=== PATIENT | female | born 1950 | race Caucasian/White ===

== ENCOUNTER 2020-03-08 14:58 | Inpatient (IN) | payer OTHER, MEDICARE ==
[~2020-03-08] VITALS: Ht 177.8 cm; Wt 178.5 kg
[~2020-03-08 14:58] MED LIST: AMIT75 PO; ASCO1ER PO; ASPI81EC PO; ATEN50 PO; BUPR100ER PO; CLOP75 PO; DOCU100 PO; ERGO50000 PO; FA-80.8 MG; FERR325 PO; FISH1000 PO; FLUT44OIA; FURO100EL PO; GABA800 PO; HYDACE5 PO; IBUP200 PO; INSU100I6; INSULANPEN SC; Lasix40 MG; METO10 PO; OMEGA 3; OXYACE5T PO; PROP PO; THIA100 PO
[2020-03-08 15:40] LABS: Base Excess Venous 6.8 mmol/L; PCO2 Venous 57.8 mmHg (38-42); pH Blood Venous 7.36 (7.34-7.37)
[2020-03-08 15:41] LABS: BASOPHILS ABSOLUTE AUTO 0.02 K/mm3 (0.00-0.23); BASOPHILS PERCENT AUTO 0 % (0-2); EOSINOPHILS ABSOLUTE AUTO 0.04 K/mm3 (0.00-0.68); EOSINOPHILS PERCENT AUTO 1 % (0-6); Hematocrit 37.1 % (33.0-51.0); IMMATURE GRAN ABSOLUTE AUTO 0.02 K/mm3 (0.00-0.10); IMMATURE GRAN PERCENT AUTO 0 % (0-1); LYMPHOCYTES ABSOLUTE AUTO 0.53 K/mm3 (0.84-5.20); LYMPHOCYTES PERCENT AUTO 7 % (21-46); MONOCYTES ABSOLUTE AUTO 0.41 K/mm3 (0.16-1.47); MONOCYTES PERCENT AUTO 5 % (4-13); Mean Corpuscular HGB 28.6 pg (26.0-34.0); Mean Corpuscular HGB Conc 29.6 g/dL (31.5-36.5); Mean Corpuscular Volume 96 fL (80-100); Mean Platelet Volume 10.2 fL (9.1-12.4); NEUTROPHILS PERCENT AUTO 87 % (41-73); Platelet Count 193 K/mm3 (150-400); RDW Coefficient Variation 14.5 % (11.7-14.2); Red Blood Cell Count 3.85 M/mm3 (3.80-5.20); White Blood Cell Count 8.02 K/mm3 (4.00-11.30)
[2020-03-08 16:32] LABS: Source, Urine Catheter
[2020-03-08 16:35] LABS: Alanine Aminotransfer (ALT/SGP 16 U/L (12-78); Albumin, Blood 3.1 g/dL (3.4-5.0); Albumin/Globulin Ratio 0.8 (0.8-1.8); Alk Phos 107 U/L (50-136); Anion Gap 4 mmol/L (6-16); Aspartate Aminotrans (AST/SGOT 21 U/L (12-37); Bilirubin, Total 0.9 mg/dL (0.1-1.0); Blood Urea Nitrogen 17 mg/dL (8-24); Bun/Creatinine Ratio 17.8 (12.0-20.0); CO2, Blood 32 mmol/L (21-32); Calcium, Blood 8.9 mg/dL (8.5-10.1); Chloride, Blood 104 mmol/L (98-108); Creatinine, Blood 0.96 mg/dL (0.40-1.00); Globulin, Blood 3.8 g/dL (2.2-4.0); Glomerular Filtration Rate >60 (60-); Glucose, Blood 187 mg/dL (70-99); Potassium, Blood 4.2 mmol/L (3.5-5.5); Sodium, Blood 140 mmol/L (136-145); Total Protein, Blood 6.9 g/dL (6.4-8.2)
[2020-03-08 16:35] LABS: Bilirubin, Urine Neg (Neg); Blood, Urine 4+ (Neg); Glucose Qualitative, Urine Neg (Neg); Ketones, Urine 3+ (Neg); Leukocyte Esterase, Urine 1+ (Neg); Nitrite, Urine Pos (Neg); Protein, Urine 2+ (Neg); Specific Gravity, Urine 1.015 (1.003-1.022); Urobilinogen, Urine 1+ (Normal)
[2020-03-08 16:38] LABS: Appearance, Urine Hazy (Clear); Color, Urine Yellow (P-Yellow)
[2020-03-08 16:49] LABS: Bacteria Many /hpf; Squamous Epithelial Cells Not Seen /hpf (Few)
[2020-03-08 16:49] LABS: Troponin I 0.846 ng/mL (0.000-0.040)
[2020-03-08] MEDS ORDERED: Coughtab200 MG PO (18:24)
[2020-03-08] MEDS ORDERED: CYCL10 PO (18:25)
[2020-03-08] MEDS ORDERED: BUPR150ER PO (18:25)
[2020-03-08] MEDS ORDERED: DOCU100 PO (18:26)
[2020-03-08] MEDS ORDERED: Furosemide80 MG PO (18:27)
[2020-03-08] MEDS ORDERED: GABAPENTIN600 MG PO ×2 (18:27→18:30)
[2020-03-08] MEDS ORDERED: METO50ER PO (18:28)
[2020-03-08] MEDS ORDERED: Hair, Skin & N1 EACH PO (18:28)
[2020-03-08] MEDS ORDERED: OMEP20ER PO (18:29)
[2020-03-08] MEDS ORDERED: FURO40 PO (18:30)
[2020-03-08] MEDS ORDERED: ATOR10 PO (18:31)
[2020-03-08] MEDS ORDERED: Aspir 8181 MG PO (18:31)
[2020-03-08] MEDS ORDERED: ACET500 PO (18:32)
[2020-03-08] MEDS ORDERED: MELA3 PO (18:33)
[2020-03-08] MEDS ORDERED: Loratadine10 MG PO (18:33)
[2020-03-08] MEDS ORDERED: LACT PO (18:33)
[2020-03-08] MEDS ORDERED: Pedi-Dri 100,0060 GM TOP (18:34)
[2020-03-08] MEDS ORDERED: MIRALAX17 GM PO (18:36)
[2020-03-08] MEDS ORDERED: POTCHL20ER PO (18:36)
[2020-03-08] MEDS ORDERED: SERT25 PO (18:37)
[2020-03-08] MEDS ORDERED: SENN187 PO (18:37)
--- NOTE | 2020-03-08 19:45 | NUR ---
PATIENT ARRIVED TO ICU 14 VIA GURNEY FROM ED PCU STATUS FOR HYPERTENSION, ELEVATED TROP I, AND AMS. PATIENT TRANSFERRED TO BED USING SLIDER SHEET AND PLACED ON ICU MONITORS PATIENT A&O X3 AND ABLE TO ANSWER ADMIT QUESTIONS, UNSURE OF ALL OF HER MEDICATIONS, BUT USES [facility]. PATIENT VERBALIZED THAT HER GRANDDAUGHTER TOLD HER THAT SHE HAS NOT TAKEN HER MEDICATIONS IN DAYS, PATIENT VERBALIZED THAT SHE DOESN'T REMEMBER. PATIENT HAS DIFFICULTY BREATHING WITH REPOSITIONING, USING OXYGEN 2L/NC DURING THE DAY AT HOME AND 3L WITH HER BIPAP FOR SLEEP. RT CALLED FOR CPAP, PATIENT REFUSING HOSPITAL BIPAP DUE TO FEELING CLAUSTROPHOBIC WITH OUR MASK, PATIENT CALLED HER GRANDDAUGHTER TO HAVE HER BRING IN HER HOME CPAP IN THE MORNING.
[2020-03-08 23:53] LABS: Anion Gap 5 mmol/L (6-16); Blood Urea Nitrogen 17 mg/dL (8-24); Bun/Creatinine Ratio 18.3 (12.0-20.0); CO2, Blood 34 mmol/L (21-32); Calcium, Blood 9.1 mg/dL (8.5-10.1); Chloride, Blood 103 mmol/L (98-108); Creatinine, Blood 0.93 mg/dL (0.40-1.00); Glomerular Filtration Rate >60 (60-); Glucose, Blood 186 mg/dL (70-99); Potassium, Blood 3.7 mmol/L (3.5-5.5); Sodium, Blood 142 mmol/L (136-145)
--- NOTE | 2020-03-09 01:00 | NUR ---
MYRANDA COMMISSIONER [employer]KS CALLED REGARDING LAB RESULTS AND FREQUENT PVC'S ON MONITOR. LOPRESSOR GIVEN, EKG DONE, HEPARIN DRIP STARTED. PATIENT RESTING QUIETLY 3L/NC AWAKENS TO SLIGHT STIMULI DENIES PAIN. PEREYRA DRAINING CLEAR YELLOW URINE, AND CONTINUES TO LEAK AROUND PEREYRA. CONTINUES TO REFUSE CPAP. PATIENT NOW ICU STATUS.
[2020-03-09 01:22] LABS: International Normalized Ratio 1.13
--- NOTE | 2020-03-09 06:11 | NUR ---
SUMMARY PATIENT CHANGED TO ICU STATUS DUE TO CONTINUED INCREASING TROP I, AND ECTOPY T/O NIGHT. PEREYRA CATH IN PLACE DRAINING CLEAR YELLOW URINE AND LEAKING URINE WITH SEVERAL SATURATED BED CHANGES. PATIENT ASSISTING WITH REPOSITIONING MUCH SHE CAN. A&O AND COOPERATIVE T/O NIGHT. PATIENT REF HOSPITAL CPAP DUE TO NOT BEING ABLE TO WEAR OUR MASK DUE TO FEELING OF CLAUSTROPHOBIA. 3L/NC IN PLACE WHILE SLEEPING, MAINTAINING BIOX >90%. HEPARIN INFUSING PER PHARMACY.
--- NOTE | 2020-03-09 08:00 | NUR ---
ASSUMED CARE BEDSIDE REPORT RECIEVED. PT IS SLEEPING AT TIME OF REPORT. PT DIFFICULT TO AROUSE. PT IS CONFUSED AND GROGGY FOR SOME TIME AFTER AWAKENING PT. PT IS ALERT AND ORIENTED AT THIS TIME. COMPLAINS OF MILD HEADACHE, DENIES CHEST PAIN OR SOB. VITAL SIGNS STABLE. PT ON 3L O2 NC. HEPARIN GTT INFUSING AT 13 UNITS/KG/HR. PEREYRA IN PLACE WITH MINIMAL AMOUNT OF CLEAR YELLOW OUTPUT NOTED. WILL CONTINUE TO MONITOR.
[2020-03-09 08:03] LABS: BASOPHILS ABSOLUTE AUTO 0.03 K/mm3 (0.00-0.23); BASOPHILS PERCENT AUTO 0 % (0-2); EOSINOPHILS ABSOLUTE AUTO 0.15 K/mm3 (0.00-0.68); EOSINOPHILS PERCENT AUTO 2 % (0-6); Hemoglobin 10.4 g/dL (11.5-16.0); IMMATURE GRAN ABSOLUTE AUTO 0.03 K/mm3 (0.00-0.10); IMMATURE GRAN PERCENT AUTO 0 % (0-1); LYMPHOCYTES PERCENT AUTO 11 % (21-46); MONOCYTES ABSOLUTE AUTO 0.58 K/mm3 (0.16-1.47); MONOCYTES PERCENT AUTO 8 % (4-13); Mean Corpuscular HGB 28.7 pg (26.0-34.0); Mean Corpuscular HGB Conc 29.7 g/dL (31.5-36.5); Mean Corpuscular Volume 97 fL (80-100); Mean Platelet Volume 10.2 fL (9.1-12.4); NEUTROPHILS ABSOLUTE AUTO 5.73 K/mm3 (1.96-9.15); NEUTROPHILS PERCENT AUTO 78 % (41-73); Platelet Count 181 K/mm3 (150-400); RDW Coefficient Variation 14.3 % (11.7-14.2); RDW Standard Deviation 50.4 fL (35.1-46.3); Red Blood Cell Count 3.62 M/mm3 (3.80-5.20); White Blood Cell Count 7.32 K/mm3 (4.00-11.30)
[2020-03-09 08:38] LABS: Albumin, Blood 2.8 g/dL (3.4-5.0); Anion Gap 4 mmol/L (6-16); Blood Urea Nitrogen 16 mg/dL (8-24); Bun/Creatinine Ratio 16.5 (12.0-20.0); CO2, Blood 36 mmol/L (21-32); Calcium, Blood 8.6 mg/dL (8.5-10.1); Chloride, Blood 103 mmol/L (98-108); Creatinine, Blood 0.97 mg/dL (0.40-1.00); Glomerular Filtration Rate >60 (60-); Glucose, Blood 176 mg/dL (70-99); Phosphorus, Blood 3.5 mg/dL (2.5-4.9); Potassium, Blood 3.5 mmol/L (3.5-5.5); Sodium, Blood 143 mmol/L (136-145)
[2020-03-09 11:45] LABS: PCO2 Arterial 69.5 mmHg (35-45); PO2 Arterial 71.3 mmHg (80-100); pH Blood Arterial 7.33 (7.35-7.45)
[2020-03-09] MEDS ORDERED: HYDHCL25 PO (13:23)
[2020-03-09] MEDS ORDERED: INSULANPEN SC (13:24)
[2020-03-09 15:13] LABS: PO2 Arterial 70.5 mmHg (80-100); pH Blood Arterial 7.38 (7.35-7.45)
--- NOTE | 2020-03-09 17:13 | NUR ---
Initial spiritual care note: Mrs. Montoya admits that she is "a little confused sometimes." She is a retired RN, and she is bothered by the fact she is not as mentally sharp as she once was. She also tells me she does not really understand what is going on with her health. She admits she has probably been told, but she cannot remember or understand. Mrs. Montoya has a strong karla and has been active in karla community. Her conservator artifacts is texting daily. She was appreciaitve of prayer and gentle spiritual direction. She respnded well to affirmation of God's love and devotion. Mrs. Montoya expects to return to baseline and home. I will remain available.
[2020-03-09 17:46] LABS: Source, Urine Catheter
--- NOTE | 2020-03-09 17:49 | NUR ---
SHIFT SUMMARY NO ACUTE CHANGES THIS SHIFT. PT HAS REMAINED AWAKE, ALERT AND ORIENTED THIS AFTERNOON. PT DIFFICULT TO AROUSE THIS AM. PT FOLLOWS COMMANDS APPROPRIATELY. FORGETFUL AT TIMES. PT HAS DENIED CHEST PAIN OR SOB TODAY. PT USED CPAP WHILE SLEEPING THIS AM FOR SOME TIME. PT ON 3L O2 NC. VITAL SIGNS HAVE REMAINED STABLE. HEPARIN GTT INFUSING AT 15 UNITS/KG/HR. PEREYRA REPLACED WITH 18FR, NO LEAKING NOTED AT THIS TIME, DRAINING CLEAR YELLOW URINE. PT TAKING PO INTAKE WELL. WILL CONTINUE TO MONITOR AND REPORT OFF TO ONCOMING RN.
[2020-03-09 17:50] LABS: Bilirubin, Urine Neg (Neg); Blood, Urine Neg (Neg); Glucose Qualitative, Urine Neg (Neg); Ketones, Urine Neg (Neg); Leukocyte Esterase, Urine Neg (Neg); Nitrite, Urine Neg (Neg); Protein, Urine Neg (Neg); Specific Gravity, Urine 1.005 (1.003-1.022); Urobilinogen, Urine NORM (Normal)
[2020-03-09 17:51] LABS: Appearance, Urine Clear (Clear); Color, Urine Yellow (P-Yellow)
--- NOTE | 2020-03-09 22:32 | NUR ---
PATIENT RESTING IN BED VISITING WITH FAMILY ON PHONE. A&O X3. PATIENT ASSISTING WITH REPOSITIONING IN BED AND WITH HS CARE. PEREYRA NO LONGER LEAKING AFTER BEING REPLACED. EDGARDO PO WITHOUT DIFFICULTY. MONITOR CONTINUES TO SHOW AFIB WITH CONTROLLED RATE. HEPARIN DRIP CONTINUES.
[2020-03-10 03:28] LABS: BASOPHILS ABSOLUTE AUTO 0.04 K/mm3 (0.00-0.23); BASOPHILS PERCENT AUTO 1 % (0-2); EOSINOPHILS ABSOLUTE AUTO 0.21 K/mm3 (0.00-0.68); EOSINOPHILS PERCENT AUTO 3 % (0-6); Hematocrit 36.5 % (33.0-51.0); Hemoglobin 10.6 g/dL (11.5-16.0); IMMATURE GRAN ABSOLUTE AUTO 0.03 K/mm3 (0.00-0.10); IMMATURE GRAN PERCENT AUTO 0 % (0-1); LYMPHOCYTES ABSOLUTE AUTO 0.73 K/mm3 (0.84-5.20); LYMPHOCYTES PERCENT AUTO 10 % (21-46); MONOCYTES ABSOLUTE AUTO 0.62 K/mm3 (0.16-1.47); MONOCYTES PERCENT AUTO 8 % (4-13); Mean Corpuscular HGB 28.1 pg (26.0-34.0); Mean Corpuscular Volume 97 fL (80-100); Mean Platelet Volume 10.4 fL (9.1-12.4); NEUTROPHILS ABSOLUTE AUTO 5.74 K/mm3 (1.96-9.15); NEUTROPHILS PERCENT AUTO 78 % (41-73); Platelet Count 170 K/mm3 (150-400); RDW Coefficient Variation 14.4 % (11.7-14.2); RDW Standard Deviation 51.5 fL (35.1-46.3); Red Blood Cell Count 3.77 M/mm3 (3.80-5.20); White Blood Cell Count 7.37 K/mm3 (4.00-11.30)
[2020-03-10 03:47] LABS: Albumin, Blood 2.8 g/dL (3.4-5.0); Albumin/Globulin Ratio 0.8 (0.8-1.8); Bilirubin, Total 0.4 mg/dL (0.1-1.0); Bun/Creatinine Ratio 15.3 (12.0-20.0); Calcium, Blood 8.4 mg/dL (8.5-10.1); Creatinine, Blood 1.11 mg/dL (0.40-1.00); Globulin, Blood 3.6 g/dL (2.2-4.0); Potassium, Blood 3.8 mmol/L (3.5-5.5); Total Protein, Blood 6.4 g/dL (6.4-8.2)
--- NOTE | 2020-03-10 05:35 | NUR ---
SUMMARY PATIENT SLEEPING MOST OF THE NIGHT WITH CPAP IN PLACE WITH 3L BLEED IN. ON 3L/NC WHEN OFF CPAP. MONITOR CONTINUES TO SHOW AFIB WITH OCCASIONAL PVC, AT A RATE 80-110'S. PATIENT AWAKENS EASILY TO SLIGHT STIMULI FALLING BACK TO SLEEP WHEN UNDISTURBED. PATIENT NOT COMFORTABLE TO LAY UP ON HER SIDE, SHIFTING POSITIONS T/O NIGHT AND PATIENT ABLE TO ASSIST WITH REPOSITIONING IN BED. HEPARIN DRIP CONTINUING PER PHARMACY
--- NOTE | 2020-03-10 07:14 | NUR ---
PATIENT WOKE UP WITH PAIN TO HER BACK FROM HIPS TO SHOULDERS, ATTEMPT TO REPOSITION AND TYLENOL GIVEN, PATIENT VERBALIZED LAYING ON HER SIDE MADE PAIN INCREASE AND SHE BECAME NAUSEATED. ZOFRAN IV GIVEN AND DOCTOR RANDY CALLED, TRAMADOL PO GIVEN AND PATIENT REPOSITIONED AGAIN. NO CHANGES SEEN TO HEART MONITOR PATIENT ON 4L/NC.
--- NOTE | 2020-03-10 07:30 | NUR ---
ASSUMED CARE RECEIVED REPORT FROM RASHIDA Montelongo RN. PT LYING IN BED ALERT AND ORIENTED TO SELF, SITUATION, AND PLACE. SHE IS ON 4L NC. SHE IS IN AFIB RATE 100-115, STABLE BP. SHE COMPLAINS OF PAIN IN HER BACK (RIGHT SIDE). SHE IS SLIGHTLY COOL AND CLAMMY, DIAPHORETIC. SHE HAS HEPARIN INFUSING AT 16 UNITS/KG/HOUR, 113 KG DOSING WEIGHT, 36.2 ML/HR. VERIFIED WITH ORDERS AND RASHIDA Montelongo BED LOW AND LOCKED. CALL LIGHT WITHIN REACH.
[2020-03-10 08:30] LABS: Hematocrit 32.2 % (33.0-51.0); Hemoglobin 9.4 g/dL (11.5-16.0)
[2020-03-10 09:22] LABS: Bicarbonate Venous 31.8 mmol/L (24.0-30.0); PCO2 Venous 65.7 mmHg (38-42); PO2 Venous 33.1 mmHg (38-42); pH Blood Venous 7.34 (7.34-7.37)
[2020-03-10 09:52] LABS: Bun/Creatinine Ratio 13.4 (12.0-20.0); Calcium, Blood 7.8 mg/dL (8.5-10.1); Creatinine, Blood 1.34 mg/dL (0.40-1.00); Potassium, Blood 4.4 mmol/L (3.5-5.5)
[2020-03-10 10:05] LABS: BASOPHILS ABSOLUTE AUTO 0.06 K/mm3 (0.00-0.23); BASOPHILS PERCENT AUTO 1 % (0-2); EOSINOPHILS ABSOLUTE AUTO 0.15 K/mm3 (0.00-0.68); EOSINOPHILS PERCENT AUTO 1 % (0-6); Hematocrit 29.9 % (33.0-51.0); Hemoglobin 8.5 g/dL (11.5-16.0); IMMATURE GRAN ABSOLUTE AUTO 0.07 K/mm3 (0.00-0.10); IMMATURE GRAN PERCENT AUTO 1 % (0-1); LYMPHOCYTES ABSOLUTE AUTO 1.41 K/mm3 (0.84-5.20); LYMPHOCYTES PERCENT AUTO 11 % (21-46); MONOCYTES ABSOLUTE AUTO 0.79 K/mm3 (0.16-1.47); MONOCYTES PERCENT AUTO 6 % (4-13); Mean Corpuscular HGB 28.3 pg (26.0-34.0); Mean Corpuscular HGB Conc 28.4 g/dL (31.5-36.5); Mean Platelet Volume 10.8 fL (9.1-12.4); NEUTROPHILS ABSOLUTE AUTO 10.17 K/mm3 (1.96-9.15); NEUTROPHILS PERCENT AUTO 80 % (41-73); Platelet Count 347 K/mm3 (150-400); RDW Coefficient Variation 14.6 % (11.7-14.2); RDW Standard Deviation 52.4 fL (35.1-46.3); White Blood Cell Count 12.65 K/mm3 (4.00-11.30)
[2020-03-10 10:08] LABS: Mean Corpuscular Volume 100 fL (80-100)
--- NOTE | 2020-03-10 11:00 | NUR ---
PT PLACED ON NON-REBREATHER MASK, 6L FROM ~[id number]. THEN PUT BACK ON 4-5L NC.
[2020-03-10 13:05] LABS: Hematocrit 30.1 % (33.0-51.0)
[2020-03-10 14:06] LABS: Hematocrit 29.5 % (33.0-51.0); Hemoglobin 8.7 g/dL (11.5-16.0)
--- NOTE | 2020-03-10 14:30 | NUR ---
PT PUT ON CPAP PER RT. SEE RT'S CHARTING FOR PRESSURES.
--- NOTE | 2020-03-10 15:57 | NUR ---
pt seen intesivit at beds side will be available for family support
[2020-03-10 16:01] LABS: Base Excess Venous 0.7 mmol/L; Bicarbonate Venous 23.9 mmol/L (24.0-30.0); PCO2 Venous 70.6 mmHg (38-42); PO2 Venous 57.2 mmHg (38-42); pH Blood Venous 7.21 (7.34-7.37)
--- NOTE | 2020-03-10 16:06 | NUR ---
PT VERBALLY DESIGNATES BROTHER, LINDSEY, PERSON TO MAKE DECISIONS FOR HER IF SHE BECOMES UNABLE.
[2020-03-10 17:19] LABS: Base Excess Venous 0.1 mmol/L; Bicarbonate Venous 22.8 mmol/L (24.0-30.0); PCO2 Venous 66.9 mmHg (38-42); PO2 Venous 30.9 mmHg (38-42); pH Blood Venous 7.23 (7.34-7.37)
--- NOTE | 2020-03-10 17:55 | NUR ---
SHIFT SUMMARY/MAJOR EVENTS PT HAD MANY THINGS HAPPEN TODAY. 0630 - PT WOKE UP STATING SHE HAD PAIN IN HER BACK, ON THE RIGHT SIDE FROM HIP TO SHOULDER. 8/10, SHARP PAIN. SHE WAS DIAPHORETIC WELL. 0730 - LEO CALLED, ORDERED: EKG, + LABS [facility]ENRY STAT (INCLUDING TROPONIN, AND LACTIC ACID). 0807 - PT BECAME HYPOTENSIVE, 74/38, 50. PT REMAINED A+O X 3, NO CHANGES TO MENTATION OCCURED. 0815 - 0.9NS BOLUS INFUSING (TOTAL 750cc). 0830 - DR SAN AND DR BAILEY IN ROOM. CRITICAL CARE (DR. SAUNDERS) CONSULTED. LEVOPHED ORDERED. (SEE FLOWSHEET FOR TITRATIONS AND TIMES). PE IS SUSPECTED AT FIRST. HEPARIN REMAINS ON PER DR. BAILEY. SOLU-CORTEF AND BENADRYL GIVEN FOR CONTRAST ALLERGY PROPHYLAXIS. PT NEEDS CT IMAGING. BP RESPONSIVE TO FLUID. 0900 - PT REMAINS HYPOTENSIVE AND TACHYCARDIC WITH SEVERE PAIN IN SAME PLACE. HEPARIN TURNED OFF, BECAUSE PT IS PRESENTING LIKE SHE IS BLEEDING. 0940 -1007: PT WENT TO GET CT SCANS; NO COMPLICATIONS. CT SCANS SHOWED PT HAD NO PE, BUT HAD RETROPERITONEAL BLEEDING FROM RIGHT KIDNEY. FRANKIE WAS CONSULTED. INCREASED DOSE OF LEVOPHED NEEDED. 1200: VASOPRESSIN ADDED D/T CONTINUED HYPOTENSION. [id number]: PT IN PACKAGING MATERIALS INSPECTOR UNDERGOING PROCEDURE, WHERE SHE RECEIVED 4 COILS IN HER RENAL ARTERIES. SHE CAME BACK TO ICU WITH RIJ CVC, AND AN ANGIOSEAL TO RIGHT FEMORAL ARTERY. RIGHT LEG WAS SIGNIFICANTLY MORE COOL THAN LEFT LEG; NICKY AWARE. PT IS ALSO OLIGURIC, NICKY AWARE. FROM THIS POINT ON WE COULDN'T GET MEASURABLE BP'S, EITHER FROM [facility] OR THE MONITOR. DR. SAUNDERS GOT A LEFT RAD ART LINE WHICH HAD DAMPENED WAVEFORMS, AND THEN IT GOT PULLED OUT AROUND 1530. AT 1745 DR. DAVID INSERTED A ART LINE IN THE RIGHT FEM ARTERY. THERE WAS SEVERAL ATTEMPTS BY MULTIPLE PHYSICIANS BEFORE THAT. PT'S MENTATION REMAINED CONSTANT A&OX3, PT'S EXTREMETIES WERE COOL (RIGHT LEG WORSE). OLIGURIC. EDEMA. EPI WAS HUNG, BUT NOW IS TURNED OFF. CURRENT GTTPS: VASOPRESSIN @ 0.04 UNITS/MIN, AND LEVOPHED AT MCG/KG/MIN. RIGHT FEM ART LINE - SHOWING DECENT, CONSISTENT WAVE FORMS. RIGHT IJ CVC IS WNL. IO, RIGHT HAND IV, AND LEFT UA PICC LINE - WERE ALL REMOVED TODAY WHEN PT CAME BACK WITH RIJ CVC FROM PACKAGING MATERIALS INSPECTOR. PT WAS PLACED ON A BIPAP (ATELECTASIS IN CT SCAN). SHE IS CURRENTLY IN AFIB WITH A RATE OF 120'S. MAP > 65. SHE DENIES PAIN, AND NAUSEA. SHE IS STILL COOL, AND SLIGHTLY CLAMMY (NOT BAD THIS MORNING). SHE IS STILL A&OX3. HER GRANDAUGHTER AND BROTHER HAVE BEEN INFORMED OF TODAY'S EVENTS. SHE GOT 4 UNITS OF PRBCs AND 2 UNITS OF FFP TOTAL TODAY. HER HGB HAS STABALIZED AND IS TRENDING UPWARDS. LACTIC ACID IS INCREASING STILL, NOW AT 7.0 FROM 6.2 (FROM 6.6). TROPONIN DRAWN THIS MORNING PRIOR TO TODAY'S EVENTS WAS ALREADY TRENDING DOWNWARD. SHE WISHES TO BE A FULL CODE, AND HAVE FULL MEASURES DONE. FAMILY AGREES. NO NEED FOR INTUBATION OF YET, SHE IS SAT'ING IN THE 90'S ON BIPAP. SHE IS TACHYPNEIC, HOWEVER, IN THE MID 20'S. SHE APPEARS TO HAVE SOME FLUID OVERLOAD, YET IS STILL OLIGURIC. NICKY AWARE. BED LOW AND LOCKED. CALL LIGHT WITHIN REACH.
[2020-03-10 18:46] LABS: Hematocrit 35.7 % (33.0-51.0); Hemoglobin 11.2 g/dL (11.5-16.0)
--- NOTE | 2020-03-10 21:00 | NUR ---
ASSUMED PT CARE FROM JORGE COLLAZO AT 1915 BEDSIDE REPORT GIVEN. PT IS ALERT AND ORIENTED AND FOLLOWING COMMANDS APPROPRIATELY. BIPAP 22/15; FIO2 25%; BIOX MID 90'S. ARTERIAL LINE NOTED TO RIGHT FEMORAL SITE WITH NO OOZING OR HEMATOMA NOTED TO ANGIOSEAL DEVICE PROXIMAL TO ARTERIAL LINE S/P RENAL COILING. PRESSURES STABLE AT THIS TIME WITH LEVOPHED AT 23MCG/MIN AND VASOPRESSIN 0.04 UNITS/MIN; SEE FLOWSHEET FOR VS. AFIB WITH HR 120'S. CENTRAL LINE TO RIGHT IJ; INFUSING. OOZING NOTED TO FAILED SITE ON LEFT GROIN; MODERATE AMOUNTS OF SANGUINEOUS DRAINAGE. PT CLEANED AND LINEN CHANGE PERFORMED; SITE CLEANSED WITH CHLORA PREP AND CARY DRESSING PLACED. PT IS VERY COLD TO THE TOUCH AND VERY PALE. LEFT LOWER EXTREMITY APPEARS TO BE MORE SWOLLEN THAN RIGHT; NON-PITTING. GENERALIZED EDEMA ELSEWHERE. OVERALL SKIN IS CDI WITH SCATTERED BRUISING AND RED AREAS TO FOLDS. CALL LIGHT WITHIN REACH; PT ABLE TO MAKE NEEDS KNOWN.
--- NOTE | 2020-03-11 | NUR ---
REASSESSMENT PT C/O 02/12 PAIN TO RIGHT BACKSIDE. MEDICATED WITH PO TYLENOL PT WAS ABLE TO SWALLOW THIN LIQUIDS ADEQUATELY. SHORTLY AFTER ADMINISTRATION OF TYLENOL PT C/O NAUSEA. MEDICATED WITH ZOFRAN PER ORDERS; UNEFFECTIVE. HOB ELEVATED, COOL CLOTHS WITH FAN PROVIDED, AND SUCTION PROVIDED. PT HAD ONE EPISODE OF LIQUID GREEN BILE, 100CC. CALLED DR. SAUNDERS; NEW ORDERS FOR FENTNAYL 12.5-25MG IV Q4PRN, REGLAN 5MG IV Q6PRN, AND COMPAZINE 5MG Q6PRN IF REGLAN WAS UNEFFECTIVE. REGLAN WAS UNEFFECTIVE; THEREFORE, ADMINISTERED COMPAZINE WITHOUT ANY EFFECT ALSO. PT MEDICATED WITH 12.5MG OF FENTANYL THAT WAS UNEFFECTIVE; THEREFORE, ADMINISTERED OTHER 12.5MG. PT BECAME DROWSY AND FELL ASLEEP. EASILY AWAKENS; HOWEVER WHEN ASKED IF SHE WAS ABLE TO GO BACK ON BIPAP; SHE STATED SHE STILL FELT NAUSEAS. THEREFORE, REMAINED ON 3L VIA NC.
[2020-03-11 00:20] LABS: Hematocrit 33.4 % (33.0-51.0); Hemoglobin 10.3 g/dL (11.5-16.0)
[2020-03-11 03:39] LABS: BASOPHILS PERCENT AUTO 0 % (0-2); EOSINOPHILS PERCENT AUTO 0 % (0-6); Hematocrit 32.2 % (33.0-51.0); IMMATURE GRAN ABSOLUTE AUTO 0.99 K/mm3 (0.00-0.10); IMMATURE GRAN PERCENT AUTO 3 % (0-1); LYMPHOCYTES ABSOLUTE AUTO 2.07 K/mm3 (0.84-5.20); LYMPHOCYTES PERCENT AUTO 6 % (21-46); MONOCYTES ABSOLUTE AUTO 1.84 K/mm3 (0.16-1.47); MONOCYTES PERCENT AUTO 5 % (4-13); Mean Corpuscular HGB 29.4 pg (26.0-34.0); Mean Corpuscular HGB Conc 31.1 g/dL (31.5-36.5); Mean Platelet Volume 11.2 fL (9.1-12.4); NEUTROPHILS ABSOLUTE AUTO 32.38 K/mm3 (1.96-9.15); NEUTROPHILS PERCENT AUTO 87 % (41-73); NRBC ABSOLUTE 0.33 K/mm3 (0.00-0.02); NRBC Auto 0.9 /100 WBC (0.0-0.2); Platelet Count 245 K/mm3 (150-400); RDW Coefficient Variation 15.1 % (11.7-14.2); RDW Standard Deviation 51.2 fL (35.1-46.3); White Blood Cell Count 37.38 K/mm3 (4.00-11.30)
[2020-03-11 03:41] LABS: Mean Corpuscular Volume 95 fL (80-100)
[2020-03-11 04:01] LABS: Albumin, Blood 2.4 g/dL (3.4-5.0); Albumin/Globulin Ratio 0.8 (0.8-1.8); Alk Phos 128 U/L (50-136); Anion Gap 17 mmol/L (6-16); Bilirubin, Total 1.5 mg/dL (0.1-1.0); Blood Urea Nitrogen 30 mg/dL (8-24); Bun/Creatinine Ratio 13.5 (12.0-20.0); CO2, Blood 23 mmol/L (21-32); Calcium, Blood 7.5 mg/dL (8.5-10.1); Chloride, Blood 97 mmol/L (98-108); Creatinine, Blood 2.22 mg/dL (0.40-1.00); Globulin, Blood 3.1 g/dL (2.2-4.0); Glomerular Filtration Rate 23 (60-); Glucose, Blood 265 mg/dL (70-99); Magnesium, Blood 2.1 mg/dL (1.6-2.4); Potassium, Blood 5.6 mmol/L (3.5-5.5); Sodium, Blood 137 mmol/L (136-145); Total Protein, Blood 5.5 g/dL (6.4-8.2); Vancomycin, Random 26.6 ug/mL
[2020-03-11 04:21] LABS: Alanine Aminotransfer (ALT/SGP 2842 U/L (12-78); Aspartate Aminotrans (AST/SGOT 5262 U/L (12-37)
[2020-03-11 04:22] LABS: Phosphorus, Blood 9.1 mg/dL (2.5-4.9)
[2020-03-11 04:41] LABS: PCO2 Arterial 54.8 mmHg (35-45); pH Blood Arterial 7.21 (7.35-7.45)
[2020-03-11 04:42] LABS: PO2 Arterial 67.5 mmHg (80-100)
--- NOTE | 2020-03-11 05:37 | NUR ---
END OF SHIFT SUMMARY SINCE LAST ENTRY NOTE PT HAS BEEN BACK ON BIPAP SINCE ABOUT 0330; PRESSURE 22/15; FIO2 25%. BIOX LOW TO MID 90'S. REMAINS ALERT AND ORIENTED AND ABLE TO COMMUNICATE NEEDS. DENIES ANY N/V AT THIS TIME. DENIES ANY CHEST PAIN. NO MORE EPISODES OF VOMITING. HOWEVER, PT OCCASIONALLY BELCHES. ONLY COMPLAINT IS MILD RIGHT SIDED BACK PAIN, WHICH SHE WAS MEDICATED FOR WITH FENTANYL PRIOR IN SHIFT. AFIB WITH HR 110-120'S. BP'S STABLE WITH LEVOPHED GTT AT 25MCG/MIN AND VASOPRESSIN AT 0.04 UNITS/MIN. CRITICAL LAB RESULTS CALLED TO DR. SAUNDERS THIS AM WITH ORDERS TO BOLUS 500CC OF NS, START SODIUM BICARB 150 MEQ'S AT 75MLS/HR, AND CONSULT FOR NEPHROLOGY. CONSULT CALLED TO DR. PURCELL WITH AN UPDATE REGARDING PT'S LABS AND CONDITION. NEW ORDERS FOR STAT CHEM 8 PANEL. PEREYRA CATH PATENT AND DRAINED 150CC TO GRAVITY THIS SHIFT; DARK KARI IN COLOR. ARTERIAL LINE TO RIGHT FEMORAL SITE; DRESSING CHANGED THIS SHIFT. CENTRAL LINE TO RIGHT IJ; DRESSING ALSO CHANGED THIS SHIFT. PT REMAINS PALE AND COOL TO THE TOUCH; HGB AND HCT HAVE BEEN STABLE WITH EVERY 6 HOURS H&H CHECKS. PT CONCERNED THAT HER GRANDDAUGHTER HASN'T BEEN UPDATED. WHEN ASKED IF SHE WOULD LIKE ME TO CALL HER FOR AN UPDATE, SHE STATED "NOT THIS LATE." HOWEVER, PT WOULD LIKE DAY SHIFT RN TO CALL AND UPDATE FAMILY. CALL LIGHT LEFT WITHIN REACH AND PT IS ABLE TO UTILIZE APPROPRIATELY. WILL CONTINUE TO MONITOR UNTIL REPORT IS HANDED OFF TO ONCOMING RN.
[2020-03-11 06:02] LABS: Hematocrit 30.2 % (33.0-51.0); Hemoglobin 9.6 g/dL (11.5-16.0)
[2020-03-11 06:15] LABS: Bun/Creatinine Ratio 13.4 (12.0-20.0); Calcium, Blood 7.2 mg/dL (8.5-10.1); Creatinine, Blood 2.31 mg/dL (0.40-1.00); Potassium, Blood 5.2 mmol/L (3.5-5.5)
--- NOTE | 2020-03-11 07:20 | NUR ---
ASSUMED CARE RECEIVED REPORT FROM JORGE BABCOCK. PT IS LYING IN BED ON BIPAP , 25% - SAT'ING 94%. CURRENT GTTPs: BICARBONATE 75 ML/HR, VASOPRESSIN 0.04 UNITS/MIN, LEVOPHED 20 UNITS/KG/MIN (TITRATED DOWN TO 18 UNITS/KG/MIN BY ME) AND NS TKO. SHE HAS A RIGHT FEM ART LINE THAT HAS BEEN ZEROED - SITE LOOKS WNL, SOFT, NONTENDER, NO SIGNS OF HEMATOMA FORMATION, AND RIGHT IJ CVC SITE LOOKS WNL. PT IS IN AFIB RATE 108-120's. MAP 80's. RR 24. BED IS LOW AND LOCKED. CALL LIGHT WITHIN REACH.
--- NOTE | 2020-03-11 10:55 | NUR ---
Met with Emma in ICU room 14 this morning. Pt just had an NG tube placed prior to my arrival. She was off of the bipap during my visit and is alert and oriented. Emma has a history of CHF, statis dermatitis, neuropathy, DVT, PTSD, depression, HTN, osteoporsis, and is currently having acute kidney failure. She was admitted on 03/08/20. She has had a difficult last day or so and has been quite ill. Nursing reports that Emma would like to be a full code and continue with full treatments at this time. Emma reports to me that she would like to have CPR "If you think I can be saved." Explained that we can attempt CPR however we cannot guarantee that she would survive or not have some deficits. She confirmed she would like CPR and would accept being on a ventilator short term if necessary, however she would not want to be on a meterman ventilator with a trach. Emma stated "I don't want to . I know when it's my time I will just sleep until Kali comes, but I'm not ready yet." Offered emotional support. Emma states that she lives with her granddaughter, Naren and her two great grandchildren. She is their for them and worries about them should something happen to them. She tells this promotion writer that her brother, Jaydon, is her alternate health care decision maker and she gives verbal consent for me to contact both Naren and Jaydon to give them updates. Spoke with Jaydon and Naren this morning. Updates given and questions answered. They will both plan to be here at [facility] at 1:30 pm for a family meeting and visit with Emma. Notified Bang, bedside RN, of the plan. Will plan to meet with pt and family and RN at 1:30 today.
--- NOTE | 2020-03-11 11:17 | NUR ---
UPDATE 1000 - INSERTED 16 FR NG TUBE IN RIGHT NARE. SLIGHTLY DIFFICULT, BUT SHE TOLERATED IT WELL. HOOKED IT UP TO LIS. PT WAS PUT ON 5L NC. 1035 - PT TRANSPORTED TO CT FOR KUB SCAN W/O CONTRAST. NG SUCTION ON PAUSE (MEDS GIVEN JUST PRIOR TO DEPARTURE, WILL LEAVE SUCTION OFF FOR AT LEAST 30M TO 1H). PT REMAINS ON 5L NC, TOLERATING IT WELL. SAT'S LOW 90'S. 1105 - PT BACK IN ICU AND HOOKED BACK UP TO ICU MONITORING. NG SUCTION BACK ON LIS. SHE REMAINS ON 5L NC.
[2020-03-11 12:07] LABS: PCO2 Arterial 51.4 mmHg (35-45); PO2 Arterial 59.1 mmHg (80-100)
[2020-03-11 12:08] LABS: pH Blood Arterial 7.25 (7.35-7.45)
[2020-03-11 12:16] LABS: Hematocrit 27.4 % (33.0-51.0); Hemoglobin 8.7 g/dL (11.5-16.0)
[2020-03-11 12:21] LABS: Bun/Creatinine Ratio 14.1 (12.0-20.0); Calcium, Blood 7.5 mg/dL (8.5-10.1); Creatinine, Blood 2.48 mg/dL (0.40-1.00); Potassium, Blood 5.2 mmol/L (3.5-5.5)
[2020-03-11 12:32] LABS: Troponin I 1.85 ng/mL (0.000-0.040)
--- NOTE | 2020-03-11 13:42 | NUR ---
UPDATE 1206 - PT WAS PLACED BACK ON BIPAP DUE TO THE FACT I WAS NOT GETTING A GOOD PULSE OX READING FOR SOMETIME, SHE WAS MILDLY TACHYPNEIC. I PLACED A FOREHEAD PROBE ON HER; WHICH WILL NEED TO BE ROTATED AROUND 1600 (Q4H). 1300 - GAVE PATIENT A BATH, AND REPOSITIONED HER. PT TOLERATED THAT WELL. 1330 - PLACED PT ON 5L NC, GRANDDAUGHTER AND BROUTHER ARE VISITING. WILL PUT HER BACK ON BIPAP AFTER VISIT. SHE IS SLIGHTLY TACHYPNEIC, BUT STATES SHE FEELS FINE WITH HER BREATHING. PALLIATIVE CARE AND DR SAUNDERS ARE IN ROOM DISCUSSING PLAN OF CARE WITH PATIENT. I HAVE BEEN TITRATING LEVOPHED TRYING TO MAINTAIN A MAP >/= 60 AND A SBP >/= 90. CURRENTLY ON 18 MCG/MIN. VASOPRESSIN REMAINS ON AT 0.04 UNITS/MIN. IT HAS BEEN DIFFICULT. SHE IS VERY RESPONSIVE TO A CHANGE OF JUST +/- 0.2 MCG/MIN.
--- NOTE | 2020-03-11 14:25 | NUR ---
Met with Jaydon Carter, Naren and Dr. Apodaca in room ICU 14. Dr. Apodaca explained to family current situation and current therapies that are ongoing. Plan is to place a temporary HD catheter as pt will be needing HD. Family and Emma had their questions answered by Dr. Apodaca and nursing. Emotional support given to pt and family. Emma had increased work of breathing toward the end of the visit. Bipap was placed back on pt per nursing once family left room. Jaydon states that he understands how ill his sister is. He asked pt questions re: a will. He reports that he wants to make sure he is respecting her choices. Jaydon provided a copy of pt's AD to nursing which was placed on pt's chart. Naren is hopeful for a recovery and looking forward to her grandmother coming home. Gently reminded her that her grandmother is very ill and that staff are doing all that they can for her at this time. Naren is worried that she cannot braid her grandmother's hair. Gently offered to have GLUE MACHINE OPERATOR assist with hair care once pt has a chance to go bnack on the bipap awhile and breath easier. BENNIE Jean, reports that she will assist with hair care at a better time for the pt. Allowed family some alone time during visit. PC will remain available. Encouraged family members to call in to check in on Emma for updates. Emma reports that she is okay with her family getting updates over the phone.
[2020-03-11 14:44] LABS: Albumin, Blood 2.3 g/dL (3.4-5.0); Anion Gap 15 mmol/L (6-16); Blood Urea Nitrogen 36 mg/dL (8-24); Bun/Creatinine Ratio 14.3 (12.0-20.0); CO2, Blood 24 mmol/L (21-32); Calcium, Blood 7.3 mg/dL (8.5-10.1); Chloride, Blood 95 mmol/L (98-108); Creatinine, Blood 2.51 mg/dL (0.40-1.00); Glomerular Filtration Rate 20 (60-); Glucose, Blood 281 mg/dL (70-99); Sodium, Blood 134 mmol/L (136-145)
[2020-03-11 15:19] LABS: Phosphorus, Blood 8.7 mg/dL (2.5-4.9)
--- NOTE | 2020-03-11 18:19 | NUR ---
UPDATE AT 181 WE TRANSFERRED THE PATIENT TO ROOM 13 TO ALLOW ROOM FOR DIALYSIS WHICH IS SCHEDULED FOR THIS EVENING. BINH AGREED WITH NICKY TO DO DIALYSIS EMERGENTLY AFTER IMPLENTATION OF LEFT IJ DIALYSIS CATHETER.
--- NOTE | 2020-03-11 18:31 | NUR ---
SHIFT SUMMARY PT ENDS SHIFT IN ROOM ICU 13 ON BIPAP. CURRENT GTTPS: VASOPRESSIN AT 0.04 UNITS/MIN, AND LEVOPHED AT 23 MCG/MIN. RIGHT FEMORAL ART LINE REMAINS TO SHOW GOOD WAVEFORMS; NICKY MENTIONED TO TITRATE PRESSORS TO KEEP SBP > OR EQUAL TO 90 AND MAP > OR EQUAL TO 60. SHE GOT A LEFT IJ TRIALYSIS CATH FOR DIALYSIS TONIGHT. HER LACTIC ACID REMAINS ELEVATED. HER GRANDDAUGHTER AND BROTHER CAME AND VISTED WITH PT, ALONG WITH HAD A MEETING WITH PALLIATIVE CARE, ROMEL PATEL AND DR. SAUNDERS. THEY ARE UPDATED AND UNDERSTANDING OF CURRENT PLAN OF CARE AND THE SEVERITY OF THE ILLNESS. SHE IS CURRENTLY SLEEPING ON BIPAP AND DENIES PAIN, NAUSEA AND DIFFICULTY BREATHING.
--- NOTE | 2020-03-11 20:53 | NUR ---
NON-ROUTINE HOURS HEMODIALYSIS TREATMENT ORDERED FOR ICU PATIEN. FIRST RUN DIALYSIS. CONSENT OBTAINED FROM PATIENT. NEW L IJ CVC PLACED EARLIER TODAY. PLACEMENT CONFIRMED BY XRAY. MACHINE SETUP, PRIMED AND TESTED. UNABLE TO ASPIRATE FROM EITHER PORT EASILY. PORTS FLUSHED WITH SALINE WITH SOME DIFFICULTY. FINALLY ABLE TO ASPIRATE 15 ML BLOOD FROM ART PORT FOR NEEDED HEPATITIS PROFILE BUT NEITHER PORT ABLE TO PROVIDE ADEQUATE FLOW FOR DIALYSIS. DR SAUNDERS NOTIFIED OF UNUSABLE CVC AN SHE REQUESTED A DECLOT PROCEDURE UTILIZING ACTVASE 2MG TO EACH PORT. ACIVASE INSTLLED IN EACH PORT AT 2050 AND DWELL FOR 40 MIN COMMENCED.
--- NOTE | 2020-03-11 21:00 | NUR ---
ASSUMED PT CARE FROM JORGE COLLAZO AT 1915 PT RESTING IN A BARIATRIC BED COMFORTABLY. BIPAP IN PLACE WITH PRESSURES 22/15; FIO2 45%. PT REMAINS ALERT AND ORIENTED AND ABLE TO MAKE BASIC NEEDS KNOWN. DENIES ANY PAIN OR N/V AT THIS TIME. ARTERIAL LINE NOTED TO RIGHT FEMORAL SITE; LEVOPHED GTT AT 20MCG/SAIMA AND VASOPRESSIN REMAINS ON AT 0.04 UNITS/MIN. BP'S STABLE; SEE FLOWSHEET. CENTRAL LINE TO RIGHT IJ; PATENT. HEMODIALYSIS CATHETER NOTED TO LEFT IJ; DRESSING CDI. NG TUBE IS HOOKED TO LOW INTERMITTENT SUCTION WITH SMALL AMOUNTS OF BILE NOTED. PT IS CURRENTLY NPO; THEREFORE, CALLED DR. PURCELL IN REGARDS TO ACETYLCYSTEINE ORDERS IN WHICH HE STATED TO GIVE PER TUBE. ALSO CALLED DR. SAUNDERS TO SEE IF SHE WAS OKAY WITH GIVING HS MEDS PER TUBE WELL. EMAR UPDATED. DR. SAUNDERS ALSO GAVE ORDERS THAT RT COULD TITRATE DOWN BIPAP PRESSURES LONG MINUTE VENTILATION REMAINED ADEQUATE. PEREYRA CATHETER IS PATENT AND DRAINING SCANT AMOUNTS OF URINE TO GRAVITY. PT IS SCHEDULED TO HAVE DIALYSIS LATER THIS SHIFT. DR. SAUNDERS WANTS LABS DRAWN TWO HOURS POST DIALYSIS TREATMENT; DR. SAUNDERS TO ENTER ORDERS. CALL LIGHT WITHIN REACH; PT ABLE TO MAKE NEEDS KNOWN.
--- NOTE | 2020-03-11 21:41 | NUR ---
UNABLE TO OBTAIN BRISK RETURN FROM PORTS WHEN ASPITATION OF ACTIVASE ATEMPTED AT 2134. DR SAUNDERS CONTACTED AND SHE WILL RETURN TO ADJUST OR REPLACE CATHETER TONIGHT.
--- NOTE | 2020-03-11 21:42 | NUR ---
UPDATE CALL OUT TO DR. SAUNDERS IN REGARDS TO DIALYSIS CATHETER NOT DRAWING BLOOD; ATTEMPTED TPA PER ORDERS. HOWEVER, THAT WAS UNSUCCESSFUL. DR. SAUNDERS STATED SHE WOULD BE IN TO REPLACE CATHETER IN ORDER FOR PATIENT TO RECEIVE DIALYSIS TONIGHT.
[2020-03-11 22:41] LABS: PCO2 Arterial 25.6 mmHg (35-45); PO2 Arterial 42.3 mmHg (80-100); pH Blood Arterial 7.27 (7.35-7.45)
--- NOTE | 2020-03-11 23:00 | NUR ---
CHANGE IN CONDITION AFTER DR. SAUNDERS CHANGED OUT HD CATH A STAT CXR WAS ORDERED WHICH DEMONSTRATED SEVERE SUBQ EMPHYSEMA. DR. SAUNDERS THEN ORDERED A STAT CT OF CHEST, ABDOMEN, AND PELVIS. AT THIS TIME PT WAS TAKEN OFF THE BIPAP AND PLACED ON OXYMIZER AT 8L. PT WAS ALSO NOTED TO HAVE A NEW CHANGE TO HER LEFT EYE WITH EXTENSIVE SWELLING AND PT NOT ABLE TO OPEN EYE; APPEARS AIR RELATED. PT TRANSPORTED TO CT BY DR. SAUNDERS, MYSELF, AND PILOT, DIGNA. PT REMAINS ON VASOPRESSOR SUPPORT WITH LEVOPHED AT 20MCG/MIN AND VASOPRESSIN AT 0.04 UNITS/MIN. VITALS STABLE AT THIS TIME; SEE FLOWSHEET
--- NOTE | 2020-03-11 23:20 | NUR ---
DR SAUNDERS REPLACED THE L IJ CVC AND PORTS WERE BOTH ASPIRATED EASILY. UPON XRAY FOR PLACEMENT, IMAGES OF CHEST SHOWED MARKED WORSENING OF SYMPTOMS AND ADDITIONALLY, NEW EXACERBATION OF SWELLING IN NECK AND FACE WERE NOTED. NO IMMEDIATE READING OF XRAY BY RADIOLOGIST AVAILABLE. CT ORDERED TONIGHT. DIALYSIS CANCELLED FOR TONIGHT PENDING CONTINUING ASSESSMENT OF PATIENTS SYMPTOMS. TENTATIVE PLAN FOR DIALYSIS TOMORROW IN AM.
--- NOTE | 2020-03-11 23:59 | NUR ---
RETURNED FROM CT PT CONTINUES TO HAVE SEVERE SUBCUTANEOUS AIR PRESENT WITH POSITIVE CREPITUS PALPATED TO CHEST, BILATERAL ARMS DOWN TO ELBOWS AND UPPER BACK SIDE. PT REMAINS OFF BIPAP FOR NOW; CONNECTED TO AIRVO 60L; 80%. BIOX IS 97%; WILL CONTINUE TO TITRATE NEEDED.
--- NOTE | 2020-03-12 00:21 | NUR ---
UPDATE DR. SANUDERS UPDATED ON CT RESULTS FROM RADIAOLOGIST IN WHICH IT WAS OBSERVED THAT SUBQ AIR WAS ACCUMULATED R/T TO BIPAP; NO EVIDENCE OF PNEUMOTHORAX SEE PER RADIOLOGIST. ORDERS TO KEEP OFF BIPAP AND REMAIN ON AIRVO. SWELLING HAS ALREADY STARTED TO GO DOWN IN BILATERAL EYES. CREPITUS REMAINS PALPABLE TO CHEST, UPPER BACK, AND BILATERAL ARMS DOWN TO ELBOWS. PT IS ON AIRVO AT 60L; 55% FIO2.
[2020-03-12 04:15] LABS: Hematocrit 22.8 % (33.0-51.0); Hemoglobin 7.2 g/dL (11.5-16.0)
[2020-03-12 04:32] LABS: Albumin, Blood 2.2 g/dL (3.4-5.0); Anion Gap 13 mmol/L (6-16); Blood Urea Nitrogen 47 mg/dL (8-24); Bun/Creatinine Ratio 15.2 (12.0-20.0); CO2, Blood 29 mmol/L (21-32); Calcium, Blood 6.7 mg/dL (8.5-10.1); Chloride, Blood 91 mmol/L (98-108); Creatinine, Blood 3.09 mg/dL (0.40-1.00); Glomerular Filtration Rate 16 (60-); Glucose, Blood 358 mg/dL (70-99); Magnesium, Blood 1.9 mg/dL (1.6-2.4); Phosphorus, Blood 7.3 mg/dL (2.5-4.9); Sodium, Blood 133 mmol/L (136-145)
[2020-03-12 05:54] LABS: PCO2 Arterial 60.8 mmHg (35-45); PO2 Arterial 78.4 mmHg (80-100)
--- NOTE | 2020-03-12 06:17 | NUR ---
END OF SHIFT SUMMARY NO SIGNIFICANT CHANGES SINCE CHANGE OF EVENTS AND LAST ENTRY. PT HAS REMAINED ON AIRVO WITH 60L; FIO2 TITRATED T/O NIGHT, BUT CURRENTLY AT 80%. LUNG SOUNDS REMAIN CLEAR TO BILATERAL UPPER LOBES AND DIMINISHED TO BILATERAL. CREPITUS REMAINS PALPABLE TO BILATERAL ARMS DOWN TO ELBOWS, CHEST, UP NECK AND FACE, AND TO MID UPPER BACK. PT HAS BEEN AFIB WITH HR 110-120'S. BP'S STABLE; SEE FLOWSHEET. ABLE TO TITRATE LEVOPHED FROM 20MCG/MIN DOWN TO 12MCG/SAIMA. VASOPRESSIN REMAINS ON AND INFUSING AT 0.04 UNITS/MIN. ORDERS TO DISCONTINUE BICARB GTT THIS MORNING AFTER CALLING DR. SAUNDERS REGARDING LAB RESULTS. ALSO NEW ORDERS TO TRANSFUSE ONE UNIT OF PRBC'S WITH DIALYSIS THIS MORNING; ORDERS ENTERED. PT HAD 50CC OF URINE NOTED THIS SHIFT; DR. SAUNDERS AWARE. NG REMAINS TO LOW INTERMITTENT SUCTION WITH MINIMAL AMOUNTS OF BILE NOTED TO CANISTER. CALL LIGHT WITHIN REACH; PT ABLE TO MAKE HER NEEDS KNOWN. REMAINS ALERT AND ORIENTED WITH SOME CONFUSION IN THE NIGHT AND STARTED PULLING AT LINES/CORDS. HOWEVER, SHE WAS EASILY REDIRECTABLE. GRANDDAUGHTER CALLED AND UPDATED REGARDING PT'S STATUS.
--- NOTE | 2020-03-12 08:40 | NUR ---
[place] of Care: Care assumed at 0700hr. Patient sleeping, but easily roused to verbal stimuli. Oriented to date/time, self, and place. denies pain or discomfort at this time, states to be comfortable. SpO2-97-98% on Airvo NC with 60L/79% FiO2. FiO2 then decreased to 65%, spO2 remains above 96%, denies dyspnea/SOB. Levophed gtt at 10mcg/min, Vasopressin at 0.04u/min, systolic BP 90's-low 100's, MAPs 60's. Arterial line to rt femoral patent and intact, line zero at shift change, good waveform on monitor. Central line to rt IJ patent and intact, infusing without difficulty. Dialysis cath to LT IJ, site wnl, central line port to dialysis cath flushes and returns blood without difficulty. Plan/orders for dialysis today, plan to discuss/consult with Dr. Lr this morning to ensure dialysis cath is safe to use. Crepitus noted from patient lower chest, up to eyes, and anterior neck. Crepitus also noted down to bilateral elbow. Discussed location of crepitus with NOC nurse, confirmed no increase of crepitus noted since NOC RN's previous assessments. Foreman cath patent and intact, draining minimal amount of dark yellow urine. Will continue to monitor.
[2020-03-12 18:06] LABS: Hematocrit 24.9 % (33.0-51.0)
--- NOTE | 2020-03-12 18:12 | NUR ---
Shift Summary: No significant changes throughout shift. Patient remains of Airvo NC at 60L, but FiO2 titrated down from 80% to 40% throughout shift, spO2 remains 92-94%. Continues to deny dyspnea/SOB, appears calm/comfortable. Slow to respond at times, but remains oriented. C/o headache pain, effectively managed with x1 prn tylenol and x1 prn Fentanyl. No change in crepitus throughout shift, continues to persist from lower chest to eyes and down to bilateral elbows. Tolerated Dialysis today, 700ml removed. Levophed gtt titrated down from 10mcg to 6mcg/min throughout shift. Foreman cath remains patent and intact, drained 100ml of dark yellow urine throughout shift. Repeat H+H this afternoon, blood counts stable. Sleeping at this time. Will continue to monitor until report to NOC shift RN.
--- NOTE | 2020-03-12 20:00 | NUR ---
ASSUMPTION OF CARE: PT SLEEPY BUT ORIENTED. IN AFIB, SBP IN THE 100S,HR IN THE 120S. LUNG SOUNDS ARE CLEAR, DIM IN BASES. ON AIRVO AT 50L AND 40% FIO2. SPO2>90%. PT TOLERATING WELL. NG TUBE IN PLACE-CLAMPED. ART LINE IN PLACE TO R FEMORAL. SITE IS C/D/I. ART LINE ZEROED AT SHIFT CHANGE WITH JORGE CHO. RIJ PRESENT, INFUSING. PT ALSO HAS DIALYSIS CATH IN [facility]- CENTRAL LINE ALSO IN DIALYSIS CATH-PATENT AND DRAWS WELL. LEVOPHED RUNNING AT 6 MCG, VASOPRESSIN AT 0.04U/MIN. PT IS EDEMATOUS T/O. CREPITUS STARTING AT NIPPLE LINE EXTENDS UP TO EYES AND SHOULDERS. PT RECEIVED A COUPLE UNITS OF BLOOD AND FFP. H&H CURRENTLY STABLE, NO S/S OF BLEEDING. WILL CONTINUE TO MONITOR
--- NOTE | 2020-03-12 22:12 | NUR ---
PT CURRENTLY RESTING COMFORTABLY. LEVOPHED TITRATED DOWN TO 4MCG. SBP IN THE 90S-100S, MAP >60. GRANDDAUGHTER CALLED AND WAS UPDATED ON PT CONDITION.
[2020-03-13 03:59] LABS: BASOPHILS ABSOLUTE AUTO 0.02 K/mm3 (0.00-0.23); BASOPHILS PERCENT AUTO 0 % (0-2); EOSINOPHILS PERCENT AUTO 0 % (0-6); Hematocrit 23.2 % (33.0-51.0); Hemoglobin 7.3 g/dL (11.5-16.0); IMMATURE GRAN ABSOLUTE AUTO 0.28 K/mm3 (0.00-0.10); IMMATURE GRAN PERCENT AUTO 2 % (0-1); LYMPHOCYTES ABSOLUTE AUTO 0.71 K/mm3 (0.84-5.20); LYMPHOCYTES PERCENT AUTO 4 % (21-46); MONOCYTES ABSOLUTE AUTO 0.79 K/mm3 (0.16-1.47); MONOCYTES PERCENT AUTO 5 % (4-13); Mean Corpuscular HGB 29.7 pg (26.0-34.0); Mean Corpuscular HGB Conc 31.5 g/dL (31.5-36.5); Mean Corpuscular Volume 94 fL (80-100); NEUTROPHILS PERCENT AUTO 89 % (41-73); NRBC ABSOLUTE 0.45 K/mm3 (0.00-0.02); NRBC Auto 2.8 /100 WBC (0.0-0.2); Platelet Count 136 K/mm3 (150-400); RDW Coefficient Variation 16.1 % (11.7-14.2); RDW Standard Deviation 54.4 fL (35.1-46.3); Red Blood Cell Count 2.46 M/mm3 (3.80-5.20)
[2020-03-13 04:13] LABS: Albumin, Blood 2.3 g/dL (3.4-5.0); Anion Gap 11 mmol/L (6-16); Blood Urea Nitrogen 49 mg/dL (8-24); Bun/Creatinine Ratio 15.7 (12.0-20.0); CO2, Blood 30 mmol/L (21-32); Calcium, Blood 7.3 mg/dL (8.5-10.1); Chloride, Blood 96 mmol/L (98-108); Creatinine, Blood 3.13 mg/dL (0.40-1.00); Glomerular Filtration Rate 16 (60-); Glucose, Blood 274 mg/dL (70-99); Phosphorus, Blood 6.3 mg/dL (2.5-4.9); Potassium, Blood 4.8 mmol/L (3.5-5.5); Sodium, Blood 137 mmol/L (136-145)
--- NOTE | 2020-03-13 05:40 | NUR ---
SHIFT SUMMARY: NO ACUTE CHANGES T/O SHIFT. VSS. VASOPRESSIN AND LEVOPHED ON STANDBY. SBP IN THE 80-100S. MAP >60. HR IN THE 120S. MINIMAL URINE OUTPUT THROUGH PEREYRA. ART LINE REMAINS IN PLACE. RIJ INFUSING WITH TKO. LIJ PATENT AND DRAWING WELL. LAST REPOSITION PT WAS TURNED TO THE R SIDE. HOWEVER ART LINE WAVE FORM WAS DAMPENED SO PT WAS REPOSITIONED SUPINE. THIS WAS EFFECTIVE. PT LEFT SUPINE. WILL PASS REPORT TO ONCOMING RN
--- NOTE | 2020-03-13 07:33 | NUR ---
[place] of Care: Care assumed at 0700hr. Patient sleeping but easily roused to verbal stimuli. Drowsy when awake but oriented to self, place, date/time. Denies pain or discomfort, denies dyspnea or SOB. Airvo NC decreased from 50L to 40L at shift change, 38% FiO2, spO2-94-96%. All other VSS, levophed and vasopressin gtt placed on stand-by during NOC shift. Slight decrease in crepitus noted from yesterday, remains down to lower chest but now only down to mid upper arms. Remains prominent in upper chest and neck but has not increased. Central line to rt IJ patent and intact, infusing and flushes without difficulty. Dialysis cath to lt IJ patent and intact, central line port to this catheter flushes and returns blood without difficulty. Arterial line to rt femoral patent and intact, good waveform on monitor, zeroed at shift change. Foreman cath patent and intact, draining minimal amount of dark yellow urine. Plan for dialysis again today with infusing of 1 unit PRBC's during treatment. Will continue to monitor.
[2020-03-13 10:09] LABS: HBSAG SCREEN Negative (Negative); HEP A AB, IGM Negative (Negative); HEP B CORE AB, IGM Negative (Negative); HEP C VIRUS AB 0.2 (0.0-0.9)
--- NOTE | 2020-03-13 18:19 | NUR ---
Shift Summary: No significant changes throughout shift. Patient drowsy this morning but much more alert this afternoon. C/o headache pain, effectively managed with prn fentanyl x2. Continues to deny dyspnea SOB, Airvo NC titrated down to 35L/30%, spO2 92-95%. Crepitus to face, chest, and arms slowly decreased throughout shift, but remains prominent to upper chest. Tolerated full length of dialysis treatment without difficulty, 2L removed, 1 unit of PRBC's administered during treatment. Central line (rt IJ), dialysis cath (lt IJ), and arterial line (rt femoral), remain patent and intact. Foreman cath remains patent and intact, draining dark yellow urine, 200ml output this shift. Tolerated PO water and ice chips this afternoon without difficulty. Calm and comfortable at this time. Will continue to monitor until report to NOC shift RN.
--- NOTE | 2020-03-13 20:00 | NUR ---
ASSUMPTION OF CARE: PT AWAKE IN BED ASKING FOR PAIN MEDS AND ICE CHIPS. A&O. PRESSERS REMAIN OFF. ART LINE BP IN THE 120S. HR IN THE 120-130S. ART LINE ZEROED AT BEGINNING OF SHIFT. REMAIN PATENT. SITE IS C/D/I. IN AFIB. LUNG SOUNDS CLEAR, DIM IN BASES. ON AIRVO-SETTINGS AR 35L, 30%FIO2. SPO2 >90%. PEREYRA IN PLACE DRAINING TO GRAVITY. MINIMAL URINE OUPUT. PT HAD DIALYSIS DURING DAYSHIFT. TOLERATED WELL. RIJ IN PLACE INFUSING WITH NS TKO. LIJ DIALYSIS CATH/CENTRAL LINE PATENT AND SL. CREPITUS REMAINS UNCHANGED. STILL FROM NIPPLE LINE UP TO EYELIDS. HOWEVER EYELIDS APPEAR LESS SWOLLEN. ART LINE WAVE FORM SENSITIVE TO REPOSITIONING. BECOMES EASILY DAMPENED ESPECIALLY WHEN PT IS REPOSITIONED TO R SIDE OR LAYING FLAT. WAVE FORM CURRENTLY HAS GOOD PLETH. WILL CONTINUE TO MONITOR
--- NOTE | 2020-03-13 20:41 | NUR ---
R FEM ART LINE WAVEFORM IS EASILY DAMPENED WITH ANY SLIGHT POSITION CHANGES. CURRENTLY ABLE TO GET PERIPHERAL BPS. CURRENT SBP IS 100-110S. ART LINE PRESSURE READINGS IN THE 100S. SPOKE WITH DR GRACIA ABOUT CONTINUED NEED FOR ART LINE. PER HE WOULD LIKE TO LEAVE ART LINE IN PLACE TONIGHT AND REASSESS NEED TOMORROW. WILL CONTINUE TO MONITOR
[2020-03-14 05:51] LABS: Hematocrit 24.9 % (33.0-51.0); Hemoglobin 7.8 g/dL (11.5-16.0)
--- NOTE | 2020-03-14 06:05 | NUR ---
SHIFT SUMMARY: NO ACUTE CHANGES T/O SHIFT. VSS. PRESSERS REMAIN OFF. ART LINE REMAINS IN PLACE HOWEVER IT IS VERY POSITIONAL. ABLE TO GETBP READING ON LFA. PER DR. CRUZ ART LINE TO BE LEFT IN PLACE AND REASSESSED ON DAYSHIFT. PT SLEPT ON AND OFF T/O NIGHT. REQUESTED ICE CHIPS FREQUENTLY AND TOLERATED WELL. AIRVO REMAINS IN PLACE AT 35L AND 30% FIO2. SPO2 >90%. CREPITUS STILL PRESENT HOWEVER SWELLING TO EYES IS BETTER. POSS DIALYSIS TODAY. PT WOULD LIKE TO CALL BROTHER TODAY AND TALK TO HER DAUGHTER AND GRANDKIDS. WILL PASS REPORT TO ONCOMING SHIFT.
[2020-03-14 06:07] LABS: Albumin, Blood 2.5 g/dL (3.4-5.0); Anion Gap 7 mmol/L (6-16); Blood Urea Nitrogen 47 mg/dL (8-24); Bun/Creatinine Ratio 16.1 (12.0-20.0); CO2, Blood 31 mmol/L (21-32); Calcium, Blood 8.1 mg/dL (8.5-10.1); Chloride, Blood 101 mmol/L (98-108); Creatinine, Blood 2.92 mg/dL (0.40-1.00); Glomerular Filtration Rate 17 (60-); Glucose, Blood 213 mg/dL (70-99); Phosphorus, Blood 5.3 mg/dL (2.5-4.9); Potassium, Blood 4.5 mmol/L (3.5-5.5); Sodium, Blood 139 mmol/L (136-145)
--- NOTE | 2020-03-14 07:48 | NUR ---
[place] of Care: Care assumed at 0700hr. Patient alert and oriented x4, sitting upright in bed. Denies pain, discomfort, SOB, or dyspnea. SpO2-93-94% on Airvo NC at 40L/33% FiO2. Central line to rt IJ patent and intact, infusing without difficulty. Dialysis cath to lt IJ patent and intact, central line port to this catheter flushes and returns blood without difficulty. Arterial line to rt femoral artery has dampened waveform despite flushing and repositioning patient. Peripheral NBP pressures correlate with arterial readings. Will discuss removal of arterial line with Dr. Henriquez this morning. Foreman cath patent and intact, draining clear yellow urine, approx 100ml output thus far. Plan for dialysis treatment in room today with infusion of 1unit PRBC's. Will discuss diet order with Dr. Mehta this morning. Will continue to monitor.
--- NOTE | 2020-03-14 18:14 | NUR ---
Shift Summary: No significant changes throughout shift. Patient received 3hr dialysis treatment this morning, tolerated without difficulty, 3L removed. Patient more alert following dialysis, sitting upright in bed watching tv. Received orders to advance patient's diet as tolerated. Patient received applesauce and apple juice at approx 1200hr, but only wished to have water or ice chips for remainder of shift, no s/s of GI intolerance. Airvo NC removed this morning and patient placed on 3L/NC, spO2-92-96% for remainder of shift, continues to deny dyspnea/SOB. Arterial line removed at approx 0800hr as line had migrated 3-4cm out of skin and was kinked. Arterial line removed without difficulty, no s/s of bleeding or hematoma, NBP reading wnl. Central line to rt IJ and dialysis cath to lt IJ remain patent and intact. Foreman cath remains patent and intact, drained 250ml out dark yellow urine this shift. Patient sleeping at this time. Will continue to monitor until report to NOC shift RN.
--- NOTE | 2020-03-14 20:34 | NUR ---
PATIENT SLEEPING WITH 3L/NC IN PLACE BIOX 98% OXYGEN TITRATED TO 2L/NC. PATIENT OPENS EYES TO VERBAL STIMULI, NODDING HEAD SLIGHTLY TO YES NO QUESTIONS, BUT DIFFICULT TO AWAKEN, NOT NONVERBAL. RESP EVEN AND UNLABORED. NG REMAINS IN PLACE AND CLAMPED. RIGHT GROIN SITE DRESSING CD&I WITH NO SWELLING SEEN. CREPITUS FELT TO LEFT SHOULDER AREA.
--- NOTE | 2020-03-15 01:08 | NUR ---
PATIENT AWAKE, A&O X3, ABLE TO FEED SELF WATER, A LITTLE DIFFICULTY WITH EATING JELLO DUE TO WEAKNESS, SWALLOWING WITHOUT DIFFICULTY. PATIENT VERBALIZED THAT SHE DOESN'T REMEMBER ANYTHING FROM EARLIER TONIGHT. PATIENT C/O PAIN 8/ TO THE BACK OF HER NECK FENTANYL IV GIVEN.
[2020-03-15 04:09] LABS: Hematocrit 25.7 % (33.0-51.0); Hemoglobin 7.7 g/dL (11.5-16.0); Mean Corpuscular HGB 29.6 pg (26.0-34.0); Mean Platelet Volume 10.6 fL (9.1-12.4); NRBC ABSOLUTE 0.19 K/mm3 (0.00-0.02); NRBC Auto 1.5 /100 WBC (0.0-0.2); Platelet Count 140 K/mm3 (150-400); RDW Coefficient Variation 16.5 % (11.7-14.2); RDW Standard Deviation 57.6 fL (35.1-46.3); White Blood Cell Count 12.44 K/mm3 (4.00-11.30)
[2020-03-15 04:10] LABS: Mean Corpuscular Volume 99 fL (80-100)
[2020-03-15 04:26] LABS: Albumin, Blood 2.4 g/dL (3.4-5.0); Anion Gap 7 mmol/L (6-16); Blood Urea Nitrogen 36 mg/dL (8-24); Bun/Creatinine Ratio 14.9 (12.0-20.0); CO2, Blood 32 mmol/L (21-32); Calcium, Blood 7.9 mg/dL (8.5-10.1); Chloride, Blood 101 mmol/L (98-108); Creatinine, Blood 2.41 mg/dL (0.40-1.00); Glomerular Filtration Rate 21 (60-); Glucose, Blood 210 mg/dL (70-99); Phosphorus, Blood 4.7 mg/dL (2.5-4.9); Potassium, Blood 4.1 mmol/L (3.5-5.5); Sodium, Blood 140 mmol/L (136-145)
--- NOTE | 2020-03-15 06:30 | NUR ---
SUMMARY PATIENT AWAKE, SLOW TO ANSWER QUESTIONS AT TIMES. EDGARDO CLEAR LIQUIDS WELL. GENERALIZED WEAKNESS WITH DIFFICULTY HOLDING WATER GLASS AT TIMES. PATIENT C/O WILSON THIS MORNING TYLENOL GIVEN PER NG. CREPITUS CONTINUES TO SHOULDERS AND NECK, EYELIDS LESS SWOLLEN. FENTANYL GIVEN ONCE DURING THE NIGHT FOR C/O NECK PAIN. PATIENT SOB WITH SLIGHT ACTIVITY. REMAINS ON 2L/NC. OCCASIONAL MOIST COUGH WITH LÓPEZ SPUTUM.
--- NOTE | 2020-03-15 09:37 | NUR ---
ASSUMED CARE OF PT AT 0700. REPORT FROM RASHIDA PATEL. PT AWAKE, SLOW TO RESPOND BUT ANSWERS QUESTIONS APPROPRIATELY. LETHARGIC, APPEARS TO FALL ASLEEP DURING ASSESSMENT. WAKES EASILY. DENIES COMPLAINTS. WEAK IN ALL EXTREMITIES. LUNGS DIMINISHED IN BASES, PT ON 2L VIA NC. O2 SATS MID 90'S. AFIB ON MONITOR, RATE 110-120'S. BP STABLE. CENTRAL LINE TO RIGHT IJ, NS AT TKO, DRESSING C/D/I. DIALYSIS PORT TO LEFT IJ c CENTRAL LINE ACCESS, DRESSING C/D/I. NGT TO RIGHT NARE, CLAMPED, ADMINISTERED MEDS VIA TUBE. ABD ROUND, SOFT, NON TENDER. BT X 4. PT DENIES PAIN. CLEAR LIQUID DIET, NO DIFFICULTIES. WILL ADVANCE TOLERATED. SCDS IN PLACE. WILL CONTINUE TO MONITOR.
--- NOTE | 2020-03-15 18:10 | NUR ---
SHIFT SUMMARY PT ASSESSMENT REMAINS UNCHANGED THIS SHIFT. PT ANSWERS QUESTIONS APPROPRIATELY BUT SLOW TO RESPOND. SLEPT MOST OF SHIFT. WAKES c VERBAL STIMULI. LUNGS DIMINISHED IN BASES. PT ON 2L VIA NC, O2 SATS >95%. AFIB, RATE 100-120 THIS SHIFT. PT WORKED c PT TODAY, UP TO CHAIR. TOLERATED WELL. 325 ML CLEAR YELLOW URINE OUT, PEREYRA PATENT AND DRAINING TO GRAVITY. NGT REMOVED. ADVANCED DIET TO FULL LIQUID. PT TOLERATED WELL. VSS. WILL CONTINUE TO MONITOR UNTIL REPORT TO ONCOMING NURSE.
--- NOTE | 2020-03-15 20:37 | NUR ---
ASSUMED CARE OF PT, REPORT RCV'D FROM JORGE HOUSER. PT ALERT AND ORIENTED, SLOW BUT APPROPRIATE RESPONSE TO QUESTIONS. PT APPEARS DROWSY BUT AROUSABLE, PER DAYSHIFT NURSE PT JUST GIVEN 12.5 MCG FENTANYL FOR PAIN. PT C/O NECK/BACK PAIN, REPOSITIONING Q2 AND PRN. PT DECLINED OFFER FOR HEATING PAD. LUNG SOUNDS CLEAR WITH DIM BASES, PT ON 2L NC AT START OF SHIFT WITH O2 SATS>90%. CURRENTLY ON CPAP WITH HOME SETTINGS, PT DESATS TO MID 70'S ON CPAP D/T SLEEPING WITH MOUTH OPEN, RT PLACED CHIN STRAP WITH IMPROVEMENT IN SATURATION. CREPITUS D/T SUB Q EMPHYSEMA FELT ACROSS PATIENT'S CHEST, PER DAYSHIFT NURSE THIS IS IMPROVING. PEREYRA PATENT AND DRAINING CLEAR YELLOW URINE. HD CATH IN LEFT IJ. CENTRAL LINE IN RIGHT IJ, DRESSINGS C/D/I, FLUSHED WITH 10ML NS. SEE FULL SHIFT ASSESSMENT
[2020-03-16 03:47] LABS: BASOPHILS ABSOLUTE AUTO 0.04 K/mm3 (0.00-0.23); BASOPHILS PERCENT AUTO 0 % (0-2); EOSINOPHILS ABSOLUTE AUTO 0.16 K/mm3 (0.00-0.68); EOSINOPHILS PERCENT AUTO 2 % (0-6); Hematocrit 27.1 % (33.0-51.0); Hemoglobin 8.1 g/dL (11.5-16.0); IMMATURE GRAN ABSOLUTE AUTO 0.52 K/mm3 (0.00-0.10); IMMATURE GRAN PERCENT AUTO 5 % (0-1); LYMPHOCYTES ABSOLUTE AUTO 0.61 K/mm3 (0.84-5.20); LYMPHOCYTES PERCENT AUTO 6 % (21-46); MONOCYTES ABSOLUTE AUTO 1.12 K/mm3 (0.16-1.47); MONOCYTES PERCENT AUTO 11 % (4-13); Mean Corpuscular HGB 29.9 pg (26.0-34.0); Mean Corpuscular HGB Conc 29.9 g/dL (31.5-36.5); Mean Corpuscular Volume 100 fL (80-100); Mean Platelet Volume 10.5 fL (9.1-12.4); NEUTROPHILS ABSOLUTE AUTO 8.26 K/mm3 (1.96-9.15); NEUTROPHILS PERCENT AUTO 77 % (41-73); NRBC ABSOLUTE 0.11 K/mm3 (0.00-0.02); Platelet Count 140 K/mm3 (150-400); RDW Coefficient Variation 17.2 % (11.7-14.2); RDW Standard Deviation 56.3 fL (35.1-46.3); Red Blood Cell Count 2.71 M/mm3 (3.80-5.20); White Blood Cell Count 10.71 K/mm3 (4.00-11.30)
[2020-03-16 04:02] LABS: Albumin, Blood 2.4 g/dL (3.4-5.0); Anion Gap 6 mmol/L (6-16); Blood Urea Nitrogen 37 mg/dL (8-24); Bun/Creatinine Ratio 17.9 (12.0-20.0); CO2, Blood 34 mmol/L (21-32); Calcium, Blood 7.8 mg/dL (8.5-10.1); Chloride, Blood 99 mmol/L (98-108); Creatinine, Blood 2.07 mg/dL (0.40-1.00); Glomerular Filtration Rate 25 (60-); Glucose, Blood 200 mg/dL (70-99); Magnesium, Blood 1.8 mg/dL (1.6-2.4); Phosphorus, Blood 4.6 mg/dL (2.5-4.9); Potassium, Blood 3.6 mmol/L (3.5-5.5); Sodium, Blood 139 mmol/L (136-145)
--- NOTE | 2020-03-16 06:47 | NUR ---
SHIFT SUMMARY NO ACUTE CHANGES OVERNIGHT. PT PLEASANT, COOPERATIVE WITH CARE AND ABLE TO APPROPRIATELY EXPRESS HER NEEDS. PT ABLE TO USE CALL LIGHT NEEDED. UNABLE TO ASSIST WITH REPOSITIONING BUT ABLE TO EXPRESS WHEN SHE NEEDS EXTRA REPOSITIONING. PT REQUESTS TO STAY ON HER BACK OFTEN, ENCOURAGED HER TO ALLOW A PILLOW UNDER HIPS TO ALLEVIATE PRESSURE ON BACKSIDE. PT TOLERATES FOR LIMITED AMOUNT OF TIME BEFORE REQUESTING PILLOW REMOVAL. PT ON CPAP OVERNIGHT, TOLERATED WELL WITH NO COMPLAINTS. VSS. 400 ML URINARY OUTPUT. WILL REPORT TO DAYSHIFT NURSE.
--- NOTE | 2020-03-16 08:30 | NUR ---
ASSUMED CARE RECEIVED REPORT FROM JORGE CLEVELAND. PT IS IN BED ON CPAP, SATS IN MID-UPPER 90's. PT IS IN AFIB, RATE 100-120 - WHICH IS WHERE HER BASELINE HAS BEEN. SHE DENIES CP, SOB, AND NAUSEA. SHE IS SALINE LOCKED ON BOTH CENTRAL LINES. STABLE VITALS, SLIGHTLY ELEVATED BP (SEE VS). PT HAS PATENT PEREYRA DRAINING YELLOW URINE. BED LOW AND LOCKED. CALL LIGHT WITHIN REACH
--- NOTE | 2020-03-16 10:42 | NUR ---
UPDATE PT IS NOW PCU STATUS, AND WAS TAKEN TO THE DIALYSIS UNIT. PT OUT OF ROOM AT 1037. PT WAS TRANSPORTED ON TELEMETRY AND ON OXYGEN (2L via 2L).
--- NOTE | 2020-03-16 12:30 | NUR ---
UPDATE PT REMAINS IN DIALYSIS. I GAVE REPORT TO JORGE KINNEY IN THE PCU. THE PT WILL TRANSFER DIRECTLY TO PCU AFTER DAILYSIS. THE REFINISHER, JULIO CÉSAR, WILL TRANSFER HER BELONGINGS AND HER LUNCH TRAY TO HER PCU ROOM (14)
--- NOTE | 2020-03-16 18:25 | NUR ---
SHIFT SUMMARY... NO ACUTE NEGATIVE CHANGES SINCE THE PT WAS TRANSFERED TO THIS UNIT. PT HAS BEEN VERY TIRED AFTER DIALYSIS. CREPITUS WAS NOTED TO THE PT'S LEFT UPPER SHOULDER AREA. PT IS ON 2L NC WITH O2 SATS >90%. PT WAS MEDICATED FOR PAIN 1 TIME SINCE TRANSFER TO THIS UNIT. PT'S VS HAVE BEEN STABLE T/O SHIFT. CALL LIGHT IN REACH WILL CONTINUE TO MONITOR UNTIL REPORT IS GIVEN TO ONCOMING RN.
[2020-03-17 04:26] LABS: BASOPHILS ABSOLUTE AUTO 0.02 K/mm3 (0.00-0.23); BASOPHILS PERCENT AUTO 0 % (0-2); EOSINOPHILS ABSOLUTE AUTO 0.18 K/mm3 (0.00-0.68); EOSINOPHILS PERCENT AUTO 2 % (0-6); Hematocrit 28.5 % (33.0-51.0); Hemoglobin 8.8 g/dL (11.5-16.0); IMMATURE GRAN ABSOLUTE AUTO 0.48 K/mm3 (0.00-0.10); IMMATURE GRAN PERCENT AUTO 5 % (0-1); LYMPHOCYTES ABSOLUTE AUTO 0.62 K/mm3 (0.84-5.20); LYMPHOCYTES PERCENT AUTO 6 % (21-46); MONOCYTES ABSOLUTE AUTO 0.96 K/mm3 (0.16-1.47); MONOCYTES PERCENT AUTO 10 % (4-13); Mean Corpuscular HGB 30.7 pg (26.0-34.0); Mean Corpuscular HGB Conc 30.9 g/dL (31.5-36.5); Mean Corpuscular Volume 99 fL (80-100); Mean Platelet Volume 10.2 fL (9.1-12.4); NEUTROPHILS ABSOLUTE AUTO 7.72 K/mm3 (1.96-9.15); NEUTROPHILS PERCENT AUTO 77 % (41-73); NRBC ABSOLUTE 0.05 K/mm3 (0.00-0.02); NRBC Auto 0.5 /100 WBC (0.0-0.2); Platelet Count 150 K/mm3 (150-400); RDW Standard Deviation 54.1 fL (35.1-46.3); Red Blood Cell Count 2.87 M/mm3 (3.80-5.20); White Blood Cell Count 9.98 K/mm3 (4.00-11.30)
[2020-03-17 04:45] LABS: Albumin, Blood 2.2 g/dL (3.4-5.0); Anion Gap 7 mmol/L (6-16); Blood Urea Nitrogen 35 mg/dL (8-24); Bun/Creatinine Ratio 20.7 (12.0-20.0); CO2, Blood 32 mmol/L (21-32); Calcium, Blood 8.5 mg/dL (8.5-10.1); Chloride, Blood 97 mmol/L (98-108); Creatinine, Blood 1.69 mg/dL (0.40-1.00); Glomerular Filtration Rate 32 (60-); Glucose, Blood 199 mg/dL (70-99); Magnesium, Blood 1.9 mg/dL (1.6-2.4); Phosphorus, Blood 4.5 mg/dL (2.5-4.9); Potassium, Blood 3.5 mmol/L (3.5-5.5); Sodium, Blood 136 mmol/L (136-145)
--- NOTE | 2020-03-17 06:06 | NUR ---
SHIFT SUMMARY PT A&O X4. NO EVENTS OVER NIGHT. BP ELEVATED, OTHERWISE VSS. MONITOR SHOWS AFIB, HR 100-120's. LUNG SOUNDS CLEAR, DIM IN BASES. SPO2 > 92% ON 3L NC OR BIPAP WHILE SLEEPING. PT W/ CREPITUS TO BILAT SHOULDERS, BRUISING SCATTERED T/O, & GENERALIZED EDEMA. BT'S HYPERACTIVE. PEREYRA CATH PATENT AND DRAINING YELLOW URINE. PT REQUIRING ENCOURAGEMENT TO MOVE AND DO THINGS FOR SELF ABLE. PT REQUESTING STAFF TO PULL BLANKET UP WHEN BLANKET IS 2-4 INCHES FROM PT's HANDS. PT ENCOURAGED TO DO MUCH SHE CAN INDEPENDENTLY TO NOT FURTHER LOSE STRENGTH. WILL CONTINUE TO MONITOR AND PROVIDE CARE UNTIL REPORT OFF TO DAY SHIFT RN.
--- NOTE | 2020-03-17 08:20 | NUR ---
AM NOTE.... ASSUMED CARE OF PT APROX 0700. PT IS A&Ox4 BUT SLOW TO RESPOND TO BASIC QUESTIONS. PT IS HYPERTENSIVE THIS AM WITH BP OF 212/130, PROVIDER AWARE AND NEW ORDERS OBTAINED FOR PRN HTN. PT HAS GENERALIZED NONPITTING EDEMA. L/S CLEAR IN THE UPPER LOBES DIM IN THE LOWER LOBES. PT IS ON 2.5L NC WITH O2 SATS >90%. BT PRESENT AND HYPERACTIVE ABD SOFT AND NONTENDER TO PALP. PT DENIES PAIN AT THIS TIME. PT IS SCHEDULED TO HAVE DIALYSIS TODAY. CALL LIGHT IN REACH WILL CONTINUE TO MONITOR.
--- NOTE | 2020-03-17 09:30 | NUR ---
PT UPDATE.... IT WAS NOTED ON ASSESSMENT THE PT HAS CREPITUS DOWN BOTH ARMS TO HER ELBOWS, ACROSS HER CHEST, UP BOTHSIDES OF HER NECK AND INTO BOTH CHEEKS. PT DENIES ANY PAIN, OR SOB.
--- NOTE | 2020-03-17 16:48 | NUR ---
Routine spiritual care note: Mrs. Montoya has a strong karla and a supportive group of friends/family. She is very appreciaitve of prayer and spiritual encouragement. She wanted me to obtain her brother's phone number [facility] I was able to do with t/c to grand-daughter. No fears/concerns presented. She is hopeful. I will remain available.
--- NOTE | 2020-03-17 17:56 | NUR ---
SHIFT SUMMARY... NO ACUTE NEGATIVE CHANGES NOTED THIS SHIFT. PT HAD DIALYSIS TODAY. VS HAVE BEEN STABLE SINCE DIALYSIS. RIGHT IJ CENTRAL LINE WAS D/C'D WNL THIS AFTERNOON. POWERGLIDE WAS PLACED IN THE PT'S [place]ST[place]. PT WORKED WITH PT/OT THIS AFTERNOON WELL. PEREYRA IS PATENT AND DRAINING DARK YELLOW URINE TO GRAVITY. MEHERKER DIALYSIS PORT IN THE LEFT IJ IS PRESENT WITH COBAN DRESSING INTACT. CALL LIGHT IN REACH WILL CONTINUE TO MONITOR UNTIL REPORT IS GIVEN TO ONCOMING RN.
--- NOTE | 2020-03-17 21:00 | NUR ---
CARE ASSUMPTION PT A&O X4. VSS. MONITOR SHOWS AFIB, HR 110's. SPO2 > 92% ON 3L NC. BIPAP AT BEDSIDE. WILL CONTINUE TO MONITOR AND PROVIDE CARE.
[2020-03-18 04:05] LABS: BASOPHILS ABSOLUTE AUTO 0.03 K/mm3 (0.00-0.23); BASOPHILS PERCENT AUTO 0 % (0-2); EOSINOPHILS ABSOLUTE AUTO 0.13 K/mm3 (0.00-0.68); EOSINOPHILS PERCENT AUTO 1 % (0-6); Hematocrit 30.7 % (33.0-51.0); Hemoglobin 9.3 g/dL (11.5-16.0); IMMATURE GRAN ABSOLUTE AUTO 0.39 K/mm3 (0.00-0.10); IMMATURE GRAN PERCENT AUTO 3 % (0-1); LYMPHOCYTES ABSOLUTE AUTO 0.65 K/mm3 (0.84-5.20); LYMPHOCYTES PERCENT AUTO 6 % (21-46); MONOCYTES ABSOLUTE AUTO 0.96 K/mm3 (0.16-1.47); MONOCYTES PERCENT AUTO 8 % (4-13); Mean Corpuscular HGB 29.8 pg (26.0-34.0); Mean Corpuscular HGB Conc 30.3 g/dL (31.5-36.5); Mean Corpuscular Volume 98 fL (80-100); Mean Platelet Volume 10.3 fL (9.1-12.4); NEUTROPHILS ABSOLUTE AUTO 9.26 K/mm3 (1.96-9.15); NEUTROPHILS PERCENT AUTO 81 % (41-73); NRBC ABSOLUTE 0.03 K/mm3 (0.00-0.02); NRBC Auto 0.3 /100 WBC (0.0-0.2); Platelet Count 166 K/mm3 (150-400); RDW Coefficient Variation 17.3 % (11.7-14.2); RDW Standard Deviation 53.9 fL (35.1-46.3); Red Blood Cell Count 3.12 M/mm3 (3.80-5.20); White Blood Cell Count 11.42 K/mm3 (4.00-11.30)
[2020-03-18 04:30] LABS: Albumin, Blood 2.2 g/dL (3.4-5.0); Anion Gap 9 mmol/L (6-16); Blood Urea Nitrogen 29 mg/dL (8-24); CO2, Blood 30 mmol/L (21-32); Calcium, Blood 8.3 mg/dL (8.5-10.1); Chloride, Blood 96 mmol/L (98-108); Creatinine, Blood 1.45 mg/dL (0.40-1.00); Glomerular Filtration Rate 38 (60-); Glucose, Blood 195 mg/dL (70-99); Magnesium, Blood 1.9 mg/dL (1.6-2.4); Phosphorus, Blood 4.2 mg/dL (2.5-4.9); Potassium, Blood 3.4 mmol/L (3.5-5.5); Sodium, Blood 135 mmol/L (136-145)
--- NOTE | 2020-03-18 06:11 | NUR ---
SHIFT SUMMARY PT CONTINUES TO BE A&O X4. VSS. NO EVENTS OVER NIGHT. MONITOR SHOWS AFIB, HR 110's. SPO2 > 92% ON 3L NC WHILE AWAKE. PT WEARING BIPAP MAJORITY OF NIGHT FOR SLEEP, TOLERATING WELL. MD PURCELL IN TO SEE PT THIS AM W/ ORDERS FOR IV POTASSIUM REPLACEMENT, SEE ORDERS. WILL CONTINUE TO MONITOR AND PROVIDE CARE UNTIL REPORT OFF TO DAY SHIFT RN.
--- NOTE | 2020-03-18 08:43 | NUR ---
AM NOTE... ASSUMED CARE OF PT APROX 0700. PT IS A&Ox4. PT WAS HYPERTENSIVE AGAIN THIS AM, PT WAS MEDCIATED PER EMAR WITH GOOD RESULTS. PT IS NOT SCHEDULED FOR DIALYSIS TODAY. PT WAS GOTTEN UP IN THE CHAIR VIA THE LIFT IN THE ROOM. L/S CLEAR IN THE UPPER LOBES DIM IN THE LOWER LOBES. PT HAS GENERALIZED EDEMA, PT'S RIGHT ARM HAS 3+ PITTING, LEFT ARM HAS 1-2+. CREPITUS IS STILL NOTED TO THE PT'S BUE TO THE ELBOWS, HER NECK, CHEEKS, UPPER CHEST AND ACROSS HER SHOULDERS. PT WAS ABLE TO FEED HERSELF BREAKFAST WITH MINIMAL HELP AND SETUP. CALL LIGHT IN REACH WILL CONTINUE TO MONITOR.
--- NOTE | 2020-03-18 16:11 | NUR ---
SHIFT SUMMARY... NO ACUTE NEGATIVE CHANGES NOTED THIS SHIFT. PT'S VS HAVE BEEN STABLE. PT WAS UP IN THE CHAIR USING THE LIFT FOR MOST OF THE DAY. PT WAS GIVEN BEDBATH AND NYSTATIN WAS APPLIED TO HER FOLDS AND GROIN AREA. PT'S PEREYRA WAS PATENT AND DRAINING DARK YELLOW URINE TO GRAVITY. PT WAS ABLE TO FEED HERSELF TODAY FOR BREAKFAST AND LUNCH. PT WORKED WITH PT/OT WELL. PT HAS SLEPT HARD FOR ABOUT 2 HOURS SINCE GETTING BACK INTO BED. CALL LIGHT IN REACH WILL CONTINUE TO MONITOR UNTIL REPORT IS GIVEN TO ONCOMING RN.
--- NOTE | 2020-03-18 16:58 | NUR ---
Bedside report received from Page Robertson RN. The pt is awake, and asking for ice chips and a toothbrush. These were provided for her and she is brushing her teeth right now. She has no complaints or other voiced needs at this time.
[2020-03-19 03:21] LABS: BASOPHILS ABSOLUTE AUTO 0.03 K/mm3 (0.00-0.23); BASOPHILS PERCENT AUTO 0 % (0-2); EOSINOPHILS ABSOLUTE AUTO 0.17 K/mm3 (0.00-0.68); EOSINOPHILS PERCENT AUTO 2 % (0-6); Hematocrit 30.1 % (33.0-51.0); Hemoglobin 9.2 g/dL (11.5-16.0); IMMATURE GRAN ABSOLUTE AUTO 0.25 K/mm3 (0.00-0.10); IMMATURE GRAN PERCENT AUTO 2 % (0-1); LYMPHOCYTES ABSOLUTE AUTO 0.74 K/mm3 (0.84-5.20); LYMPHOCYTES PERCENT AUTO 7 % (21-46); MONOCYTES ABSOLUTE AUTO 0.95 K/mm3 (0.16-1.47); MONOCYTES PERCENT AUTO 9 % (4-13); Mean Corpuscular HGB 29.5 pg (26.0-34.0); Mean Corpuscular HGB Conc 30.6 g/dL (31.5-36.5); Mean Corpuscular Volume 97 fL (80-100); Mean Platelet Volume 10.3 fL (9.1-12.4); NEUTROPHILS ABSOLUTE AUTO 8.23 K/mm3 (1.96-9.15); NEUTROPHILS PERCENT AUTO 79 % (41-73); Platelet Count 171 K/mm3 (150-400); RDW Coefficient Variation 17.2 % (11.7-14.2); RDW Standard Deviation 53.6 fL (35.1-46.3); Red Blood Cell Count 3.12 M/mm3 (3.80-5.20); White Blood Cell Count 10.37 K/mm3 (4.00-11.30)
[2020-03-19 03:36] LABS: Albumin, Blood 2.1 g/dL (3.4-5.0); Anion Gap 11 mmol/L (6-16); Blood Urea Nitrogen 42 mg/dL (8-24); Bun/Creatinine Ratio 25.9 (12.0-20.0); CO2, Blood 27 mmol/L (21-32); Calcium, Blood 8.6 mg/dL (8.5-10.1); Chloride, Blood 99 mmol/L (98-108); Creatinine, Blood 1.62 mg/dL (0.40-1.00); Glomerular Filtration Rate 33 (60-); Glucose, Blood 204 mg/dL (70-99); Magnesium, Blood 1.9 mg/dL (1.6-2.4); Phosphorus, Blood 3.8 mg/dL (2.5-4.9); Potassium, Blood 3.8 mmol/L (3.5-5.5); Sodium, Blood 137 mmol/L (136-145)
--- NOTE | 2020-03-19 06:10 | NUR ---
SHIFT SUMMARY PT A&O X4, MUCH MORE ALERT & INTERACTIVE THIS AM, QUICKER TO ENGAGE IN CONVERSATION, CHUCKLING & SMILING. VSS. MONITOR SHOWS AFIB, HR 100's-120's. SPO2 > 92% ON 3L NC WHILE AWAKE OR CPAP WHILE SLEEPING. PEREYRA CATH PATENT AND DRAINING YELLOW URINE. Q2H REPOSITIONING BY 2 STAFF MEMBERS USING CEILING LIFT. NYASTATIN APPLIED TO RED AREAS IN SKIN FOLDS AND GROIN. WILL CONTINUE TO MONITOR AND PROVIDE CARE UNTIL REPORT OFF TO DAY SHIFT RN.
--- NOTE | 2020-03-19 15:28 | NUR ---
follow up visit pt resting nursing states pain manged. Will contune follow up visits.
--- NOTE | 2020-03-19 17:39 | NUR ---
SHIFT SUMMARY PT ALERT AND ORIENTED. SLOW TO RESPOND. VS STABLE. O2 SATS REMAIN ABOVE 90% ON 3L NC. PT USES CPAP AT NIGHT WITH 3L BLEED IN. PT COMPLAINED OF PAIN ON AND OFF AND MEDICATED NEEDED ALONG WITH REPOSITIONING OFFERED. PT ENCOURAGED TO REPOSITION Q2H. PEREYRA PATENT AND DRAINING CLEAR YELLOW URINE. WILL CONTINUE TO MONITOR AND REPORT TO ONCOMING RN. CALL LIGHT IN REACH.
[2020-03-20 04:05] LABS: Hematocrit 30.7 % (33.0-51.0); Hemoglobin 8.9 g/dL (11.5-16.0)
[2020-03-20 04:22] LABS: Albumin, Blood 2.2 g/dL (3.4-5.0); Anion Gap 7 mmol/L (6-16); Blood Urea Nitrogen 52 mg/dL (8-24); Bun/Creatinine Ratio 28.6 (12.0-20.0); CO2, Blood 32 mmol/L (21-32); Calcium, Blood 8.5 mg/dL (8.5-10.1); Chloride, Blood 96 mmol/L (98-108); Creatinine, Blood 1.82 mg/dL (0.40-1.00); Glomerular Filtration Rate 29 (60-); Glucose, Blood 172 mg/dL (70-99); Magnesium, Blood 1.8 mg/dL (1.6-2.4); Phosphorus, Blood 5.1 mg/dL (2.5-4.9); Potassium, Blood 3.9 mmol/L (3.5-5.5); Sodium, Blood 135 mmol/L (136-145)
--- NOTE | 2020-03-20 05:28 | NUR ---
END OF SHIFT SUMMARY NO ACUTE CHANGES THIS SHIFT. VSS. REMAINS AFIB 100'S. 3LNC, CPAP WHILE ASLEEP. STAFF TURNING PT PT ALLOWS. BARIATRIC BED SET TO GRADUALLY TURN PT WELL. PEREYRA REMAINS PATENT AND DRAINING, OLIGURIA. PT PRESENTS WITH POSTERIOR FLANK BRUISING. MERJERKER IN PLACE. PT SLOW TO RESPOND TO QUESTIONS BUT APPROPRIATE. BED SET IN LOWEST POSITION. CALL LIGHT WITHIN REACH. WILL CONTINUE TO MONITOR UNTIL SHIFT CHANGE.
--- NOTE | 2020-03-20 18:01 | NUR ---
SHIFT SUMMARY PT A&Ox4; SLOW TO RESPOND. REPOSITION Q2 FOR COMFORT USING LIFT. PT REPORTS SOB; ON 3L O2 VIA NC, SPO2 >90% DURING SHIFT; LS DIM IN BASES. PT DENIES PAIN, NAUSEA, AND DIZZINESS. PEREYRA PATIENT AND DRAINING. VSS. NO OTHER ACUTE CHANGES NOTED DURING SHIFT. WILL CONTINUE TO MONIOR UNITL REPORT GIVEN TO ONCOMING RN.
[2020-03-21 04:11] LABS: Hematocrit 30.7 % (33.0-51.0); Hemoglobin 8.9 g/dL (11.5-16.0)
[2020-03-21 04:31] LABS: Albumin, Blood 2.2 g/dL (3.4-5.0); Anion Gap 9 mmol/L (6-16); Blood Urea Nitrogen 59 mg/dL (8-24); Bun/Creatinine Ratio 30.6 (12.0-20.0); CO2, Blood 31 mmol/L (21-32); Calcium, Blood 8.8 mg/dL (8.5-10.1); Chloride, Blood 95 mmol/L (98-108); Creatinine, Blood 1.93 mg/dL (0.40-1.00); Glomerular Filtration Rate 27 (60-); Glucose, Blood 191 mg/dL (70-99); Magnesium, Blood 1.8 mg/dL (1.6-2.4); Phosphorus, Blood 5.1 mg/dL (2.5-4.9); Potassium, Blood 3.7 mmol/L (3.5-5.5); Sodium, Blood 135 mmol/L (136-145)
--- NOTE | 2020-03-21 05:32 | NUR ---
END OF SHIFT SUMMARY NO ACUTWE CHANGES THIS SHIFT. VSS EXCEPT HTN, MEDS PER EMAR. PT BEING REPOSITIONED BY STAFF. PEREYRA PATENT AND DRAINING, MUCH MORE OUTPUT THIS SHIFT COMPARED TO LAST CATTLE TRADER. POWERGLIDE NOW DRAWS BLOOD EASILY POST DAY SHIFT DRESSING CHANGE. PT REMAINS ON 3LNC OR CPAP WITH O2 BLEEDIN TITRATED TO MEET O2 NEEDS. PRN MIRALAX GIVEN DUE TO LACK OF BM FOR MULTIPLE DAYS NOW. SUBCUTANEOUS EMPHYSEMA STILL PRESENT IN CHEST/NECK. PT FOLLOWING 1L FLUID RESTRICTION. MERJERKER REMAINS INTACT AND IN PLACE. WILL CONTINUE TO MONITOR UNTIL SHIFT CHANGE.
--- NOTE | 2020-03-21 16:48 | NUR ---
TRANSFER NOTE PT A&Ox4; SLOW TO RESPONDS, ANSWERS APPROPRAITELY. LIFT USED TO REPOSITION PT AND GET PT TO RECLINER. PTREPORTS PAIN IN BACK OF NECK; REPORTING 5/10; PT REFUSING TYLENOL; NOTIIFED DR CASAS; NEW ORDER FOR TRAMADOL; POSITIVE RESULTS. PT DENIES SOB; PT ON 3L O2 VIA NC; SPO2 >90%. PT DENIES NAUSEA, NUMB/TING AND DIZZINES T/O SHIFT. PT ON FLUID RESTRICTION 1L; APPEARS TO BE TOLERATING WELL. PT VSS. NO OTHER ACUTE CHANGES NOTED DURING SHIFT. REPORT GIVEN TO JORGE NOLEN ON MEDICAL FLOOR ASSUMING CARE OF PT. PT LEFT ROOM AT 1645 TO ROOM 306. PT STATES SHE WILL NOTIFIED FAMILY.
--- NOTE | 2020-03-21 19:08 | NUR ---
Clinical Visit: Pt is alert. She is smiling and talking. She reports that she is upset that a paper with phone numbers has been lost. She denies pain, anxiety. No concerns at this time. She feels that she is improving. She has been transfered from PCU to medical floor today. No concerns from nursing.
--- NOTE | 2020-03-21 19:32 | NUR ---
SHIFT SUMMARY: PATIENT XFR FROM PCU-14 THIS SHIFT. PT A&O; SLOW TO RESPOND; CALM AND COOPERATIVE WITH CARE. NO C/O PAIN SINCE ARRIVAL ON MEDICAL. LIFT PT; ON BEDREST. PEREYRA IN PLACE; PATENT & DRAINING. TEMPORARY DIALYSIS ACCESS TO L IJ. AWAITING STABILIZATION OF KIDNEY FUNCTION; PT & OT RECOMMENDING SNF AT DISCHARGE. REPORT GIVEN TO ONCOMING RN.
--- NOTE | 2020-03-22 04:09 | NUR ---
SHIFT SUMMARY A/O, ABLE TO MAKE NEEDS KNOWN. SLOW TO RESPOND; ALLOWED TIME FOR RESPONSE TO QUESTIONS ASKED. NO C/O PAIN/DISCOMFORT. ABLE TO HELP WITH REPOSITIONING; DID VERY WELL. VSS/AFEBRILE. PEREYRA SECURED AND DRAINING TO GRAVITY. APPEARED TO REST MOST OF SHIFT. NO ACUTE CHANGES NOTED. BED IN LOWEST POSITION. CALL LIGHT AND BELONGINGS WITHIN REACH. WCTM. REPORT TO ONCOMING RN.
[2020-03-22 05:06] LABS: Hematocrit 30.9 % (33.0-51.0); Hemoglobin 9.1 g/dL (11.5-16.0)
[2020-03-22 05:35] LABS: Albumin, Blood 1.9 g/dL (3.4-5.0); Anion Gap 12 mmol/L (6-16); Blood Urea Nitrogen 66 mg/dL (8-24); CO2, Blood 28 mmol/L (21-32); Calcium, Blood 8.6 mg/dL (8.5-10.1); Chloride, Blood 97 mmol/L (98-108); Creatinine, Blood 1.61 mg/dL (0.40-1.00); Glomerular Filtration Rate 34 (60-); Glucose, Blood 184 mg/dL (70-99); Magnesium, Blood 1.9 mg/dL (1.6-2.4); Phosphorus, Blood 4.9 mg/dL (2.5-4.9); Sodium, Blood 137 mmol/L (136-145)
--- NOTE | 2020-03-22 09:50 | NUR ---
DIALYSIS CATH REMOVED L IJ DIALYSIS CATH, PT RECLINED FLAT, SUTURES REMOVED, LINE PULLED ON EXHALATION, PRESSURE HELD FOR 5 MINUTES, PRESSURE DRESSING APPLIED, LINE INTACT, TIP PRESENT, PT EDGARDO WELL, WILL CONT TO MONITOR
[2020-03-22] MEDS ORDERED: METO50 PO (11:39)
--- NOTE | 2020-03-22 17:26 | NUR ---
SUMMARY/DISCHARGE PT DISCHARGED TO [facility], PT TAKEN OVER THERE VIA WHEELCHAIR AMBULANCE, PT UP WITH THE LIFT, REPORT CALLED TO CIARA
== END 2020-03-22 17:15 | DRG 270 ==
LOC: ER 14:58 → ICUW 14:59 → ERHOLD 14:59 → ICUW 19:41 → PCU 03-09 10:52 → ICUW 03-09 10:52 → PCU 03-16 13:12 → MEDS 03-21 16:49 → ENPENDDIS 03-22 10:17 → MEDS 03-22 17:15
PROVIDERS: Family Medicine; Internal Medicine; Internal Medicine Critical Care Medicine; Internal Medicine Interventional Cardiology; Internal Medicine Nephrology; Internal Medicine Pulmonary Disease; Nurse Practitioner Acute Care; Physician Assistant; Radiology Diagnostic Radiology; ADMIT Hospitalist
PROC: 04L93DZ Occlusion of Right Renal Artery with Intraluminal Device, Percutaneous Approach (ICD-10-PCS; principal; 2020-03-10)
PROC: 02HV33Z Insertion of Infusion Device into Superior Vena Cava, Percutaneous Approach (ICD-10-PCS; 2020-03-11)
PROC: 5A1D70Z Performance of Urinary Filtration, Intermittent, Less than 6 Hours Per Day (ICD-10-PCS; 2020-03-11)
PROC: B4161ZZ Fluoroscopy of Right Renal Artery using Low Osmolar Contrast (ICD-10-PCS; 2020-03-11)
PROC: 30233N1 Transfusion of Nonautologous Red Blood Cells into Peripheral Vein, Percutaneous Approach (ICD-10-PCS; 2020-03-12)
DX: I11.0 Hypertensive heart disease with heart failure (principal); I50.31 Acute diastolic (congestive) heart failure; I21.A1 Myocardial infarction type 2; J96.22 Acute and chronic respiratory failure with hypercapnia; J96.21 Acute and chronic respiratory failure with hypoxia; R57.8 Other shock; J18.9 Pneumonia, unspecified organism; G92 Toxic encephalopathy; K66.1 Hemoperitoneum; D62 Acute posthemorrhagic anemia; N39.0 Urinary tract infection, site not specified; N17.9 Acute kidney failure, unspecified; I48.20 Chronic atrial fibrillation, unspecified; E87.1 Hypo-osmolality and hyponatremia; Q79.60 Ehlers-Danlos syndrome, unspecified; Z68.43 Body mass index [BMI] 50.0-59.9, adult; I16.0 Hypertensive urgency; R79.89 Other specified abnormal findings of blood chemistry; E66.01 Morbid (severe) obesity due to excess calories; J43.9 Emphysema, unspecified; W19.XXXA Unspecified fall, initial encounter; E83.39 Other disorders of phosphorus metabolism; E88.09 Other disorders of plasma-protein metabolism, not elsewhere classified; E11.40 Type 2 diabetes mellitus with diabetic neuropathy, unspecified; Z79.4 Long term (current) use of insulin; G89.29 Other chronic pain; I87.2 Venous insufficiency (chronic) (peripheral); F43.10 Post-traumatic stress disorder, unspecified; K44.9 Diaphragmatic hernia without obstruction or gangrene; E26.09 Other primary hyperaldosteronism; M81.0 Age-related osteoporosis without current pathological fracture; G47.00 Insomnia, unspecified; M54.9 Dorsalgia, unspecified; I25.10 Atherosclerotic heart disease of native coronary artery without angina pectoris
CPT/HCPCS: 36253-RT; 36415; 36430; 36556; 36569; 36593; 36600; 36620; 37244; 51702; 51703; 70450; 71045; 71250; 71260; 74176; 74177; 76705; 76937; 80048; 80053; 80069; 80074; 80202; 81001; 81003; 82330; 82607; 82803; 82947; 83605; 83615; 83735; 83880; 84100; 84145; 84484; 85014; 85018; 85025; 85027; 85379; 85610; 85730; 86317; 86592; 86850; 86900; 86901; 86923; 87077; 87086; 87186; 93005; 93010; 93308; 93321; 93970; 94660; 94762; 96365; 96372; 96374; 96375; 96376; 97110; 97162; 97530; 99152; 99153; 99285-25; A9270; A9270-GY; C1751; C1752; C1760; C1769; C1887; C1894; C8929; C9113; G0378; J0171; J0360; J0610; J0696; J0780; J0881; J1200; J1644; J1650; J1720; J1815; J1940; J2405; J2765; J2930; J2997; J3010; J3370; J3480; J7030; J7040; J7050; J7060; J7070; P9016; P9059; P9612; Q9957; Q9967

== ENCOUNTER → 2020-09-13 | Outpatient (CLI) | payer OTHER, MEDICARE ==
[~2020-09-13] MED LIST changes: +ACET500 PO; +ATOR10 PO; +Aspir 8181 MG PO; +BUPR150ER PO; +CYCL10 PO; +Coughtab200 MG PO; +FURO40 PO; +Furosemide80 MG PO; +GABAPENTIN600 MG PO; +HYDHCL25 PO; +Hair, Skin & N1 EACH PO; +LACT PO; +Loratadine10 MG PO; +MELA3 PO; +METO50 PO; +METO50ER PO; +MIRALAX17 GM PO; +OMEP20ER PO; +ONDA4 PO; +POTCHL20ER PO; +Pedi-Dri 100,0060 GM TOP; +SENN187 PO; +SERT25 PO; +TUMS500 MG PO
[2020-09-13 20:57] LABS: Albumin, Blood 2.7 g/dL (3.4-5.0); Anion Gap 7 mmol/L (6-16); Blood Urea Nitrogen 32 mg/dL (8-24); Bun/Creatinine Ratio 22.1 (12.0-20.0); CO2, Blood 31 mmol/L (21-32); Calcium, Blood 9.1 mg/dL (8.5-10.1); Chloride, Blood 104 mmol/L (98-108); Creatinine, Blood 1.45 mg/dL (0.40-1.00); Glomerular Filtration Rate 38 (60-); Glucose, Blood 233 mg/dL (70-99); Phosphorus, Blood 3.5 mg/dL (2.5-4.9); Potassium, Blood 3.9 mmol/L (3.5-5.5); Sodium, Blood 142 mmol/L (136-145)
== END ==
LOC: LAB 19:31 → LAB SHORT 19:31
PROVIDERS: Internal Medicine Nephrology
DX: N18.30 Chronic kidney disease, stage 3 unspecified (principal); D63.1 Anemia in chronic kidney disease
CPT/HCPCS: 80069

== ENCOUNTER 2021-06-09 10:39 | Day surgery (SDC) | payer OTHER, MEDICARE ==
[~2021-06-09] VITALS: Ht 177.8 cm; Wt 148.0 kg
[~2021-06-09 10:39] MED LIST changes: +ATOR20 PO; +Acetaminophen650 M1 PO; +BUDESONIDE-FO10.2 G2 INH; +CYCLOBENZAPRINE5 MG PO; +Lopressor 50 mg50 MG PO; +ONDA4ODT MM; +SENNA LAXATIVE8.6 MG PO; +SERT100 PO; +SIME80CH PO; +Ventolin/Prove6.7 GM INH
[2021-06-09] MEDS ORDERED: INSULANI (11:08)
--- NOTE | 2021-06-09 11:18 | NUR ---
06/09/21 1118 Fer Guerrero PATIENT ASSISTED INTO BED VIA POLO LIFT WITH TWO RNS PRESENT. NO COMPLICATIONS NOTED FROM TRANSFER. PATIENT BROUGHT HER OWN SLING FROM HALFWAY. TETRACAINE AND PLEDGET APPLIED TO THE LEFT EYE PER ORDERS.
== END 2021-06-09 12:33 | disposition home or self-care (01) ==
LOC: ORSCSDS 10:39
PROVIDERS: Ophthalmology
PROC: 08RK3JZ Replacement of Left Lens with Synthetic Substitute, Percutaneous Approach (ICD-10-PCS; principal; 2021-06-09 11:45)
DX: H25.12 Age-related nuclear cataract, left eye (principal); I25.2 Old myocardial infarction; I48.91 Unspecified atrial fibrillation; E11.9 Type 2 diabetes mellitus without complications; Q79.69 Other Ehlers-Danlos syndromes; Z79.4 Long term (current) use of insulin; Z79.899 Other long term (current) drug therapy; Z79.82 Long term (current) use of aspirin; G47.33 Obstructive sleep apnea (adult) (pediatric); J44.9 Chronic obstructive pulmonary disease, unspecified; Z99.81 Dependence on supplemental oxygen; N18.30 Chronic kidney disease, stage 3 unspecified
CPT/HCPCS: 82947; J2001; J2250; J3010; J3301; V2632

== ENCOUNTER 2021-09-06 06:55 | Emergency (ER) | payer OTHER ==
[~2021-09-06] VITALS: Ht 177.8 cm; Wt 153.3 kg
[~2021-09-06 06:55] MED LIST changes: +INSULANI
[2021-09-06] MEDS ORDERED: CALCIUM CARBON500 M4 PO (07:12)
[2021-09-06] MEDS ORDERED: ARTIFICIAL TEAR15 M2 OP (07:13)
[2021-09-06] MEDS ORDERED: Voltaren100 GM TOP (07:15)
[2021-09-06] MEDS ORDERED: HUMALOG JU100 UNIT/2 SQ (07:17)
[2021-09-06] MEDS ORDERED: INSULANI SC (07:18)
[2021-09-06] MEDS ORDERED: FURO40 PO (07:18)
[2021-09-06] MEDS ORDERED: FURO80 PO (07:19)
[2021-09-06] MEDS ORDERED: METO50ER PO (07:21)
[2021-09-06] MEDS ORDERED: MIRALAX17 GM PO (07:21)
[2021-09-06] MEDS ORDERED: SYMBICORT 160-4.6 GM (07:23)
[2021-09-06] MEDS ORDERED: ALBU8HFA2 INH (07:24)
== END 2021-09-06 10:38 | disposition home or self-care (01) ==
LOC: ER 06:55
DX: S00.83XA Contusion of other part of head, initial encounter (principal); S70.02XA Contusion of left hip, initial encounter; E11.40 Type 2 diabetes mellitus with diabetic neuropathy, unspecified; I25.10 Atherosclerotic heart disease of native coronary artery without angina pectoris; I10 Essential (primary) hypertension; Z88.0 Allergy status to penicillin; Z88.2 Allergy status to sulfonamides; Z88.5 Allergy status to narcotic agent; Z91.048 Other nonmedicinal substance allergy status; Z79.82 Long term (current) use of aspirin; Z79.899 Other long term (current) drug therapy; W06.XXXA Fall from bed, initial encounter
CPT/HCPCS: 70450; 73502; 96374; 96375; 99284-25; J2405; J3010

== ENCOUNTER → 2021-12-07 | Outpatient (CLI) | payer OTHER ==
[~2021-12-07] MED LIST changes: +ALBU8HFA2 INH; +ARTIFICIAL TEAR15 M2 OP; +CALCIUM CARBON500 M4 PO; +FURO80 PO; +HUMALOG JU100 UNIT/2 SQ; +INSULANI SC; +SYMBICORT 160-4.6 GM; +Voltaren100 GM TOP
[2021-12-07 15:13] LABS: Hematocrit 37.4 % (33.0-51.0); Hemoglobin 11.1 g/dL (11.5-16.0)
== END | disposition home or self-care (01) ==
LOC: LAB SHORT 12:15
PROVIDERS: Internal Medicine
DX: M83.9 Adult osteomalacia, unspecified (principal)
CPT/HCPCS: 85014; 85018

== ENCOUNTER → 2021-12-14 | Outpatient (CLI) | payer OTHER ==
[2021-12-14 13:37] LABS: Hematocrit 35.4 % (33.0-51.0); Hemoglobin 10.6 g/dL (11.5-16.0)
== END | disposition home or self-care (01) ==
LOC: LAB SHORT 12:46
PROVIDERS: Internal Medicine
DX: I50.33 Acute on chronic diastolic (congestive) heart failure (principal); J96.21 Acute and chronic respiratory failure with hypoxia
CPT/HCPCS: 85014; 85018

== ENCOUNTER 2022-10-28 18:12 | Inpatient (IN) | payer OTHER ==
[~2022-10-28] VITALS: Ht 177.8 cm; Wt 167.2 kg
[2022-10-28 18:57] LABS: BASOPHILS ABSOLUTE AUTO 0.03 K/mm3 (0.00-0.23); BASOPHILS PERCENT AUTO 0 % (0-2); EOSINOPHILS ABSOLUTE AUTO 0.02 K/mm3 (0.00-0.68); EOSINOPHILS PERCENT AUTO 0 % (0-6); Hematocrit 38.8 % (33.0-51.0); Hemoglobin 12.3 g/dL (11.5-16.0); IMMATURE GRAN ABSOLUTE AUTO 0.15 K/mm3 (0.00-0.10); IMMATURE GRAN PERCENT AUTO 1 % (0-1); LYMPHOCYTES ABSOLUTE AUTO 0.38 K/mm3 (0.84-5.20); LYMPHOCYTES PERCENT AUTO 3 % (21-46); MONOCYTES ABSOLUTE AUTO 0.34 K/mm3 (0.16-1.47); MONOCYTES PERCENT AUTO 2 % (4-13); Mean Corpuscular HGB 29.6 pg (26.0-34.0); Mean Corpuscular HGB Conc 31.7 g/dL (31.5-36.5); Mean Corpuscular Volume 94 fL (80-100); NEUTROPHILS ABSOLUTE AUTO 13.17 K/mm3 (1.96-9.15); NEUTROPHILS PERCENT AUTO 94 % (41-73); RDW Coefficient Variation 14.7 % (11.7-14.2); RDW Standard Deviation 50.7 fL (35.1-46.3); Red Blood Cell Count 4.15 M/mm3 (3.80-5.20); White Blood Cell Count 14.09 K/mm3 (4.00-11.30)
[2022-10-28 19:06] LABS: Albumin, Blood 3.3 g/dL (3.4-5.0); Albumin/Globulin Ratio 0.9 (0.8-1.8); Bilirubin, Total 0.3 mg/dL (0.1-1.0); Bun/Creatinine Ratio 23.7 (12.0-20.0); Calcium, Blood 8.7 mg/dL (8.5-10.1); Creatinine, Blood 2.11 mg/dL (0.40-1.00); Globulin, Blood 3.8 g/dL (2.2-4.0); Potassium, Blood 4.3 mmol/L (3.5-5.5); Total Protein, Blood 7.1 g/dL (6.4-8.2)
[2022-10-28 19:07] LABS: Mean Platelet Volume 10.4 fL (9.1-12.4); Platelet Count 163 K/mm3 (150-400)
[2022-10-28 19:26] LABS: Influenza A, PCR NEGATIVE (NEGATIVE); Influenza B, PCR NEGATIVE (NEGATIVE); Resp Syncytial Virus, PCR NEGATIVE (NEGATIVE); SARS-Cov-2 (COVID-19) PCR, MMC NEGATIVE (NEGATIVE)
--- NOTE | 2022-10-29 02:15 | NUR ---
ADMIT NOTE; PT ARRIVES FROM ED VIA GURNEY. UPON ARRIVAL THE PT APPEARS TO BE IN NO DISTRESS. THE PT IS AXO X4 AND PLEASANT. THE PT DENIES ANY PAIN, CHEST PAIN OR PRESSURE OR SOB. THE PT WAS PLACED ON 3L NC UPON ADMIT, 2L NC IS HER BASELINE. THE PT IS UNABLE TO AMBULATE, AT HOME SHE USES A MOTORIZED SCOOTER TO GET AROUND. THEREFORE, THE PT WAS A 4 PERSON SLIDER SHEET TRANSFER FROM THE ED GURNEY TO THE HOSPITAL BED.
--- NOTE | 2022-10-29 04:49 | NUR ---
SHIFT SUMMARY; SINCE TIME OF ADMIT, NO ACUTE CHANGES SEEN IN PT. PT IS AXO X4. PT STATES THAT SHE USES A MOTORIZED SCOOTER TO GET AROUND AT HOME. PRESENTLY THE PT DENIES ANY SOB OR PAIN. THE PT IS ON 3L NC TO MAINTAIN SATS GREATER THAN 92%, 2L NC IS THE PTS BASELINE. PRESENTLY THE PT IS RESTING IN BED WITH THE BED IN THE LOWEST POSITION AND THE CALL LIGHT AT BEDSIDE.
[2022-10-29 05:31] LABS: Hematocrit 35.5 % (33.0-51.0); Mean Corpuscular Volume 94 fL (80-100); Mean Platelet Volume 10.7 fL (9.1-12.4); Platelet Count 151 K/mm3 (150-400); RDW Coefficient Variation 14.9 % (11.7-14.2); RDW Standard Deviation 51.1 fL (35.1-46.3); Red Blood Cell Count 3.79 M/mm3 (3.80-5.20); White Blood Cell Count 18.79 K/mm3 (4.00-11.30)
[2022-10-29 05:56] LABS: Bun/Creatinine Ratio 22.8 (12.0-20.0); Calcium, Blood 8.3 mg/dL (8.5-10.1); Creatinine, Blood 2.28 mg/dL (0.40-1.00); Potassium, Blood 4.6 mmol/L (3.5-5.5)
[2022-10-29 06:11] LABS: BAND PERCENT MAN 19 % (0-8); BASOPHILS PERCENT MAN 0 % (0-2); EOSINOPHILS PERCENT MAN 0 % (0-6); LYMPHOCYTES ABSOLUTE MAN 0.37 K/mm3 (0.84-5.20); LYMPHOCYTES PERCENT MAN 2 % (21-46); MONOCYTES ABSOLUTE MAN 0.56 K/mm3 (0.16-1.47); MONOCYTES PERCENT MAN 3 % (4-13); NEUTROPHILS ABSOLUTE MAN 17.85 K/mm3 (1.96-9.15); SEG NEUTROPHILS PERCENT MAN 76 % (41-73); TOTAL CELLS COUNTED 100
[2022-10-29 15:13] LABS: Source, Urine Straight Cath
[2022-10-29 15:18] LABS: Appearance, Urine Clear (Clear); Bilirubin, Urine Neg (Neg); Blood, Urine 1+ (Neg); Color, Urine Yellow (P-Yellow); Glucose Qualitative, Urine 3+ (Neg); Ketones, Urine Neg (Neg); Leukocyte Esterase, Urine 1+ (Neg); Nitrite, Urine Neg (Neg); Protein, Urine 1+ (Neg); Specific Gravity, Urine 1.015 (1.003-1.022); Urobilinogen, Urine NORM (Normal)
[2022-10-29 15:37] LABS: Bacteria Mod /hpf; Hyaline Casts 0-2 /lpf (0-2); Squamous Epithelial Cells Few /hpf (Few); Yeast/Fungi Urine Rare /hpf
--- NOTE | 2022-10-29 19:25 | NUR ---
SHIFT SUMMARY: PT A&O X4, PLEASANT AND COOPERATIVE. PT HAD MODERATE HEADACHES DURING THE SHIFT AND PT MEDICATED PER EMAR PROTOCOL. PT RECEVIED IV ABX W/O ANY S/S OF ADVERSE REACTIONS. URINE CULUTRE COLLECTED AND SENT TO LAB. PT URINE CULUTRE POSITIVE FOR WBC, BACTERIA AND BLOOD. DR. ROME CONTACTED BY CN AND NO NEW ORDERS PLACED. PT HAD SOB WITH EXTERTION WITH BED MOBILITY. RT CONTACTED AND PT REVECVIED BREATHING TREATMENT. PT IN BED WITH CALL LIGHT WITHIN REACH.
--- NOTE | 2022-10-29 22:04 | NUR ---
VOICED TAKES "TRAMADOL" AT HOME FOR PAIN AND ASKED OF WE COULD GET IT ORDERED FOR HER FOR LEG PAIN. MD NOTIFIED AND ORDER OBTAINED. CALL LIGHT IN REACH
--- NOTE | 2022-10-30 03:35 | NUR ---
DEWER SUMMARY SLIGHTLY ELEVATED TEMP, OTHERWISE VSS. RIGHT LEG REMAINS SOLLEN WITH DISCOLORATION. REQUESTED AND AFTER MD ORDERED IT, RECEIVED PO TRAMADOL FOR PAIN. VOICED IT HELPED. LEGS ELEVATED TO DECREASE SWELLING. ANTIBIOTICS ADMINISTERED ORDERED - SEE MAR FOR DETAILS. HAS BEEN RESTING QUIETLY WITH OCCASIONAL INTERRUPTIONS. O2 PER CPAP, ON CONTINUOUS PULSE OX. SATS IN THE 90'S AND HR IN THE LOW 100'S. ASYMPTOMATIC. CALL LIGHT IN REACH. WILL CONTINUE TO MONITOR
[2022-10-30 05:32] LABS: Bun/Creatinine Ratio 24.1 (12.0-20.0); Calcium, Blood 7.8 mg/dL (8.5-10.1); Creatinine, Blood 2.32 mg/dL (0.40-1.00); Potassium, Blood 4.4 mmol/L (3.5-5.5)
[2022-10-30 06:31] LABS: BASOPHILS ABSOLUTE AUTO 0.02 K/mm3 (0.00-0.23); BASOPHILS PERCENT AUTO 0 % (0-2); EOSINOPHILS PERCENT AUTO 0 % (0-6); Hematocrit 31.7 % (33.0-51.0); Hemoglobin 9.9 g/dL (11.5-16.0); IMMATURE GRAN ABSOLUTE AUTO 0.22 K/mm3 (0.00-0.10); IMMATURE GRAN PERCENT AUTO 1 % (0-1); LYMPHOCYTES ABSOLUTE AUTO 0.57 K/mm3 (0.84-5.20); LYMPHOCYTES PERCENT AUTO 4 % (21-46); MONOCYTES ABSOLUTE AUTO 0.54 K/mm3 (0.16-1.47); MONOCYTES PERCENT AUTO 3 % (4-13); Mean Corpuscular HGB 29.5 pg (26.0-34.0); Mean Corpuscular HGB Conc 31.2 g/dL (31.5-36.5); Mean Corpuscular Volume 94 fL (80-100); Mean Platelet Volume 10.7 fL (9.1-12.4); NEUTROPHILS PERCENT AUTO 92 % (41-73); Platelet Count 146 K/mm3 (150-400); RDW Coefficient Variation 14.8 % (11.7-14.2); RDW Standard Deviation 51.5 fL (35.1-46.3); Red Blood Cell Count 3.36 M/mm3 (3.80-5.20); White Blood Cell Count 16.05 K/mm3 (4.00-11.30)
--- NOTE | 2022-10-30 06:40 | NUR ---
TELE REPORTED HR INCREASED TO 140'S AND 150'S. UPON BEDSIDE ASSESSMENT, APPEARED ANXIOUS, WANTED "BEDPAN" QUICKLY. ASSISTED WITH BEDPAN. ALSO NOTE CONT PULSE OX BEEPING. VOICED TAKING IT OFF TO GET DRINK OF WATER. HAS TOLERATED 3 CUPS OF WATER THIS SHIFT. LEGS REMAIN ELEVATED. CALL LIGHT IN REACH.
--- NOTE | 2022-10-30 19:34 | NUR ---
SHIFT SUMMARY: PT A&0 X4, PLEASANT AND COMMUNICATES WELL WITH STAFF. PT SOB STATING 85%, TACHYCARDIC AT THE BEGINNING OF THE SHIFT. PT HAD MODERATE PAIN IN HER ENTIRE RIGHT LEG FROM CELLULITIS. PT WAS TAKEN OFF OF CPAP TO NC AND DIDN'T RECEVIED THE PROPER HOSE, CORRECT HOSE WAS FOUND. PT O2 STATS 93% ON 2L NC AND STABLE, HR REDUCED TO MID 100'S-120BPM. PT RECVIED BREATHING TREATMENT AND PT VITALS IMPROVE. PT CONTIUNE TO HAVE MODERATE PAIN IN HER RIGHT LEG AND HAS PRN PAIN MEDICATION FOR PAIN MANAGEMENT. PT IN BED WITH CALL LIGHT WITHIN REACH.
--- NOTE | 2022-10-31 03:51 | NUR ---
TEAM LEAD SUMMARY VSS. ACCU CHK AT HS 227. REG INSULIN HELD, BUT RECEIVED LONG ACTING. O2 SATS REMAIN IN THE 90'S. LESS ANXIOUS THIS SHIFT THAN NOTED 24 HR AGO. HR IN LOW 100'S. HAS RECEIVED TRAMADOL PO FOR LEG PAIN. LEFT LEG APPEARS LESS SWOLLEN AND LESS WARM TO TOUCH. LEGS REMAIN ELEVATED. AFFECT MORE CHEERFUL. HAS BEEN RESTING QUIETLY WITH CPAP SINCE HS. CALL LIGHT IN REACH. WILL CONTINUE TO MONITOR
[2022-10-31 05:46] LABS: BASOPHILS ABSOLUTE AUTO 0.02 K/mm3 (0.00-0.23); BASOPHILS PERCENT AUTO 0 % (0-2); EOSINOPHILS ABSOLUTE AUTO 0.05 K/mm3 (0.00-0.68); EOSINOPHILS PERCENT AUTO 0 % (0-6); Hematocrit 31.7 % (33.0-51.0); Hemoglobin 9.8 g/dL (11.5-16.0); IMMATURE GRAN ABSOLUTE AUTO 0.28 K/mm3 (0.00-0.10); IMMATURE GRAN PERCENT AUTO 2 % (0-1); LYMPHOCYTES ABSOLUTE AUTO 0.65 K/mm3 (0.84-5.20); LYMPHOCYTES PERCENT AUTO 5 % (21-46); MONOCYTES ABSOLUTE AUTO 0.59 K/mm3 (0.16-1.47); MONOCYTES PERCENT AUTO 4 % (4-13); Mean Corpuscular HGB 28.9 pg (26.0-34.0); Mean Corpuscular HGB Conc 30.9 g/dL (31.5-36.5); Mean Corpuscular Volume 94 fL (80-100); Mean Platelet Volume 10.8 fL (9.1-12.4); NEUTROPHILS PERCENT AUTO 88 % (41-73); Platelet Count 155 K/mm3 (150-400); RDW Coefficient Variation 14.9 % (11.7-14.2); RDW Standard Deviation 51.3 fL (35.1-46.3); Red Blood Cell Count 3.39 M/mm3 (3.80-5.20); White Blood Cell Count 13.59 K/mm3 (4.00-11.30)
[2022-10-31 06:12] LABS: Bun/Creatinine Ratio 22.5 (12.0-20.0); Calcium, Blood 8.3 mg/dL (8.5-10.1); Creatinine, Blood 2.36 mg/dL (0.40-1.00); Potassium, Blood 4.1 mmol/L (3.5-5.5)
--- NOTE | 2022-10-31 19:15 | NUR ---
SHIFT SUMMARY: PT A&O X4, PLEASANT AND COOPERATIVE. PT HAD MODERATE PAIN IN HER RIGHT LEG. PT MEDICATED PER EMAR PROTOCOL. PT CONITUES TO COUGH UP YELLOW THICK SPUTUM, DR. WALL ORDER CHEST X-RAY. PT RECEVIED HEAT PAD TO HELP WITH CHRONIC BACK PAIN. PT HAD NO FURTHER S/S THROUGHOUT THE SHIFT. PT IN BED WITH CALL LIGHT WITHIN REACH.
--- NOTE | 2022-11-01 04:54 | NUR ---
BEAUTICIAN APPRENTICE SUMMARY VSS. REMAINS ON CPAP WITH CONTINUOUS PULSE OX. SATS REMAIN INTHE 90'S AND HR LOW 90'S - LOW 100'S. ASYMPTOMATIC. INCONT OF URINE X 2 THIS SHIFT, CHANGED. ALERT TO QUESTIONS ASKED. HAS BEEN RESTING QUIETLY WITH FEW INTERRUPTIONS OTHERWISE. MEDICATED FOR PAIN OF LEFT LEG CELLULITIS. NOTE ALTHOUGH APPEARS LESS EDEMATOUS, REMAINS REDDENED IN COLOR AND APPARENT VESICLES. CALL LIGHT IN ERACH. WILL CONTINUE TO MONITOR
--- NOTE | 2022-11-01 15:25 | NUR ---
Pt. is resting but responds when I enter the room. Pt. is pleasant, welcomes my visit, and rapport is established promptly. Pt. was unsettled by some rough treatment from one of the staff, but verbalized that she had already communicated her concern. Listened with empathy and a calming presence. Pt. displayed evidence of engagement and awareness. Pt. verbalized that she has also recieved spiritual care through her SDA sikhism. Prayed with Pt. Pt. verbalized gratitude for the spiritual care visit.
--- NOTE | 2022-11-01 18:41 | NUR ---
SUMMARY- PT A/O X3, ABX FOR CELLULITIS, DIFUSE OVER ENTIRE LLE, UNABLE TO RUDDY. PT TOLERATING FOOD AND FLUID. BASELINE ABLE TO PIVOT TX TO WHEELCHAIR OF [facility] BUT UNABLE TO USE SMALL COMMODE. WILL HAVE NOC RN F/U AND LOOK FOR BARIATIRIC COMMODE AND TO ASK ABOUT STARTING PT/OT AM TO MAINTAIN MOBILITY. SUGARS AC/HS, COVERED WITH SS HUMALOG. CELLULITIS PAIN CONTROLLED WITH ULTRAM AND TYLENOL.
--- NOTE | 2022-11-02 05:05 | NUR ---
SHIFT SUMMARY NOC PT A/OX4. PT ON 2-3L/NC SPO2 AT >94%. PT WAS INC OF URINE X 1. PT HAS PT/OT CONSULT. PT ON TELE RUNNING AFIB WITH HR 117 BPM. PT VSS. PT HAD C/O OF PN IN LLE AND MEDICATED PER EMAR. PT PLEASANT AND COOPERATIVE TO CARE. PT PLANNING ON GOING BACK TO [facility] WHEN CELLULITIS RESOLVES. PT CURRENTLY RESTING WITH CX BIOX ON, CPAP, BED RAILS UP, BED IN LOWEST POSITION, AND CALL LIGHT WITHIN REACH. WCTM.
[2022-11-02 05:39] LABS: Albumin, Blood 1.9 g/dL (3.4-5.0); Anion Gap 9 mmol/L (6-16); Blood Urea Nitrogen 44 mg/dL (8-24); Bun/Creatinine Ratio 21.5 (12.0-20.0); CO2, Blood 25 mmol/L (21-32); Calcium, Blood 8.4 mg/dL (8.5-10.1); Chloride, Blood 103 mmol/L (98-108); Creatinine, Blood 2.05 mg/dL (0.40-1.00); Glomerular Filtration Rate 25 (60-); Glucose, Blood 194 mg/dL (70-99); Potassium, Blood 3.7 mmol/L (3.5-5.5); Sodium, Blood 137 mmol/L (136-145)
[2022-11-02 05:48] LABS: BASOPHILS ABSOLUTE AUTO 0.05 K/mm3 (0.00-0.23); BASOPHILS PERCENT AUTO 1 % (0-2); EOSINOPHILS ABSOLUTE AUTO 0.09 K/mm3 (0.00-0.68); EOSINOPHILS PERCENT AUTO 1 % (0-6); Hematocrit 37.4 % (33.0-51.0); Hemoglobin 11.9 g/dL (11.5-16.0); IMMATURE GRAN ABSOLUTE AUTO 0.13 K/mm3 (0.00-0.10); IMMATURE GRAN PERCENT AUTO 1 % (0-1); LYMPHOCYTES ABSOLUTE AUTO 0.67 K/mm3 (0.84-5.20); LYMPHOCYTES PERCENT AUTO 7 % (21-46); MONOCYTES ABSOLUTE AUTO 0.71 K/mm3 (0.16-1.47); MONOCYTES PERCENT AUTO 8 % (4-13); Mean Corpuscular HGB 28.7 pg (26.0-34.0); Mean Corpuscular HGB Conc 31.8 g/dL (31.5-36.5); Mean Corpuscular Volume 90 fL (80-100); Mean Platelet Volume 10.3 fL (9.1-12.4); NEUTROPHILS ABSOLUTE AUTO 7.43 K/mm3 (1.96-9.15); NEUTROPHILS PERCENT AUTO 82 % (41-73); Platelet Count 129 K/mm3 (150-400); RDW Coefficient Variation 14.5 % (11.7-14.2); RDW Standard Deviation 48.6 fL (35.1-46.3); Red Blood Cell Count 4.14 M/mm3 (3.80-5.20); White Blood Cell Count 9.08 K/mm3 (4.00-11.30)
--- NOTE | 2022-11-02 16:19 | NUR ---
Pt. is awake in bed watching TV, and welcomes my visit. Pt. is pleasant and is able to give a good update on her progress. Pt. displays evidence of engagement and awareness, and verbalizes the possibility of a discharge home after blood cultures have come back from the lab. Prayed with Pt. Pt. verbalizes gratitude for the spiritual care visit.
--- NOTE | 2022-11-02 16:21 | NUR ---
SHIFT SUMMARY PATIENT IS ALERT AND ORIENTED. PATIENT HAS BEEN PLEASENT AND COOPERATIVE WITH CARE THIS SHIFT. PATIENT HAS NOT HAD ANY ACUTE EVENTS THIS SHIFT. VITAL SIGNS REVIEWED. PATIENT HAS NOT COMPLAINED OF NAUSEA, VOMITTING, OR PAIN THIS SHIFT. PATIENT HAS COMPLAINED OF SOB DURING BED AND BATH REPOSITIONING. PATIENT HAS REDDENED AREAS AND POWER APPLIED. BED IN LOCKED AND LOWEST POSITION. CALL LIGHT IN PLACE. WILL MONITOR UNTIL SHIFT CHANGE.
[2022-11-03 05:36] LABS: Albumin, Blood 1.8 g/dL (3.4-5.0); Anion Gap 8 mmol/L (6-16); Blood Urea Nitrogen 42 mg/dL (8-24); CO2, Blood 27 mmol/L (21-32); Calcium, Blood 8.6 mg/dL (8.5-10.1); Chloride, Blood 104 mmol/L (98-108); Glomerular Filtration Rate 26 (60-); Glucose, Blood 166 mg/dL (70-99); Phosphorus, Blood 4.4 mg/dL (2.5-4.9); Potassium, Blood 3.6 mmol/L (3.5-5.5); Sodium, Blood 139 mmol/L (136-145)
--- NOTE | 2022-11-03 06:18 | NUR ---
SHIFT SUMMARY NOC PT A/O X 4. PT IS ON TELE RUNNING AFIB HR 103 BPM. PT IS ON O2 3L/NC WITH SPO2 >95%. PT PLEASANT AND COOPERATIVE TO CARE. NO ACUTE CHANGES. PT CURRENTLY RESTING IN BED WATCHING MOVIE WITH CPAP ON, BED RAILS UP, BED IN LOWEST POSITION, AND CALL LIGHT WITHIN REACH.
[2022-11-03] MEDS ORDERED: TAZICEF2 G2 IV (12:17)
[2022-11-03] MEDS ORDERED: VISBIOME 112.51 EACH PO (12:17)
[2022-11-03] MEDS ORDERED: MICONAZOLE NIT130 GM TOP (12:17)
--- NOTE | 2022-11-03 12:52 | NUR ---
Pt. is awake and welcomes my visit. Family members are present. Pt. verbalizes the good news about negative cultures, and the expectation that she would be discharged today. Established rapport, and celebrated with Pt. and family.
[2022-11-03 13:38] LABS: Influenza A, PCR NEGATIVE (NEGATIVE); Influenza B, PCR NEGATIVE (NEGATIVE); Resp Syncytial Virus, PCR NEGATIVE (NEGATIVE); SARS-Cov-2 (COVID-19) PCR, MMC NEGATIVE (NEGATIVE)
--- NOTE | 2022-11-03 16:31 | NUR ---
DISCHARGE SUMMARY PATIENT IS ALERT AND ORIENTED. PATIENT IS BEING DISCHARGED BACK TO [facility]. PATIENT HAD A POWERGLIDE PUT IN FOR ABX. PATIENT HAS HAD NO ACUTE EVENTS THIS SHIFT. VITAL SIGNS REVIEWED. [facility] TRANSPORTED PATIENT.
== END 2022-11-03 16:20 | DRG 871 ==
LOC: ER 18:12 → MEDS 22:20
PROVIDERS: Emergency Medicine; Internal Medicine; ADMIT Family Medicine
PROC: 3E03329 Introduction of Other Anti-infective into Peripheral Vein, Percutaneous Approach (ICD-10-PCS; principal; 2022-10-28)
PROC: 5A09357 Assistance with Respiratory Ventilation, Less than 24 Consecutive Hours, Continuous Positive Airway Pressure (ICD-10-PCS; 2022-10-29)
DX: A41.52 Sepsis due to Pseudomonas (principal); J18.9 Pneumonia, unspecified organism; L03.116 Cellulitis of left lower limb; N18.4 Chronic kidney disease, stage 4 (severe); J96.11 Chronic respiratory failure with hypoxia; J44.0 Chronic obstructive pulmonary disease with (acute) lower respiratory infection; Q79.60 Ehlers-Danlos syndrome, unspecified; Z68.42 Body mass index [BMI] 45.0-49.9, adult; N17.9 Acute kidney failure, unspecified; I24.8 Other forms of acute ischemic heart disease; E66.01 Morbid (severe) obesity due to excess calories; I25.10 Atherosclerotic heart disease of native coronary artery without angina pectoris; Z66 Do not resuscitate; E11.22 Type 2 diabetes mellitus with diabetic chronic kidney disease; I48.0 Paroxysmal atrial fibrillation; F32.A Depression, unspecified; M54.9 Dorsalgia, unspecified; B37.2 Candidiasis of skin and nail; E11.42 Type 2 diabetes mellitus with diabetic polyneuropathy; I12.9 Hypertensive chronic kidney disease with stage 1 through stage 4 chronic kidney disease, or unspecified chronic kidney disease; M25.511 Pain in right shoulder; G47.00 Insomnia, unspecified; I89.0 Lymphedema, not elsewhere classified; G47.33 Obstructive sleep apnea (adult) (pediatric); E87.70 Fluid overload, unspecified; G89.4 Chronic pain syndrome; M51.9 Unspecified thoracic, thoracolumbar and lumbosacral intervertebral disc disorder; Z20.822 Contact with and (suspected) exposure to COVID-19; Z96.653 Presence of artificial knee joint, bilateral; Z99.81 Dependence on supplemental oxygen; Z95.5 Presence of coronary angioplasty implant and graft; Z87.440 Personal history of urinary (tract) infections; Z88.0 Allergy status to penicillin; Z88.2 Allergy status to sulfonamides; Z88.5 Allergy status to narcotic agent; Z88.8 Allergy status to other drugs, medicaments and biological substances; Z91.041 Radiographic dye allergy status; Z79.899 Other long term (current) drug therapy; Z79.4 Long term (current) use of insulin; Z79.01 Long term (current) use of anticoagulants; Z79.51 Long term (current) use of inhaled steroids; Z79.82 Long term (current) use of aspirin; Z79.02 Long term (current) use of antithrombotics/antiplatelets; Z90.49 Acquired absence of other specified parts of digestive tract; Z95.1 Presence of aortocoronary bypass graft; Z87.828 Personal history of other (healed) physical injury and trauma
CPT/HCPCS: 0241U; 36415; 71045; 71046; 80048; 80053; 80069; 81001; 82947; 83605; 83880; 84145; 84484; 85025; 87040; 87077; 87086; 87186; 93005; 93010; 94640; 94660; 94664; 94760; 94762; 96374; 96375; 99285-25; A9270; C1751; C8929; J0690; J0713; J1650; J1815; J1940; J2930; J7030; J7120; Q9957

== ENCOUNTER 2022-11-19 18:33 | Emergency (ER) | payer OTHER ==
[~2022-11-19] VITALS: Ht 177.8 cm; Wt 173.3 kg
[~2022-11-19 18:33] MED LIST changes: +COLCRYS0.6 M1 PO; +MICONAZOLE NIT130 GM TOP; +PRED20 PO; +TAZICEF2 G2 IV; +VISBIOME 112.51 EACH PO
[2022-11-19 21:01] LABS: Base Excess Venous 10.8 mmol/L; PCO2 Venous 50.1 mmHg (38-42); pH Blood Venous 7.45 (7.34-7.37)
[2022-11-19 21:04] LABS: Albumin, Blood 2.5 g/dL (3.4-5.0); Albumin/Globulin Ratio 0.6 (0.8-1.8); Beta-hydroxybutyrate 1.3 mg/dL (0.2-2.8); Bilirubin, Total 0.4 mg/dL (0.1-1.0); Bun/Creatinine Ratio 23.2 (12.0-20.0); Calcium, Blood 8.3 mg/dL (8.5-10.1); Creatinine, Blood 1.55 mg/dL (0.40-1.00); Globulin, Blood 3.9 g/dL (2.2-4.0); Potassium, Blood 3.3 mmol/L (3.5-5.5); Total Protein, Blood 6.4 g/dL (6.4-8.2)
[2022-11-19 21:05] LABS: BASOPHILS ABSOLUTE AUTO 0.03 K/mm3 (0.00-0.23); BASOPHILS PERCENT AUTO 0 % (0-2); EOSINOPHILS ABSOLUTE AUTO 0.09 K/mm3 (0.00-0.68); EOSINOPHILS PERCENT AUTO 1 % (0-6); Hematocrit 36.7 % (33.0-51.0); Hemoglobin 10.9 g/dL (11.5-16.0); IMMATURE GRAN ABSOLUTE AUTO 0.09 K/mm3 (0.00-0.10); IMMATURE GRAN PERCENT AUTO 1 % (0-1); LYMPHOCYTES ABSOLUTE AUTO 0.95 K/mm3 (0.84-5.20); LYMPHOCYTES PERCENT AUTO 10 % (21-46); MONOCYTES ABSOLUTE AUTO 0.59 K/mm3 (0.16-1.47); MONOCYTES PERCENT AUTO 6 % (4-13); Mean Corpuscular HGB 29.1 pg (26.0-34.0); Mean Corpuscular HGB Conc 29.7 g/dL (31.5-36.5); Mean Corpuscular Volume 98 fL (80-100); Mean Platelet Volume 10.1 fL (9.1-12.4); NEUTROPHILS ABSOLUTE AUTO 7.93 K/mm3 (1.96-9.15); NEUTROPHILS PERCENT AUTO 82 % (41-73); NRBC ABSOLUTE 0.02 K/mm3 (0.00-0.02); NRBC Auto 0.2 /100 WBC (0.0-0.2); Platelet Count 278 K/mm3 (150-400); RDW Coefficient Variation 16.1 % (11.7-14.2); RDW Standard Deviation 55.1 fL (35.1-46.3); Red Blood Cell Count 3.74 M/mm3 (3.80-5.20); White Blood Cell Count 9.68 K/mm3 (4.00-11.30)
== END 2022-11-19 22:44 | disposition home or self-care (01) ==
LOC: ER 18:33
PROVIDERS: Emergency Medicine
DX: L03.116 Cellulitis of left lower limb (principal); S80.12XA Contusion of left lower leg, initial encounter; X58.XXXA Exposure to other specified factors, initial encounter; I48.20 Chronic atrial fibrillation, unspecified; I10 Essential (primary) hypertension; E11.40 Type 2 diabetes mellitus with diabetic neuropathy, unspecified; J45.909 Unspecified asthma, uncomplicated; I25.10 Atherosclerotic heart disease of native coronary artery without angina pectoris; G47.30 Sleep apnea, unspecified; Z88.0 Allergy status to penicillin; Z88.2 Allergy status to sulfonamides; Z88.5 Allergy status to narcotic agent; Z88.8 Allergy status to other drugs, medicaments and biological substances; Z79.899 Other long term (current) drug therapy; Z79.4 Long term (current) use of insulin; Z79.82 Long term (current) use of aspirin
CPT/HCPCS: 36415; 71045; 80053; 82010; 82803; 83880; 85025; 93005; 93010; J0690

== ENCOUNTER 2022-11-27 11:34 | Inpatient (IN) | payer OTHER ==
[~2022-11-27] VITALS: Ht 177.8 cm; Wt 169.0 kg
[2022-11-27 13:47] LABS: BASOPHILS ABSOLUTE AUTO 0.03 K/mm3 (0.00-0.23); BASOPHILS PERCENT AUTO 0 % (0-2); EOSINOPHILS ABSOLUTE AUTO 0.14 K/mm3 (0.00-0.68); EOSINOPHILS PERCENT AUTO 2 % (0-6); Hematocrit 34.7 % (33.0-51.0); Hemoglobin 10.7 g/dL (11.5-16.0); IMMATURE GRAN ABSOLUTE AUTO 0.03 K/mm3 (0.00-0.10); IMMATURE GRAN PERCENT AUTO 0 % (0-1); LYMPHOCYTES ABSOLUTE AUTO 0.95 K/mm3 (0.84-5.20); LYMPHOCYTES PERCENT AUTO 13 % (21-46); MONOCYTES ABSOLUTE AUTO 0.65 K/mm3 (0.16-1.47); MONOCYTES PERCENT AUTO 9 % (4-13); Mean Corpuscular HGB 29.1 pg (26.0-34.0); Mean Corpuscular HGB Conc 30.8 g/dL (31.5-36.5); Mean Corpuscular Volume 94 fL (80-100); Mean Platelet Volume 11.1 fL (9.1-12.4); NEUTROPHILS ABSOLUTE AUTO 5.31 K/mm3 (1.96-9.15); NEUTROPHILS PERCENT AUTO 75 % (41-73); Platelet Count 234 K/mm3 (150-400); RDW Coefficient Variation 16.3 % (11.7-14.2); RDW Standard Deviation 55.6 fL (35.1-46.3); Red Blood Cell Count 3.68 M/mm3 (3.80-5.20); White Blood Cell Count 7.11 K/mm3 (4.00-11.30)
[2022-11-27 14:29] LABS: Bun/Creatinine Ratio 26.4 (12.0-20.0); C-Reactive Protein, High Sens. 56.7 mg/L (0.000-3.000); Calcium, Blood 8.3 mg/dL (8.5-10.1); Creatinine, Blood 1.97 mg/dL (0.40-1.00); Potassium, Blood 3.1 mmol/L (3.5-5.5)
--- NOTE | 2022-11-28 03:47 | NUR ---
ADMIT NOTE ADMITTED TO FLOOR FROM THE ED EARLIER IN THE SHIFT WITH DX OF CELLULITIS OF LEFT KNEE. ED RN REPORTED PT HAD BEEN POSSIBLY STRUCK BY POLO LIFT AT [facility] (WHERE SHE HAD BEEN LIVING). SEE PICS IN CHART FOR DETAILS. ALERT AND ORIENTED. ORIENTED TO USE OF CALL LIGHT. CALL LIGHT IN REACH. INCONT OF URINE AND CHANGED.
--- NOTE | 2022-11-28 03:53 | NUR ---
BASE CLOTH INSPECTOR SUMMARY HAS BEEN RESTING QUIETLY WITH FEW INTERRUPTIONS. VSS. LEFT LEG ELEVATED. ANTIBIOTICS ADMINISTERED - SEE MAR FOR DETAILS. CALL LIGHT IN REACH. WILL CONTINUE TO MONITOR
[2022-11-28 05:02] LABS: BASOPHILS ABSOLUTE AUTO 0.04 K/mm3 (0.00-0.23); BASOPHILS PERCENT AUTO 1 % (0-2); EOSINOPHILS ABSOLUTE AUTO 0.18 K/mm3 (0.00-0.68); EOSINOPHILS PERCENT AUTO 3 % (0-6); Hematocrit 35.8 % (33.0-51.0); IMMATURE GRAN ABSOLUTE AUTO 0.03 K/mm3 (0.00-0.10); IMMATURE GRAN PERCENT AUTO 1 % (0-1); LYMPHOCYTES ABSOLUTE AUTO 1.04 K/mm3 (0.84-5.20); LYMPHOCYTES PERCENT AUTO 17 % (21-46); MONOCYTES ABSOLUTE AUTO 0.58 K/mm3 (0.16-1.47); MONOCYTES PERCENT AUTO 10 % (4-13); Mean Corpuscular HGB 29.3 pg (26.0-34.0); Mean Corpuscular HGB Conc 30.7 g/dL (31.5-36.5); Mean Corpuscular Volume 95 fL (80-100); Mean Platelet Volume 10.8 fL (9.1-12.4); NEUTROPHILS PERCENT AUTO 69 % (41-73); Platelet Count 209 K/mm3 (150-400); RDW Coefficient Variation 16.4 % (11.7-14.2); RDW Standard Deviation 56.9 fL (35.1-46.3); Red Blood Cell Count 3.76 M/mm3 (3.80-5.20); White Blood Cell Count 5.97 K/mm3 (4.00-11.30)
[2022-11-28 05:48] LABS: Bun/Creatinine Ratio 27.4 (12.0-20.0); Calcium, Blood 8.8 mg/dL (8.5-10.1); Creatinine, Blood 1.97 mg/dL (0.40-1.00); Potassium, Blood 2.9 mmol/L (3.5-5.5)
--- NOTE | 2022-11-28 11:38 | NUR ---
Pt resting in bed and is A&OX4. Offered therapeutic listening as Pt reports living at [facility]. Pt reports being a and this RN thanked her for her service. Pt reports having a daughter, and 3 step sons. She also reports having several grandchildren. Brief review of plan of care with Pt. Discussed current code status and POLST on file from a few years ago. She reports having completed another POLST since at [facility]. She reports a copy was sent with her from [facility]. No POLST in Pt's paper chart. Attempted to call [facility] to request copy of new POLST and received multiple busy signals. Unable to reach [facility] at this time. Palliative Care will remain available
--- NOTE | 2022-11-28 15:23 | NUR ---
Spiritual Care Visit Pt. is awake in bed and welcomes my visit. Pt. is a re-admit and I facilitate a discussion about her understanding about her prognosis. Listen with empathy and a calming presence. Pt. displays evidence of engagement and understanding. Consider issues of karla and belief, and pray with Pt. Pt. verbalizes gratitude for the spiritual care visit.
--- NOTE | 2022-11-28 17:59 | NUR ---
SHIFT SUMMARY: PT ALERT AND ORIENTED X4. PT CALLS APPROPRIATELY AND HAS BEEN PLEASANT THROUGHOUT THE SHIFT. PT STATES THAT "THEY DECIDED NOT TO DRAIN LEG WOUND BUT STAY ON IV ABX." CELLULITIS ON LEFT LEG IS LARGE, RED, AND WARM TO TOUCH. PT HAS OPEN WOUND IN ABDOMINAL PANNUS ON R.SIDE. PT STATES OTHERS HAVE BEEN APPLYING COLLAGEN AND DRESSING. HAVE NOT BEEN ABLE TO LOCATE ORDER FOR THIS TREATMENT. WILL PASS ONTO NEXT SHIFT. PT REMAINS ON 3L AND TOLERATING WELL. PT HAS NOT C/O PAIN THIS SHIFT BUT WAS HAVING SPASMS IN LEGS AND LOWER BACK. CALL DR. ROME WHO GAVE AN ORDER FOR FLEXERIL TID PRN. PT CONTINUES TO BE ON ADA DIET BUT WITH SOFT FOOD PT HAS HARD TIME CHEWING. PT HAD HIGH BLOOD SUGAR TODAY OF 359. MEDICATING WITH INSULIN PRESCRIBED. CALL LIGHT IN REACH. BED IN LOWEST POSITION. WILL CONTINUE TO MONITOR.
[2022-11-28 21:07] LABS: Glucose, Blood 509 mg/dL (70-99)
[2022-11-29 04:54] LABS: BASOPHILS ABSOLUTE AUTO 0.04 K/mm3 (0.00-0.23); BASOPHILS PERCENT AUTO 1 % (0-2); EOSINOPHILS ABSOLUTE AUTO 0.17 K/mm3 (0.00-0.68); EOSINOPHILS PERCENT AUTO 3 % (0-6); Hematocrit 34.2 % (33.0-51.0); Hemoglobin 10.6 g/dL (11.5-16.0); IMMATURE GRAN ABSOLUTE AUTO 0.02 K/mm3 (0.00-0.10); IMMATURE GRAN PERCENT AUTO 0 % (0-1); LYMPHOCYTES ABSOLUTE AUTO 0.78 K/mm3 (0.84-5.20); LYMPHOCYTES PERCENT AUTO 14 % (21-46); MONOCYTES PERCENT AUTO 9 % (4-13); Mean Corpuscular HGB 29.1 pg (26.0-34.0); Mean Corpuscular Volume 94 fL (80-100); Mean Platelet Volume 10.5 fL (9.1-12.4); NEUTROPHILS PERCENT AUTO 73 % (41-73); Platelet Count 206 K/mm3 (150-400); RDW Coefficient Variation 16.1 % (11.7-14.2); Red Blood Cell Count 3.64 M/mm3 (3.80-5.20); White Blood Cell Count 5.71 K/mm3 (4.00-11.30)
[2022-11-29 05:23] LABS: Bun/Creatinine Ratio 31.7 (12.0-20.0); Calcium, Blood 8.5 mg/dL (8.5-10.1); Creatinine, Blood 1.83 mg/dL (0.40-1.00); Potassium, Blood 2.8 mmol/L (3.5-5.5)
--- NOTE | 2022-11-29 06:25 | NUR ---
FRONT CLERK SUMMARY PT A/OX4. PLEASANT AND COOPERATIVE. ON BEDREST. HS BLOOD SUGAR >500; LABS DRAWN--BS 509. CALL TO PLANNING SPECIALIST DR/DR LAWRENCE-- NEW ORDER FOR 1X DOSE 10 UNITS OF GLARGINE. RECHECK BS 2300 AND GIVE LISPRO BASED ON HIGH SLIDING SCALE. CHANGED PT TO HIGH SLIDING SCALE. 2300 BS 414; 6 UNITS LISPRO GIVEN. GLUCOSE 288 WITH AM LABS. PT DENIED SYMPTOMS W/HIGH BS. PT REMAINS ON 3L 02 NC DURING DAY AND CPAP W/O2 BLEED IN AT NIGHT. PT ON CONT PULSE OX. PT O2 SOMETIMES DIPS W/MINIMAL ACTIVITY. PT HAS EPISODES OF INCONTIENENCE; PT WILL SOMETIMES REQ ASSISTANCE WHEN NEEDED TO VOID; PT TOLERATES BEDPAN. PT ABLE TO MAKE NEEDS KNOWN AND ADVOCATE F/SELF. CALL LIGHT ACCESSIBLE. BED LOCKED/LOW.
--- NOTE | 2022-11-29 12:14 | NUR ---
Received report from ongoing nurse at bedside. Pt asleep in bed.
--- NOTE | 2022-11-29 15:44 | NUR ---
Pt axox4. VSS stable. Pt resting comfortably in bed. Pt states still having pain in that left lower leg.
--- NOTE | 2022-11-29 18:03 | NUR ---
Pt very pleasant throughout the day. Pt states that stated she will be going home tomorrow. Pt incontinent throughout the morning. Place a purewick and it seems to be working well. Pt resting comfortably in bed complained about a headache meds given per emar. Pt has slept most of the day with no issues. Uses call light appropriate.
--- NOTE | 2022-11-29 19:09 | NUR ---
Report handoff given to nurse.
--- NOTE | 2022-11-30 03:57 | NUR ---
SHIFT UNREMARKABLE. PATIENT TOOK 0000 ANTIBIOTIC WITHOUT DIFFICULTY AND WAS ABLE TO SLEEP THROUGH MOST OF REMAINDER OF NIGHT. PATIENT HAS REFUSED A FEW POSITION CHANGES BUT IS OTHERWISE COOPERATIVE WITH CARE. CALL LIGHT LEFT WITHIN REACH.
[2022-11-30 06:06] LABS: Calcium, Blood 8.7 mg/dL (8.5-10.1); Potassium, Blood 2.7 mmol/L (3.5-5.5)
--- NOTE | 2022-11-30 10:48 | NUR ---
Spiritual Care Visit. Pt. is awake in bed and welcomes my visit. Pt. is unsettled by a delay in her discharge. Listen with empathy and a calming presence. Pt. displays evidence of acceptance and engagement. Re-establish rapport. Prayed for Pt. Pt. verbalized gratitude for the spiritua care visit.
--- NOTE | 2022-11-30 14:19 | NUR ---
Pt refused potassium states to not hang the other 2 bags. 1 out of 3 bags given. Check emar for refusal.
--- NOTE | 2022-11-30 17:49 | NUR ---
Received report from ongoing nurse. Pt axox4. Pt VSS. Will continue to monitor.
--- NOTE | 2022-11-30 19:10 | NUR ---
Handoff given to oncoming nurse.
--- NOTE | 2022-11-30 22:10 | NUR ---
NOTIFIED DR. KAUR OF PTS POC GLUCOSE OF 378 THIS EVENING. ADMINISTERED SLIDING SCALE INSULIN WELL LONG ACTING INSULIN, NO NEW ORDERS REGARDING BS. ALSO NOTIFIED ABOUT PT NOT TOLERATING IV POTASSIUN AND NOT RECIEVING 2/3 OF HER 20 MEQ POTASSIUM BAGS ORDERED, SHE DOES HOWEVER RECIEVE 20 MEQ'S OF POTASSIUM BID. ONE TIME ORDER OF 40MEQ OF PO POTASSIUM WAS ORDERED TO REPLACE THAT OF WHAT WAS NOT INFUSED THIS AM. PTS POTASSIUM LEVEL IN THE AM ON 11/30/22 WAS 2.7.
--- NOTE | 2022-12-01 04:35 | NUR ---
SHIFT SUMMARY; NO ACUTE CHANGES OVERNIGHT. THE PT RESTED IN BED T/O THE NIGHT. THE PT IS AXO X4 AND ON BEDREST. THE PT IS ON 3L NC DURING THE DAY WHICH IS HER BASELINE AND CPAP W/4L BLEED IN AT HS. THE PTS O2 SATURATION WAS >92% T/O THE NIGHT WHILE ON THE CPAP. THE PTS BLOOD SUGAR WAS 378 AT THE BEGINNING OF THE SHIFT, NOTIFIED DR. KAUR SEE PREVIOUS NOTE. THE PT DOES NOT COMPLAIN OF ANY PAIN T/O THE NIGHT BUT THE PT DID REQUEST A FLEXIRIL FOR BACK MUSCLE SPASMS. THE PT DENIES ANY SOB, CHEST PAIN/PRESSURE THIS SHIFT. PUREWICK IS IN PLACE DUE TO PTS INCONTINENCE AND BEDREST STATUS. CURRENTLY THE PT IS RESTING IN BED WITH THE BED IN THE LOWEST POSITION AND THE CALL LIGHT AT BEDSIDE.
[2022-12-01 06:26] LABS: Calcium, Blood 9.1 mg/dL (8.5-10.1); Creatinine, Blood 1.97 mg/dL (0.40-1.00); Potassium, Blood 3.3 mmol/L (3.5-5.5)
[2022-12-01 11:09] LABS: Influenza A, PCR NEGATIVE (NEGATIVE); Influenza B, PCR NEGATIVE (NEGATIVE); Resp Syncytial Virus, PCR NEGATIVE (NEGATIVE); SARS-Cov-2 (COVID-19) PCR, MMC NEGATIVE (NEGATIVE)
[2022-12-01] MEDS ORDERED: VISBIOME 112.51 EACH PO (12:37)
[2022-12-01] MEDS ORDERED: CEFTRIAXON1 GM/50 M1 IV (12:39)
--- NOTE | 2022-12-01 17:35 | NUR ---
Received report from ongoing nurse. No overnight events for patient, Pt axox4. Pt states that physician will be discharging her. Discharged orders place. Report given to nurse at the facility. Powerglide will be placed before discharged. ems arrived at 1700. Pt discharged with all belongings to facility.
== END 2022-12-01 17:06 | DRG 638 ==
LOC: ER 11:34 → MEDS 15:25
PROVIDERS: Emergency Medicine; Family Medicine; ADMIT Internal Medicine
DX: E11.628 Type 2 diabetes mellitus with other skin complications (principal); I13.0 Hypertensive heart and chronic kidney disease with heart failure and stage 1 through stage 4 chronic kidney disease, or unspecified chronic kidney disease; L03.116 Cellulitis of left lower limb; J96.11 Chronic respiratory failure with hypoxia; J96.12 Chronic respiratory failure with hypercapnia; Q79.60 Ehlers-Danlos syndrome, unspecified; I50.32 Chronic diastolic (congestive) heart failure; N17.9 Acute kidney failure, unspecified; Z20.822 Contact with and (suspected) exposure to COVID-19; Z66 Do not resuscitate; E66.01 Morbid (severe) obesity due to excess calories; E87.6 Hypokalemia; M25.511 Pain in right shoulder; G89.4 Chronic pain syndrome; E11.65 Type 2 diabetes mellitus with hyperglycemia; F32.A Depression, unspecified; N18.30 Chronic kidney disease, stage 3 unspecified; J45.909 Unspecified asthma, uncomplicated; E11.40 Type 2 diabetes mellitus with diabetic neuropathy, unspecified; G47.00 Insomnia, unspecified; G47.33 Obstructive sleep apnea (adult) (pediatric); I25.10 Atherosclerotic heart disease of native coronary artery without angina pectoris; M10.9 Gout, unspecified; Z96.653 Presence of artificial knee joint, bilateral; Z90.49 Acquired absence of other specified parts of digestive tract; Z95.5 Presence of coronary angioplasty implant and graft; Z95.1 Presence of aortocoronary bypass graft; Z99.89 Dependence on other enabling machines and devices; Z88.0 Allergy status to penicillin; Z88.2 Allergy status to sulfonamides; Z88.6 Allergy status to analgesic agent; Z88.8 Allergy status to other drugs, medicaments and biological substances; Z79.4 Long term (current) use of insulin; Z79.82 Long term (current) use of aspirin; Z79.899 Other long term (current) drug therapy
CPT/HCPCS: 0241U; 36415; 73700; 80048; 82947; 83605; 85025; 85651; 86141; 87040; 94640; 94660; 94664; 94762; 96365-59; 96366-59; 96375-59; 97110; 97162; 99285-25; A9270; C1751; J0690; J1815; J3370; J3480; J7050

== ENCOUNTER → 2023-01-22 | Outpatient (CLI) | payer OTHER ==
[~2023-01-22] MED LIST changes: +CEFTRIAXON1 GM/50 M1 IV
[2023-01-22 17:38] LABS: Albumin, Blood 2.7 g/dL (3.4-5.0); Anion Gap 8 mmol/L (6-16); Blood Urea Nitrogen 73 mg/dL (8-24); Bun/Creatinine Ratio 33.2 (12.0-20.0); CO2, Blood 34 mmol/L (21-32); Calcium, Blood 9.2 mg/dL (8.5-10.1); Chloride, Blood 93 mmol/L (98-108); Glomerular Filtration Rate 23 (60-); Glucose, Blood 88 mg/dL (70-99); Magnesium, Blood 1.9 mg/dL (1.6-2.4); Phosphorus, Blood 3.5 mg/dL (2.5-4.9); Potassium, Blood 3.6 mmol/L (3.5-5.5); Sodium, Blood 135 mmol/L (136-145)
== END | disposition home or self-care (01) ==
LOC: LAB SHORT 16:35
PROVIDERS: Internal Medicine Nephrology
DX: N18.30 Chronic kidney disease, stage 3 unspecified (principal); N25.81 Secondary hyperparathyroidism of renal origin; E78.00 Pure hypercholesterolemia, unspecified; E55.9 Vitamin D deficiency, unspecified; R76.9 Abnormal immunological finding in serum, unspecified; R94.6 Abnormal results of thyroid function studies
CPT/HCPCS: 80069; 83735; 85018

== ENCOUNTER 2023-05-09 11:32 | Inpatient (IN) | payer OTHER ==
[~2023-05-09] VITALS: Ht 165.1 cm; Wt 159.0 kg
[~2023-05-09 11:32] MED LIST changes: -CEFTRIAXON1 GM/50 M1 IV; +CEPH500 PO
[2023-05-09 12:41] LABS: BASOPHILS ABSOLUTE AUTO 0.06 K/mm3 (0.00-0.23); BASOPHILS PERCENT AUTO 0 % (0-2); EOSINOPHILS ABSOLUTE AUTO 0.03 K/mm3 (0.00-0.68); EOSINOPHILS PERCENT AUTO 0 % (0-6); Hematocrit 37.5 % (33.0-51.0); IMMATURE GRAN ABSOLUTE AUTO 0.13 K/mm3 (0.00-0.10); IMMATURE GRAN PERCENT AUTO 1 % (0-1); LYMPHOCYTES ABSOLUTE AUTO 0.47 K/mm3 (0.84-5.20); LYMPHOCYTES PERCENT AUTO 2 % (21-46); MONOCYTES PERCENT AUTO 3 % (4-13); Mean Corpuscular HGB 26.5 pg (26.0-34.0); Mean Corpuscular HGB Conc 29.3 g/dL (31.5-36.5); Mean Corpuscular Volume 90 fL (80-100); Mean Platelet Volume 9.9 fL (9.1-12.4); NEUTROPHILS ABSOLUTE AUTO 20.01 K/mm3 (1.96-9.15); NEUTROPHILS PERCENT AUTO 94 % (41-73); Platelet Count 335 K/mm3 (150-400); RDW Coefficient Variation 16.9 % (11.7-14.2); RDW Standard Deviation 55.8 fL (35.1-46.3); Red Blood Cell Count 4.15 M/mm3 (3.80-5.20)
[2023-05-09 13:12] LABS: Albumin, Blood 2.9 g/dL (3.4-5.0); Albumin/Globulin Ratio 0.5 (0.8-1.8); Bilirubin, Total 0.4 mg/dL (0.1-1.0); Bun/Creatinine Ratio 24.6 (12.0-20.0); Calcium, Blood 9.2 mg/dL (8.5-10.1); Creatinine, Blood 2.68 mg/dL (0.40-1.00); Globulin, Blood 5.3 g/dL (2.2-4.0); Potassium, Blood 6.7 mmol/L (3.5-5.5); Total Protein, Blood 8.2 g/dL (6.4-8.2)
[2023-05-09 19:02] LABS: Bun/Creatinine Ratio 24.1 (12.0-20.0); Calcium, Blood 9.1 mg/dL (8.5-10.1); Creatinine, Blood 2.7 mg/dL (0.40-1.00)
--- NOTE | 2023-05-09 19:37 | NUR ---
PT ARRIVED TO ROOM PCU18 AT APROX 1755. PT ALERT AND ORIENTED, SLID OVER TO BED FROM [facility] WITH SLIDER SHEET AND STAFF X 4. PT ABLE TO ANSWER ADMISSION QUESTIONS. MAR FROM [facility] AVAILABLE FOR MEDICATION RECONCILIATION. XRAY DONE FOR LLE. CARDIZEM GTT AT 15, HR 90-100. PT DENIES CHEST PAIN OR PRESSURE, NO SOB AT THIS TIME. PEREYRA CATHETER IN PLACE FROM ER. PT IS ABLE TO ASSIST WITH TURN AND REPOSITION IN BED. PT IS ABLE TO USE CALL LIGHT FOR NEEDS, CALL LIGHT IN REACH, REPORT GIVEN TO MILIND PATEL.
[2023-05-09 19:53] VITALS: BP 104/71
[2023-05-09] MEDS ORDERED: NYSTATIN TOP (23:07)
[2023-05-09] MEDS ORDERED: ALDACTONE25 MG PO (23:11)
[2023-05-09] MEDS ORDERED: METO5 PO (23:16)
[2023-05-09] MEDS ORDERED: TRAM50 PO (23:29)
[2023-05-09 23:45] VITALS: BP 110/69
[2023-05-10 00:55] LABS: Bun/Creatinine Ratio 25.3 (12.0-20.0); Calcium, Blood 8.8 mg/dL (8.5-10.1); Creatinine, Blood 2.73 mg/dL (0.40-1.00)
[2023-05-10 05:03] VITALS: BP 104/67
[2023-05-10 05:26] LABS: BASOPHILS ABSOLUTE AUTO 0.06 K/mm3 (0.00-0.23); BASOPHILS PERCENT AUTO 0 % (0-2); EOSINOPHILS ABSOLUTE AUTO 0.02 K/mm3 (0.00-0.68); EOSINOPHILS PERCENT AUTO 0 % (0-6); Hemoglobin 9.4 g/dL (11.5-16.0); IMMATURE GRAN ABSOLUTE AUTO 0.18 K/mm3 (0.00-0.10); IMMATURE GRAN PERCENT AUTO 1 % (0-1); LYMPHOCYTES ABSOLUTE AUTO 0.89 K/mm3 (0.84-5.20); LYMPHOCYTES PERCENT AUTO 3 % (21-46); MONOCYTES ABSOLUTE AUTO 1.08 K/mm3 (0.16-1.47); MONOCYTES PERCENT AUTO 4 % (4-13); Mean Corpuscular HGB 27.2 pg (26.0-34.0); Mean Corpuscular HGB Conc 29.4 g/dL (31.5-36.5); Mean Corpuscular Volume 93 fL (80-100); Mean Platelet Volume 10.2 fL (9.1-12.4); NEUTROPHILS ABSOLUTE AUTO 26.51 K/mm3 (1.96-9.15); NEUTROPHILS PERCENT AUTO 92 % (41-73); Platelet Count 277 K/mm3 (150-400); RDW Coefficient Variation 16.8 % (11.7-14.2); RDW Standard Deviation 57.2 fL (35.1-46.3); Red Blood Cell Count 3.45 M/mm3 (3.80-5.20); White Blood Cell Count 28.74 K/mm3 (4.00-11.30)
[2023-05-10 05:54] LABS: Source, Urine Clean Catch
[2023-05-10 06:12] LABS: Bun/Creatinine Ratio 24.4 (12.0-20.0); Creatinine, Blood 2.83 mg/dL (0.40-1.00); Potassium, Blood 5.3 mmol/L (3.5-5.5)
[2023-05-10 06:22] LABS: Appearance, Urine Clear (Clear); Bilirubin, Urine Neg (Neg); Blood, Urine 2+ (Neg); Color, Urine Yellow (P-Yellow); Glucose Qualitative, Urine Neg (Neg); Ketones, Urine Neg (Neg); Leukocyte Esterase, Urine 1+ (Neg); Nitrite, Urine Pos (Neg); Protein, Urine Neg (Neg); Specific Gravity, Urine 1.015 (1.003-1.022); Urobilinogen, Urine NORM (Normal)
--- NOTE | 2023-05-10 06:27 | NUR ---
SHIFT SUMMARY PATIENT ALERT AND ORIENTED X4. PATIENT HAD NO COMPLAINTS OF PAIN OR SHORTNESS OF BREATH. PATIENT'S CARDIZEM DRIP IS CURRENTLY OFF, AFIB IN THE 70'S ON TELE. BLOOD PRESSURE STABLE. PATIENT ON 3 LITERS O2 VIA NC, WHICH IS HER BASELINE, WORE HER CPAP OVERNIGHT. PURWICK IN PLACE. PATIENT MEDICATED TWICE FOR POTASSIUM LEVEL OF 6.0, POTASSIUM IS NOW 5.3. WILL CONTINUE TO MONITOR. CALL LIGHT WITHIN REACH. PATIENT ASSESSED FOR IGNITION SOURCES, EDUCATED ON FIRE SAFETY WHILE ON OXYGEN.
[2023-05-10 06:39] LABS: Bacteria Mod /hpf; Red Blood Cells, Urine 0-2 /hpf (0-2); Squamous Epithelial Cells Rare /hpf (Few)
[2023-05-10 08:10] VITALS: BP 107/68
[2023-05-10 11:50] VITALS: BP 101/68
[2023-05-10 14:37] LABS: Bun/Creatinine Ratio 24.2 (12.0-20.0); Calcium, Blood 8.6 mg/dL (8.5-10.1); Creatinine, Blood 2.73 mg/dL (0.40-1.00); Potassium, Blood 4.8 mmol/L (3.5-5.5)
--- NOTE | 2023-05-10 16:11 | NUR ---
ARRIVAL TO UNIT PT ARRIVED FROM PCU 18 VIA BED. REPORT RECIEVED AT BEDSIDE FROM PREVIOUS RN. PT [id number], GOOD HISTORIAN, ABLE TO ANSWER ALL QUESTIONS. SHE REPORTS PAIN TOLERABLE AT THIS TIME. ON 3L VIA NASAL CANULA, BASELINE FOR PT. CALL LIGHT IN REACH, PT USES APPROPRIATLY. PT DENIES FURTHER NEEDS AT THIS TIME. PUREWICK IN PLACE ON ARRIVAL.
--- NOTE | 2023-05-10 16:23 | NUR ---
Pt to transfer from PCU to [facility]. Pt has been off the dilt gtt since nightshift. Pt was restarted on home rate medications and is tolerating well. Pt OOB to the recliner chair via lift for a few hours this morning. Some complaints of "flutter" which correlate with PVCs on monitor. Some complaints of pain but tramadol is unable to be increase to home dose due to kidney function. Pt is agreeable to home dose at Q12hr PRN. Pt had 1L LR which tolerated well. Update was given to Preeti.
[2023-05-10 19:27] LABS: Vancomycin, Random 20.9 ug/mL
[2023-05-10 19:42] VITALS: BP 111/60
--- NOTE | 2023-05-11 04:27 | NUR ---
SHIFT SUMMARY 72 YR F TRANSFERED FROM PCU ON 05/10/23. FULL CODE. NO ACUTE CHANGES THIS SHIFT. PT ASKED FOR PAIN MEDS AT BEDTIME AND WAS MEDICATED PER EMAR. SHE HAS BEEN WEARING HER CPAP ALL NIGHT. 2100 BLOOD SUGAR WAS 136 REQUIRING NO INSULIN COVERAGE. SHE STATED THAT HER BOTTOM FELT A LITTLE SORE AND ASKED TO HAVE IT LOOKED AT. NO REDNESS OR SKIN BREAKDOWN WAS NOTED BUT BARRIER CREAM WAS APPLIED FOR COMFORT. PT IS PLEASANT AND COOPERATIVE WITH CARE. PT WAS EDUCATED ON IGNITION SOURCES AND FIRE DANGER WHILE OXYGEN IS IN USE.
[2023-05-11 06:09] LABS: BASOPHILS ABSOLUTE AUTO 0.04 K/mm3 (0.00-0.23); BASOPHILS PERCENT AUTO 0 % (0-2); EOSINOPHILS ABSOLUTE AUTO 0.12 K/mm3 (0.00-0.68); EOSINOPHILS PERCENT AUTO 1 % (0-6); Hematocrit 31.6 % (33.0-51.0); Hemoglobin 9.1 g/dL (11.5-16.0); IMMATURE GRAN ABSOLUTE AUTO 0.07 K/mm3 (0.00-0.10); IMMATURE GRAN PERCENT AUTO 1 % (0-1); LYMPHOCYTES ABSOLUTE AUTO 0.66 K/mm3 (0.84-5.20); LYMPHOCYTES PERCENT AUTO 5 % (21-46); MONOCYTES ABSOLUTE AUTO 0.48 K/mm3 (0.16-1.47); MONOCYTES PERCENT AUTO 4 % (4-13); Mean Corpuscular HGB 26.7 pg (26.0-34.0); Mean Corpuscular HGB Conc 28.8 g/dL (31.5-36.5); Mean Corpuscular Volume 93 fL (80-100); Mean Platelet Volume 10.2 fL (9.1-12.4); NEUTROPHILS ABSOLUTE AUTO 11.18 K/mm3 (1.96-9.15); NEUTROPHILS PERCENT AUTO 89 % (41-73); Platelet Count 235 K/mm3 (150-400); RDW Coefficient Variation 16.7 % (11.7-14.2); RDW Standard Deviation 56.6 fL (35.1-46.3); Red Blood Cell Count 3.41 M/mm3 (3.80-5.20); White Blood Cell Count 12.55 K/mm3 (4.00-11.30)
[2023-05-11 06:57] LABS: Bun/Creatinine Ratio 23.3 (12.0-20.0); Calcium, Blood 8.6 mg/dL (8.5-10.1); Creatinine, Blood 2.75 mg/dL (0.40-1.00); Potassium, Blood 4.3 mmol/L (3.5-5.5)
--- NOTE | 2023-05-11 07:31 | NUR ---
ASSUMED CARE: PT RESTING IN BED, CPAP IN PLACE. AFIB ON TELE IN THE 80S. NO ACUTE NEEDS OR CONCERNS AT THIS TIME.
[2023-05-11 07:56] VITALS: BP 118/81
--- NOTE | 2023-05-11 09:24 | NUR ---
DR CYR MADE AWARE THAT 40 UNITS LANTUS GIVEN PRIOR TO [facility] WILL MONITOR CBGS PER ORDERS AND HYPOGLYCEMIA PROTOCOL HAS BEEN PLACED
--- NOTE | 2023-05-11 11:31 | NUR ---
IGNITION RISK: PT DENIED POSSESSION OF LIGHTERS/MATCHES/CIGARETTES. NO EVIDENCE OF THIS IN ROOM EITHER. PT ALSO DENIES HISTORY OF SMOKING.
[2023-05-11 11:59] LABS: Percent Saturation 11.8 % (15.0-50.0)
[2023-05-11 12:03] LABS: IMMATURE RETIC FRACTION 19.6 % (2.3-16.0); RETIC HGB EQUIVALENT 24.9 pg (28.20-36.60); RETICULOCYTE ABSOLUTE 0.0533 M/mm3 (0.0200-0.1100); RETICULOCYTE COUNT PERCENT 1.6 % (0.50-2.50)
--- NOTE | 2023-05-11 14:28 | NUR ---
PT TAKEN TO XRAY VIA BED BY TRANSPORTER STAFF.
[2023-05-11 14:36] LABS: BASOPHILS ABSOLUTE AUTO 0.04 K/mm3 (0.00-0.23); BASOPHILS PERCENT AUTO 0 % (0-2); EOSINOPHILS ABSOLUTE AUTO 0.11 K/mm3 (0.00-0.68); EOSINOPHILS PERCENT AUTO 1 % (0-6); Hematocrit 29.6 % (33.0-51.0); Hemoglobin 8.7 g/dL (11.5-16.0); IMMATURE GRAN ABSOLUTE AUTO 0.06 K/mm3 (0.00-0.10); IMMATURE GRAN PERCENT AUTO 1 % (0-1); LYMPHOCYTES ABSOLUTE AUTO 0.78 K/mm3 (0.84-5.20); LYMPHOCYTES PERCENT AUTO 7 % (21-46); MONOCYTES ABSOLUTE AUTO 0.61 K/mm3 (0.16-1.47); MONOCYTES PERCENT AUTO 6 % (4-13); Mean Corpuscular HGB 27.3 pg (26.0-34.0); Mean Corpuscular HGB Conc 29.4 g/dL (31.5-36.5); Mean Corpuscular Volume 93 fL (80-100); Mean Platelet Volume 9.9 fL (9.1-12.4); NEUTROPHILS ABSOLUTE AUTO 9.12 K/mm3 (1.96-9.15); NEUTROPHILS PERCENT AUTO 85 % (41-73); Platelet Count 234 K/mm3 (150-400); RDW Coefficient Variation 16.7 % (11.7-14.2); RDW Standard Deviation 56.9 fL (35.1-46.3); Red Blood Cell Count 3.19 M/mm3 (3.80-5.20); White Blood Cell Count 10.72 K/mm3 (4.00-11.30)
[2023-05-11 14:58] LABS: Bun/Creatinine Ratio 25.2 (12.0-20.0); Calcium, Blood 8.4 mg/dL (8.5-10.1); Creatinine, Blood 2.46 mg/dL (0.40-1.00); Potassium, Blood 3.9 mmol/L (3.5-5.5)
--- NOTE | 2023-05-11 14:59 | NUR ---
PT RETURNED TO ROOM VIA BED FROM IMAGING
[2023-05-11 15:27] VITALS: BP 128/91
--- NOTE | 2023-05-11 17:57 | NUR ---
SHIFT SUMMARY: MEDICATED X2 FOR PAIN THIS SHIFT. WENT TO XRAY TO EVAULATE FEMUR HEMATOMA. PLANS FOR POSSIBLE DC IN NEXT COUPLE OF DAYS. LIFT USED FOR BED MOBILITY. NO ACUTE NEEDS OR CONCERNS AT THIS TIME.
[2023-05-11 19:50] VITALS: BP 116/74
[2023-05-12 02:35] VITALS: BP 139/95
--- NOTE | 2023-05-12 05:29 | NUR ---
SHIFT SUMMARY PT A&OX4, AND COOPERATIVE WITH CARE. NO ACUTE CHANGES, VSS. PT HAS NOTE REQUIRED PAIN COVERAGE THIS SHIFT. TOLERATING PO INTAKE. TELE A-FIB 80'S. PUREWICK IN PLACE DRAINING YELLOW URINE. CALLS APPROPRIATELY, CALL LIGHT WITHIN REACH.
[2023-05-12 05:51] LABS: BASOPHILS ABSOLUTE AUTO 0.04 K/mm3 (0.00-0.23); BASOPHILS PERCENT AUTO 0 % (0-2); EOSINOPHILS ABSOLUTE AUTO 0.16 K/mm3 (0.00-0.68); EOSINOPHILS PERCENT AUTO 2 % (0-6); Hematocrit 31.1 % (33.0-51.0); Hemoglobin 9.1 g/dL (11.5-16.0); IMMATURE GRAN ABSOLUTE AUTO 0.05 K/mm3 (0.00-0.10); IMMATURE GRAN PERCENT AUTO 1 % (0-1); LYMPHOCYTES ABSOLUTE AUTO 0.61 K/mm3 (0.84-5.20); LYMPHOCYTES PERCENT AUTO 6 % (21-46); MONOCYTES ABSOLUTE AUTO 0.48 K/mm3 (0.16-1.47); MONOCYTES PERCENT AUTO 5 % (4-13); Mean Corpuscular HGB 26.7 pg (26.0-34.0); Mean Corpuscular HGB Conc 29.3 g/dL (31.5-36.5); Mean Corpuscular Volume 91 fL (80-100); Mean Platelet Volume 10.2 fL (9.1-12.4); NEUTROPHILS ABSOLUTE AUTO 8.92 K/mm3 (1.96-9.15); NEUTROPHILS PERCENT AUTO 87 % (41-73); Platelet Count 245 K/mm3 (150-400); RDW Coefficient Variation 16.8 % (11.7-14.2); Red Blood Cell Count 3.41 M/mm3 (3.80-5.20); White Blood Cell Count 10.26 K/mm3 (4.00-11.30)
[2023-05-12 06:18] LABS: Bun/Creatinine Ratio 25.6 (12.0-20.0); Calcium, Blood 8.8 mg/dL (8.5-10.1); Creatinine, Blood 2.42 mg/dL (0.40-1.00); Potassium, Blood 3.9 mmol/L (3.5-5.5)
--- NOTE | 2023-05-12 07:35 | NUR ---
ASSUMED CARE: PT RESTING IN BED AT THIS TIME. 3L O2 VIA NC. AFIB AT 91 ON TELE. NO FURTHER NEEDS OR CONCERNS AT THIS TIME.
[2023-05-12 07:42] VITALS: BP 115/71
--- NOTE | 2023-05-12 11:51 | NUR ---
IGNITION RISK: TRAINING AND DEVELOPMENT HEAD WENT INTO ROOM TO EVALUATE IGNITION RISK. PT DENIED POSSESSION OF MATCHES/LIGHTERS/CIGARRETTES. PT ALSO POINTED TO EDUCATION PAPER ON BEDSIDE, INDICATING THAT SHE HAD RECIEVED THE EDUCATION BEFORE.
[2023-05-12 11:58] LABS: Influenza A, PCR NEGATIVE (NEGATIVE); Influenza B, PCR NEGATIVE (NEGATIVE); Resp Syncytial Virus, PCR NEGATIVE (NEGATIVE); SARS-Cov-2 (COVID-19) PCR, MMC NEGATIVE (NEGATIVE)
[2023-05-12 15:08] VITALS: BP 121/90
--- NOTE | 2023-05-12 17:15 | NUR ---
PT CALLED STAFF TO ROOM STATING THAT THIS IS THE FIRST TIME SHE'S LOOKED AT HER LEGS TODAY AND FEELS THEY LOOK SWOLLEN. THIS RN VISUALIZED AND STATED THAT THEY DID NOT APPEAR CHANGED FROM THIS AM. MEASURED AROUND CALF AND FOUND LEFT LEG TO BE 43 CM WITH HEMATOMA. RIGHT LEG 41CM AROUND CALF. PT AGREED TO CALL IF SHE NOTES ANY FURTHER CHANGES
--- NOTE | 2023-05-12 18:11 | NUR ---
SHIFT SUMMARY: PT RESTING IN BED. ON 3L O2 THIS SHIFT. PLAN IS FOR DC TOMORROW BACK TO SKILLED FACILITY. MEDICATED X1 FOR PAIN. DENIES OTHER NEEDS OR CONCERNS.
[2023-05-12 20:27] VITALS: BP 119/68
[2023-05-13 05:23] VITALS: BP 116/76
[2023-05-13 05:57] LABS: BASOPHILS ABSOLUTE AUTO 0.03 K/mm3 (0.00-0.23); BASOPHILS PERCENT AUTO 0 % (0-2); EOSINOPHILS ABSOLUTE AUTO 0.15 K/mm3 (0.00-0.68); EOSINOPHILS PERCENT AUTO 2 % (0-6); Hematocrit 29.7 % (33.0-51.0); Hemoglobin 8.8 g/dL (11.5-16.0); IMMATURE GRAN ABSOLUTE AUTO 0.04 K/mm3 (0.00-0.10); IMMATURE GRAN PERCENT AUTO 1 % (0-1); LYMPHOCYTES ABSOLUTE AUTO 0.67 K/mm3 (0.84-5.20); LYMPHOCYTES PERCENT AUTO 8 % (21-46); MONOCYTES ABSOLUTE AUTO 0.51 K/mm3 (0.16-1.47); MONOCYTES PERCENT AUTO 6 % (4-13); Mean Corpuscular HGB 26.7 pg (26.0-34.0); Mean Corpuscular HGB Conc 29.6 g/dL (31.5-36.5); Mean Corpuscular Volume 90 fL (80-100); NEUTROPHILS ABSOLUTE AUTO 6.63 K/mm3 (1.96-9.15); NEUTROPHILS PERCENT AUTO 83 % (41-73); Platelet Count 235 K/mm3 (150-400); RDW Coefficient Variation 16.6 % (11.7-14.2); RDW Standard Deviation 54.8 fL (35.1-46.3); Red Blood Cell Count 3.29 M/mm3 (3.80-5.20); White Blood Cell Count 8.03 K/mm3 (4.00-11.30)
--- NOTE | 2023-05-13 06:21 | NUR ---
SHIFT SUMMARY NO EVENTS OVERNIGHT. PRN TYLENOL GIVEN PRIOR TO BEDTIME, AND PRN FLEXERIL AND TRAMADOL GIVEN THIS AM FOR R ELBOW PAIN. PT STATES THIS ELBOW PAIN STARTED YESTERDAY AND IS LIMITING HER ROM TO HER RUE AND SHE HAS NOT RECEIVED MUCH PAIN RELIEF IN THAT ELBOW. PT SLEPT WITH CPAP ON AND CALL CAZARES IN REACH ENTIRE NIGHT. Q1H FIRE SAFETY CHECKS COMPLETED WITH NO SOURCES OF IGNITION FOUND.
[2023-05-13 06:39] LABS: Bun/Creatinine Ratio 27.8 (12.0-20.0); Calcium, Blood 8.8 mg/dL (8.5-10.1); Creatinine, Blood 2.09 mg/dL (0.40-1.00); Potassium, Blood 3.8 mmol/L (3.5-5.5)
[2023-05-13 07:33] VITALS: BP 105/65
--- NOTE | 2023-05-13 08:09 | NUR ---
pt laying in bed awake, a/ox4, pleasant and cooperative with care, follows commands well, reports pain to right elbow, can't move arm well, reports hx of gout, lungs are clear in upper armenta, dim in bases, resp even and unlabored, occ nonproductive cough noted, hrirr, no edema noted, ppp +1, cap refill <3 sec, vs stable, afebrile, piv sites are clear and patent, btx4, abd flat soft nontender, incont urine, purwick in place, with briefs, skin has a large hematoma to left pollard, skin intact, maew, lift to chair, gina, call light in reach.
[2023-05-13 14:33] VITALS: BP 129/83
--- NOTE | 2023-05-13 19:12 | NUR ---
pt up to chair for a few hrs today, gave tylenol once for right elbow pain, no acute events this shift, call light in reach.
[2023-05-13 19:44] VITALS: BP 121/88
[2023-05-14 05:05] VITALS: BP 124/81
--- NOTE | 2023-05-14 05:15 | NUR ---
SHIFT SUMMARY NO ACUTE CHANGES NOTED DURING SHIFT. PT ALERT AND ORIENTED, CALLS APPROPRIATELY. PT REMAINS ON 3L NC, CPAP QHS. PUREWICK IN PLACE. PO STEROIDS STARTED FOR GOUT, PT STATES IMPROVEMENT. MEDICATED FOR PAIN PER EMAR. WILL CONTINE TO MONITOR. CALL LIGHT WITHIN REACH.
[2023-05-14 06:01] LABS: Hematocrit 30.6 % (33.0-51.0); Mean Corpuscular HGB 26.5 pg (26.0-34.0); Mean Corpuscular HGB Conc 29.4 g/dL (31.5-36.5); Mean Corpuscular Volume 90 fL (80-100); Platelet Count 262 K/mm3 (150-400); RDW Coefficient Variation 16.1 % (11.7-14.2); RDW Standard Deviation 53.5 fL (35.1-46.3); Red Blood Cell Count 3.39 M/mm3 (3.80-5.20); White Blood Cell Count 8.84 K/mm3 (4.00-11.30)
[2023-05-14 06:38] LABS: BASOPHILS PERCENT MAN 0 % (0-2); EOSINOPHILS PERCENT MAN 0 % (0-6); LYMPHOCYTES ABSOLUTE MAN 0.35 K/mm3 (0.84-5.20); LYMPHOCYTES PERCENT MAN 4 % (21-46); MONOCYTES ABSOLUTE MAN 0.44 K/mm3 (0.16-1.47); MONOCYTES PERCENT MAN 5 % (4-13); NEUTROPHILS ABSOLUTE MAN 8.04 K/mm3 (1.96-9.15); SEG NEUTROPHILS PERCENT MAN 91 % (41-73); TOTAL CELLS COUNTED 100
[2023-05-14 08:03] VITALS: BP 116/71
[2023-05-14 11:55] LABS: Albumin, Blood 2.2 g/dL (3.4-5.0); Albumin/Globulin Ratio 0.5 (0.8-1.8); Bilirubin, Total 0.2 mg/dL (0.1-1.0); Bun/Creatinine Ratio 28.3 (12.0-20.0); Creatinine, Blood 1.91 mg/dL (0.40-1.00); Globulin, Blood 4.5 g/dL (2.2-4.0); Potassium, Blood 4.1 mmol/L (3.5-5.5); Total Protein, Blood 6.7 g/dL (6.4-8.2)
[2023-05-14] MEDS ORDERED: PRED20 PO (13:18)
[2023-05-14] MEDS ORDERED: MEROPENEM114 IV (13:19)
--- NOTE | 2023-05-14 13:29 | NUR ---
REPORT GIVEN TO HANH PATEL AT [facility]
--- NOTE | 2023-05-14 15:11 | NUR ---
DISCHARGE SUMMARY: PT DISCHARGED BACK TO [facility]. PT LEFT WITH IV IN RAC. PT IV IN PLACE PRIOR TO SHIFT AND FLUSHES WELL. NO S/S OF INFECTION AT SITE. PT ASSISTED WITH PACKING UP BELONGINGS. PT JAGDEEP LIFT TO PERSONAL WC. PT AND BELONGINGS SENT WITH TRANSPORT COMPANY.
--- NOTE | 2023-05-14 15:47 | NUR ---
PT EDUCATED THIS MORNING ON DANGERS OF SMOKING OR USING IGNITION SOURCES WHILE ON OXYGEN. PT VU AND STATED SHE HAS NO IGNITION SOURCES. PT HAD NO EVIDENCE OF SMOKING WHILE ROUNDING.
== END 2023-05-14 14:53 | DRG 871 ==
LOC: ER 11:32 → PCU 15:13 → MEDS 15:13 → PCU 17:30 → MEDS 05-10 16:10
PROVIDERS: Emergency Medicine; Family Medicine; Hospitalist; Student in an Organized Health Care Education/Training Program; ADMIT Internal Medicine
PROC: 3E03329 Introduction of Other Anti-infective into Peripheral Vein, Percutaneous Approach (ICD-10-PCS; principal; 2023-05-09)
PROC: 5A09357 Assistance with Respiratory Ventilation, Less than 24 Consecutive Hours, Continuous Positive Airway Pressure (ICD-10-PCS; 2023-05-09)
PROC: 0T9B70Z Drainage of Bladder with Drainage Device, Via Natural or Artificial Opening (ICD-10-PCS; 2023-05-09)
DX: A41.51 Sepsis due to Escherichia coli [E. coli] (principal); G93.41 Metabolic encephalopathy; I50.32 Chronic diastolic (congestive) heart failure; N17.9 Acute kidney failure, unspecified; Z68.44 Body mass index [BMI] 60.0-69.9, adult; J96.11 Chronic respiratory failure with hypoxia; N39.0 Urinary tract infection, site not specified; L03.116 Cellulitis of left lower limb; E87.1 Hypo-osmolality and hyponatremia; Z16.12 Extended spectrum beta lactamase (ESBL) resistance; Z20.822 Contact with and (suspected) exposure to COVID-19; R65.20 Severe sepsis without septic shock; E66.01 Morbid (severe) obesity due to excess calories; D63.1 Anemia in chronic kidney disease; G47.33 Obstructive sleep apnea (adult) (pediatric); I48.91 Unspecified atrial fibrillation; K21.9 Gastro-esophageal reflux disease without esophagitis; J44.9 Chronic obstructive pulmonary disease, unspecified; F32.A Depression, unspecified; F41.9 Anxiety disorder, unspecified; I25.10 Atherosclerotic heart disease of native coronary artery without angina pectoris; E87.5 Hyperkalemia; M10.9 Gout, unspecified; M25.529 Pain in unspecified elbow; N18.32 Chronic kidney disease, stage 3b; B37.2 Candidiasis of skin and nail; M62.838 Other muscle spasm; G43.909 Migraine, unspecified, not intractable, without status migrainosus; E11.22 Type 2 diabetes mellitus with diabetic chronic kidney disease; G47.00 Insomnia, unspecified; E86.1 Hypovolemia; Z95.5 Presence of coronary angioplasty implant and graft; Z96.653 Presence of artificial knee joint, bilateral; Z98.890 Other specified postprocedural states; Z90.49 Acquired absence of other specified parts of digestive tract; Z88.2 Allergy status to sulfonamides; Z88.5 Allergy status to narcotic agent; Z91.041 Radiographic dye allergy status; Z88.8 Allergy status to other drugs, medicaments and biological substances; Z79.899 Other long term (current) drug therapy; Z79.4 Long term (current) use of insulin; Z79.82 Long term (current) use of aspirin; Z79.2 Long term (current) use of antibiotics; Z88.0 Allergy status to penicillin; Z99.81 Dependence on supplemental oxygen; Z99.89 Dependence on other enabling machines and devices
CPT/HCPCS: 0241U; 36415; 51702; 71045; 73552; 73590; 80048; 80053; 80202; 81001; 82728; 82947; 83540; 83550; 83605; 83880; 84484; 85025; 85045; 87040; 87077; 87086; 87186; 93005; 93010; 94640; 94660; 94664; 94760; 94762; 96365-59; 96366-59; 96368; 96375-59; 96376-59; 99285-25; A9270; J0456; J0612; J0692; J0696; J1644; J1815; J2185; J2405; J3370; J7030; J7050; J7120; J7512

== ENCOUNTER 2023-06-07 20:54 | Inpatient (IN) | payer OTHER ==
[~2023-06-07] VITALS: Ht 177.8 cm; Wt 166.6 kg
[~2023-06-07 20:54] MED LIST changes: +ALDACTONE25 MG PO; +ARTIFICIAL TEAR15 M2 BOTHEYES; -ARTIFICIAL TEAR15 M2 OP; -FURO80 PO; +MEROPENEM114 IV; +METO5 PO; +NYSTATIN TOP; +POTA20LUD PO; +TRAM50 PO
[2023-06-07 21:44] LABS: Hematocrit 36.3 % (33.0-51.0); Hemoglobin 10.7 g/dL (11.5-16.0); Mean Corpuscular HGB 27.2 pg (26.0-34.0); Mean Corpuscular HGB Conc 29.5 g/dL (31.5-36.5); Mean Corpuscular Volume 92 fL (80-100); Mean Platelet Volume 10.6 fL (9.1-12.4); Platelet Count 192 K/mm3 (150-400); RDW Coefficient Variation 17.2 % (11.7-14.2); RDW Standard Deviation 58.7 fL (35.1-46.3); Red Blood Cell Count 3.93 M/mm3 (3.80-5.20); White Blood Cell Count 7.14 K/mm3 (4.00-11.30)
[2023-06-07 22:03] LABS: Albumin, Blood 2.8 g/dL (3.4-5.0); Albumin/Globulin Ratio 0.7 (0.8-1.8); Bilirubin, Total 0.3 mg/dL (0.1-1.0); Bun/Creatinine Ratio 31.8 (12.0-20.0); Calcium, Blood 8.4 mg/dL (8.5-10.1); Creatinine, Blood 2.11 mg/dL (0.40-1.00); Globulin, Blood 4.3 g/dL (2.2-4.0); Potassium, Blood 4.3 mmol/L (3.5-5.5); Total Protein, Blood 7.1 g/dL (6.4-8.2)
[2023-06-07 22:04] LABS: BAND PERCENT MAN 16 % (0-8); BASOPHILS PERCENT MAN 0 % (0-2); EOSINOPHILS ABSOLUTE MAN 0.07 K/mm3 (0.00-0.68); EOSINOPHILS PERCENT MAN 1 % (0-6); LYMPHOCYTES ABSOLUTE MAN 0.07 K/mm3 (0.84-5.20); LYMPHOCYTES PERCENT MAN 1 % (21-46); MONOCYTES ABSOLUTE MAN 0.07 K/mm3 (0.16-1.47); MONOCYTES PERCENT MAN 1 % (4-13); NEUTROPHILS ABSOLUTE MAN 6.92 K/mm3 (1.96-9.15); SEG NEUTROPHILS PERCENT MAN 81 % (41-73); TOTAL CELLS COUNTED 100
[2023-06-07 23:15] LABS: Base Excess Venous 4.5 mmol/L; Bicarbonate Venous 27.1 mmol/L (24.0-30.0); PCO2 Venous 59.3 mmHg (38-42); pH Blood Venous 7.32 (7.34-7.37)
[2023-06-07 23:18] LABS: Source, Urine Straight Cath
[2023-06-07 23:22] LABS: Bilirubin, Urine Neg (Neg); Blood, Urine 4+ (Neg); Glucose Qualitative, Urine Neg (Neg); Ketones, Urine Neg (Neg); Leukocyte Esterase, Urine 2+ (Neg); Nitrite, Urine Pos (Neg); Protein, Urine 1+ (Neg); Urobilinogen, Urine NORM (Normal)
[2023-06-07 23:57] LABS: Influenza A, PCR NEGATIVE (NEGATIVE); Influenza B, PCR NEGATIVE (NEGATIVE); Resp Syncytial Virus, PCR NEGATIVE (NEGATIVE); SARS-Cov-2 (COVID-19) PCR, MMC NEGATIVE (NEGATIVE)
[2023-06-07 23:58] LABS: Appearance, Urine Hazy (Clear); Color, Urine Pale Yellow (P-Yellow)
[2023-06-07 23:59] LABS: Bacteria Many /hpf; Squamous Epithelial Cells Few /hpf (Few)
[2023-06-08 03:54] LABS: Hematocrit 33.2 % (33.0-51.0); Hemoglobin 9.6 g/dL (11.5-16.0); Mean Corpuscular HGB 26.9 pg (26.0-34.0); Mean Corpuscular HGB Conc 28.9 g/dL (31.5-36.5); Mean Corpuscular Volume 93 fL (80-100); Mean Platelet Volume 10.3 fL (9.1-12.4); Platelet Count 163 K/mm3 (150-400); RDW Coefficient Variation 17.3 % (11.7-14.2); RDW Standard Deviation 58.8 fL (35.1-46.3); Red Blood Cell Count 3.57 M/mm3 (3.80-5.20); White Blood Cell Count 14.26 K/mm3 (4.00-11.30)
[2023-06-08 04:15] LABS: Bun/Creatinine Ratio 31.8 (12.0-20.0); Calcium, Blood 8.3 mg/dL (8.5-10.1); Creatinine, Blood 2.17 mg/dL (0.40-1.00); Potassium, Blood 4.4 mmol/L (3.5-5.5)
[2023-06-08 04:38] LABS: BAND PERCENT MAN 13 % (0-8); BASOPHILS PERCENT MAN 0 % (0-2); EOSINOPHILS PERCENT MAN 0 % (0-6); LYMPHOCYTES ABSOLUTE MAN 0.42 K/mm3 (0.84-5.20); LYMPHOCYTES PERCENT MAN 3 % (21-46); METAMYELOCYTE ABSOLUTE MAN 0.14 K/mm3 (0.00-0.00); METAMYELOCYTE PERCENT MAN 1 % (0-0); MONOCYTES ABSOLUTE MAN 0.57 K/mm3 (0.16-1.47); MONOCYTES PERCENT MAN 4 % (4-13); MYELOCYTE ABSOLUTE MAN 0.14 K/mm3 (0.00-0.00); MYELOCYTE PERCENT MAN 1 % (0-0); NEUTROPHILS ABSOLUTE MAN 12.97 K/mm3 (1.96-9.15); SEG NEUTROPHILS PERCENT MAN 78 % (41-73); TOTAL CELLS COUNTED 100
--- NOTE | 2023-06-08 06:45 | NUR ---
SHIOFT SUMMARY PT ARRIVED TO ROOM IN NO DISTRESS. PT DENIES SOB OR CX PAIN. PT WAS INFORMED OF NO SMOKING OR VAPING POLICY AND NO OPEN FLAMES IN THE HOSPITAL. PT VOICED UNDERSTANDING. PHOTOS OF PT NOTED SKIN ISSUES WERE PLACED IN CHART. PT REQUESTED A PUREWICK BE USED FOR VOIDING. PT IS COMPLIENT WITH CPAP USE. PT ON 3 LPM NC AND A S A BLEED IN WITH CPAP. PT IS REQUESTING HER TRAMADOL BE ADDED TO HER EMAR. WILL PASS ON TO DAYSHIFT. PT HAS SLEPT SOME AND HAD NO ISSUES. CALL LIGHT IN REACH.
[2023-06-08 08:12] VITALS: BP 118/75
[2023-06-08 11:11] VITALS: BP 132/82
[2023-06-08 15:37] VITALS: BP 117/73
--- NOTE | 2023-06-08 16:51 | NUR ---
shift summary/transfer to medical this rn assumed care at 0700. vital signs stable. tele afib 90-100. patient is alert and oriented x4. perrla. patient has reported a headache off and on and has been medicated per emar. patient reports no chest pain/pressure or shortness of breath,. see shift assessment for further detials. patient moving to room 325. patient left with allbelongings and in no distress. plan of care is up to date and no acute changes during this shift
--- NOTE | 2023-06-08 18:31 | NUR ---
SHIFT SUMMARY PT A&OX4 AND IN PLEASENT MOOD SINCE ARRIVAL TO UNIT. 2ND RN SKIN CHECK COMPLETE W/ PRIYANKA RN. 4L NC-BASE. CALL LIGHT W/IN REACH. TOLERATING PO INTAKE WELL. PT IS LIFT PT W/ BEDREST ORDER, PT IS ABLE TO ROLL IND. FROM SIDE TO SIDE.
[2023-06-08 20:05] VITALS: BP 127/74
--- NOTE | 2023-06-09 04:34 | NUR ---
SHIFT SUMMARY. SHIFT HAS BEEN MOSTLY UNREMARKABLE. PT HAS SLEPT SPORADICALY AFTER 2100 MED PASS AND ASSESSMENT. PT AWAKES FREQUENTLY. SOME MILD COMPLAINTS OF HEADACHES THAT HAVE BEEN WELL MANAGED WITH PRN TYLENOL. CPAP RUNNING THROUGHOUT EVENING AND MORNING. PUREWICK PUT INTO PLACE EARLY IN SHIFT. FUNCTIONING WELL. AOX4, PLEASANT, COOPERATIVE WITH CARE. ABX ADMINISTERED ON SCHEDULE WITHOUT DIFFICULTY. CALLS APPRPOPRIATELY. BED LOCKED IN LOWEST POSITION. CALL LIGHT LEFT WITHIN REACH.
[2023-06-09 05:19] VITALS: BP 117/75
[2023-06-09 06:11] LABS: Hematocrit 30.7 % (33.0-51.0); Hemoglobin 9.1 g/dL (11.5-16.0); Mean Corpuscular HGB 27.2 pg (26.0-34.0); Mean Corpuscular HGB Conc 29.6 g/dL (31.5-36.5); Mean Corpuscular Volume 92 fL (80-100); Mean Platelet Volume 10.7 fL (9.1-12.4); Platelet Count 145 K/mm3 (150-400); RDW Coefficient Variation 17.3 % (11.7-14.2); RDW Standard Deviation 58.3 fL (35.1-46.3); Red Blood Cell Count 3.34 M/mm3 (3.80-5.20); White Blood Cell Count 8.13 K/mm3 (4.00-11.30)
[2023-06-09 07:10] LABS: Albumin, Blood 2.4 g/dL (3.4-5.0); Albumin/Globulin Ratio 0.6 (0.8-1.8); Bilirubin, Total 0.3 mg/dL (0.1-1.0); Bun/Creatinine Ratio 30.1 (12.0-20.0); Calcium, Blood 8.8 mg/dL (8.5-10.1); Creatinine, Blood 2.16 mg/dL (0.40-1.00); Globulin, Blood 3.8 g/dL (2.2-4.0); Potassium, Blood 3.8 mmol/L (3.5-5.5); Total Protein, Blood 6.2 g/dL (6.4-8.2)
[2023-06-09 07:45] VITALS: BP 111/81
[2023-06-09 16:18] VITALS: BP 109/76
--- NOTE | 2023-06-09 17:29 | NUR ---
SHIFT SUMMARY CONTINUES TO RECEIVE ABX VIA POWERGLIDE. TURNING AND REPOSITIONING TOLERATED. VSS WITH ELEVATED HEART RATE, ASYMPTOMATIC AT THIS TIME, ON TELE MONITORING. DENIES HAVING ANY SOURCES OF IGNITON, EDUCATION PROVIDED.
[2023-06-09 19:45] VITALS: BP 126/80
[2023-06-10 02:47] VITALS: BP 117/82
--- NOTE | 2023-06-10 04:17 | NUR ---
SHIFT SUMMARY PT IS ALERT AND ORIENTED X4. CALM AND COOPERATIVE. REPORTED PAIN IN ABDOMEN THAT SHE BELIEVES TO BE CAUSED BY STRAINING DURING YESTERDAYS LARGE BM. TREATED PER EMAR NO ACUTE CHANGES OVERNIGHT. CPAP ON OVERNIGHT. DURING ROUNDING, EDUCATION PROVIDED ON THE RISKS OF INJURY WHILE USING ANY IGNITION SOURCE AROUND OXYGEN. PT VERBALIZES UNDERSTANDING. PT DENIES HAVING ANY IGNITION SOURCES. BED IS THE LOWEST POSITION WITH CALL LIGHT IN REACH.
[2023-06-10 05:03] LABS: Hemoglobin 8.8 g/dL (11.5-16.0); Mean Corpuscular HGB 27.4 pg (26.0-34.0); Mean Corpuscular HGB Conc 30.3 g/dL (31.5-36.5); Mean Corpuscular Volume 90 fL (80-100); Mean Platelet Volume 10.6 fL (9.1-12.4); Platelet Count 161 K/mm3 (150-400); RDW Coefficient Variation 17.2 % (11.7-14.2); RDW Standard Deviation 57.3 fL (35.1-46.3); Red Blood Cell Count 3.21 M/mm3 (3.80-5.20); White Blood Cell Count 5.84 K/mm3 (4.00-11.30)
[2023-06-10 05:33] LABS: Albumin, Blood 2.2 g/dL (3.4-5.0); Albumin/Globulin Ratio 0.6 (0.8-1.8); Bilirubin, Total 0.3 mg/dL (0.1-1.0); Bun/Creatinine Ratio 27.6 (12.0-20.0); Calcium, Blood 8.7 mg/dL (8.5-10.1); Creatinine, Blood 2.28 mg/dL (0.40-1.00); Globulin, Blood 3.9 g/dL (2.2-4.0); Potassium, Blood 3.3 mmol/L (3.5-5.5); Total Protein, Blood 6.1 g/dL (6.4-8.2)
[2023-06-10 07:31] VITALS: BP 113/77
--- NOTE | 2023-06-10 08:00 | NUR ---
pt laying in bed watching tv, a/ox4, pleasant and cooperative with care, follows commands well, asking for her pain meds this am, states she's doing ok, but having general pain, lungs dim t/o, resp even and unlabored, occ cough, currently on 3 liters 02 via n/c, which is her baseline, cpap at hs, hrirr, tele in place running afib per monitor see strip, purwick in place for incont, has dressing to left pollard for a hematoma that was drained, and pink under breasts, turns herself in bed, doesn't want assist, gina, call light in reach.
--- NOTE | 2023-06-10 13:35 | NUR ---
pt resting in bed, watching tv, moves herself in bed, no needs or complaints at this time, call light in reach.
[2023-06-10 16:13] VITALS: BP 121/83
--- NOTE | 2023-06-10 18:37 | NUR ---
pt had an uneventful day, turns self in bed, doesn't want to be touched when she's being turned, no acute changes this shift. call light in reach.
[2023-06-10 21:18] VITALS: BP 106/67
[2023-06-11 05:49] LABS: Hematocrit 31.5 % (33.0-51.0); Hemoglobin 9.4 g/dL (11.5-16.0); Mean Corpuscular HGB 27.1 pg (26.0-34.0); Mean Corpuscular HGB Conc 29.8 g/dL (31.5-36.5); Mean Corpuscular Volume 91 fL (80-100); Mean Platelet Volume 10.1 fL (9.1-12.4); Platelet Count 161 K/mm3 (150-400); RDW Coefficient Variation 17.4 % (11.7-14.2); RDW Standard Deviation 58.2 fL (35.1-46.3); Red Blood Cell Count 3.47 M/mm3 (3.80-5.20); White Blood Cell Count 5.67 K/mm3 (4.00-11.30)
[2023-06-11 05:59] VITALS: BP 105/70
[2023-06-11 06:16] LABS: Albumin, Blood 2.2 g/dL (3.4-5.0); Albumin/Globulin Ratio 0.6 (0.8-1.8); Bilirubin, Total 0.4 mg/dL (0.1-1.0); Bun/Creatinine Ratio 28.1 (12.0-20.0); Calcium, Blood 8.5 mg/dL (8.5-10.1); Creatinine, Blood 2.35 mg/dL (0.40-1.00); Globulin, Blood 3.8 g/dL (2.2-4.0); Potassium, Blood 3.3 mmol/L (3.5-5.5)
[2023-06-11 06:23] LABS: BAND PERCENT MAN 1 % (0-8); BASOPHILS PERCENT MAN 0 % (0-2); EOSINOPHILS ABSOLUTE MAN 0.51 K/mm3 (0.00-0.68); EOSINOPHILS PERCENT MAN 9 % (0-6); LYMPHOCYTES ABSOLUTE MAN 0.45 K/mm3 (0.84-5.20); LYMPHOCYTES PERCENT MAN 8 % (21-46); MONOCYTES ABSOLUTE MAN 0.28 K/mm3 (0.16-1.47); MONOCYTES PERCENT MAN 5 % (4-13); NEUTROPHILS ABSOLUTE MAN 4.42 K/mm3 (1.96-9.15); SEG NEUTROPHILS PERCENT MAN 77 % (41-73); TOTAL CELLS COUNTED 100
[2023-06-11 07:40] VITALS: BP 103/70
--- NOTE | 2023-06-11 07:42 | NUR ---
SHIFT SUMMARY NO ACUTE CHANGES OVERNIGHT. CPAP WHILE SLEEPING 3L NC DURING THE DAY. TREATED PAIN PER EMAR.
[2023-06-11 15:34] VITALS: BP 107/77
--- NOTE | 2023-06-11 17:36 | NUR ---
SHIFT SUMMARY PT AXO, PLEASANT AND COOPERATIVE WITH CARE. IV PATENT AND INFUSING PER EMAR. VSS ALTHOUGH PT HR ELEVATED, SEE VS. PT MEDICATED FOR PAIN PER EMAR. PURWICK IN PLACE AND WORKING WELL. DRESSING CHANGE TO LLE COMPLETED, PHOTO IN CHART. PT EDUCATED ON IGNITION SOURCES AND DENIES ANY AT THIS TIME. BED IN LOW POSITION, CALL LIGHT WITHIN REACH. THIS NURSE READ IN DR SORIA'S NOTE THAT PT SHOULD BE ON HEPARIN FOR DVT PREVENTION, NONE CURRENTLY ON EMAR, SHE STATES SHE WILL REVIEW.
[2023-06-11 19:54] VITALS: BP 123/75
[2023-06-12 04:31] VITALS: BP 109/69
[2023-06-12 05:27] LABS: BASOPHILS ABSOLUTE AUTO 0.01 K/mm3 (0.00-0.23); BASOPHILS PERCENT AUTO 0 % (0-2); EOSINOPHILS ABSOLUTE AUTO 0.41 K/mm3 (0.00-0.68); EOSINOPHILS PERCENT AUTO 10 % (0-6); Hematocrit 30.5 % (33.0-51.0); Hemoglobin 9.2 g/dL (11.5-16.0); IMMATURE GRAN ABSOLUTE AUTO 0.04 K/mm3 (0.00-0.10); IMMATURE GRAN PERCENT AUTO 1 % (0-1); LYMPHOCYTES ABSOLUTE AUTO 0.57 K/mm3 (0.84-5.20); LYMPHOCYTES PERCENT AUTO 13 % (21-46); MONOCYTES ABSOLUTE AUTO 0.45 K/mm3 (0.16-1.47); MONOCYTES PERCENT AUTO 11 % (4-13); Mean Corpuscular HGB 27.3 pg (26.0-34.0); Mean Corpuscular HGB Conc 30.2 g/dL (31.5-36.5); Mean Corpuscular Volume 91 fL (80-100); Mean Platelet Volume 9.8 fL (9.1-12.4); NEUTROPHILS ABSOLUTE AUTO 2.76 K/mm3 (1.96-9.15); NEUTROPHILS PERCENT AUTO 65 % (41-73); Platelet Count 151 K/mm3 (150-400); RDW Coefficient Variation 17.4 % (11.7-14.2); RDW Standard Deviation 57.2 fL (35.1-46.3); Red Blood Cell Count 3.37 M/mm3 (3.80-5.20); White Blood Cell Count 4.24 K/mm3 (4.00-11.30)
[2023-06-12 05:45] LABS: Bun/Creatinine Ratio 26.2 (12.0-20.0); Calcium, Blood 8.6 mg/dL (8.5-10.1); Creatinine, Blood 2.48 mg/dL (0.40-1.00); Potassium, Blood 3.2 mmol/L (3.5-5.5)
--- NOTE | 2023-06-12 05:56 | NUR ---
PT C/O NECK PAIN AND HEADACHE. PER BARBARA TUCKER TO CHANGE ULTRAM AND FLEXARIL FROM TID TO Q8HR PRN.
--- NOTE | 2023-06-12 06:32 | NUR ---
NO ACUTE CHANGES OVERNIGHT. TREATED NECK PAIN PER EMAR. CPAP OVERNIGHT. NO COMPLAINTS OVERNIGHT. PER REPORT, PICC LINE PLACEMENT NEEDED BEFORE DISCHARGE BACK TO FACILITY. PT DENIES HAVING IGNITION SOURCE
[2023-06-12 07:51] VITALS: BP 97/67
[2023-06-12 10:10] VITALS: BP 83/55
[2023-06-12 13:17] VITALS: BP 117/69
[2023-06-12 15:51] VITALS: BP 103/68
--- NOTE | 2023-06-12 15:51 | NUR ---
Pt is known to this development writer from previous hospital stay. Pt denies pain at this time but reports pain when at times when moving her head and neck. Pt reports still living at [facility] and granddaughter is supportive. Engaged in therapeutic discussion regarding planning for the future. Gentle education on disease process including trajectory. Discussed the importance of revisiting wishes for code status as health continues to change. Offered therapeutic listening and validated concerns. Palliative Care will remain available
--- NOTE | 2023-06-12 17:20 | NUR ---
SHIFT SUMMARY PT AXO, PLEASANT AND COOPERATIVE WITH CARE. VSS. PURWICK IN PLACE. POWERGLIDE PLACED THIS SHIFT. PT MEDICATED FOR PAIN PER EMAR. PT EDUCATED ON IGNITION SOURCES AND DENIES ANY AT THIS TIME. BED IN LOW POSITION, CALL LIGHT WITHIN REACH.
[2023-06-12 19:34] VITALS: BP 96/62
[2023-06-13 03:11] VITALS: BP 115/75
--- NOTE | 2023-06-13 04:22 | NUR ---
SHIFT SUMMARY PATIENT A/Ox4, BRIEFLY IRRITIABLE AT SHIFT CHANGE. PLEASANT AND COOPERATIVE THROUGHOUT REMAINDER OF SHIFT. NO C/O PAIN NOR DISCOMFORT STATED. LUNGS CTA, DIMINISHED TO BASSES, DENIES SOB. SPO2 97% ON 3L BLEED INTO CPAP. CONTINUES ON TELE, AFIB 90s. NO ACUTE CHANGES NOTED OVERNIGHT. PATIENT EDUCATED ON FIRE SAFETY AND NON-SMOKING POLICY, VERBALIZED UNDERSTANDING, DENIES SMOKING, NOR HAVING ANY SOURCES OF IGNITION. BED LOW, CALL LIGHT WITHIN REACH.
[2023-06-13 05:30] LABS: BASOPHILS ABSOLUTE AUTO 0.01 K/mm3 (0.00-0.23); BASOPHILS PERCENT AUTO 0 % (0-2); EOSINOPHILS ABSOLUTE AUTO 0.48 K/mm3 (0.00-0.68); EOSINOPHILS PERCENT AUTO 11 % (0-6); Hematocrit 28.8 % (33.0-51.0); Hemoglobin 8.8 g/dL (11.5-16.0); IMMATURE GRAN ABSOLUTE AUTO 0.07 K/mm3 (0.00-0.10); IMMATURE GRAN PERCENT AUTO 2 % (0-1); LYMPHOCYTES ABSOLUTE AUTO 0.71 K/mm3 (0.84-5.20); LYMPHOCYTES PERCENT AUTO 17 % (21-46); MONOCYTES PERCENT AUTO 12 % (4-13); Mean Corpuscular HGB 27.5 pg (26.0-34.0); Mean Corpuscular HGB Conc 30.6 g/dL (31.5-36.5); Mean Corpuscular Volume 90 fL (80-100); Mean Platelet Volume 10.4 fL (9.1-12.4); NEUTROPHILS ABSOLUTE AUTO 2.45 K/mm3 (1.96-9.15); NEUTROPHILS PERCENT AUTO 58 % (41-73); Platelet Count 171 K/mm3 (150-400); RDW Coefficient Variation 17.3 % (11.7-14.2); RDW Standard Deviation 56.5 fL (35.1-46.3); White Blood Cell Count 4.22 K/mm3 (4.00-11.30)
[2023-06-13 05:59] LABS: Albumin, Blood 2.2 g/dL (3.4-5.0); Albumin/Globulin Ratio 0.6 (0.8-1.8); Bilirubin, Total 0.3 mg/dL (0.1-1.0); Bun/Creatinine Ratio 28.6 (12.0-20.0); Calcium, Blood 8.6 mg/dL (8.5-10.1); Creatinine, Blood 2.31 mg/dL (0.40-1.00); Globulin, Blood 3.6 g/dL (2.2-4.0); Potassium, Blood 3.1 mmol/L (3.5-5.5); Total Protein, Blood 5.8 g/dL (6.4-8.2)
[2023-06-13 07:52] VITALS: BP 107/76
[2023-06-13] MEDS ORDERED: MEROPENEM1 G1 IV (11:59)
[2023-06-13 12:00] LABS: SARS-Cov-2 (COVID-19) PCR, MMC NEGATIVE (NEGATIVE)
--- NOTE | 2023-06-13 15:47 | NUR ---
tHE PATIENT WAS DISCHARGED/TRANSFERED TO [facility]. REPORT WAS CALLED TO HER NURSR AT [facility]. THE PATIENT'S POWER GLIDE WAS LEFT INTACT AND IN PLACE TO RECEIVE ABX AT THAT LOCATION. THE PATIENT WAS TRANSPORTED IN HER WHEELCHAIR [facility].
== END 2023-06-13 15:40 | DRG 871 ==
LOC: ER 20:54 → MEDS 23:44 → PCU 23:44 → MEDS 06-08 17:04
PROVIDERS: Emergency Medicine; Hospitalist; Internal Medicine; Physician Assistant; ADMIT Internal Medicine
PROC: 3E03329 Introduction of Other Anti-infective into Peripheral Vein, Percutaneous Approach (ICD-10-PCS; 2023-06-08)
PROC: 5A09357 Assistance with Respiratory Ventilation, Less than 24 Consecutive Hours, Continuous Positive Airway Pressure (ICD-10-PCS; principal; 2023-06-09)
DX: A41.51 Sepsis due to Escherichia coli [E. coli] (principal); J18.9 Pneumonia, unspecified organism; J96.21 Acute and chronic respiratory failure with hypoxia; J44.0 Chronic obstructive pulmonary disease with (acute) lower respiratory infection; I50.32 Chronic diastolic (congestive) heart failure; I13.0 Hypertensive heart and chronic kidney disease with heart failure and stage 1 through stage 4 chronic kidney disease, or unspecified chronic kidney disease; N17.9 Acute kidney failure, unspecified; N12 Tubulo-interstitial nephritis, not specified as acute or chronic; I48.20 Chronic atrial fibrillation, unspecified; G47.33 Obstructive sleep apnea (adult) (pediatric); E11.40 Type 2 diabetes mellitus with diabetic neuropathy, unspecified; G43.909 Migraine, unspecified, not intractable, without status migrainosus; N18.31 Chronic kidney disease, stage 3a; L89.892 Pressure ulcer of other site, stage 2; F41.9 Anxiety disorder, unspecified; M81.0 Age-related osteoporosis without current pathological fracture; F43.10 Post-traumatic stress disorder, unspecified; K21.9 Gastro-esophageal reflux disease without esophagitis; M10.9 Gout, unspecified; E11.22 Type 2 diabetes mellitus with diabetic chronic kidney disease; D63.1 Anemia in chronic kidney disease; E66.01 Morbid (severe) obesity due to excess calories; R65.20 Severe sepsis without septic shock; F32.A Depression, unspecified; Z20.822 Contact with and (suspected) exposure to COVID-19; Z95.1 Presence of aortocoronary bypass graft; Z95.5 Presence of coronary angioplasty implant and graft; Z90.49 Acquired absence of other specified parts of digestive tract; Z98.890 Other specified postprocedural states; Z88.0 Allergy status to penicillin; Z88.2 Allergy status to sulfonamides; Z88.8 Allergy status to other drugs, medicaments and biological substances; Z79.51 Long term (current) use of inhaled steroids; Z79.82 Long term (current) use of aspirin; Z79.4 Long term (current) use of insulin; Z79.899 Other long term (current) drug therapy; Z99.81 Dependence on supplemental oxygen
CPT/HCPCS: 0241U; 36415; 51701; 71045; 80048; 80053; 81001; 82607; 82746; 82803; 82947; 83605; 83880; 84484; 85025; 85027; 87040; 87077; 87086; 87186; 93005; 93010; 93306; 94640; 94660; 94664; 94762; 96365-59; 96366-59; 96375-59; 99285-25; A9270; J0692; J1650; J1815; J1956; J2185; J7030; J7040; J7050; U0002

== ENCOUNTER 2023-12-06 14:21 | Inpatient (IN) | payer OTHER, MEDICARE ==
[~2023-12-06] VITALS: Ht 177.8 cm; Wt 151.6 kg
[~2023-12-06 14:21] MED LIST changes: +MEROPENEM1 G1 IV; -SYMBICORT 160-4.6 GM; +SYMBICORT 160-4.6 GM INH
[2023-12-06 15:22] LABS: BASOPHILS ABSOLUTE AUTO 0.04 K/mm3 (0.00-0.23); BASOPHILS PERCENT AUTO 0 % (0-2); EOSINOPHILS ABSOLUTE AUTO 0.18 K/mm3 (0.00-0.68); EOSINOPHILS PERCENT AUTO 2 % (0-6); Hematocrit 42.1 % (33.0-51.0); Hemoglobin 12.3 g/dL (11.5-16.0); IMMATURE GRAN ABSOLUTE AUTO 0.07 K/mm3 (0.00-0.10); IMMATURE GRAN PERCENT AUTO 1 % (0-1); LYMPHOCYTES PERCENT AUTO 17 % (21-46); MONOCYTES ABSOLUTE AUTO 0.66 K/mm3 (0.16-1.47); MONOCYTES PERCENT AUTO 7 % (4-13); Mean Corpuscular HGB 28.1 pg (26.0-34.0); Mean Corpuscular HGB Conc 29.2 g/dL (31.5-36.5); Mean Corpuscular Volume 96 fL (80-100); Mean Platelet Volume 10.5 fL (9.1-12.4); NEUTROPHILS ABSOLUTE AUTO 6.87 K/mm3 (1.96-9.15); NEUTROPHILS PERCENT AUTO 73 % (41-73); Platelet Count 296 K/mm3 (150-400); RDW Coefficient Variation 19.1 % (11.7-14.2); RDW Standard Deviation 65.3 fL (35.1-46.3); Red Blood Cell Count 4.37 M/mm3 (3.80-5.20); White Blood Cell Count 9.42 K/mm3 (4.00-11.30)
[2023-12-06 15:34] LABS: Base Excess Venous -0.9 mmol/L; Bicarbonate Venous 22.8 mmol/L (24.0-30.0)
[2023-12-06 15:35] LABS: PCO2 Venous 57.4 mmHg (38-42); pH Blood Venous 7.27 (7.34-7.37)
[2023-12-06 15:39] LABS: Albumin/Globulin Ratio 0.7 (0.8-1.8); Bilirubin, Total 0.3 mg/dL (0.1-1.0); Bun/Creatinine Ratio 30.4 (12.0-20.0); Calcium, Blood 8.7 mg/dL (8.5-10.1); Creatinine, Blood 2.17 mg/dL (0.40-1.00); Globulin, Blood 4.2 g/dL (2.2-4.0); Potassium, Blood 5.9 mmol/L (3.5-5.5); Total Protein, Blood 7.2 g/dL (6.4-8.2)
[2023-12-06] MEDS ORDERED: Ipratropium/Albuterol SulF 2.5-0.5MG/3 ML Amp INH ONE (16:15)
[2023-12-06] MEDS ORDERED: Cefepime HCl 1,000 MG in NS 50 ML IV ONE (16:20)
[2023-12-06 17:58] LABS: Base Excess Venous -0.7 mmol/L; Bicarbonate Venous 22.8 mmol/L (24.0-30.0); PCO2 Venous 58.8 mmHg (38-42); pH Blood Venous 7.26 (7.34-7.37)
[2023-12-06 18:33] LABS: Influenza A, PCR NEGATIVE (NEGATIVE); Influenza B, PCR NEGATIVE (NEGATIVE); SARS-Cov-2 (COVID-19) PCR, MMC NEGATIVE (NEGATIVE)
[2023-12-06 18:44] LABS: Resp Syncytial Virus, PCR POSITIVE (NEGATIVE)
[2023-12-06] MEDS ORDERED: FLU VACC QS2023-24(6MOS UP)/PF 60 MCG/0.5 ML SYRINGE IM ONE (19:15)
[2023-12-06] MEDS ORDERED: Acetaminophen 325 MG TABLET PO PRN ×2 (19:15→20:50)
[2023-12-06] MEDS ORDERED: Albuterol 2.5 MG/3 ML VIAL INH PRN (19:25)
[2023-12-06] MEDS ORDERED: Calcium Carbonate 500 MG Tab Chew PO PRN (19:55)
[2023-12-06] MEDS ORDERED: MethylPREDNISolone Sod Succ 125 MG Vial IV SCH (20:00)
[2023-12-06] MEDS ORDERED: Ipratropium/Albuterol SulF 2.5-0.5MG/3 ML Amp INH SCH (20:00)
[2023-12-06] MEDS ORDERED: Furosemide 10 MG/ML 4ML Vial IV SCH (20:00)
[2023-12-06 20:01] LABS: Base Excess Venous 0.6 mmol/L; Bicarbonate Venous 23.8 mmol/L (24.0-30.0); PCO2 Venous 56.4 mmHg (38-42); pH Blood Venous 7.29 (7.34-7.37)
[2023-12-06] MEDS ORDERED: Metoprolol Succinate 50 MG TABCR PO ONE (20:30)
[2023-12-06] MEDS ORDERED: Metoprolol Tartrate 1 MG/ML 5 ML VIAL IV PRN (20:50)
[2023-12-06] MEDS ORDERED: Atorvastatin 10 MG Tab PO SCH (21:00)
[2023-12-06] MEDS ORDERED: Melatonin 3 MG Tab PO SCH (21:00)
[2023-12-06] MEDS ORDERED: Miconazole Nitrate 2% 85 GM PWD TOP SCH (21:00)
[2023-12-06 21:48] VITALS: BP 115/78
[2023-12-06] MEDS ORDERED: ALLO100 PO (22:24)
[2023-12-07 04:30] VITALS: BP 109/73
[2023-12-07 04:31] LABS: Base Excess Venous -1.3 mmol/L; Bicarbonate Venous 22.7 mmol/L (24.0-30.0); PCO2 Venous 52.1 mmHg (38-42); pH Blood Venous 7.29 (7.34-7.37)
--- NOTE | 2023-12-07 04:55 | NUR ---
Shift Summary Ms. Montoya was admitted throught ER last night from a Nursing facility. She was brought in due to frequent coughing for 2 weeks and was diagnosed with pneumonia a week ago. She has been on po antibiotics but has not improved. It was reported that she has a cough productive of yellow sputum. I did observe her coughing frequently but it was non-productive. She is oxygen at 3 l per nasal cannula. She has cardiomegaly with small right and trace left pleural effusions. She also has COPD. She is alert and oriented x 4. She uses her call light appropriately. Bed is in low position with side rails up x 2. Patient states that she uses a bed dupree for bowel movements and knows when she has to go. She is incontinent of urine. She says that she get up to the wheel chair at the nursing facility and they use a ting lift to transfer her from bed to chair.
[2023-12-07 05:39] LABS: BASOPHILS ABSOLUTE AUTO 0.02 K/mm3 (0.00-0.23); BASOPHILS PERCENT AUTO 0 % (0-2); EOSINOPHILS PERCENT AUTO 0 % (0-6); Hematocrit 43.7 % (33.0-51.0); Hemoglobin 12.5 g/dL (11.5-16.0); IMMATURE GRAN ABSOLUTE AUTO 0.05 K/mm3 (0.00-0.10); IMMATURE GRAN PERCENT AUTO 1 % (0-1); LYMPHOCYTES ABSOLUTE AUTO 0.56 K/mm3 (0.84-5.20); LYMPHOCYTES PERCENT AUTO 8 % (21-46); MONOCYTES ABSOLUTE AUTO 0.05 K/mm3 (0.16-1.47); MONOCYTES PERCENT AUTO 1 % (4-13); Mean Corpuscular HGB 27.6 pg (26.0-34.0); Mean Corpuscular HGB Conc 28.6 g/dL (31.5-36.5); Mean Corpuscular Volume 97 fL (80-100); Mean Platelet Volume 11.3 fL (9.1-12.4); NEUTROPHILS ABSOLUTE AUTO 6.42 K/mm3 (1.96-9.15); NEUTROPHILS PERCENT AUTO 90 % (41-73); Platelet Count 270 K/mm3 (150-400); RDW Standard Deviation 65.1 fL (35.1-46.3); Red Blood Cell Count 4.53 M/mm3 (3.80-5.20)
[2023-12-07] MEDS ORDERED: Omeprazole 20 MG CapCR PO SCH (06:00)
[2023-12-07 06:07] LABS: Albumin, Blood 3.1 g/dL (3.4-5.0); Albumin/Globulin Ratio 0.7 (0.8-1.8); Bilirubin, Total 0.4 mg/dL (0.1-1.0); Bun/Creatinine Ratio 31.9 (12.0-20.0); Calcium, Blood 9.3 mg/dL (8.5-10.1); Creatinine, Blood 2.1 mg/dL (0.40-1.00); Globulin, Blood 4.4 g/dL (2.2-4.0); Potassium, Blood 6.5 mmol/L (3.5-5.5); Total Protein, Blood 7.5 g/dL (6.4-8.2)
[2023-12-07] MEDS ORDERED: Calcium Gluconate 10% 1,000 MG in NS 50 ML IV ONE (06:25)
[2023-12-07] MEDS ORDERED: Dextrose 50% 50 ML Syringe IV ONE (06:30)
[2023-12-07] MEDS ORDERED: Dextrose 5% 250 ML IV SCH (06:35)
[2023-12-07] MEDS ORDERED: Dextrose 50% 50 ML Vial IV ONE (07:00)
[2023-12-07] MEDS ORDERED: Insulin Regular 100 UNIT/ML 10ML Vial IV ONE (07:00)
[2023-12-07] MEDS ORDERED: Sodium Zirconium Cyclosilicate 10 GM Packet PO SCH (07:00)
[2023-12-07] MEDS ORDERED: Insulin Human Lispro 100 Units/ML 3ML Syringe SC SCH ×2 (07:30)
[2023-12-07] MEDS ORDERED: Potassium Chloride 20 MEQ/15 ML UDC PO SCH (08:00)
[2023-12-07] MEDS ORDERED: NS 250 ML IV PRN (08:00)
[2023-12-07] MEDS ORDERED: BuPROPion HCl SR 100 MG TabCR PO SCH (09:00)
[2023-12-07] MEDS ORDERED: Peg 400/Hypromellose/Glycerin 15 DROP/ML BTL BOTHEYES SCH (09:00)
[2023-12-07] MEDS ORDERED: Aspirin 81 MG TabEC PO SCH (09:00)
[2023-12-07] MEDS ORDERED: Sertraline HCl 100 MG Tab PO SCH (09:00)
[2023-12-07] MEDS ORDERED: Metoprolol Succinate 50 MG TABCR PO SCH (09:00)
[2023-12-07] MEDS ORDERED: Heparin Sodium,Porcine 5,000 UNIT/0.5 ML SDV SC SCH (09:00)
[2023-12-07 09:16] VITALS: BP 126/91
[2023-12-07 11:56] LABS: Bun/Creatinine Ratio 33.3 (12.0-20.0); Calcium, Blood 9.1 mg/dL (8.5-10.1); Creatinine, Blood 2.04 mg/dL (0.40-1.00); Potassium, Blood 5.7 mmol/L (3.5-5.5)
--- NOTE | 2023-12-07 12:34 | NUR ---
REPORT GIVEN TO CHRISTINA CARLSON RN WHO ASSUMES CARE AT THIS TIME
[2023-12-07 14:45] VITALS: BP 111/75
--- NOTE | 2023-12-07 16:37 | NUR ---
Assumed care at 1200, handoff report given by Lucrecia PATEL. Patient alert & oriented x4. Continues to have SOB & frequent hacking cough. IV solumedrol administred. Telemetry in place, no cardiac event this shift. Will continue plan of care.
[2023-12-07 20:04] VITALS: BP 106/78
[2023-12-07] MEDS ORDERED: Benzonatate 100 MG Cap PO PRN (22:50)
[2023-12-08 03:16] VITALS: BP 117/86
[2023-12-08 05:21] LABS: Bun/Creatinine Ratio 33.8 (12.0-20.0); Calcium, Blood 9.1 mg/dL (8.5-10.1); Creatinine, Blood 2.19 mg/dL (0.40-1.00); Potassium, Blood 5.6 mmol/L (3.5-5.5)
--- NOTE | 2023-12-08 05:55 | NUR ---
SHIFT SUMMARY PT A&OX4 AND PLEASANT. PT C/O HEADACHE AND MEDICATED WITH TYLENOL PER EMAR. PT HAD EPISODES OF COUGHING AT START OF SHIFT. ORDER FOR PRN TESSLON GIVEN. PT USED HOME CPAP AT NIGHT. ATTENDS CHANGED PRN AND PUREWICK IN PLACE. CONTINUING SOLUMEDRAL PER MD ORDER. PT REFUSES HEPARIN INJECTION. VSS BUT BP IS SOFT. BED IN LOWEST POSITION AND CALL LIGHT IN REACH.
[2023-12-08 07:47] VITALS: BP 121/85
[2023-12-08] MEDS ORDERED: Furosemide 40 MG Tab PO SCH (09:00)
[2023-12-08] MEDS ORDERED: Insulin NPH 100 Unit / ML 10ML Vial SC ONE (12:35)
[2023-12-08 14:17] VITALS: BP 103/85
--- NOTE | 2023-12-08 17:40 | NUR ---
PT IS AOX4 AND COOPERATIVE OF CARE. PT SEEMS TO DESAT WHEN SHE IS TALKING TO MUCH, CURRENTLY ON 4L NC. PT HAD A 420 CBG AND WAS TREATED PER EMAR. DR SAN WAS NOTIFIED AND ADDED MED TO EMAR. PT RESTING WITH CALL LIGHT IN REACH WILL CONTINUE TO MONITOR.
[2023-12-08] MEDS ORDERED: Insulin Human Lispro 100 Units/ML 3ML Syringe SC SCH ×2 (19:15→21:00)
[2023-12-08 19:42] VITALS: BP 117/85
[2023-12-08] MEDS ORDERED: Insulin Glargine-Yfgn 100 Unit/mL 3 ML SYR SC SCH (21:00)
[2023-12-08] MEDS ORDERED: Metoprolol Tartrate 25 MG Tab PO ONE (22:45)
[2023-12-09 04:36] VITALS: BP 92/80
--- NOTE | 2023-12-09 05:02 | NUR ---
SHIFT SUMMARY PT A&OX4. PT'S HR ELEVATED AT START OF SHIFT AND MAINTAINING IN THE 120'S TO 130'S. IV METOPROLOL GIVEN PER EMAR. HR CONTINUED TO REMAIN IN ELEVATED, UP TO THE 120'S. ONE TIME ORDER FOR PO METOPROLOL GIVEN. A SECOND DOSE OF IV METOPROLOL GIVEN PER EMAR AND PT'S HR MAINTAINED IN THE 90'S FOR REMAINDER OF NIGHT. BG WAS 380. INSULINE GIVEN PER EMAR AND DR NOTIFIED. NO NEW ORDERS GIVEN. PT WEARS HOME CPAP AT NIGHT. NO C/O PAIN. BED IN LOWEST POSITION AND CALL LIGHT IN REACH.
[2023-12-09 05:44] LABS: Bun/Creatinine Ratio 40.3 (12.0-20.0); Calcium, Blood 9.1 mg/dL (8.5-10.1); Creatinine, Blood 2.21 mg/dL (0.40-1.00); Potassium, Blood 5.5 mmol/L (3.5-5.5)
[2023-12-09 08:06] VITALS: BP 106/89
[2023-12-09] MEDS ORDERED: Metoprolol Succinate 50 MG TABCR PO SCH (09:00)
[2023-12-09] MEDS ORDERED: MethylPREDNISolone Sod Succ 125 MG Vial IV SCH (09:00)
[2023-12-09] MEDS ORDERED: Bumetanide 0.25 MG/ML 4ML ViaL IV SCH (11:00)
[2023-12-09] MEDS ORDERED: Insulin NPH 100 Unit / ML 10ML Vial SC ONE (11:00)
[2023-12-09] MEDS ORDERED: Ipratropium/Albuterol SulF 2.5-0.5MG/3 ML Amp INH PRN ×2 (11:30→11:40)
[2023-12-09] MEDS ORDERED: Mometasone/Formoterol MDI 200/5 mcg 13 GM INH SCH (11:40)
[2023-12-09] MEDS ORDERED: LevoFLOXacin 750 MG/D5W 150ML 150 ML IV SCH (12:00)
--- NOTE | 2023-12-09 17:14 | NUR ---
PT AOX4 AND COOPERTIVIE OF CARE. PT HAS BEEN RESTING IN BED AND WORKED WITH PT TODAY DOING BED EXCERCISES. NO DISTRESS NOTED AND CALL LIGHT WITHIN REACH. PT DOING WELL ON 3L O2. CBGS WERE BETTER TODAY WITH DR SAN ADDING SOME CHANGES TO MEDS ON EMAR LAST CBG WAS 267. WILL CONTINUE TO MONITOR.
[2023-12-09 17:18] VITALS: BP 134/90
[2023-12-09 22:36] VITALS: BP 131/88
[2023-12-10 04:57] VITALS: BP 103/84
[2023-12-10 06:08] LABS: Bun/Creatinine Ratio 37.8 (12.0-20.0); Creatinine, Blood 2.41 mg/dL (0.40-1.00); Potassium, Blood 4.6 mmol/L (3.5-5.5)
--- NOTE | 2023-12-10 06:31 | NUR ---
SHIFT SUMMARY: PT IS ADMITTED FOR RESPIRATORY ACIDOSIS & METABOLIC ACIDOSIS AND IS A FULL CODE. IS ALERT AND ABLE TO MAKE NEEDS KNOWN. ADLs HAVE BEEN 2P MIN THROUGH SHIFT. DID NOT GET OUT OF BED. PURE WICK IN PLACE. DENIES PAIN OR DISCOMFORT WHEN ASKED. ON 3L OF O2 AT BASELINE AND WORE CPAP WHILE RESTING WITH O2 BLEED IN. TELLY REPORTED SINUS TACH AT 118 BUT THIS NURSE NOTED AT TIMES PULSE UPWARDS OF 150 ON CONTINUOUS BIOX. ON DROPLET ISO FOR RSV. IV TO LEFT FOREARM PATENT WITH DRESSING THAT IS CDI.
[2023-12-10 08:01] VITALS: BP 101/76
[2023-12-10] MEDS ORDERED: Metoprolol Succinate 50 MG TABCR PO SCH (09:00)
[2023-12-10] MEDS ORDERED: BENZ100A PO (14:12)
[2023-12-10] MEDS ORDERED: LEVO750 PO (14:12)
[2023-12-10 14:50] LABS: Influenza A, PCR NEGATIVE (NEGATIVE); Influenza B, PCR NEGATIVE (NEGATIVE); SARS-Cov-2 (COVID-19) PCR, MMC NEGATIVE (NEGATIVE)
[2023-12-10 15:05] LABS: Resp Syncytial Virus, PCR POSITIVE (NEGATIVE)
[2023-12-10 16:37] VITALS: BP 106/82
== END 2023-12-10 18:45 | DRG 193 ==
LOC: ER 14:21 → MEDS 14:22 → ER 19:13 → MEDS 19:13
PROVIDERS: Emergency Medicine; Family Medicine; Internal Medicine; Nurse Practitioner Acute Care; ADMIT Internal Medicine
PROC: 5A09357 Assistance with Respiratory Ventilation, Less than 24 Consecutive Hours, Continuous Positive Airway Pressure (ICD-10-PCS; principal; 2023-12-06)
DX: J18.9 Pneumonia, unspecified organism (principal); J96.21 Acute and chronic respiratory failure with hypoxia; J96.22 Acute and chronic respiratory failure with hypercapnia; E87.4 Mixed disorder of acid-base balance; J44.0 Chronic obstructive pulmonary disease with (acute) lower respiratory infection; J44.1 Chronic obstructive pulmonary disease with (acute) exacerbation; N18.4 Chronic kidney disease, stage 4 (severe); E66.2 Morbid (severe) obesity with alveolar hypoventilation; Q79.60 Ehlers-Danlos syndrome, unspecified; I48.20 Chronic atrial fibrillation, unspecified; I50.32 Chronic diastolic (congestive) heart failure; Z68.42 Body mass index [BMI] 45.0-49.9, adult; J20.5 Acute bronchitis due to respiratory syncytial virus; E11.65 Type 2 diabetes mellitus with hyperglycemia; F41.9 Anxiety disorder, unspecified; I25.10 Atherosclerotic heart disease of native coronary artery without angina pectoris; F32.A Depression, unspecified; E11.22 Type 2 diabetes mellitus with diabetic chronic kidney disease; E87.5 Hyperkalemia; M10.9 Gout, unspecified; K21.9 Gastro-esophageal reflux disease without esophagitis; M81.0 Age-related osteoporosis without current pathological fracture; G43.909 Migraine, unspecified, not intractable, without status migrainosus; F43.10 Post-traumatic stress disorder, unspecified; T50.0X5A Adverse effect of mineralocorticoids and their antagonists, initial encounter; T50.3X5A Adverse effect of electrolytic, caloric and water-balance agents, initial encounter; T38.3X6A Underdosing of insulin and oral hypoglycemic [antidiabetic] drugs, initial encounter; T38.0X5A Adverse effect of glucocorticoids and synthetic analogues, initial encounter; Z91.138 Patient's unintentional underdosing of medication regimen for other reason; Z88.8 Allergy status to other drugs, medicaments and biological substances; Z99.81 Dependence on supplemental oxygen; Z88.5 Allergy status to narcotic agent; Z88.0 Allergy status to penicillin; Z88.2 Allergy status to sulfonamides; Z95.5 Presence of coronary angioplasty implant and graft; Z95.1 Presence of aortocoronary bypass graft; Z79.82 Long term (current) use of aspirin; Z79.4 Long term (current) use of insulin; Z79.51 Long term (current) use of inhaled steroids; Z11.52 Encounter for screening for COVID-19
CPT/HCPCS: 0241U; 36415; 71045; 71250; 80048; 80053; 82803; 82947; 83605; 83880; 85025; 87040; 87070; 87205; 93005; 93010; 94640; 94660; 94664; 94762; 96361; 96365; 96366; 96367; 96375; 96376; 97110; 97162; 99285-25; A9270; G0378; J0612; J0692; J1644; J1815; J1940; J1956; J2930; J7050; J7060

== ENCOUNTER 2024-06-16 08:09 | Emergency (ER) | payer OTHER ==
[~2024-06-16] VITALS: Ht 177.8 cm; Wt 177.3 kg
[~2024-06-16 08:09] MED LIST changes: +ALLO100 PO; +BENZ100A PO; +BUME2 PO; +DOXY100 PO; +FLONASE ALLERG9.9 M2; +GABA300 PO; +HUMALOG KW100 UNIT/1 SC; +LEVO750 PO; +POTA10T PO; -POTA20LUD PO; +THERA-D2000 UNIT PO; +Ventolin5 MG/1 ML INH
[2024-06-16] MEDS ORDERED: TraMADol HCl 50 MG Tab PO ONE (08:30)
[2024-06-16 14:00] VITALS: BP 115/67
== END 2024-06-16 14:47 | disposition home or self-care (01) ==
LOC: ER 08:09
DX: S20.01XA Contusion of right breast, initial encounter (principal); S90.112A Contusion of left great toe without damage to nail, initial encounter; S80.02XA Contusion of left knee, initial encounter; S80.01XA Contusion of right knee, initial encounter; E11.22 Type 2 diabetes mellitus with diabetic chronic kidney disease; N18.30 Chronic kidney disease, stage 3 unspecified; E11.40 Type 2 diabetes mellitus with diabetic neuropathy, unspecified; G43.909 Migraine, unspecified, not intractable, without status migrainosus; J44.89 Other specified chronic obstructive pulmonary disease; I50.9 Heart failure, unspecified; I48.91 Unspecified atrial fibrillation; F43.10 Post-traumatic stress disorder, unspecified; K21.9 Gastro-esophageal reflux disease without esophagitis; G47.33 Obstructive sleep apnea (adult) (pediatric); W19.XXXA Unspecified fall, initial encounter; Z86.718 Personal history of other venous thrombosis and embolism; Z79.82 Long term (current) use of aspirin; Z79.899 Other long term (current) drug therapy; Z79.51 Long term (current) use of inhaled steroids; Z79.4 Long term (current) use of insulin; Z88.0 Allergy status to penicillin; Z88.2 Allergy status to sulfonamides; Z88.5 Allergy status to narcotic agent; Z91.041 Radiographic dye allergy status; Z88.8 Allergy status to other drugs, medicaments and biological substances
CPT/HCPCS: 73590; 73630; 99284-25; A9270

== ENCOUNTER 2024-07-20 16:43 | Inpatient (IN) | payer OTHER ==
[~2024-07-20] VITALS: Ht 182.9 cm; Wt 176.0 kg
[~2024-07-20 16:43] MED LIST changes: +K-TAB ER20 ME1 PO; -POTA10T PO; -Ventolin5 MG/1 ML INH
[2024-07-20] MEDS ORDERED: NS 1,000 ML IV SCH ×3 (17:25→20:00)
[2024-07-20] MEDS ORDERED: Acetaminophen 500 MG Tab PO ONE (17:25)
[2024-07-20 17:32] LABS: BASOPHILS ABSOLUTE AUTO 0.04 K/mm3 (0.00-0.23); BASOPHILS PERCENT AUTO 0 % (0-2); EOSINOPHILS PERCENT AUTO 0 % (0-6); Hematocrit 32.9 % (33.0-51.0); Hemoglobin 9.5 g/dL (11.5-16.0); IMMATURE GRAN ABSOLUTE AUTO 0.22 K/mm3 (0.00-0.10); IMMATURE GRAN PERCENT AUTO 1 % (0-1); LYMPHOCYTES ABSOLUTE AUTO 0.87 K/mm3 (0.84-5.20); LYMPHOCYTES PERCENT AUTO 4 % (21-46); MONOCYTES ABSOLUTE AUTO 0.65 K/mm3 (0.16-1.47); MONOCYTES PERCENT AUTO 3 % (4-13); Mean Corpuscular HGB 26.8 pg (26.0-34.0); Mean Corpuscular HGB Conc 28.9 g/dL (31.5-36.5); Mean Corpuscular Volume 93 fL (80-100); Mean Platelet Volume 10.7 fL (9.1-12.4); NEUTROPHILS ABSOLUTE AUTO 22.31 K/mm3 (1.96-9.15); NEUTROPHILS PERCENT AUTO 93 % (41-73); NRBC ABSOLUTE 0.03 K/mm3 (0.00-0.02); NRBC Auto 0.1 /100 WBC (0.0-0.2); Platelet Count 247 K/mm3 (150-400); RDW Coefficient Variation 21.2 % (11.7-14.2); RDW Standard Deviation 70.4 fL (35.1-46.3); Red Blood Cell Count 3.55 M/mm3 (3.80-5.20); White Blood Cell Count 24.09 K/mm3 (4.00-11.30)
[2024-07-20 17:52] LABS: Albumin, Blood 2.9 g/dL (3.4-5.0); Albumin/Globulin Ratio 0.8 (0.8-1.8); Bilirubin, Total 0.9 mg/dL (0.1-1.0); Bun/Creatinine Ratio 30.8 (12.0-20.0); Calcium, Blood 8.4 mg/dL (8.5-10.1); Creatinine, Blood 1.82 mg/dL (0.40-1.00); Globulin, Blood 3.7 g/dL (2.2-4.0); Total Protein, Blood 6.6 g/dL (6.4-8.2)
[2024-07-20 18:19] LABS: Influenza A, PCR NEGATIVE (NEGATIVE); Influenza B, PCR NEGATIVE (NEGATIVE); Resp Syncytial Virus, PCR NEGATIVE (NEGATIVE); SARS-Cov-2 (COVID-19) PCR, MMC NEGATIVE (NEGATIVE)
[2024-07-20 18:19] LABS: Source, Urine Foley catheter
[2024-07-20 18:23] LABS: Appearance, Urine Clear (Clear); Bilirubin, Urine Neg (Neg); Blood, Urine Neg (Neg); Color, Urine Yellow (P-Yellow); Glucose Qualitative, Urine Neg (Neg); Ketones, Urine Neg (Neg); Leukocyte Esterase, Urine 2+ (Neg); Nitrite, Urine Neg (Neg); Protein, Urine Neg (Neg); Specific Gravity, Urine 1.015 (1.003-1.022); Urobilinogen, Urine NORM (Normal)
[2024-07-20] MEDS ORDERED: ONDA4 PO (18:24)
[2024-07-20 18:35] LABS: Bacteria Many /hpf; Red Blood Cells, Urine 0-2 /hpf (0-2); Squamous Epithelial Cells Rare /hpf (Few)
[2024-07-20] MEDS ORDERED: CefTRIAXone Sodium 1,000 MG in NS 100 ML IV ONE (18:35)
[2024-07-20] MEDS ORDERED: Ondansetron HCl 2 MG / ML 2ML Vial IV PRN (19:45)
[2024-07-20] MEDS ORDERED: Acetaminophen 325 MG TABLET PO PRN (19:50)
[2024-07-20] MEDS ORDERED: Enoxaparin 30 MG/0.3 ML SYR SC SCH (20:00)
[2024-07-20] MEDS ORDERED: Azithromycin 500 MG in NS 250 ML IV SCH (21:00)
[2024-07-20 22:07] VITALS: BP 102/64
[2024-07-21] MEDS ORDERED: Meropenem 1,000 MG in NS 100 ML IV SCH ×2 (00:11→09:00)
[2024-07-21 03:36] VITALS: BP 81/57
[2024-07-21 03:41] VITALS: BP 97/61
[2024-07-21] MEDS ORDERED: Dextrose 50% 50 ML Syringe IV ONE (04:05)
[2024-07-21] MEDS ORDERED: Dextrose 5% 250 ML IV ONE (04:15)
[2024-07-21 04:36] LABS: Hematocrit 29.9 % (33.0-51.0); Hemoglobin 8.3 g/dL (11.5-16.0); Mean Corpuscular HGB 26.4 pg (26.0-34.0); Mean Corpuscular HGB Conc 27.8 g/dL (31.5-36.5); Mean Corpuscular Volume 95 fL (80-100); Mean Platelet Volume 10.2 fL (9.1-12.4); NRBC ABSOLUTE 0.03 K/mm3 (0.00-0.02); NRBC Auto 0.1 /100 WBC (0.0-0.2); Platelet Count 207 K/mm3 (150-400); RDW Coefficient Variation 21.2 % (11.7-14.2); RDW Standard Deviation 72.6 fL (35.1-46.3); Red Blood Cell Count 3.14 M/mm3 (3.80-5.20); White Blood Cell Count 21.27 K/mm3 (4.00-11.30)
[2024-07-21 04:58] LABS: Albumin, Blood 2.5 g/dL (3.4-5.0); Albumin/Globulin Ratio 0.7 (0.8-1.8); Bilirubin, Total 0.8 mg/dL (0.1-1.0); Bun/Creatinine Ratio 29.9 (12.0-20.0); Calcium, Blood 8.1 mg/dL (8.5-10.1); Creatinine, Blood 1.97 mg/dL (0.40-1.00); Globulin, Blood 3.4 g/dL (2.2-4.0); Potassium, Blood 3.9 mmol/L (3.5-5.5); Total Protein, Blood 5.9 g/dL (6.4-8.2)
[2024-07-21 05:10] LABS: BAND PERCENT MAN 22 % (0-8); BASOPHILS ABSOLUTE MAN 0.21 K/mm3 (0.00-0.23); BASOPHILS PERCENT MAN 1 % (0-2); EOSINOPHILS PERCENT MAN 0 % (0-6); LYMPHOCYTES ABSOLUTE MAN 0.42 K/mm3 (0.84-5.20); LYMPHOCYTES PERCENT MAN 2 % (21-46); MONOCYTES ABSOLUTE MAN 0.21 K/mm3 (0.16-1.47); MONOCYTES PERCENT MAN 1 % (4-13); NEUTROPHILS ABSOLUTE MAN 20.41 K/mm3 (1.96-9.15); SEG NEUTROPHILS PERCENT MAN 74 % (41-73); TOTAL CELLS COUNTED 100
[2024-07-21] MEDS ORDERED: Albuterol 2.5 MG/3 ML VIAL INH PRN (05:45)
[2024-07-21] MEDS ORDERED: Tiotropium Bromide 2.5 MCG/ACT MIST INHAL (10 ACT/4 GM) INH SCH (05:45)
[2024-07-21] MEDS ORDERED: Albuterol HFA200 ACT/6.7 GM INH INH PRN (06:10)
--- NOTE | 2024-07-21 07:47 | NUR ---
SMALL ENGINE SPECIALIST SUMMARY PT WAS MENTATING WELL OVERNIGHT. MOSTLY VERY ALERT AND ORIENTED EXCEPT SHE DIDNT KNOW THE MONTH. BUT SHE KNOWS HOW MUCH INSULIN SHE TAKES FOR EXAMPLE AND IS VERY KNOWLEDGABLE ABOUT THE DETAILS OF HER MEDICAL CARE. DISCUSSED BLOOD SUGAR OF [address] KAUR SAID TO GIVE HER IV DEXTROSE AND THEN START A DIET IN THE MORNING IF SHE IS ALERT AND ORIENTED. REPEAT BLOOD SUGARS WERE WNL.
[2024-07-21 07:51] VITALS: BP 102/66
[2024-07-21] MEDS ORDERED: Sertraline HCl 50 MG Tab PO SCH (09:00)
[2024-07-21] MEDS ORDERED: Gabapentin 100 MG Cap PO SCH (09:00)
[2024-07-21] MEDS ORDERED: BuPROPion HCl SR 100 MG TabCR PO SCH (09:00)
[2024-07-21] MEDS ORDERED: Sennosides 8.6 MG Tab PO SCH (09:00)
[2024-07-21] MEDS ORDERED: Furosemide 80 MG Tab PO SCH (09:00)
[2024-07-21] MEDS ORDERED: Misc. Inhaler INH SCH (09:00)
[2024-07-21] MEDS ORDERED: Lactobacil 2-S.Thermo-Bifido 1 1 Cap PO SCH (09:00)
[2024-07-21] MEDS ORDERED: Aspirin 81 MG TabEC PO SCH (09:00)
[2024-07-21] MEDS ORDERED: Metoprolol Succinate 25 MG TABCR PO SCH (09:00)
[2024-07-21] MEDS ORDERED: Allopurinol 100 MG Tab PO SCH (09:00)
[2024-07-21] MEDS ORDERED: NS 250 ML IV PRN (09:20)
[2024-07-21 10:34] LABS: Adenovirus Not Detected (NOT DETECT); Bordetella pertussis Not Detected (NOT DETECT); Chlamydophila pneumoniae Not Detected (NOT DETECT); Coronavirus 229E Not Detected (NOT DETECT); Coronavirus HKU1 Not Detected (NOT DETECT); Coronavirus NL63 Not Detected (NOT DETECT); Coronavirus OC43 Not Detected (NOT DETECT); Human Metapneumovirus Not Detected (NOT DETECT); Human Rhinovirus/Enterovirus Not Detected (NOT DETECT); Influenza A/2009-H1 Not Detected (NOT DETECT); Influenza A/H1 Not Detected (NOT DETECT); Influenza A/H3 Not Detected (NOT DETECT); Influenza B Not Detected (NOT DETECT); Mycoplasma pneumoniae Not Detected (NOT DETECT); Parainfluenza Virus 1 Not Detected (NOT DETECT); Parainfluenza Virus 2 Not Detected (NOT DETECT); Parainfluenza Virus 3 Not Detected (NOT DETECT); Parainfluenza Virus 4 Not Detected (NOT DETECT); Respiratory Syncytial Virus Not Detected (NOT DETECT); SARS-Cov-2 (COVID-19), BioFire Not Detected (NOT DETECT)
[2024-07-21 15:53] VITALS: BP 92/63
[2024-07-21] MEDS ORDERED: Ventolin5 MG/1 ML INH (16:24)
[2024-07-21] MEDS ORDERED: Mometasone/Formoterol MDI 100/5 mcg 13 GM INH SCH (18:00)
--- NOTE | 2024-07-21 18:31 | NUR ---
SHIFT SUMMARY PT A&OX4, ON 3L O2 NC, TOLERATING PO, VOIDING, AND DENIED PAIN. PT HYPOTENSIVE X1, BUT ASYMPTOMATIC. PT HAS HAD LOW BP TREND AND PT STATES IT IS BASELINE. PT HAD 2 GRAM POSITIVE BLOOD CULTURES, DR. CYR AWARE. NO OTHER ACUTE CHANGES. CALL LIGHT WITHIN REACH AND PT ABLE TO MAKE NEEDS KNOWN.
[2024-07-21] MEDS ORDERED: CefTRIAXone Sodium 1,000 MG in NS 100 ML IV SCH (19:00)
[2024-07-21 20:44] VITALS: BP 105/67
[2024-07-21] MEDS ORDERED: Melatonin 3 MG Tab PO SCH (21:00)
[2024-07-22 03:36] VITALS: BP 106/69
[2024-07-22 04:53] LABS: BASOPHILS ABSOLUTE AUTO 0.04 K/mm3 (0.00-0.23); BASOPHILS PERCENT AUTO 0 % (0-2); EOSINOPHILS ABSOLUTE AUTO 0.14 K/mm3 (0.00-0.68); EOSINOPHILS PERCENT AUTO 1 % (0-6); Hematocrit 29.8 % (33.0-51.0); Hemoglobin 8.3 g/dL (11.5-16.0); IMMATURE GRAN ABSOLUTE AUTO 0.07 K/mm3 (0.00-0.10); IMMATURE GRAN PERCENT AUTO 1 % (0-1); LYMPHOCYTES ABSOLUTE AUTO 0.39 K/mm3 (0.84-5.20); LYMPHOCYTES PERCENT AUTO 3 % (21-46); MONOCYTES ABSOLUTE AUTO 0.29 K/mm3 (0.16-1.47); MONOCYTES PERCENT AUTO 2 % (4-13); Mean Corpuscular HGB 26.3 pg (26.0-34.0); Mean Corpuscular HGB Conc 27.9 g/dL (31.5-36.5); Mean Corpuscular Volume 95 fL (80-100); Mean Platelet Volume 11.4 fL (9.1-12.4); NEUTROPHILS ABSOLUTE AUTO 11.04 K/mm3 (1.96-9.15); NEUTROPHILS PERCENT AUTO 92 % (41-73); NRBC ABSOLUTE 0.03 K/mm3 (0.00-0.02); NRBC Auto 0.3 /100 WBC (0.0-0.2); Platelet Count 213 K/mm3 (150-400); RDW Coefficient Variation 21.1 % (11.7-14.2); RDW Standard Deviation 71.7 fL (35.1-46.3); Red Blood Cell Count 3.15 M/mm3 (3.80-5.20); White Blood Cell Count 11.97 K/mm3 (4.00-11.30)
[2024-07-22 05:12] LABS: Albumin, Blood 2.6 g/dL (3.4-5.0); Anion Gap 13 mmol/L (3-11); Blood Urea Nitrogen 65 mg/dL (8-24); Bun/Creatinine Ratio 32.5 (12.0-20.0); CO2, Blood 25 mmol/L (21-32); Calcium, Blood 8.2 mg/dL (8.5-10.1); Chloride, Blood 108 mmol/L (98-108); Glomerular Filtration Rate 26 (60-); Glucose, Blood 126 mg/dL (70-99); Magnesium, Blood 1.4 mg/dL (1.6-2.4); Phosphorus, Blood 6.2 mg/dL (2.5-4.9); Potassium, Blood 3.8 mmol/L (3.5-5.5); Sodium, Blood 142 mmol/L (136-145)
[2024-07-22 07:23] VITALS: BP 110/57
[2024-07-22] MEDS ORDERED: Enoxaparin 40 MG/0.4 ML SYR SC SCH (09:00)
[2024-07-22] MEDS ORDERED: CefTRIAXone Sodium 2,000 MG in NS 100 ML IV SCH (09:00)
[2024-07-22] MEDS ORDERED: Miconazole Nitrate 2% 85 GM PWD TOP SCH (10:00)
[2024-07-22] MEDS ORDERED: Mag Sulfate 1 GM/D5% 100ML 100 ML IV STA (12:01)
[2024-07-22 16:06] VITALS: BP 109/74
--- NOTE | 2024-07-22 17:14 | NUR ---
SHIFT SUMMARY PT REPOSITIONED Q2H TODAY. LARGE BM TODAY. FOLDS CLEANSED & MICONAZOLE POWDER APPLIED FOR YEAST. PT SATING IN THE 90S ON 3L O2 WHILE AWAKE AND CPAP WITH 3L BLEED WHILE NAPPING. NO OTHER ACUTE CHANGES IN ASSESSMENT AT THIS TIME. PEREYRA DRAINING & INTACT. CATH CARE COMPLETED. DENIES OTHER NEEDS AT THIS TIME. VS REVIEWED. CALL LIGHT IN REACH.
[2024-07-22 19:51] VITALS: BP 93/51
[2024-07-22] MEDS ORDERED: Meropenem 2,000 MG in NS 250 ML IV SCH (21:00)
[2024-07-23 03:28] VITALS: BP 101/58
--- NOTE | 2024-07-23 04:06 | NUR ---
PT RESTING QUIETLY THROUGH THE NIGHT. COOPERATIVE. NO DISTRESS. BIPAP IN USE.
[2024-07-23 06:12] LABS: BASOPHILS ABSOLUTE AUTO 0.03 K/mm3 (0.00-0.23); BASOPHILS PERCENT AUTO 0 % (0-2); EOSINOPHILS ABSOLUTE AUTO 0.25 K/mm3 (0.00-0.68); EOSINOPHILS PERCENT AUTO 4 % (0-6); Hematocrit 27.1 % (33.0-51.0); IMMATURE GRAN ABSOLUTE AUTO 0.04 K/mm3 (0.00-0.10); IMMATURE GRAN PERCENT AUTO 1 % (0-1); LYMPHOCYTES ABSOLUTE AUTO 0.44 K/mm3 (0.84-5.20); LYMPHOCYTES PERCENT AUTO 6 % (21-46); MONOCYTES ABSOLUTE AUTO 0.32 K/mm3 (0.16-1.47); MONOCYTES PERCENT AUTO 5 % (4-13); Mean Corpuscular HGB 26.8 pg (26.0-34.0); Mean Corpuscular HGB Conc 29.5 g/dL (31.5-36.5); Mean Corpuscular Volume 91 fL (80-100); NEUTROPHILS ABSOLUTE AUTO 5.75 K/mm3 (1.96-9.15); NEUTROPHILS PERCENT AUTO 84 % (41-73); NRBC ABSOLUTE 0.03 K/mm3 (0.00-0.02); NRBC Auto 0.4 /100 WBC (0.0-0.2); RDW Coefficient Variation 20.9 % (11.7-14.2); RDW Standard Deviation 68.3 fL (35.1-46.3); Red Blood Cell Count 2.99 M/mm3 (3.80-5.20); White Blood Cell Count 6.83 K/mm3 (4.00-11.30)
[2024-07-23 06:14] LABS: Mean Platelet Volume 12.1 fL (9.1-12.4)
[2024-07-23 06:31] LABS: Magnesium, Blood 1.2 mg/dL (1.6-2.4)
[2024-07-23 06:33] LABS: Albumin, Blood 2.2 g/dL (3.4-5.0); Anion Gap 14 mmol/L (3-11); Blood Urea Nitrogen 62 mg/dL (8-24); CO2, Blood 22 mmol/L (21-32); Calcium, Blood 7.3 mg/dL (8.5-10.1); Chloride, Blood 107 mmol/L (98-108); Creatinine, Blood 1.88 mg/dL (0.40-1.00); Glomerular Filtration Rate 28 (60-); Glucose, Blood 149 mg/dL (70-99); Phosphorus, Blood 5.8 mg/dL (2.5-4.9); Potassium, Blood 3.8 mmol/L (3.5-5.5); Sodium, Blood 139 mmol/L (136-145)
[2024-07-23 06:41] LABS: Platelet Count 118 K/mm3 (150-400)
[2024-07-23 07:20] VITALS: BP 91/61
[2024-07-23] MEDS ORDERED: Magnesium Sulf 2 GM/Water 50ML 50 ML IV STA (08:21)
--- NOTE | 2024-07-23 11:20 | NUR ---
Spiritual Care Visit. Pt is awake in bed and welcomes my visit. Pt. is on her CPAP and able to speak through her mask. Pt. is pleasant. Pt. is known to this lozenge dough mixer from previous hospitalizations. Rapport is re-established. Facilitated a short update. Pt. displayed evidence of being engaged and aware. Prayed with the Pt. Pt. verbalized gratitude for the spiritual care visit and welcomed this lozenge dough mixer to return.
[2024-07-23] MEDS ORDERED: CefTRIAXone Sodium 2,000 MG in NS 100 ML IV SCH (12:30)
[2024-07-23 15:53] VITALS: BP 112/64
--- NOTE | 2024-07-23 18:40 | NUR ---
NO ACUTE CHANGES, REPOSITIONED THROUGH OUT THE DAY, CALL LIGHT WITH IN REACH, 2L O2, EASILY SOB AND DESATS, RECOVERS SATS TO 89-93% WELL, BIPAP ON WHEN SLEEPING, ALERT AND ORIENTED TO ALL, WILL RELAY TO PM RN
[2024-07-23 19:04] VITALS: BP 111/64
[2024-07-24] MEDS ORDERED: Metoprolol Tartrate 1 MG/ML 5 ML VIAL IV ONE (01:50)
--- NOTE | 2024-07-24 05:16 | NUR ---
PT OFFERED TO REPOSITION Q2 HOURS THROUGH THE NIGHT. OFFER REFUSED AT TIMES. PT RESTING QUIETLY IN BED WITH EYES CLOSED. NO DISTRESS NOTED, PT RESTING QUIETLY THROUGH THE NIGHT EXCEPT FOR BEING AWAKENED FOR REPOSITIONING.
--- NOTE | 2024-07-24 05:51 | NUR ---
Patient has refused catheter care 2 nights straight.
[2024-07-24 07:20] VITALS: BP 105/59
[2024-07-24 08:44] LABS: BASOPHILS ABSOLUTE AUTO 0.02 K/mm3 (0.00-0.23); BASOPHILS PERCENT AUTO 0 % (0-2); EOSINOPHILS ABSOLUTE AUTO 0.22 K/mm3 (0.00-0.68); EOSINOPHILS PERCENT AUTO 3 % (0-6); Hematocrit 28.2 % (33.0-51.0); Hemoglobin 8.1 g/dL (11.5-16.0); IMMATURE GRAN ABSOLUTE AUTO 0.04 K/mm3 (0.00-0.10); IMMATURE GRAN PERCENT AUTO 1 % (0-1); LYMPHOCYTES ABSOLUTE AUTO 0.38 K/mm3 (0.84-5.20); LYMPHOCYTES PERCENT AUTO 6 % (21-46); MONOCYTES ABSOLUTE AUTO 0.42 K/mm3 (0.16-1.47); MONOCYTES PERCENT AUTO 6 % (4-13); Mean Corpuscular HGB 26.5 pg (26.0-34.0); Mean Corpuscular HGB Conc 28.7 g/dL (31.5-36.5); Mean Corpuscular Volume 92 fL (80-100); Mean Platelet Volume 10.8 fL (9.1-12.4); NEUTROPHILS ABSOLUTE AUTO 5.89 K/mm3 (1.96-9.15); NEUTROPHILS PERCENT AUTO 84 % (41-73); Platelet Count 179 K/mm3 (150-400); RDW Coefficient Variation 20.8 % (11.7-14.2); RDW Standard Deviation 69.9 fL (35.1-46.3); Red Blood Cell Count 3.06 M/mm3 (3.80-5.20); White Blood Cell Count 6.97 K/mm3 (4.00-11.30)
[2024-07-24 09:12] LABS: Albumin, Blood 2.3 g/dL (3.4-5.0); Anion Gap 12 mmol/L (3-11); Blood Urea Nitrogen 53 mg/dL (8-24); Bun/Creatinine Ratio 29.4 (12.0-20.0); CO2, Blood 26 mmol/L (21-32); Calcium, Blood 7.9 mg/dL (8.5-10.1); Chloride, Blood 107 mmol/L (98-108); Glomerular Filtration Rate 29 (60-); Glucose, Blood 156 mg/dL (70-99); Potassium, Blood 3.7 mmol/L (3.5-5.5); Sodium, Blood 141 mmol/L (136-145)
[2024-07-24] MEDS ORDERED: TIOT18 INH (12:46)
[2024-07-24] MEDS ORDERED: CEFTRIAXONE2 G1 IV (12:46)
--- NOTE | 2024-07-24 18:19 | NUR ---
DISCAHRGED BACK TO [facility], [facility] WITH PATIENTS PERSONAL SCOOTER AND PORTABLE OXYGEN, PATIENT AND CAREGIVER AT [facility] STATED UNDERSTANDING OF DISCAHRGE NEEDS AND NEW ORDERS, PG CYRUS TO AMINATA
== END 2024-07-24 17:32 | DRG 871 ==
LOC: ER 16:43 → MEDS 16:44
PROVIDERS: Emergency Medicine; Family Medicine; ADMIT Internal Medicine
PROC: 3E03329 Introduction of Other Anti-infective into Peripheral Vein, Percutaneous Approach (ICD-10-PCS; principal; 2024-07-20)
PROC: 0T9B70Z Drainage of Bladder with Drainage Device, Via Natural or Artificial Opening (ICD-10-PCS; 2024-07-20)
PROC: 5A09457 Assistance with Respiratory Ventilation, 24-96 Consecutive Hours, Continuous Positive Airway Pressure (ICD-10-PCS; 2024-07-20)
DX: A40.1 Sepsis due to streptococcus, group B (principal); J18.9 Pneumonia, unspecified organism; I50.32 Chronic diastolic (congestive) heart failure; N39.0 Urinary tract infection, site not specified; J96.11 Chronic respiratory failure with hypoxia; N18.4 Chronic kidney disease, stage 4 (severe); J44.0 Chronic obstructive pulmonary disease with (acute) lower respiratory infection; Q79.60 Ehlers-Danlos syndrome, unspecified; G47.33 Obstructive sleep apnea (adult) (pediatric); E11.42 Type 2 diabetes mellitus with diabetic polyneuropathy; G43.909 Migraine, unspecified, not intractable, without status migrainosus; I48.91 Unspecified atrial fibrillation; M81.0 Age-related osteoporosis without current pathological fracture; F43.10 Post-traumatic stress disorder, unspecified; K21.9 Gastro-esophageal reflux disease without esophagitis; M41.9 Scoliosis, unspecified; E11.22 Type 2 diabetes mellitus with diabetic chronic kidney disease; M10.9 Gout, unspecified; I87.2 Venous insufficiency (chronic) (peripheral); F32.A Depression, unspecified; B37.2 Candidiasis of skin and nail; E83.42 Hypomagnesemia; D50.9 Iron deficiency anemia, unspecified; D63.1 Anemia in chronic kidney disease; R40.4 Transient alteration of awareness; Z99.81 Dependence on supplemental oxygen; Z99.89 Dependence on other enabling machines and devices; Z88.0 Allergy status to penicillin; Z88.2 Allergy status to sulfonamides; Z88.6 Allergy status to analgesic agent; Z88.8 Allergy status to other drugs, medicaments and biological substances; Z95.1 Presence of aortocoronary bypass graft; Z95.5 Presence of coronary angioplasty implant and graft; Z90.49 Acquired absence of other specified parts of digestive tract; Z98.890 Other specified postprocedural states; Z79.4 Long term (current) use of insulin; Z79.899 Other long term (current) drug therapy
CPT/HCPCS: 0202U; 0241U; 36415; 51702; 71045; 80053; 80069; 81001; 82728; 82947; 83540; 83550; 83605; 83735; 83880; 84145; 85025; 87040; 87077; 87086; 87147; 87186; 93005; 93010; 94640; 94660; 94664; 94762; 96361-59; 96365-59; 96367-59; 96372-59; 99285-25; A9270; C8929; G0378; J0456; J0696; J1650; J2185; J3475; J7030; J7050; J7060; Q9957

== ENCOUNTER 2024-08-10 13:53 | Emergency (ER) | payer OTHER ==
[~2024-08-10] VITALS: Ht 177.8 cm; Wt 170.1 kg
[~2024-08-10 13:53] MED LIST changes: +CEFTRIAXONE2 G1 IV; +TIOT18 INH; +Ventolin5 MG/1 ML INH
[2024-08-10] MEDS ORDERED: CEPH500 PO (16:33)
[2024-08-10 16:34] VITALS: BP 97/58
== END 2024-08-10 17:27 ==
LOC: ER 13:53
DX: S81.812A Laceration without foreign body, left lower leg, initial encounter (principal); J45.909 Unspecified asthma, uncomplicated; G47.33 Obstructive sleep apnea (adult) (pediatric); E11.42 Type 2 diabetes mellitus with diabetic polyneuropathy; E11.22 Type 2 diabetes mellitus with diabetic chronic kidney disease; N18.32 Chronic kidney disease, stage 3b; G43.909 Migraine, unspecified, not intractable, without status migrainosus; I50.30 Unspecified diastolic (congestive) heart failure; J44.9 Chronic obstructive pulmonary disease, unspecified; I48.91 Unspecified atrial fibrillation; M81.0 Age-related osteoporosis without current pathological fracture; Q79.60 Ehlers-Danlos syndrome, unspecified; K21.9 Gastro-esophageal reflux disease without esophagitis; M41.9 Scoliosis, unspecified; M10.9 Gout, unspecified; Z95.1 Presence of aortocoronary bypass graft; Z95.5 Presence of coronary angioplasty implant and graft; Z90.49 Acquired absence of other specified parts of digestive tract; Z88.0 Allergy status to penicillin; Z88.2 Allergy status to sulfonamides; Z88.5 Allergy status to narcotic agent; Z88.8 Allergy status to other drugs, medicaments and biological substances; Z91.041 Radiographic dye allergy status; Z79.4 Long term (current) use of insulin; Z79.82 Long term (current) use of aspirin; Z79.899 Other long term (current) drug therapy; W26.8XXA Contact with other sharp object(s), not elsewhere classified, initial encounter
CPT/HCPCS: 12004; 99284-25

== ENCOUNTER 2024-08-29 15:41 | Emergency (ER) | payer OTHER ==
[~2024-08-29] VITALS: Ht 177.8 cm; Wt 163.3 kg
[2024-08-29 16:54] LABS: BASOPHILS ABSOLUTE AUTO 0.03 K/mm3 (0.00-0.23); BASOPHILS PERCENT AUTO 0 % (0-2); EOSINOPHILS ABSOLUTE AUTO 0.15 K/mm3 (0.00-0.68); EOSINOPHILS PERCENT AUTO 2 % (0-6); Hematocrit 30.1 % (33.0-51.0); Hemoglobin 8.8 g/dL (11.5-16.0); IMMATURE GRAN ABSOLUTE AUTO 0.03 K/mm3 (0.00-0.10); IMMATURE GRAN PERCENT AUTO 0 % (0-1); LYMPHOCYTES ABSOLUTE AUTO 0.87 K/mm3 (0.84-5.20); LYMPHOCYTES PERCENT AUTO 11 % (21-46); MONOCYTES ABSOLUTE AUTO 0.36 K/mm3 (0.16-1.47); MONOCYTES PERCENT AUTO 4 % (4-13); Mean Corpuscular HGB 26.2 pg (26.0-34.0); Mean Corpuscular HGB Conc 29.2 g/dL (31.5-36.5); Mean Corpuscular Volume 90 fL (80-100); Mean Platelet Volume 9.5 fL (9.1-12.4); NEUTROPHILS ABSOLUTE AUTO 6.82 K/mm3 (1.96-9.15); NEUTROPHILS PERCENT AUTO 83 % (41-73); Platelet Count 273 K/mm3 (150-400); RDW Coefficient Variation 19.4 % (11.7-14.2); RDW Standard Deviation 63.9 fL (35.1-46.3); Red Blood Cell Count 3.36 M/mm3 (3.80-5.20); White Blood Cell Count 8.26 K/mm3 (4.00-11.30)
[2024-08-29 17:15] LABS: Albumin, Blood 2.7 g/dL (3.4-5.0); Albumin/Globulin Ratio 0.6 (0.8-1.8); Bilirubin, Total 0.5 mg/dL (0.1-1.0); Bun/Creatinine Ratio 45.8 (12.0-20.0); Calcium, Blood 7.6 mg/dL (8.5-10.1); Creatinine, Blood 2.16 mg/dL (0.40-1.00); Globulin, Blood 4.5 g/dL (2.2-4.0); Potassium, Blood 2.6 mmol/L (3.5-5.5); Total Protein, Blood 7.2 g/dL (6.4-8.2)
[2024-08-29] MEDS ORDERED: Potassium Chloride 20 MEQ/15 ML UDC PO ONE (20:00)
[2024-08-29] MEDS ORDERED: Potassium Chl 20MEQ/Water100ML 100 ML IV SCH (20:00)
[2024-08-29] MEDS ORDERED: NS 1,000 ML IV SCH (20:30)
[2024-08-29 22:38] LABS: Magnesium, Blood 1.3 mg/dL (1.6-2.4)
[2024-08-29] MEDS ORDERED: Magnesium Oxide 400 MG Tab PO ONE (22:45)
[2024-08-29] MEDS ORDERED: POTA10T PO (22:53)
[2024-08-29] MEDS ORDERED: MAGNESIUM OXID500 MG PO (22:53)
[2024-08-30 01:00] VITALS: BP 114/75
== END 2024-08-30 02:48 | disposition home or self-care (01) ==
LOC: ER 15:41
PROVIDERS: Student in an Organized Health Care Education/Training Program
DX: E87.6 Hypokalemia (principal); E83.42 Hypomagnesemia; Z88.0 Allergy status to penicillin; Z88.2 Allergy status to sulfonamides; Z88.8 Allergy status to other drugs, medicaments and biological substances; Z88.5 Allergy status to narcotic agent; Z79.899 Other long term (current) drug therapy; Z79.84 Long term (current) use of oral hypoglycemic drugs; Z79.82 Long term (current) use of aspirin; J45.909 Unspecified asthma, uncomplicated; E11.40 Type 2 diabetes mellitus with diabetic neuropathy, unspecified; E11.22 Type 2 diabetes mellitus with diabetic chronic kidney disease; N18.32 Chronic kidney disease, stage 3b; I50.30 Unspecified diastolic (congestive) heart failure; J44.9 Chronic obstructive pulmonary disease, unspecified; I48.91 Unspecified atrial fibrillation; F43.10 Post-traumatic stress disorder, unspecified; M10.9 Gout, unspecified; K21.9 Gastro-esophageal reflux disease without esophagitis
CPT/HCPCS: 80053; 83735; 85025; 93005; 93010; 96361; 96365; 96366; 99284-25; A9270; J3480; J7030

== ENCOUNTER 2024-09-14 01:14 | Inpatient (IN) | payer OTHER ==
[2024-09-14] VITALS (20 sets, daily range): BP systolic 79–123; BP diastolic 58–79
[~2024-09-14] VITALS: Ht 160 cm; Wt 158.0 kg
[~2024-09-14 01:14] MED LIST changes: +MAGNESIUM OXID500 MG PO; +POTA10T PO
[2024-09-14 01:37] LABS: Base Excess Venous -2.9 mmol/L; Bicarbonate Venous 22.1 mmol/L (24.0-30.0); PCO2 Venous 46.7 mmHg (38-42); pH Blood Venous 7.31 (7.34-7.37)
[2024-09-14 01:54] LABS: BASOPHILS ABSOLUTE AUTO 0.03 K/mm3 (0.00-0.23); BASOPHILS PERCENT AUTO 0 % (0-2); EOSINOPHILS ABSOLUTE AUTO 0.02 K/mm3 (0.00-0.68); EOSINOPHILS PERCENT AUTO 0 % (0-6); Hematocrit 27.8 % (33.0-51.0); Hemoglobin 8.2 g/dL (11.5-16.0); IMMATURE GRAN PERCENT AUTO 1 % (0-1); LYMPHOCYTES ABSOLUTE AUTO 0.76 K/mm3 (0.84-5.20); LYMPHOCYTES PERCENT AUTO 5 % (21-46); MONOCYTES ABSOLUTE AUTO 0.83 K/mm3 (0.16-1.47); MONOCYTES PERCENT AUTO 5 % (4-13); Mean Corpuscular HGB 25.9 pg (26.0-34.0); Mean Corpuscular HGB Conc 29.5 g/dL (31.5-36.5); Mean Corpuscular Volume 88 fL (80-100); Mean Platelet Volume 10.4 fL (9.1-12.4); NEUTROPHILS ABSOLUTE AUTO 14.23 K/mm3 (1.96-9.15); NEUTROPHILS PERCENT AUTO 89 % (41-73); Platelet Count 377 K/mm3 (150-400); RDW Coefficient Variation 19.7 % (11.7-14.2); RDW Standard Deviation 63.3 fL (35.1-46.3); Red Blood Cell Count 3.16 M/mm3 (3.80-5.20); White Blood Cell Count 15.97 K/mm3 (4.00-11.30)
[2024-09-14 02:11] LABS: Alanine Aminotransfer (ALT/SGP 15 U/L (12-78); Albumin, Blood 2.3 g/dL (3.4-5.0); Albumin/Globulin Ratio 0.5 (0.8-1.8); Alk Phos 119 U/L (50-136); Anion Gap 20 mmol/L (3-11); Aspartate Aminotrans (AST/SGOT 26 U/L (12-37); Bilirubin, Total 0.5 mg/dL (0.1-1.0); Blood Urea Nitrogen 145 mg/dL (8-24); CO2, Blood 23 mmol/L (21-32); Calcium, Blood 6.6 mg/dL (8.5-10.1); Chloride, Blood 93 mmol/L (98-108); Creatinine, Blood 3.37 mg/dL (0.40-1.00); Ethanol (Alcohol), Blood, Med <3 mg/dL; Globulin, Blood 4.7 g/dL (2.2-4.0); Glomerular Filtration Rate 14 (60-); Glucose, Blood 176 mg/dL (70-99); Potassium, Blood 3.6 mmol/L (3.5-5.5); Sodium, Blood 132 mmol/L (136-145)
[2024-09-14] MEDS ORDERED: LORazepam 2 MG/ML 1ML Injection ONE (02:27)
[2024-09-14 02:48] LABS: Source, Urine Foley catheter
[2024-09-14 02:59] LABS: Bilirubin, Urine Neg (Neg); Blood, Urine 3+ (Neg); Glucose Qualitative, Urine Neg (Neg); Ketones, Urine Neg (Neg); Leukocyte Esterase, Urine 3+ (Neg); Nitrite, Urine Neg (Neg); Protein, Urine Neg (Neg); Specific Gravity, Urine 1.015 (1.003-1.022); Urobilinogen, Urine NORM (Normal)
[2024-09-14 03:06] LABS: Appearance, Urine Hazy (Clear); Color, Urine Yellow (P-Yellow)
[2024-09-14 03:07] LABS: Bacteria Many /hpf; Red Blood Cells, Urine 0-2 /hpf (0-2); Squamous Epithelial Cells Few /hpf (Few); White Blood Cells, Urine 25-50 /hpf (0-5)
[2024-09-14 03:15] LABS: U Amphetamine Screen Not Detected; U Barbituate Screen Not Detected; U Benzodiazapine Screen Not Detected; U Buprenorphine Screen Not Detected; U Cannabinoids Screen Not Detected; U Cocaine Screen Not Detected; U Methadone Screen Not Detected; U Methamphetamine Screen Not Detected; U Opiates Screen Not Detected; U Oxycodone Screen Not Detected; U Phencyclidine Screen Not Detected
[2024-09-14] MEDS ORDERED: NS 250 ML IV SCH (03:20)
[2024-09-14] MEDS ORDERED: LEVETIRACETAM IV ONE (03:25)
[2024-09-14] MEDS ORDERED: levETIRAcetam 1,500 MG in NS 100 ML IV ONE (03:30)
[2024-09-14] MEDS ORDERED: FLU VACC TS2024-25(6MOS UP)/PF 45 MCG/0.5 ML SYRINGE IM ONE (04:05)
[2024-09-14 05:41] LABS: BASOPHILS ABSOLUTE AUTO 0.02 K/mm3 (0.00-0.23); BASOPHILS PERCENT AUTO 0 % (0-2); EOSINOPHILS PERCENT AUTO 0 % (0-6); Hematocrit 28.1 % (33.0-51.0); Hemoglobin 8.2 g/dL (11.5-16.0); IMMATURE GRAN ABSOLUTE AUTO 0.08 K/mm3 (0.00-0.10); IMMATURE GRAN PERCENT AUTO 1 % (0-1); LYMPHOCYTES ABSOLUTE AUTO 0.21 K/mm3 (0.84-5.20); LYMPHOCYTES PERCENT AUTO 1 % (21-46); MONOCYTES ABSOLUTE AUTO 0.47 K/mm3 (0.16-1.47); MONOCYTES PERCENT AUTO 3 % (4-13); Mean Corpuscular HGB 26.1 pg (26.0-34.0); Mean Corpuscular HGB Conc 29.2 g/dL (31.5-36.5); Mean Corpuscular Volume 90 fL (80-100); Mean Platelet Volume 9.9 fL (9.1-12.4); NEUTROPHILS ABSOLUTE AUTO 14.01 K/mm3 (1.96-9.15); NEUTROPHILS PERCENT AUTO 95 % (41-73); Platelet Count 322 K/mm3 (150-400); RDW Coefficient Variation 19.7 % (11.7-14.2); RDW Standard Deviation 64.4 fL (35.1-46.3); Red Blood Cell Count 3.14 M/mm3 (3.80-5.20); White Blood Cell Count 14.79 K/mm3 (4.00-11.30)
[2024-09-14] MEDS ORDERED: NS 250 ML IV ONE (06:00)
--- NOTE | 2024-09-14 06:01 | NUR ---
THIS RN ASSUMED CARE OF PT AT 0440. PT ONLY RESPONDS TO PAIN, PUPILS DID REACT/BRISK BUT HAD NO CORNEAL REFLEX. PT HEART RATE IS IN A-FIB 100-120s. PT SOUNDS COURSE THROUGHOUT, IS ON BIPAP. PT HAS PEREYRA CATHETER IN PLACE DRAINING TO GRAVITY. PT BLOOD PRESSURE WAS STABLE AT 120/60s. PT BLOOD PRESSURE AROUND 0600 DROPPED TO 87/59 MAP OF 65, WAS NOTIFIED, ORDERED A 250 BOLUS OF FLUIDS. NO OTHER INTERVENTIONS AT THIS TIME. PLAN OF CARE CONTINUED.
[2024-09-14 06:09] LABS: Albumin, Blood 2.2 g/dL (3.4-5.0); Albumin/Globulin Ratio 0.5 (0.8-1.8); Bilirubin, Total 0.4 mg/dL (0.1-1.0); Bun/Creatinine Ratio 41.8 (12.0-20.0); Calcium, Blood 6.5 mg/dL (8.5-10.1); Creatinine, Blood 3.37 mg/dL (0.40-1.00); Globulin, Blood 4.8 g/dL (2.2-4.0); Potassium, Blood 3.4 mmol/L (3.5-5.5)
[2024-09-14] MEDS ORDERED: Meropenem 500 MG in NS 100 ML IV SCH (06:39)
[2024-09-14] MEDS ORDERED: Potassium Chl 10MEQ/Water100ML 100 ML IV ONE (06:45)
[2024-09-14] MEDS ORDERED: NS 250 ML IV PRN (07:25)
[2024-09-14] MEDS ORDERED: Mag Sulfate 1 GM/D5% 100ML 100 ML IV STA (07:59)
[2024-09-14] MEDS ORDERED: NS 1,000 ML IV SCH ×3 (08:00→22:35)
[2024-09-14] MEDS ORDERED: CALCIUM GLUC IN NACL, ISO-OSM 100 ML IV ONE (08:05)
[2024-09-14] MEDS ORDERED: Lactobacil 2-S.Thermo-Bifido 1 1 Cap PO SCH (09:00)
[2024-09-14] MEDS ORDERED: Heparin Sodium,Porcine 5,000 UNIT/0.5 ML SDV SC SCH (09:00)
[2024-09-14] MEDS ORDERED: LORazepam 2 MG/ML 1ML Injection IV PRN (09:35)
--- NOTE | 2024-09-14 10:23 | NUR ---
Family contact. Spoke with granddaughter Maria R ([phone]). She reports that Jaydon is priamry contact and she should be second. Jaydon is Pts brother and helps manage most of her medical care. Maria R reported that at baseline Pt lives at [facility] and uses mechanical lift to motorized wheelchair to move around. Pt is able to help staff roll in bed and has been working with therapy at the facility. Pt is typically A&O, some noted confusion when Maria R visited on but it was thought to be related on O2 useage. Staff will update family as able.
[2024-09-14 13:39] LABS: Albumin, Blood 2.1 g/dL (3.4-5.0); Anion Gap 18 mmol/L (3-11); Blood Urea Nitrogen 139 mg/dL (8-24); Bun/Creatinine Ratio 43.3 (12.0-20.0); CO2, Blood 25 mmol/L (21-32); Calcium, Blood 6.1 mg/dL (8.5-10.1); Chloride, Blood 94 mmol/L (98-108); Creatinine, Blood 3.21 mg/dL (0.40-1.00); Glomerular Filtration Rate 15 (60-); Glucose, Blood 204 mg/dL (70-99); Potassium, Blood 3.2 mmol/L (3.5-5.5); Sodium, Blood 134 mmol/L (136-145)
[2024-09-14] MEDS ORDERED: Potassium Chloride 10 Meq Tablet SA PO ONE (15:30)
[2024-09-14] MEDS ORDERED: Potassium Chl 20MEQ/Water100ML 100 ML IV SCH (15:30)
[2024-09-14] MEDS ORDERED: Ondansetron 4 MG TAB PO PRN (16:05)
[2024-09-14] MEDS ORDERED: Calcium Carbonate 500 MG Tab Chew PO PRN (16:05)
[2024-09-14] MEDS ORDERED: Acetaminophen 325 MG TABLET PO PRN (16:10)
[2024-09-14] MEDS ORDERED: ALDACTONE25 MG PO (16:32)
[2024-09-14] MEDS ORDERED: CLIN150 PO (16:33)
[2024-09-14] MEDS ORDERED: BISA10S PR (16:34)
[2024-09-14] MEDS ORDERED: GABA300 PO (16:35)
[2024-09-14] MEDS ORDERED: Mometasone/Formoterol MDI 200/5 mcg 13 GM INH SCH (16:35)
[2024-09-14] MEDS ORDERED: Albuterol 2.5 MG/3 ML VIAL INH PRN (16:35)
[2024-09-14] MEDS ORDERED: ANORO ELLIPTA1 EACH INH (16:36)
[2024-09-14] MEDS ORDERED: LOPE2C PO (16:36)
[2024-09-14] MEDS ORDERED: POTA10T PO (16:37)
[2024-09-14] MEDS ORDERED: MIDO5 PO (16:38)
[2024-09-14] MEDS ORDERED: Midodrine 5 MG Tab PO PRN (16:50)
[2024-09-14] MEDS ORDERED: Ipratropium/Albuterol SulF 2.5-0.5MG/3 ML Amp INH SCH (16:50)
[2024-09-14] MEDS ORDERED: Metoprolol Succinate 50 MG TABCR PO ONE (17:05)
[2024-09-14] MEDS ORDERED: Darbepoetin Alfa In Albumn Sol 60 MCG/0.3 ML Syringe SC ONE (18:00)
--- NOTE | 2024-09-14 18:13 | NUR ---
End of shift note. We assuming care, Pt was only responsive to pain, Pt could open eyes. As the day has progressed, Pt is now A&O x2-3. Pt is able to make needs known. Multiple electrolytes were replaced via IV. Repeat labs were phoned to MD, including critical phos level. New orders were received and consult to Dr. Ferrara was phoned in. Minimal PO intake since Pt waking up. Pt is now able to take pills whole with water. Foreman in place, draining clear urine. Good output. BP has been soft for much of the day but MAP >65. Repositioning as tolerated. Pt is able to make needs known, call light is within reach.
[2024-09-14] MEDS ORDERED: Sevelamer Carbonate 800 MG Tab PO SCH (20:15)
[2024-09-14] MEDS ORDERED: Gabapentin 300 MG Cap PO SCH (21:00)
[2024-09-14] MEDS ORDERED: Insulin Human Lispro 100 Units/ML 3ML Syringe SC SCH (21:00)
[2024-09-14] MEDS ORDERED: Atorvastatin 10 MG Tab PO SCH (21:00)
[2024-09-14] MEDS ORDERED: Miconazole Nitrate 2% 85 GM PWD TOP SCH (21:00)
[2024-09-14] MEDS ORDERED: TraMADol HCl 50 MG Tab PO PRN (21:00)
[2024-09-14] MEDS ORDERED: Melatonin 3 MG Tab PO SCH (21:00)
--- NOTE | 2024-09-14 22:34 | NUR ---
NOTIFIED RESIDENT OF BP TRENDS, FLUID BALANCE AND URINE OUTPUT. NOTIFIED PURCELL OF URINE OUTPUT TREND.
[2024-09-14] MEDS ORDERED: Midodrine 5 MG Tab PO ONE (22:40)
[2024-09-15] VITALS (8 sets, daily range): BP systolic 89–111; BP diastolic 59–83
[2024-09-15] MEDS ORDERED: QUEtiapine Fumarate 25 MG Tab PO ONE (03:00)
[2024-09-15 04:49] LABS: Hematocrit 25.3 % (33.0-51.0); Hemoglobin 7.5 g/dL (11.5-16.0)
[2024-09-15 05:19] LABS: Magnesium, Blood 1.5 mg/dL (1.6-2.4)
--- NOTE | 2024-09-15 05:43 | NUR ---
VERIFIED WITH LABS THAT LAB TUBES WERE RECIEVED. STILL PROCESSING AT THIS TIME.
--- NOTE | 2024-09-15 05:45 | NUR ---
SHIFT SUMMARY NEURO: ALERT TO SELF AND PLACE ONLY. FOLLOWS COMMANDS BUT IMPULSIVE, LETHARGIC AND FORGETFUL. CARDIAC: SOFT BP'S- 15MG MIDODRINE GIVEN. HR TRENDING DOWN, SOMETIMES IN THE 90'S NOW. MAPS GREATER THAN 65. PT BLOOD PRESSURES DECREASING SIGNIFICANTLY WITH LEFT TURNS. +2 EDEMA BLE, +1 GENERALIZED, +4 IN PANNUS. PULSES PRESENT THROUGHOUT. AFEBRILE (TYLENOL GIVEN AT BEGINNING OF SHIFT). PT REMAINS ON CONTINUOUS NS INFUSION. LUNGS: COARSE LUNG SOUNDS, CRACKLERS THROUGHOUT RIGHT LOBE. CXR ORDERED. ORAL CARE COMPLETED. BIPAP AT NIGHT. GI/: PEREYRA IN PLACE. URINE WAS CLOUDY AT BEGINNING OF SHIFT AND HAS GOTTEN MORE CLEAR. WAS FLUSHED DUE TO CLOGGING CONCERN WITHOUT EFFECT. SMEAR BM. PT REPORTING INTERMITTENT ABDOMINAL PAIN. SKIN: ANTIFUNGAL POWDER APPLIED TO FOLDS AFTER CLEANSING
[2024-09-15 05:52] LABS: Anion Gap 18 mmol/L (3-11); Blood Urea Nitrogen 133 mg/dL (8-24); Bun/Creatinine Ratio 42.6 (12.0-20.0); CO2, Blood 24 mmol/L (21-32); Calcium, Blood 6.2 mg/dL (8.5-10.1); Chloride, Blood 94 mmol/L (98-108); Creatinine, Blood 3.12 mg/dL (0.40-1.00); Glomerular Filtration Rate 15 (60-); Glucose, Blood 128 mg/dL (70-99); Potassium, Blood 3.1 mmol/L (3.5-5.5); Sodium, Blood 133 mmol/L (136-145)
[2024-09-15 05:54] LABS: Phosphorus, Blood 8.7 mg/dL (2.5-4.9)
[2024-09-15] MEDS ORDERED: Omeprazole 20 MG CapCR PO SCH (06:00)
[2024-09-15] MEDS ORDERED: Mag Sulfate 1 GM/D5% 100ML 100 ML IV ONE (06:10)
[2024-09-15] MEDS ORDERED: Potassium Chloride 30 MEQ IV SCH (06:10)
[2024-09-15] MEDS ORDERED: Potassium Chl 10MEQ/Water100ML 100 ML IV SCH (06:15)
[2024-09-15] MEDS ORDERED: Magnesium Sulf 2 GM/Water 50ML 50 ML IV ONE (08:40)
[2024-09-15] MEDS ORDERED: CALCIUM GLUC IN NACL, ISO-OSM 100 ML IV ONE (08:40)
[2024-09-15] MEDS ORDERED: Mag Sulfate 1 GM/D5% 100ML 100 ML IV STA (08:41)
[2024-09-15] MEDS ORDERED: Sertraline HCl 100 MG Tab PO SCH (09:00)
[2024-09-15] MEDS ORDERED: Enoxaparin 40 MG/0.4 ML SYR SC SCH (09:00)
[2024-09-15] MEDS ORDERED: Midodrine 5 MG Tab PO SCH (09:00)
[2024-09-15] MEDS ORDERED: Cholecalciferol 1000 Unit Tablet (=25MCG) PO SCH (09:00)
[2024-09-15] MEDS ORDERED: Potassium Chloride 10 Meq Tablet SA PO ONE (09:00)
[2024-09-15] MEDS ORDERED: Sennosides 8.6 MG Tab PO SCH (09:00)
[2024-09-15] MEDS ORDERED: Allopurinol 100 MG Tab PO SCH (09:00)
[2024-09-15] MEDS ORDERED: Aspirin 81 MG TabEC PO SCH (09:00)
[2024-09-15] MEDS ORDERED: Metoprolol Succinate 50 MG TABCR PO SCH (09:00)
[2024-09-15] MEDS ORDERED: BuPROPion HCl SR 100 MG TabCR PO SCH (09:00)
[2024-09-15 10:51] LABS: BASOPHILS ABSOLUTE AUTO 0.03 K/mm3 (0.00-0.23); BASOPHILS PERCENT AUTO 0 % (0-2); EOSINOPHILS ABSOLUTE AUTO 0.03 K/mm3 (0.00-0.68); EOSINOPHILS PERCENT AUTO 0 % (0-6); Hematocrit 26.9 % (33.0-51.0); Hemoglobin 7.9 g/dL (11.5-16.0); IMMATURE GRAN PERCENT AUTO 1 % (0-1); LYMPHOCYTES ABSOLUTE AUTO 0.35 K/mm3 (0.84-5.20); LYMPHOCYTES PERCENT AUTO 2 % (21-46); MONOCYTES ABSOLUTE AUTO 0.49 K/mm3 (0.16-1.47); MONOCYTES PERCENT AUTO 3 % (4-13); Mean Corpuscular HGB Conc 29.4 g/dL (31.5-36.5); Mean Corpuscular Volume 89 fL (80-100); Mean Platelet Volume 10.1 fL (9.1-12.4); NEUTROPHILS ABSOLUTE AUTO 14.99 K/mm3 (1.96-9.15); NEUTROPHILS PERCENT AUTO 94 % (41-73); NRBC ABSOLUTE 0.02 K/mm3 (0.00-0.02); NRBC Auto 0.1 /100 WBC (0.0-0.2); Platelet Count 405 K/mm3 (150-400); RDW Coefficient Variation 19.8 % (11.7-14.2); RDW Standard Deviation 63.7 fL (35.1-46.3); Red Blood Cell Count 3.04 M/mm3 (3.80-5.20); White Blood Cell Count 15.99 K/mm3 (4.00-11.30)
[2024-09-15] MEDS ORDERED: Sevelamer Carbonate 800 MG Tab PO SCH (12:30)
[2024-09-15 13:49] LABS: Base Excess Venous -3.6 mmol/L; Bicarbonate Venous 21.1 mmol/L (24.0-30.0); PCO2 Venous 50.1 mmHg (38-42)
[2024-09-15 13:50] LABS: pH Blood Venous 7.28 (7.34-7.37)
[2024-09-15 14:28] LABS: Free Thyroxine 0.65 ng/dL (0.70-1.60)
[2024-09-15 14:30] LABS: Thyroid Stimulating Hormone 2.22 uIU/mL (0.360-4.800); Triiodothyronine, Free 1.11 pg/mL (2.18-3.98)
--- NOTE | 2024-09-15 17:08 | NUR ---
SHIFT SUMMARY THE PT IS DROWSY BUT ARROUSABLE, SHE IS ORIENTED TO HERSELF AND KNOWS SHE IS IN A HOSPITAL. SHE DOES PULL AT LINES AND PULLED AN IV OUT TODAY. SHE IS A LIFT PT AND Q2 TURN. SHE HAS A PEREYRA DRAINING TO GRAVITY W/ CLOUDY YELLOW OUTPUT. SHE HAS NOT HAD A BOWEL MOVEMENT THIS SHIFT. SHE HAS HAD A POOR APPETITE BUT HAD BEEN ENCOURAGE TO EAT. ON TELE SHE HAS BEEN AFIB 100'S-120'S. SHE DID NOT RECIEVE HER METOPROLOL THIS MORNING D/T HYPOTENSION AND SOFT BLOOD PRESSURES. THIS WAS DISCUSSED W/ DR. CYR AND DR. PURCELL. THE PT WAS STARTED ON 10MG MIDODRINE QID AND HER FLUIDS WERE D/C'D AT [address] PURCELL. THIS AFTERNOON DR. CYR ORDERED A VBG ON THE PT AND HER PT CAME BACK CRITICALLY LOW AT 7.28. SHE WAS PLACED BACK ON HER BIPAP AND DR. CYR ORDERED A RECHECK AT 2000 AND IN THE MORNING. SHE HAS BEEN BETWEEN 3LNC AND THE BIPAP 16/8 @ 30%. SP02 >90%. THE PT HAS ONLY HAD COMPLAINTS OF HER SKIN HURTING WHEN IT IS TOUCHED. HER BROTHER LINDSEY CAME TO BEDSIDE AND WAS UPDATED ON CARE. HER GRANDAUGHSANDERS CAME TO BEDSIDE AND VISITED. SEE NOTES FOR UPDATES.
--- NOTE | 2024-09-15 18:55 | NUR ---
DR. PURCELL NOTIFIED OF 1700 LABS PER REQUEST. NO NEW ORDERS AT THIS TIME.
[2024-09-15 21:31] LABS: Base Excess Venous -3.7 mmol/L; Bicarbonate Venous 21.4 mmol/L (24.0-30.0); PCO2 Venous 50.9 mmHg (38-42)
[2024-09-15 21:32] LABS: pH Blood Venous 7.27 (7.34-7.37)
[2024-09-16 03:34] LABS: Base Excess Venous -2.9 mmol/L; PCO2 Venous 50.8 mmHg (38-42); pH Blood Venous 7.28 (7.34-7.37)
[2024-09-16 04:00] VITALS: BP 101/60
[2024-09-16 04:18] LABS: BASOPHILS ABSOLUTE AUTO 0.02 K/mm3 (0.00-0.23); BASOPHILS PERCENT AUTO 0 % (0-2); EOSINOPHILS ABSOLUTE AUTO 0.03 K/mm3 (0.00-0.68); EOSINOPHILS PERCENT AUTO 0 % (0-6); Hematocrit 25.2 % (33.0-51.0); Hemoglobin 7.3 g/dL (11.5-16.0); IMMATURE GRAN PERCENT AUTO 1 % (0-1); LYMPHOCYTES ABSOLUTE AUTO 0.24 K/mm3 (0.84-5.20); LYMPHOCYTES PERCENT AUTO 2 % (21-46); MONOCYTES ABSOLUTE AUTO 0.46 K/mm3 (0.16-1.47); MONOCYTES PERCENT AUTO 3 % (4-13); Mean Corpuscular HGB 25.5 pg (26.0-34.0); Mean Corpuscular Volume 88 fL (80-100); Mean Platelet Volume 9.8 fL (9.1-12.4); NEUTROPHILS ABSOLUTE AUTO 13.85 K/mm3 (1.96-9.15); NEUTROPHILS PERCENT AUTO 94 % (41-73); NRBC ABSOLUTE 0.02 K/mm3 (0.00-0.02); NRBC Auto 0.1 /100 WBC (0.0-0.2); Platelet Count 379 K/mm3 (150-400); RDW Coefficient Variation 19.8 % (11.7-14.2); RDW Standard Deviation 63.8 fL (35.1-46.3); Red Blood Cell Count 2.86 M/mm3 (3.80-5.20)
[2024-09-16 04:34] LABS: Magnesium, Blood 1.8 mg/dL (1.6-2.4)
[2024-09-16 05:01] LABS: Anion Gap 19 mmol/L (3-11); Blood Urea Nitrogen 136 mg/dL (8-24); Bun/Creatinine Ratio 43.3 (12.0-20.0); CO2, Blood 23 mmol/L (21-32); Calcium, Blood 6.8 mg/dL (8.5-10.1); Chloride, Blood 97 mmol/L (98-108); Creatinine, Blood 3.14 mg/dL (0.40-1.00); Glomerular Filtration Rate 15 (60-); Glucose, Blood 179 mg/dL (70-99); Phosphorus, Blood 8.2 mg/dL (2.5-4.9); Potassium, Blood 3.6 mmol/L (3.5-5.5); Sodium, Blood 135 mmol/L (136-145)
[2024-09-16] MEDS ORDERED: CALCIUM GLUC IN NACL, ISO-OSM 50 ML IV ONE ×2 (05:30→07:15)
[2024-09-16] MEDS ORDERED: Levothyroxine Sodium 0.05 MG Tab PO SCH (06:00)
--- NOTE | 2024-09-16 06:57 | NUR ---
PT STABLE THROUGHOUT SHIFT. PT REMAINED ON BIPAPR THROUGH WHOLE SHIFT AND TOLERATED WELL. BP REMAINED SOFT. PT REMAINED AOX1-2. PT DID HAVE LARGE LOOSE BM. PEREYRA CONTINUES TO DRAIN WELL AND HAD GOOD OUTPUT. PT O2 SAT REMAINED WNL. HR AND RHYTHM HIGH 90S TO 100S AFIB.
[2024-09-16 08:09] VITALS: BP 93/60
[2024-09-16] MEDS ORDERED: Calcium Acetate 667 MG Gel Cap PO SCH (08:30)
[2024-09-16] MEDS ORDERED: Calcitriol 0.25 MCG Cap PO SCH (09:00)
[2024-09-16 11:34] VITALS: BP 94/60
[2024-09-16 13:10] VITALS: BP 119/85
[2024-09-16 14:11] LABS: Hematocrit 27.2 % (33.0-51.0)
[2024-09-16 16:00] VITALS: BP 94/57
--- NOTE | 2024-09-16 18:07 | NUR ---
PT SUMMARY; PT HAS BEEN SOMNOLENT, WEAK AND LETHARGIC FOR THE SHIFT. ABLE TO CONVERSE BUT IS SLOW TO RESPOND, DECREASE APPETITE PT MOSTLY DRINKING NEPRO. ALERT AND ORIENTED X2. VITALS HRR AFIB 90'S AT THE BEGINNING OF THE SHIFT THEN SLOWLY TRENDED UP TO 130'S AROUND NOON, PT HASNT BEEN GETTING METOPROLOL DOSE DUE TO SOFT BP'S, CALLED DR CYR TO VERIFY TO GIVE MISSED DOSE OF METOPRLOL THIS MORNING, SBP HAS TRENDED UP TO 110'S AT THAT TIME AND PT HAS BEEN GETTING MIDODRINE 10MG QID. SBP 90'S REMAINED ABOUT THE SAME AFTER GIVING THE METOPROLOL DOSE, HRR CONTINUES TO TREND DOWN 110-120'S. PT REMAINS ON 4L OF O2 VIA NASAL CANNULA BIPAP MASK 16/8 30% FIO2, PT CURRENTLY HAS BIPAP ON. PT HAD A BM THIS MORNING WAS GIVEN A BED BATH, PT TRANSFERRED TO A BARIATRIC BED, PEREYRA HAS BEEN DRAINING VIA GRAVITY, URINE KARI YELLOW IN COLOR. PT HAS BEEN REPOSITIONED Q2HRS. SCDS IN PLACE, PT HAS BEEN REFUSING HEPARIN SC DESPITE EDUCATION. FAMILY AND FRIENDS CAME IN TO VISIT, WAS GIVEN UPDATE REGARDING PT'S STATUS. NO OTHER ISSUES REPORTED WILL REPORT TO ONCOMING SHIFT
[2024-09-16 20:23] VITALS: BP 90/65
[2024-09-17] VITALS (23 sets, daily range): BP systolic 78–106; BP diastolic 54–71
[2024-09-17 04:16] LABS: Hematocrit 25.6 % (33.0-51.0); Hemoglobin 7.5 g/dL (11.5-16.0)
[2024-09-17 04:52] LABS: Magnesium, Blood 1.7 mg/dL (1.6-2.4)
[2024-09-17 04:59] LABS: Albumin, Blood 1.9 g/dL (3.4-5.0); Anion Gap 17 mmol/L (3-11); Blood Urea Nitrogen 142 mg/dL (8-24); Bun/Creatinine Ratio 45.4 (12.0-20.0); CO2, Blood 25 mmol/L (21-32); Calcium, Blood 6.9 mg/dL (8.5-10.1); Chloride, Blood 98 mmol/L (98-108); Creatinine, Blood 3.13 mg/dL (0.40-1.00); Glomerular Filtration Rate 15 (60-); Glucose, Blood 192 mg/dL (70-99); Phosphorus, Blood 7.9 mg/dL (2.5-4.9); Potassium, Blood 3.6 mmol/L (3.5-5.5); Sodium, Blood 136 mmol/L (136-145)
--- NOTE | 2024-09-17 06:46 | NUR ---
PT HAD MILD ELEVATED TEMPS THROUGHOUT SHIFT PER TEMP PEREYRA. PT REMAINED ON BIPAP EXCEPT TO TAKE PILLS. PT HAD LOW URINE OUTPUT, URINE WAS YELLOW AND HAZY. PT TOLERATED IV ABX. B/L POWER GLIDES CONTINUE TO DRAW AND FLUSH W/O PROBLEM. NO BM THIS SHIFT. PT MORE SOMNOLENT THIS AM BUT WAS ABLE TO FOLLOW DIRECTIONS AND WAS ABLE TO SWALLOW PILLS SAFELY. PT STATUS OTHERWISE APPEARS UNCHANGED. PT WAS PLACED ON BARIATRIC BED. LIFT USED TO REPOSITION PT. GENERALIZED EDEMA REMAINES 1-2+ THROUGHOUT. NO INSULIN COVERAGE NEED FOR HS CBG.
[2024-09-17] MEDS ORDERED: CALCIUM GLUC IN NACL, ISO-OSM 100 ML IV ONE (07:50)
[2024-09-17] MEDS ORDERED: Furosemide 80 MG Tab PO SCH (09:00)
[2024-09-17] MEDS ORDERED: Potassium Chloride 10 Meq Tablet SA PO SCH (09:00)
--- NOTE | 2024-09-17 13:57 | NUR ---
CALL PLACED TO : CALLED DR CYR TO NOTIFY THAT AFTER AFTERNOON DOSE OF MIDODRINE WAS GIVEN PATIENTS BLOOD PRESSURE'S HAVE BEEN SOFT WITH A MAP OF 64. HE STATED TO CONINTUE MONITORING AND WATCH BOTH HEART RATE AND BLOOD PRESSURE AND TO BE ON STAND BY FOR A POTENTIAL ICU TRANSFER. NOTIFIED CHARGE WELL.
--- NOTE | 2024-09-17 14:33 | NUR ---
ARIANA RAJAN CALLED AND AN UPDATE WAS GIVEN
--- NOTE | 2024-09-17 15:17 | NUR ---
SPOKE WITH AND LET HIM KNOWN THAT A LAB OF PROCALCITONIN CAME BACK HIGH AND WHERE HER MAPS WERE COMING IN AT. HE STATED THAT'S GOOD AND I WILL CONTINUE TO MONITOR.
--- NOTE | 2024-09-17 17:24 | NUR ---
END OF SHIFT SUMMARY: PATIENT IS ALERT AND ORIENTED X2 TO SELF AND PLACE. IS ABLE TO TELL ME SHES IN SURFSIDE BUT IS NOT ABLE TO TELL ME THAT SHE IS AT THE HOSPITAL OR THE EVENTS LEADING UP TO IT. IS SATTING >92% ON 3L VIA NASAL VANNULA WHICH IS HER BASELINE AND BIPAP WHEN SLEEPING AT 16/8 & 30% FI02. IS ON TELE SHOWING AFIB WITH RATE BETWEEN 100-110. PATIENTS BLOOD PRESSURES HAVE BEEN SOFT WITH THE LOWEST MAP READING 64, DOCTOR KLARISSA AND BINH WERE NOTIFIED AND PER DOCTOR KLARISSA HER LASIX WAS HELD ALONG WITH HER METOPROLOL. A PROCALCITONIN WAS DRAWN AND WAS NOTIFIED ABOUT THE HIGH LAB RESULT. IS ACHS BLOOD SUGARS AND NEEDED COVERAGE THROUGHOUT SHIFT. PATIENT TOOK LARGER MEDICATIONS CRUSHED WITH SOME APPLESAUCE AND TOOK HER SMALLER PILLS WHOLE WITH WATER. WILL REPORT TO ONCOMING AWNINGS MECHANIC RN.
[2024-09-17] MEDS ORDERED: DAPTOMYCIN IV SCH (18:00)
[2024-09-17] MEDS ORDERED: NS IV SCH (18:00)
--- NOTE | 2024-09-17 21:17 | NUR ---
START OF SHIFT PT IN BED RESTING AND SLEEPING. AROUSES TO VOICE BUT FALLS ASLEEP QUICKLY. PT REFUSED HEPARIN. PT TOOK PILLS IN APPLE SAUCE W/O ANY S/S OF ASPIRATION. PT WAS ON NC WHEN THIS RN ASSUMED CARE AT 191. PT ONLY ABLE TO SAY HER NAME AND NOD. PT PLACED ON BIPAP SHORTLY AFTER D/T SOMNOLENCE WHILE O2 SAT STAYED ABOVE 93%. PT DENIED ANY PAIN. WILL CONTINUE PLAN OF CARE.
[2024-09-18 03:20] VITALS: BP 97/62
[2024-09-18 03:33] LABS: BASOPHILS ABSOLUTE AUTO 0.02 K/mm3 (0.00-0.23); BASOPHILS PERCENT AUTO 0 % (0-2); EOSINOPHILS ABSOLUTE AUTO 0.12 K/mm3 (0.00-0.68); EOSINOPHILS PERCENT AUTO 1 % (0-6); Hematocrit 25.3 % (33.0-51.0); Hemoglobin 7.4 g/dL (11.5-16.0); IMMATURE GRAN PERCENT AUTO 1 % (0-1); LYMPHOCYTES ABSOLUTE AUTO 0.29 K/mm3 (0.84-5.20); LYMPHOCYTES PERCENT AUTO 2 % (21-46); MONOCYTES ABSOLUTE AUTO 0.63 K/mm3 (0.16-1.47); MONOCYTES PERCENT AUTO 4 % (4-13); Mean Corpuscular HGB 25.8 pg (26.0-34.0); Mean Corpuscular HGB Conc 29.2 g/dL (31.5-36.5); Mean Corpuscular Volume 88 fL (80-100); Mean Platelet Volume 10.1 fL (9.1-12.4); NEUTROPHILS ABSOLUTE AUTO 14.45 K/mm3 (1.96-9.15); NEUTROPHILS PERCENT AUTO 93 % (41-73); NRBC ABSOLUTE 0.02 K/mm3 (0.00-0.02); NRBC Auto 0.1 /100 WBC (0.0-0.2); Platelet Count 366 K/mm3 (150-400); RDW Coefficient Variation 19.8 % (11.7-14.2); RDW Standard Deviation 63.9 fL (35.1-46.3); Red Blood Cell Count 2.87 M/mm3 (3.80-5.20); White Blood Cell Count 15.61 K/mm3 (4.00-11.30)
[2024-09-18 03:54] LABS: Magnesium, Blood 1.8 mg/dL (1.6-2.4)
[2024-09-18 03:55] LABS: Albumin, Blood 1.9 g/dL (3.4-5.0); Anion Gap 19 mmol/L (3-11); Blood Urea Nitrogen 144 mg/dL (8-24); Bun/Creatinine Ratio 43.5 (12.0-20.0); CO2, Blood 24 mmol/L (21-32); Calcium, Blood 7.4 mg/dL (8.5-10.1); Chloride, Blood 99 mmol/L (98-108); Creatinine, Blood 3.31 mg/dL (0.40-1.00); Glomerular Filtration Rate 14 (60-); Glucose, Blood 211 mg/dL (70-99); Phosphorus, Blood 8.4 mg/dL (2.5-4.9); Potassium, Blood 3.7 mmol/L (3.5-5.5); Sodium, Blood 138 mmol/L (136-145)
--- NOTE | 2024-09-18 04:06 | NUR ---
SHIFT SUMMARY PT SLEEPING WITH BIPAP THROUGHOUT THE NIGHT ON FIO2 ON 30%. PT SEEMED MORE ARROUSABLE WHILE WEARING BIPAP. BP MAP RANGED FROM A MAP OF 60-75, PROVIDER NOTIFIED. STATED IF MAP GOT LOW AGAIN TO TRY 250 BOLUS. NO BOLUS GIVEN SINCE MAP STAYED ABOVE 65 AFTER THAT CONVERSATION. PT HAS BEEN AFEBRILE THROUGHOUT NIGHT WITH A TMAX OF ABOUT 99.2. PT HAS HAD A SAT ABOVE 95% WITH HR 100-120 THROUGHOUT NIGHT. WILL CONTINUE PLAN OF CARE.
[2024-09-18 07:39] VITALS: BP 101/60
--- NOTE | 2024-09-18 08:43 | NUR ---
CALL PLACED TO : NOTIFIED DOCTOR ABOUT PATIENTS HEART RATE TOUCHING THE 140'S AND BLOOD PRESSURE SOFT WITH A MAP OF 79. CALLED TO ASK TO GIVE METOPROLOL THOUGH MY PARAMETERS ARE TO HOLD FOR A SYSTOLIC LESS THAN 120. MD ORDERED TO GIVE IT AND HE WILL BE AT BEDSIDE SHORTLY.
[2024-09-18] MEDS ORDERED: Heparin Sodium 5000 Units/ML 1ML MDV SC SCH (09:00)
[2024-09-18] MEDS ORDERED: Cosyntropin 0.25 MG / ML 1ML Vial IV ONE (11:20)
[2024-09-18 12:09] VITALS: BP 108/84
[2024-09-18 13:31] LABS: Bun/Creatinine Ratio 42.9 (12.0-20.0); Calcium, Blood 7.4 mg/dL (8.5-10.1); Creatinine, Blood 3.29 mg/dL (0.40-1.00); Potassium, Blood 3.9 mmol/L (3.5-5.5)
--- NOTE | 2024-09-18 14:44 | NUR ---
CALL PLACED TO REGADING AFTERNOON LAB RESULTS REQUESTED. GIVEN NEW ORDERS FOR ALBUMIN AND BUMEX SEE EMAR FOR ORDERS.
[2024-09-18] MEDS ORDERED: Albumin Human 50 ML IV ONE (14:50)
[2024-09-18] MEDS ORDERED: Bumetanide 0.25 MG/ML 10ML Vial IV ONE (14:50)
--- NOTE | 2024-09-18 15:48 | NUR ---
AT BEDSIDE TO SEE PATIENT. MD ORDERED STAT LABS FOR CREATININE AND GFR AND TO CALL BACK WITH RESULTS. ALBUMIN STARTED PER EMAR.
[2024-09-18 17:07] LABS: Creatinine, Blood 3.24 mg/dL (0.40-1.00)
--- NOTE | 2024-09-18 17:11 | NUR ---
CALL PLACED TO : CALL PLACED REGARDING LAB RESULTS OF CREATININE AND GFR REQUESTED.
--- NOTE | 2024-09-18 18:23 | NUR ---
END OF SHIFT SUMMARY: PATIENT IS ALERT AND ORIENTED 1-[address] IS ABLE TO TELL ME SHE IS IN [place] BUT NOT AT THE HOSPITAL. IS FORGETFUL AND FALLS ASLEEP DURING COVERSATIONS. SATTING >92% ON 4 LITERS VIA NASAL CANNULA, 3LITERS IS HER BASELINE. WEARS BIPAP WHEN SLEEPING WHEN SHE TOLERATES IT. WAS GIVEN ALBUMIN AND BUMEX TODAY PER EMAR ORDERS TO HELP DIURESIS AND BLOOD PRESSURES HAVE BEEN STABLE WITH THE MAPS BETWEEN 65-80. NEEDED METROPOLOL FOR A HEART RATE THAT TOUCHED 140 TODAY BUT HAS DECREASED SINCE THEN. DR. PURCELL CAME TO BEDSIDE AND ORDERED NEW LABS AND STATED HE WILL CHECK BACK IN THE MORNING HE IS THINKING POSSIBLE CATHETER PLACEMENT FOR HEMODIAYSIS. WILL REPORT TO ONCOMING OBSTETRICS/GYNECOLOGY NURSE RN.
[2024-09-18 19:00] VITALS: BP 100/76
--- NOTE | 2024-09-18 22:08 | NUR ---
ASSUMED CARE THIS RN ASSUMED CARE AT APPROXIMATELY 1915. PT RESTING IN BED. PT ON BIPAP SAT ABOVE 95%. BP STABLE ABOVE MAP 65. PT ONLY ALERT TO SELF. WILL CONTINUE PLAN OF CARE.
[2024-09-19] VITALS (20 sets, daily range): BP systolic 79–113; BP diastolic 57–78
--- NOTE | 2024-09-19 04:17 | NUR ---
SHIFT SUMMARY PT REMAINED VERY DROWSY DURING ENTIRE SHIFT. PT AO X 1 TO SELF. PT HAD BM WITH NEW BED LINENS PLACED. PT WEIGHT VIA LIFT. PT WOULD POCKET PILLS IN CHEEK DURING PM MEDS, CONFIDENCE IN PT ABILITY TO SWALLOW BIGGER PILLS IS LOW DUE TO BEING DROWSY AND BEING AT HIGH RISK FOR ASPIRATION. BP STABLE OVER NIGHT AND IMPROVED SINCE PREVIOUS NIGHT. MORE SKIN BREAKDOWN NOTED; STAGE 1 ON COSSYX WITH MULTIPLE SCATTERED ABRASIONS THROUGHOUT SKIN FOLDS. INTERDRY PLACED IN SKIN FOLD WITH ANTIFUNGAL POWDER. PLAN OF CARE CONTINUED.
--- NOTE | 2024-09-19 04:24 | NUR ---
SHIFT SUMMARY PT REMAINS SLEEPING AND COMFORTABLE IN BED. PT STATED SHE HAD NOT SLEPT WELL IN WEEKS D/T INCREASED DYSPNEA AND COUGHING OVER THE PAST WEEK. SMOKING CESSATION EDUCATION GIVEN AT BEDSIDE. PT HAD A PERIOD OF MARTÍN WITH O2 SAT DROPPING TO 70'S, PT RECOVERED WITH BEING AWOKEN AND NC TITRATED UP TO 4L UNTIL O2 SAT WAS BACK AT BASELINE. PT REMAINED ON 1-2L NC THROUGHOUT NIGHT. PT ALSO REQUIRED NC TO BE TITRATED UP TO 4L WHILE AMBULATING TO BATHROOM. PT DENIES ANY PAIN. PLAN OF CARE CONTINUED.
[2024-09-19 05:42] LABS: Base Excess Venous -1.5 mmol/L; PCO2 Venous 52.9 mmHg (38-42); pH Blood Venous 7.29 (7.34-7.37)
[2024-09-19 05:53] LABS: BASOPHILS ABSOLUTE AUTO 0.01 K/mm3 (0.00-0.23); BASOPHILS PERCENT AUTO 0 % (0-2); EOSINOPHILS ABSOLUTE AUTO 0.01 K/mm3 (0.00-0.68); EOSINOPHILS PERCENT AUTO 0 % (0-6); Hematocrit 25.2 % (33.0-51.0); Hemoglobin 7.3 g/dL (11.5-16.0); IMMATURE GRAN ABSOLUTE AUTO 0.14 K/mm3 (0.00-0.10); IMMATURE GRAN PERCENT AUTO 1 % (0-1); LYMPHOCYTES ABSOLUTE AUTO 0.25 K/mm3 (0.84-5.20); LYMPHOCYTES PERCENT AUTO 2 % (21-46); MONOCYTES ABSOLUTE AUTO 0.61 K/mm3 (0.16-1.47); MONOCYTES PERCENT AUTO 4 % (4-13); Mean Corpuscular HGB 25.5 pg (26.0-34.0); Mean Corpuscular Volume 88 fL (80-100); Mean Platelet Volume 10.1 fL (9.1-12.4); NEUTROPHILS ABSOLUTE AUTO 15.78 K/mm3 (1.96-9.15); NEUTROPHILS PERCENT AUTO 94 % (41-73); NRBC ABSOLUTE 0.02 K/mm3 (0.00-0.02); NRBC Auto 0.1 /100 WBC (0.0-0.2); Platelet Count 366 K/mm3 (150-400); RDW Coefficient Variation 19.9 % (11.7-14.2); RDW Standard Deviation 64.1 fL (35.1-46.3); Red Blood Cell Count 2.86 M/mm3 (3.80-5.20)
[2024-09-19 06:13] LABS: Free Thyroxine 0.48 ng/dL (0.70-1.60); Magnesium, Blood 1.9 mg/dL (1.6-2.4)
[2024-09-19 06:18] LABS: Thyroid Stimulating Hormone 1.46 uIU/mL (0.360-4.800)
[2024-09-19 06:21] LABS: Albumin, Blood 1.9 g/dL (3.4-5.0); Albumin/Globulin Ratio 0.4 (0.8-1.8); Bilirubin, Total 0.6 mg/dL (0.1-1.0); Calcium, Blood 7.5 mg/dL (8.5-10.1); Creatinine, Blood 3.29 mg/dL (0.40-1.00); Globulin, Blood 4.3 g/dL (2.2-4.0); Potassium, Blood 3.8 mmol/L (3.5-5.5); Total Protein, Blood 6.2 g/dL (6.4-8.2)
[2024-09-19 06:24] LABS: Bun/Creatinine Ratio 47.4 (12.0-20.0); Phosphorus, Blood 8.3 mg/dL (2.5-4.9)
[2024-09-19] MEDS ORDERED: NS 1,000 ML IV SCH (09:00)
[2024-09-19] MEDS ORDERED: NS 500 ML IV SCH (09:00)
--- NOTE | 2024-09-19 11:04 | NUR ---
DR PURCELL CONTACTED AND UPDATED ON PT'S BP'S BEING SOFT AND TIME FRAME OF PLACEMENT OF PERMACATH.
--- NOTE | 2024-09-19 11:18 | NUR ---
Spiritual Care Support. Pt. is not respnsive, but is known to this svp operations from the community. Assisted attending nurse in identifying NOK so that plan of care decisions could be discussed and decided.
--- NOTE | 2024-09-19 12:21 | NUR ---
PT SOMNOLENT AND NOT SWALLOWING SPOONFUL OF APPLESAUCE. AFTERNOON MEDS HELD FOR ASPIRIATION RISK.
[2024-09-19] MEDS ORDERED: NS 250 ML IV ONE (12:43)
[2024-09-19] MEDS ORDERED: Heparin Sodium 1000 Units/ML 10ML MDV ONE (12:43)
[2024-09-19 12:52] LABS: Stool Occult Blood Guaiac 1 Neg (Neg)
--- NOTE | 2024-09-19 13:02 | NUR ---
IR DOCTOR TO PT BEDSIDE AT 1450. MD CONTACTED PT BROTHER, LINDSEY, AND INFORMED BROTHER OF PROCEDURE. PT BROTHER VERBALLY AGREED FOR PROCEDURE. PT LEFT PCU AT 1305 VIA HOSPTIAL BED AND ON 4L NC.
[2024-09-19] MEDS ORDERED: DiphenhydrAMINE HCl 50 MG/ML 1ML Vial ONE (13:29)
[2024-09-19] MEDS ORDERED: Hydrocortisone Sod Succinate 100 MG Vial ONE (13:30)
[2024-09-19] MEDS ORDERED: Anticoagulant Sod Citrate Soln 3 ML SYR INJ PRN (13:40)
[2024-09-19] MEDS ORDERED: Albumin (Human) 25gm/100ml 100 ML IV SCH (13:40)
--- NOTE | 2024-09-19 14:00 | NUR ---
DISCUSSED CASE WITH BEDSIDE RN. AND DR. ROME. UNCLEAR IF FAMILY HAD BEEN CONTACTED AND UPDATED ABOUT PLAN. CALLED PATIENTS BROTHER LINDSEY. HE REPORTED THAT HE WAS ON HIS LUNCH BREAK AND HEADED TO THE HOSPITAL. UPDATED HIM THAT DEANA WAS SCHEDULED TO GET A PERMACAH AND START DIALYSIS. HE WAS AGREEABLE TO THIS PLAN. PC WILL CONTINUE TO FOLLOW
[2024-09-19] MEDS ORDERED: Metoprolol Tartrate 1 MG/ML 5 ML VIAL IV PRN (17:15)
[2024-09-19] MEDS ORDERED: NS 500 ML IV ONE ×3 (17:15→18:40)
--- NOTE | 2024-09-19 17:21 | NUR ---
UPDATE PT BEING DIALYZED SINCE ROUGHLY 1440. PT HR TACHED UP FROM 110'S TO 140 SHORTLY AFTER DIALYSIS STARTED, BP'S CONTINUE TO BE SOFT IN THE 70-90'S WITH MAPS 60-70'S. THIS RN DISCUSSING WITH ICU THREADING MACHINE FEEDER [employer] IN PT ROOM. DR HENSLEY ENTERED ROOM WHILE ROUNDING ON HER PT'S. DR HENSLEY CONTACTED DR ROME ON PT STATUS. NEW ORDERS PLACED.
--- NOTE | 2024-09-19 18:14 | NUR ---
SHIFT SUMMARY PT A/OX1, SOMNOLENT THIS SHIFT. PT BP'S SOFT ALL SHIFT, BECAME SOFTER DURING DURING DIALYSIS. PT HR WAS AFIB 110'S AT BEGINNING OF SHIFT, INCREASED TO 120'S AND THEN TACHED UP TO 140'S DURING DIALYSIS. PT HAD PERMACATH PLACED TODAY IN ORDER TO RECIEVE DIALYSIS. PT NPO THROUGHOUT SHIFT DUE TO PT MENTATION CHANGE. PT ASSESSED THIS MORNING WITH APPLESAUCE AND PT WOULD POCKET THE APPLESAUCE AND NOT SWALLOW, MEDS HED FOR ASPIRATION RISK. PT HAD SMALL BM TODAY, SAMPLE COLLECTED AND SENT TO LAB. PEREYRA REMAINED IN PLACE, SMALL OUTPUTS, SEE CHART.
[2024-09-19] MEDS ORDERED: NS 500 ML IV PRN (19:05)
[2024-09-20] VITALS (43 sets, daily range): BP systolic 92–125; BP diastolic 56–92
--- NOTE | 2024-09-20 04:36 | NUR ---
SHIFT SUMMARY. SHIFT HAS BEEN UNREMARKABLE. PT REMAINS LETHARGIC, NOT ABLE TO APPROPRIATELY RESPOND TO DIRECTIONS/QUESTIONS. AT TIMES RESPONDS WITH WORDS BUT WORDS ARE DIFFICULT TO DISCERN. HAS RESTED IN BED THROUGHOUT SHIFT. BP HAS BEEN SOFT THROUGHOUT SHIFT BUT STABLE, MAP HAS NOT DIPPED BELOW 65. TEMPERATURE HAS ELEVATED COMPARED TO SHIFT ONSET BUT HAS SETTLED IN THE 99.1-99.3 RANGE. HAS REMAINED MILDLY TACHYCARDIC THROUGHOUT SHIFT. HAS WORN BIPAP THROUGHOUT MOST OF SHIFT WHILE SLEEPING. WORE NC WHILE ATTEMPTING TO GIVE PO MEDS EARLY IN SHIFT AND WAS MAINTAINING ADEQUATE SATURATION BUT REMAINS UNABLE TO TAKE PO MEDS. INQUIRED WITH RESIDENT DR. ALMAZAN ABOUT POSSIBLY PLACING NG TUBE TO ADMINISTER PO MEDICATIONS WHILE PT IS UNABLE TO TAKE THEM OTHERWISE BUT PT UNABLE TO GIVE CONSENT AT THIS TIME. REPOSITIONED Q2. AWAITING RESULTS FROM MORNING LABS. OVERALL PT CONDITION HAS NOT ACUTELY CHANGED THIS SHIFT. BED LOCKED IN LOWEST POSITION. CALL LIGHT LEFT WITHIN REACH. CONTINUING TO MONITOR.
[2024-09-20 04:38] LABS: Hematocrit 23.9 % (33.0-51.0)
[2024-09-20 05:17] LABS: Albumin, Blood 2.3 g/dL (3.4-5.0); Anion Gap 17 mmol/L (3-11); Blood Urea Nitrogen 116 mg/dL (8-24); Bun/Creatinine Ratio 46.6 (12.0-20.0); CO2, Blood 25 mmol/L (21-32); Calcium, Blood 8.1 mg/dL (8.5-10.1); Chloride, Blood 99 mmol/L (98-108); Creatinine, Blood 2.49 mg/dL (0.40-1.00); Glomerular Filtration Rate 20 (60-); Glucose, Blood 222 mg/dL (70-99); Magnesium, Blood 1.8 mg/dL (1.6-2.4); Phosphorus, Blood 6.5 mg/dL (2.5-4.9); Potassium, Blood 3.4 mmol/L (3.5-5.5); Sodium, Blood 138 mmol/L (136-145)
[2024-09-20] MEDS ORDERED: Levothyroxine Sodium 0.075 MG Tab PO SCH (06:00)
[2024-09-20] MEDS ORDERED: Albumin (Human) 25gm/100ml 100 ML IV PRN (07:20)
[2024-09-20] MEDS ORDERED: Anticoagulant Sod Citrate Soln 3 ML SYR INJ PRN (07:20)
[2024-09-20] MEDS ORDERED: Meropenem 1,000 MG in NS 100 ML IV SCH (10:18)
[2024-09-20] MEDS ORDERED: Levothyroxine Sodium 100 MCG Vial IV SCH (11:00)
[2024-09-20] MEDS ORDERED: Metoprolol Tartrate 1 MG/ML 5 ML VIAL IV SCH (12:00)
[2024-09-20] MEDS ORDERED: Potassium Chl 20MEQ/Water100ML 100 ML IV ONE (15:35)
--- NOTE | 2024-09-20 18:48 | NUR ---
PT SUMMARY; PT HAD DIALYSIS THIS MORNING HAD 1L FLUID OUT PER DREDGE MATE PT ALSO RECEIVED DOSES OF ALBUMIN. PT TACH UP TO 140 DURING DIALYSIS PT RECEIVED TOTAL OF 5MG IV LOPRESSOR PUSH WITH NO EFFECT. UPON GETTING BACK IN THE ROOM AFTER DIALYSIS PT RECEIVED ANOTHER 2.5MG IV LOPRESSOR STILL NO EFFECT. PT WAS THEN STARTED ON CARDIZEM GTT UNTIL MAXED OUT TO 15MG/HR FOR 4 HRS WITH NO EFFECT HRR REMAINED 140-145, SBP TRENDED DOWN TO LOW 90'S MAP >65, TOTAL OF 1L NS BOLUS WAS GIVEN PER DR ROME, PT THEN SWITCHED TO AMIO GTT, BOLUS WAS GIVEN, RATE CURRENTLY AT 33.3MLS/HR. DR MCINTOSH ALSO STOPPED BY TO SEE PT, THIS RN MENTIONED PT'S HGB AT 7.0, ORDERED 1UPRBC, CURRENTLY INFUSING. PT HAS BEEN ON AND OFF BIPAP AND 3L OF NASAL CANNULA SATS KEPT >95%, TEMP 99.1. GRANDDAUGHTER MOHINI AND BROTHER LINDSEY WAS GIVEN UPDATE ABOUT PT'S STATUS. PT REMAINED NPO AT THIS TIME PT HAS BEEN UNABLE TO FOLLOW COMMANDS AND HAS BEEN LETHARGIC PO MEDS SWITCHED TO IV AT THIS TIME, TO RE-EVAL BY SUNDAY PER TABLE MACHINE OPERATOR ABOUT CLINIM[employer] INFUSION. PT WAS MORE ALERT BY THE END OF THE DAY ELISE TO SAY NAME AND BUT HASNT ANSWER MOST OF THE QUESTIONS. BLOOD CURRENTLY INFUSING, POTASSIUM WAS REPLACED, LABS ORDERED FOR AM. NOT MUCH URINE OUT PUT FOR THE SHIFT 375MLS. PT HAS BEEN REPOSITIONED Q2HRS. CALL LIGHTS IN REACH WILL REPORT TO ONCOMING SHIFT
[2024-09-20 22:35] LABS: Hematocrit 25.9 % (33.0-51.0); Hemoglobin 7.8 g/dL (11.5-16.0)
--- NOTE | 2024-09-20 23:16 | NUR ---
SPOKE WITH RESIDENT DR. ALMAZAN. PT HEART RATE HAS NOT GONE DOWN DESPITE BLOOD TRANSFUSION, AMIO DRIP RUNNING SINCE ~1400, DILT DRIP TRIALED ON DAY SHIFT, AND IV LOPRESSOR. CONTINUES TO RUN SUSTAINED IN THE 140s. BLOOD PRESSURE HAS BEEN MORE STABLE SINCE BLOOD TRANSFUSION WITH MOST RECENT PRESSURE BEING 125/92. DR. ALMAZAN WOULD LIKE TO LET AMIODARONE CONTINUE TO RUN FOR TIME BEING AND TOUCH BASE IN THE MORNING IF NO CHANGES HAVE OCCURED. PT REPORTS FEELING ASYMPTOMATIC OUTSIDE OF JUST "LOUSY". CONTINUING TO MONITOR.
[2024-09-20] MEDS ORDERED: Metoprolol Succinate 25 MG TABCR PO ONE (23:30)
[2024-09-21] VITALS (16 sets, daily range): BP systolic 101–144; BP diastolic 63–97
--- NOTE | 2024-09-21 00:14 | NUR ---
SPOKE AGAIN WITH DR. ALMAZAN REGARDING PT HEART RATE. BP REMAINS STABLE, HR REMAINS SUSTAINED IN 140s. DR. ALMAZAN ORDERED 25 MG PO METOPROLOL OT NOW. INQUIRED ABOUT GIVING IV PRN LOPRESSOR THAT IS AVAILABLE BUT ELECTED FOR PO. ADMINISTERED WITHOUT DIFFICULTY. ALSO ORDERED BMP AND MAG TO CHECK FOR POSSIBLE ELECTROLYTE REPLACEMENT. BLOOD DRAWN AND SENT TO LAB. CONTINUING TO MONITOR.
[2024-09-21 00:36] LABS: Calcium, Blood 8.2 mg/dL (8.5-10.1); Magnesium, Blood 1.7 mg/dL (1.6-2.4); Potassium, Blood 3.1 mmol/L (3.5-5.5)
[2024-09-21] MEDS ORDERED: Potassium Chl 20MEQ/Water100ML 100 ML IV SCH (00:55)
[2024-09-21 03:35] LABS: Base Excess Venous 1.8 mmol/L; Bicarbonate Venous 25.7 mmol/L (24.0-30.0); PCO2 Venous 43.4 mmHg (38-42)
[2024-09-21 04:15] LABS: BASOPHILS ABSOLUTE AUTO 0.02 K/mm3 (0.00-0.23); BASOPHILS PERCENT AUTO 0 % (0-2); EOSINOPHILS ABSOLUTE AUTO 0.03 K/mm3 (0.00-0.68); EOSINOPHILS PERCENT AUTO 0 % (0-6); Hematocrit 26.5 % (33.0-51.0); IMMATURE GRAN ABSOLUTE AUTO 0.15 K/mm3 (0.00-0.10); IMMATURE GRAN PERCENT AUTO 1 % (0-1); LYMPHOCYTES ABSOLUTE AUTO 0.42 K/mm3 (0.84-5.20); LYMPHOCYTES PERCENT AUTO 3 % (21-46); MONOCYTES ABSOLUTE AUTO 0.62 K/mm3 (0.16-1.47); MONOCYTES PERCENT AUTO 5 % (4-13); Mean Corpuscular HGB 26.1 pg (26.0-34.0); Mean Corpuscular HGB Conc 30.2 g/dL (31.5-36.5); Mean Corpuscular Volume 86 fL (80-100); Mean Platelet Volume 10.1 fL (9.1-12.4); NEUTROPHILS ABSOLUTE AUTO 12.32 K/mm3 (1.96-9.15); NEUTROPHILS PERCENT AUTO 91 % (41-73); NRBC ABSOLUTE 0.06 K/mm3 (0.00-0.02); NRBC Auto 0.4 /100 WBC (0.0-0.2); Platelet Count 317 K/mm3 (150-400); RDW Coefficient Variation 19.5 % (11.7-14.2); RDW Standard Deviation 61.4 fL (35.1-46.3); Red Blood Cell Count 3.07 M/mm3 (3.80-5.20); White Blood Cell Count 13.56 K/mm3 (4.00-11.30)
[2024-09-21] MEDS ORDERED: Metoprolol Succinate 25 MG TABCR PO ONE (04:30)
[2024-09-21 04:31] LABS: Albumin, Blood 2.6 g/dL (3.4-5.0); Albumin/Globulin Ratio 0.6 (0.8-1.8); Bilirubin, Total 1.4 mg/dL (0.1-1.0); Bun/Creatinine Ratio 44.2 (12.0-20.0); Calcium, Blood 8.2 mg/dL (8.5-10.1); Creatinine, Blood 1.99 mg/dL (0.40-1.00); Globulin, Blood 4.1 g/dL (2.2-4.0); Magnesium, Blood 1.7 mg/dL (1.6-2.4); Potassium, Blood 3.5 mmol/L (3.5-5.5); Total Protein, Blood 6.7 g/dL (6.4-8.2)
--- NOTE | 2024-09-21 05:17 | NUR ---
SHIFT SUMMARY. PT CONDITION HAS BEEN OVERALL UNCHANGED THROUGHOUT SHIFT. PT REMAINS AOX2-3, CONVERSATIONAL, PLEASANT, COOPERATIVE, ABLE TO MAKE NEEDS KNOWN. PT HAS BEEN MUCH MUCH MORE ALERT AND ORIENTED THIS SHIFT THAN PREVIOUS SHIFT WITH THIS RN. ABLE TO TAKE PO MEDICATIONS, ABLE TO TAKE SMALL DRINKS OF WATER, ABLE TO CARRY CONVERSATION AND MAKE NEEDS KNOWN, ETC. HAS DENIED PAIN THROUGHOUT SHIFT EXCEPT FOR THAT WHICH IS RELIEVED WITH REPOSITIONING. HEART RATE AND RHYTHM HAVE BEEN UNCHANGED THROUGHOUT SHIFT. CONTINUES TO RUN AFIB IN THE 140s SHE HAS SINCE SHIFT ONSET WITH ONLY MILD FLUCTUATIONS IN RATE. MANY CONVERSATIONS WITH DR. ALMAZAN. ENDED UP GIVING 25 MG PO METOPROLOL TWICE IN ADDITION TO IV LOPRESSOR ONCE. NO EFFECT ON RATE. CONTINUING TO MONITOR FOR TIME BEING. LIMITED OPTIONS FOR MANAGEMENT AFTER CONVERSATION WITH DR. ALMAZAN. DESPITE THIS, BLOOD PRESSURE HAS BEEN STABLE AND WITHIN MORE RELIABLY ACCEPTABLE RANGE THAN PREVIOUS SHIFT WITH THIS RN. MOST RECENT READING SHOWING 119/87 WITH MAP OF 96. HAS WORN BIPAP THROUGHOUT MOST OF SHIFT WITH SOME SHORT BREAKS TAKEN FOR PT COMFORT, OVERALL COMPLIANT AND AGREEABLE WITH BIPAP USE. REPOSITIONED Q2. PEREYRA REMAINS IN PLACE AND DRAINING TO GRAVITY WITH NO COMPLAINTS OF PAIN OR PRESSURE. BED IS LOCKED IN LOWEST POSITION. CALL LIGHT LEFT WITHIN REACH. CONTINUING TO MONITOR.
[2024-09-21] MEDS ORDERED: Metoprolol Succinate 50 MG TABCR PO ONE (06:10)
[2024-09-21] MEDS ORDERED: TraMADol HCl 50 MG Tab PO PRN (08:05)
[2024-09-21] MEDS ORDERED: Anticoagulant Sod Citrate Soln 3 ML SYR INJ PRN (08:40)
[2024-09-21] MEDS ORDERED: DAPTOMYCIN IV SCH (09:00)
[2024-09-21] MEDS ORDERED: NS IV SCH (09:00)
--- NOTE | 2024-09-21 10:18 | NUR ---
DIALYSIS NOTE DISCUSSED COORDINATION OF CARE WITH BEDSIDE RN, HOSP AND NEPHOROLOGY. DIALYSIS TX NOT PROVIDED TODAY. DIALYSIS SCHEDULED FOR TOMORROW AFTER CARDIOLOGY CONSULT PROVOIDED TO ADDRESS HR.
--- NOTE | 2024-09-21 11:07 | NUR ---
AT BEDSIDE DURING MORNING ROUNDS AND MD ORDERED AN EKG FOR POSSIBLE SVT, MD CONSULTED AUTO OVERHAULER FOR EVALUATION AND DIALYSIS WAS CANCELLED FOR TODAY.
--- NOTE | 2024-09-21 11:12 | NUR ---
AT BEDSIDE. LOOKED OVER PATIENT AND STATED TO FINISH BAG OF AMIO AND WILL CONTINUE ONE MORE BAG UNTIL PATIENT GETS SWITCHED OVER TO PO. AWAITING ORDERS FOR NEW MEDICATIONS.
--- NOTE | 2024-09-21 11:22 | NUR ---
CALL PLACED TO REGARDING CARDIOLOGY CONSULT THAT MD ROSAS CAME TO BEDSIDE. IS AWARE THAT CHEST X-RAY RESULTS ARE BACK.
[2024-09-21] MEDS ORDERED: Digoxin 0.25 MG/ML 2ML Amp IV SCH (12:00)
[2024-09-21 13:30] LABS: HEPATITIS B SURFACE ANTIBODY <3.10 IU/L
--- NOTE | 2024-09-21 17:09 | NUR ---
END OF SHIFT SUMMARY: PATIENT IS ALERT AND ORIENTED 3-4 THROUGHOUT THE SHIFT. WAS ABLE TO ANSWER THE PLACE AND WHAT EVENTS BROUGHT HER HERE JUST WASN'T ABLE TO ANSWER THE YEAR AT TIMES. SATTING >92% ON 3-4 LITERS VIA NASAL CANNULA, BASELINE IS 3 LITERS. WEARS BIPAP AT NIGHT WITH SETTINGS AT 18/6 35% FIO2. BLOOD PRESSURE HAS BEEN STABLE. ON TELE SHOWING AFIB/FLUTTER WITH RATE IN THE 140'S. CARDIOLOGY CONSULTED AND WAS SEEN TODAY, LOADED PATIENT WITH DIGOXIN AND WILL FINISH AMIO GTT THEN START AMIO PO. PATIENT HAD SLIGHT TEMPERATURE TODAY AND WAS GIVEN TYLENOL PER EMAR. NEEDED COVERAGE FOR BLOOD SUGARS TODAY PER EMAR. DIALYSIS WAS HELD TODAY DUE TO HIGH HEART RATE AND WILL RESCHEDULE TOMORROW 09/21. WILL REPORT TO ONCOMING CHARGE AUTHORIZER RN.
[2024-09-21] MEDS ORDERED: Sevelamer Carbonate 2.4 GM / PKT PO SCH (17:30)
[2024-09-21 18:38] LABS: HEPATITIS A ANTIBODY, IGM Negative (Negative); HEPATITIS B CORE ANTIBODY, IGM Negative (Negative); HEPATITIS B SURFACE ANTIGEN Negative (Negative); HEPATITIS C AB CIA INTERP Negative (Negative); HEPATITIS C ANTIBODY CIA INDEX 0.18 IV
[2024-09-21] MEDS ORDERED: Metoprolol Tartrate 50 MG Tab PO SCH (21:00)
[2024-09-21] MEDS ORDERED: Amiodarone HCl 200 MG Tab PO SCH (21:00)
--- NOTE | 2024-09-21 22:12 | NUR ---
ASSUMPTION OF CARE: AMIO Gtt INFUSING PATIENT IS A/O X 3. ABLE TO ANSWER BASIC QUESTIONS INCREASING MENTATION SINCE I HAVE PREVIOUSLY HELPED TAKE CARE OF PATIENT. SHE IS ON 4L INCREASED TO 6L WITH EXERTIONS. IS TACHYPNIC WHEN NOT SLEEPING UP TO THE UPPER 20'S. PATIENT SINCE ASSUMPTION HAS BEEN PLACED ON BIPAP, PATIENT STRUGGLED WITH PILLS 1 AT A TIME WITH WATER, IMPROVED WITH APPLESAUCE, DENIES CHEST PAIN PRESSURE OR SOB. BLOOD PRESSURE STABLE AT THIS TIME, 1 X HOUR MONITORING, ASSUMPTION HR UP TO THE 130'S, CURRENLTY AT TIME OF NOTE LOW 100'S TO 90'S STILL AFIB/FLUTTER VARIABLE HB. SPOKE WITH PROVIDER IN [facility] TO POTENTIAL NEED FOR ANTICOAG FOR STROKE PREVENTION, ENDORSED HE WOULD REVIEW AND PLACE ORDERS. BOWELS TONES PRESENT, PARTIAL LOWER EXTREMITY BED BATH. PERICARE PREFORMED, PEREYRA IN PLACE DRAINING TO GRAVITY. DID NOT HAVE DIALYSIS TODAY DUE TO FIB AND RATE. PLAN FOR TOMORROW. PATIENT COOPERATIVE WITH CARE, UNITERESTED IN EDUCATION. REFUSED TO REMOVE TOP DENTURE. EDUCATION PROVIDED. DRESSING CHANGE TO LEFT HAND. NO ACUTE CONCERNS AT THIS TIME OF NOTE. PLAN OF CARE CONTINUES. REPOSITIONED, ORAL CARE PROVIDED
[2024-09-22] VITALS (22 sets, daily range): BP systolic 91–125; BP diastolic 44–87
[2024-09-22 03:29] LABS: 25-HYDROXYVITAMIN D2 <1.0 ng/mL; 25-HYDROXYVITAMIN D2 D3 TOTAL 39.9 ng/mL (30.0-80.0); 25-HYDROXYVITAMIN D3 39.9 ng/mL
[2024-09-22 05:37] LABS: BASOPHILS ABSOLUTE AUTO 0.02 K/mm3 (0.00-0.23); BASOPHILS PERCENT AUTO 0 % (0-2); EOSINOPHILS PERCENT AUTO 1 % (0-6); IMMATURE GRAN ABSOLUTE AUTO 0.26 K/mm3 (0.00-0.10); IMMATURE GRAN PERCENT AUTO 2 % (0-1); LYMPHOCYTES ABSOLUTE AUTO 0.44 K/mm3 (0.84-5.20); LYMPHOCYTES PERCENT AUTO 3 % (21-46); MONOCYTES ABSOLUTE AUTO 0.48 K/mm3 (0.16-1.47); MONOCYTES PERCENT AUTO 3 % (4-13); Mean Corpuscular HGB Conc 29.6 g/dL (31.5-36.5); Mean Corpuscular Volume 88 fL (80-100); Mean Platelet Volume 9.6 fL (9.1-12.4); NEUTROPHILS ABSOLUTE AUTO 13.77 K/mm3 (1.96-9.15); NEUTROPHILS PERCENT AUTO 91 % (41-73); NRBC ABSOLUTE 0.05 K/mm3 (0.00-0.02); NRBC Auto 0.3 /100 WBC (0.0-0.2); Platelet Count 283 K/mm3 (150-400); RDW Coefficient Variation 19.6 % (11.7-14.2); RDW Standard Deviation 62.3 fL (35.1-46.3); Red Blood Cell Count 3.08 M/mm3 (3.80-5.20); White Blood Cell Count 15.07 K/mm3 (4.00-11.30)
[2024-09-22] MEDS ORDERED: Levothyroxine Sodium 0.075 MG Tab PO SCH (06:00)
[2024-09-22 06:19] LABS: Alanine Aminotransfer (ALT/SGP 12 U/L (12-78); Albumin, Blood 2.2 g/dL (3.4-5.0); Albumin/Globulin Ratio 0.6 (0.8-1.8); Alk Phos 123 U/L (50-136); Anion Gap 14 mmol/L (3-11); Aspartate Aminotrans (AST/SGOT 25 U/L (12-37); Bilirubin, Total 0.9 mg/dL (0.1-1.0); Blood Urea Nitrogen 102 mg/dL (8-24); Bun/Creatinine Ratio 47.4 (12.0-20.0); CO2, Blood 28 mmol/L (21-32); Calcium, Blood 8.2 mg/dL (8.5-10.1); Chloride, Blood 101 mmol/L (98-108); Creatinine, Blood 2.15 mg/dL (0.40-1.00); Globulin, Blood 3.8 g/dL (2.2-4.0); Glomerular Filtration Rate 24 (60-); Glucose, Blood 193 mg/dL (70-99); Magnesium, Blood 1.7 mg/dL (1.6-2.4); Phosphorus, Blood 5.1 mg/dL (2.5-4.9); Potassium, Blood 3.5 mmol/L (3.5-5.5); Sodium, Blood 139 mmol/L (136-145)
--- NOTE | 2024-09-22 06:21 | NUR ---
EOS: PATIENT MENTATION STILL HOLDING 3-4. DATE IS ONLY MISSING BUT VERY CLOSE. PATIENT HAS BEEN WEARING THE BIPAP FOR 85% OF THE SHIFT. BREAKS AND ORAL CARE PROVIDED. Q2 REPOSITIONS. DENIES CHETS PIAN RACHEL OR SOB. IMPROVED HR THROUGHOUT THE NIGHT. LOW 100'S WHILE AWAKE, SPO2 AT 3.5L NC IS 99%. PATIENT TOTAL URINE OUTPUT 275 FOR THE SHIFT ORAL CARE PROVIDED TWICE, DENTURE TOP AND BOTTOM IN CLEANING CUP BY SINK. PLAN OF CARE CONTINUES. PLAN FOR DIALYSIS.
[2024-09-22] MEDS ORDERED: Anticoagulant Sod Citrate Soln 3 ML SYR INJ PRN (08:00)
[2024-09-22 08:07] LABS: Percent Saturation 20.5 % (15.0-50.0)
[2024-09-22] MEDS ORDERED: TraMADol HCl 50 MG Tab PO PRN (09:30)
--- NOTE | 2024-09-22 10:06 | NUR ---
MD AT BEDSIDE: CAME TO BEDSIDE TO SEE PATIENT. ORDERED TO CUT PATIENTS METOPROLOL DOSE TO 25MG AND ORDERS PLACED.
--- NOTE | 2024-09-22 12:45 | NUR ---
PATIENT TAKEN TO DIALYSIS.
--- NOTE | 2024-09-22 13:09 | NUR ---
PATIENT AT DIALYSIS [facility]. PATIENT HANDED OFF TO JASMIN PATEL TO ASSUME CARE FOR REMAINDER OF SHIFT.
--- NOTE | 2024-09-22 15:14 | NUR ---
UPDATE PT RETURNED FROM DIALYSIS. HR 130-140'S. BP STABLE. PT COMPLAINING OF "INDEGESTION". DR. ROME CALLED AND NOTIFIED OF HR. NEW ORDERS FOR DIG LEVEL TO BE DRAWN.
[2024-09-22] MEDS ORDERED: Darbepoetin Alfa In Albumn Sol 60 MCG/0.3 ML Syringe SC SCH (16:00)
[2024-09-22 16:54] LABS: Digoxin (Lanoxin) 0.69 ug/mL (0.80-2.00)
--- NOTE | 2024-09-22 17:24 | NUR ---
SHIFT SUMMARY PT REMAINS ALERT AND ORIENTED. HR IMPROVED THIS AFTERNOON IN THE 110'S. BP STABLE. PT RESTED ON BIPAP AFTER DIALYSIS WITH SATS >90%. PT NOW AWAKE AND ON 3L NC WITH SATS >90%. PT DENIES ANY PAIN. TEMPERATURE INCREASED TO 99.8 THIS EVENING AND MEDICATED WITH TYLENOL PER EMAR. PEREYRA PATENT AND DRAINING. PT HAD POOR APPETITE THIS SHIFT. PT REPOSITIONED Q2H. WILL REPORT OFF TO ONCOMING RN
[2024-09-22] MEDS ORDERED: Metoprolol Tartrate 25 MG Tab PO SCH (21:00)
[2024-09-23 04:24] VITALS: BP 95/58
[2024-09-23 04:32] LABS: Hematocrit 26.6 % (33.0-51.0); Hemoglobin 7.8 g/dL (11.5-16.0)
[2024-09-23 05:00] LABS: Albumin, Blood 2.3 g/dL (3.4-5.0); Anion Gap 11 mmol/L (3-11); Blood Urea Nitrogen 82 mg/dL (8-24); Bun/Creatinine Ratio 45.6 (12.0-20.0); CO2, Blood 31 mmol/L (21-32); Calcium, Blood 8.2 mg/dL (8.5-10.1); Chloride, Blood 101 mmol/L (98-108); Digoxin (Lanoxin) 0.77 ug/mL (0.80-2.00); Glomerular Filtration Rate 29 (60-); Glucose, Blood 208 mg/dL (70-99); Magnesium, Blood 1.8 mg/dL (1.6-2.4); Potassium, Blood 3.4 mmol/L (3.5-5.5); Sodium, Blood 140 mmol/L (136-145)
[2024-09-23] MEDS ORDERED: Potassium Chloride 20 MEQ TabCR PO ONE (05:40)
--- NOTE | 2024-09-23 06:41 | NUR ---
PT STABLE THROUGHOUT THE SHIFT. PT SOFT BP PERSIST W/O ADVERSE EFFECT TO PT. NO CP/SOB/DIZZINESS. PT HR WAS ELEVATED AT BEGINNING OF SHIFT AND RESPONDED WELL TO PO MEDICATIONS. PT ABLE TO SWALLOW W/O DIFFICULTY. PT DID OWN ORAL CARE THIS SHIFT. PT APPEARS MORE ACTIVE AND LESS LETHARGIC. PT IS AOX3-4. PEREYRA CATHETER CONTINUES TO DRAIN KARI URINE, LOW OUTPUT THIS SHIFT. PT DID WEAR BIPAP FOR PART OF THE SHIFT. IT WAS REMOVED AT 0530 PER PT REQUEST AND PT PLACED ON 3L O2 AND MAINTAINS GOOD SATS. PT REPOSITIONED FREQUENTLY, BARIATRIC AIR BED ON. FOLDS WERE CLEANSED AND NEW POWDER APPLIED.
[2024-09-23 07:31] VITALS: BP 102/76
[2024-09-23] MEDS ORDERED: Digoxin 0.25 MG Tab PO ONE (09:00)
[2024-09-23 11:21] VITALS: BP 108/80
--- NOTE | 2024-09-23 12:05 | NUR ---
Spiritual Care Visit. Pt. is awake and graddaughter is at bedside when I enter the room. The Pt. is pleasant, and verbalized that she remembered this tip tester from a previous visit. Facilitated a life review. Pt. verbalized that she was getting dialysis in the hosptial and was feel ing better. Pt. welcomed prayer. Prayed with the Pt. Pt. and granddaughter verbalized gratitude fo rthe spiritual care visit.
[2024-09-23 15:35] VITALS: BP 112/71
--- NOTE | 2024-09-23 17:47 | NUR ---
SHIFT SUMMARY A&Ox3-4, FORGETFUL AT TIMES. BP STABLE THROUGHOUT SHIFT, AFIB 100-110's, DENIES CP/PRESSURE. SpO2> 92% 2L VIA NC, DENIES SOB. BEDREST, LIFT PT, Q2 TURNS PROVIDED. NO BM THIS SHIFT, PEREYRA CATH PATENT, DRAINING TO GRAVITY. MANAGED PTs PAIN PER EMAR. WOUND CARE PROVIDED. NO OTHER EVENST, WILL REPORT TO ONCOMING RN.
[2024-09-23 19:52] VITALS: BP 117/82
[2024-09-23 23:33] VITALS: BP 106/55
[2024-09-24] VITALS (7 sets, daily range): BP systolic 100–126; BP diastolic 56–80
[2024-09-24 05:27] LABS: Hematocrit 26.1 % (33.0-51.0); Hemoglobin 7.6 g/dL (11.5-16.0)
[2024-09-24 06:08] LABS: Albumin, Blood 2.2 g/dL (3.4-5.0); Anion Gap 11 mmol/L (3-11); Blood Urea Nitrogen 91 mg/dL (8-24); Bun/Creatinine Ratio 47.2 (12.0-20.0); CO2, Blood 30 mmol/L (21-32); Calcium, Blood 8.1 mg/dL (8.5-10.1); Chloride, Blood 100 mmol/L (98-108); Creatinine, Blood 1.93 mg/dL (0.40-1.00); Digoxin (Lanoxin) 1.28 ug/mL (0.80-2.00); Glomerular Filtration Rate 27 (60-); Glucose, Blood 195 mg/dL (70-99); Magnesium, Blood 1.8 mg/dL (1.6-2.4); Phosphorus, Blood 3.8 mg/dL (2.5-4.9); Potassium, Blood 3.8 mmol/L (3.5-5.5); Sodium, Blood 137 mmol/L (136-145)
--- NOTE | 2024-09-24 06:47 | NUR ---
PT STABLE THROUGHOUT SHIFT. PT BP REMAINED WNL, HR AFIB 90-100s, AFEBRILE, O2 SATS REMAINED WNL ON 2-3L 02 WELL ON BIPAP WHICH PT INTERMITTENTLY WORE. PT MORE ALERT AND AWAKE AND INTERACTIVE, ATTEMPTING TO TAKE PO UNASSISTED. WAS REPOSITIONED FREQUENTLY AND DID COMPLAIN OF NECK PAIN THAT SHE WAS MEDICATED FOR WITH GOOD RESULTS. NO BM THIS SHIFT. DRESSINGS TO ABD AND HAND REMAIN CLEAN, DRY AND INTACT. FOLDS WERE POWDERED WITH ANTIFUNGAL MEDICATION. PT INTERMITTENTLY SLEEPING.
--- NOTE | 2024-09-24 15:02 | NUR ---
SHIFT SUMMARY A&O X3, KNOWS SELF, PLACE, AND TIME, UNSURE OF SITUATION, OBEYS COMMANDS, ABLE TO MAKE NEEDS KNOWN, USING CALL LIGHT APPROPRIATELY, PT IN CHAIR AFTER BREAKFAST WITH LIFT, Q2 TURNING, PAIN WITH REPOSITIONING. CONTINUOUS SPO2 MONITORING, NO SIGNS OF RESPIRATORY DISTRESS, SPO2 GREATER THAN 95% ON 2L O2 VIA NC, BASELINE IS 3L O2 VIA NC, USING BIPAP WHILE SLEEPING 16/8/30%, LUNGS SOUND DIFFICULT TO HEAR FROM FRONT, DURING BED BATH WAS ABLE TO LISTEN TO PT LUNGS FROM BACK, LUNGS SOUND DIMMINISHED WITH FINE CRACKLES T/O, SOB WITH REPOSITIONING. CONTINUOUS CARDIAC MONITORING, DENIES CHEST P/P, HR 90-110 S, AFIB, BP STABLE WITH MAP GREATER THAN 65. PT REPORTING ABD TENDERNESS, TENDERNESS IMPROVED WHILE IN CHAIR, PT HAD INCONTINENT BM THIS SHIFT, PT REPORTING IDIGESTION, SPRITE SEEMS TO BE IMPROVING INDIGESTION SYMPTOMS. TEMP PEREYRA SECURE/ PATENT/ DRAINING TO GRAVITY, YELLOW URINE. BRUISING T/O, OPEN WOUND IN PANUS FOLD ON THE LEFT SIDE, SKIN TEAR TO LEFT HAND, CLOSED WOUND AND REDNESS TO COCCYX, WOUNDS DRESSED PER ORDERS. DIALYSIS NOTIFIED THIS AM ABOUT DR. PURCELL POTENTIALLY WANTING TO DO DIALYSIS, DIALYSIS CALLED BACK SHORTLY AFTER INFORMING US THAT DR. PURCELL DOES NOT WANT TO DO DIARYSIS TODAY, WILL REASSES TOMMORROW. DR. ROME CALLED BY THIS RN, NOTIFIED OF WOUNDS AND CURRENT TREATMENT OF THEM, NEW ORDER PLACED.
[2024-09-24 19:47] LABS: HBV CORE ANTIBODIES,TOTAL Negative (Negative)
--- NOTE | 2024-09-25 03:10 | NUR ---
SHIFT SUMMARY PATIENT ALERT, ORIENTED x2-3. CAN BE FORGETFUL AT TIMES BUT PATIENT ABLE TO MAKE NEEDS KNOWN TO STAFF. BP STABLE. TELE READING AFIB 80-100s. PATIENT ALTERNATING BETWEEN NC AND BIPAP DURING THE NIGHT, SPO2 >90%. AFEBRILE. PEREYRA IN PLACE DRAINING YELLOW URINE TO GRAVITY. TURNED Q2. NO OTHER CHANGES, WILL REPORT TO RECEIVING RN.
--- NOTE | 2024-09-25 03:48 | NUR ---
ASSUMED CARE OF PT, REPORT RECEIVED FROM JADEN PATEL.
[2024-09-25 03:58] LABS: Hematocrit 26.7 % (33.0-51.0); Hemoglobin 7.7 g/dL (11.5-16.0)
[2024-09-25 04:30] LABS: Albumin, Blood 2.2 g/dL (3.4-5.0); Anion Gap 12 mmol/L (3-11); Blood Urea Nitrogen 96 mg/dL (8-24); Bun/Creatinine Ratio 49.5 (12.0-20.0); CO2, Blood 30 mmol/L (21-32); Calcium, Blood 8.3 mg/dL (8.5-10.1); Chloride, Blood 100 mmol/L (98-108); Creatinine, Blood 1.94 mg/dL (0.40-1.00); Digoxin (Lanoxin) 1.48 ug/mL (0.80-2.00); Glomerular Filtration Rate 27 (60-); Glucose, Blood 185 mg/dL (70-99); Magnesium, Blood 1.7 mg/dL (1.6-2.4); Phosphorus, Blood 4.1 mg/dL (2.5-4.9); Potassium, Blood 4.1 mmol/L (3.5-5.5); Sodium, Blood 138 mmol/L (136-145)
[2024-09-25 04:35] VITALS: BP 141/67
--- NOTE | 2024-09-25 05:24 | NUR ---
SHIFT SUMMARY: NO ACUTE CHANGES; VSS THROUGHOUT THE NIGHT. A&O X 4, COOPERATIVE WITH CARE AND ABLE TO MAKE NEEDS KNOWN. CURRENTLY ON NC @ 2LPM, DENIES SOB AT THIS TIME. MONITOR SHOWING AFIB WITH RATE 80-100'S, BP STABLE. PEREYRA PATENT AND DRAINING TO GRAVITY WITH YELLOW URINE NOTED. NO BOWEL MOVEMENT THIS SHIFT. PURCELL AT BEDSIDE THIS MORNING; NO MENTION OF DIALYSIS THIS MORNING. BED LOWERED, CALL LIGHT IN REACH.
--- NOTE | 2024-09-25 05:28 | NUR ---
SHIFT SUMMARY: NO ACUTE CHANGES OVERNIGHT; VSS THROUGHOUT THE SHIFT. PT NEURO STATUS REMAINS UNCHANGED. ONE EPISODE OF RESTLESSNESS/AGGITATION THAT RESULTED IN PT PULLING AT ALL LINES/CORDS; PRN ATIVAN X 1 GIVEN TO PT WITH GOOD EFFECT. D5 @ 75 MLS/HR. NO BOWEL MOVEMENT. PEREYRA PATENT AND DRAINING TO GRAVITY; DURING PEREYRA CARE DRIED BLOOD NOTED AT URETHRA. BED LOWERED, CALL LIGHT IN REACH.
[2024-09-25 07:55] VITALS: BP 126/78
[2024-09-25 12:25] VITALS: BP 136/71
[2024-09-25 12:48] LABS: Creatinine, Blood 1.9 mg/dL (0.40-1.00)
[2024-09-25 15:34] VITALS: BP 123/62
--- NOTE | 2024-09-25 17:42 | NUR ---
SHIFT SUMMARY THE PT HAS BEEN A&OX3, MAKING HER NEEDS KNOWN, AND USING THE CALL LIGHT MORE APPROPRIATELY. THE PT IS A LIFT PT, AND A Q2 TURN (BL). SHE HAS BEEN ON HER BL OXYGEN NEEDS OF 2LNC, W/ SP02 >90%. THE PT CONTINUES TO HAVE SOFT NAUSEA AND ACID REFLEX, AND IS BEING MEDICATED PER EMAR. ON TELE SHE HAS BEEN AFIB, AND BP STABLE. SHE DID NOT HAVE DIALYSIS TODAY, AND THE NEED WILL BE REEVALUATED TOMORROW W/ DR. PURCELL. THE PT HAS A PEREYRA DRANING TO GRAVITY. HER GRANDDAUGHTER CAME TO BEDSIDE AND VISITED THE PT. NO ACUTE EVENTS. SEE NOTES FOR UDPATES.
[2024-09-25 19:26] VITALS: BP 120/75
[2024-09-25] MEDS ORDERED: Atorvastatin 10 MG Tab PO SCH (21:00)
[2024-09-26 00:06] VITALS: BP 123/74
[2024-09-26 04:31] VITALS: BP 133/96; BP 133/969
[2024-09-26 04:33] LABS: Hematocrit 25.7 % (33.0-51.0); Hemoglobin 7.5 g/dL (11.5-16.0)
[2024-09-26 04:55] LABS: Anion Gap 11 mmol/L (3-11); Blood Urea Nitrogen 92 mg/dL (8-24); Bun/Creatinine Ratio 49.5 (12.0-20.0); CO2, Blood 31 mmol/L (21-32); Calcium, Blood 8.1 mg/dL (8.5-10.1); Chloride, Blood 99 mmol/L (98-108); Creatinine, Blood 1.86 mg/dL (0.40-1.00); Glomerular Filtration Rate 28 (60-); Glucose, Blood 167 mg/dL (70-99); Magnesium, Blood 1.9 mg/dL (1.6-2.4); Phosphorus, Blood 4.1 mg/dL (2.5-4.9); Sodium, Blood 137 mmol/L (136-145)
--- NOTE | 2024-09-26 06:03 | NUR ---
SHIFT SUMMARY PATIENT ALERT, ORIENTED x2-3. CAN BE FORGETUL AT TIMES BUT SEEMS TO BE AT HER BASELINE. PATIENT ON 2-3L NC WITH SPO2 >90%. PATIENT ALTERNATING BETWEEN NC AND BIPAP. ON TELE, NO EVENTS NOTED BY SMOKEHOUSE WORKER. BP STABLE. PATIENT TURNED Q2 USING LIFT AND STAFF ASSISTANCE. PEREYRA IN PLACE DRAINING YELLOW URINE TO GRAVITY. NO OTHER CHANGES, WILL REPORT TO DAY SHIFT RN.
[2024-09-26 07:32] LABS: Digoxin (Lanoxin) 1.28 ug/mL (0.80-2.00)
[2024-09-26 07:56] VITALS: BP 120/83
[2024-09-26] MEDS ORDERED: Aspirin 81 MG TabEC PO SCH (09:00)
[2024-09-26 11:55] VITALS: BP 117/65
[2024-09-26] MEDS ORDERED: Polyethylene Glycol 3350 17 gm PO SCH (12:30)
[2024-09-26] MEDS ORDERED: Amiodarone HCl200 MG PO ×2 (15:28→15:29)
[2024-09-26] MEDS ORDERED: Calcium Acetat667 MG PO (15:33)
[2024-09-26] MEDS ORDERED: MICONAZOLE NITRATE TOP (15:37)
[2024-09-26] MEDS ORDERED: MIRALAX17 GM PO (15:38)
--- NOTE | 2024-09-26 18:17 | NUR ---
DISCHARGE SUMMARY PT ALERT, ABLE TO MAKE NEEDS KNOWN. SP02>90% ON 1L NC OR BIPAP WHILE SLEEPING 16/8 30% FI02. TELEMETRY SHOWS AFIB HR CONTROLLED 70'S. C/O OF HEARTBURN, MEDICATED W/ TUMS PER EMAR X1. C/O OF CONSTIPATION, MEDICATED W/ MIROLAX X1. PEREYRA CATHETER REMOVED THIS SHIFT. BED BATH GIVEN. WOUND DRESSING CHANGES THIS SHIFT. LINIEN CHANGE. UP TO RECLINER WITH LIFT FOR LUNCH. POWERGLIDES REMOVED. TRANSPORT ARRIVED FOR PT APPROX 1700. REPORT CALLED TO REYNA PATEL.
[2024-09-26] MEDS ORDERED: Amiodarone HCl 200 MG Tab PO SCH (21:00)
[2024-09-27] MEDS ORDERED: Amiodarone HCl 200 MG Tab PO SCH (09:00)
[2024-10-02] MEDS ORDERED: Amiodarone HCl 200 MG Tab PO SCH (09:00)
== END 2024-09-26 17:00 | DRG 698 ==
LOC: ER 01:14 → PCU 04:06
PROVIDERS: Family Medicine; Family Medicine Adult Medicine; Internal Medicine; Internal Medicine Nephrology; Student in an Organized Health Care Education/Training Program; ADMIT Student in an Organized Health Care Education/Training Program
PROC: 0JH63XZ Insertion of Tunneled Vascular Access Device into Chest Subcutaneous Tissue and Fascia, Percutaneous Approach (ICD-10-PCS; principal; 2024-09-19)
PROC: 02HV33Z Insertion of Infusion Device into Superior Vena Cava, Percutaneous Approach (ICD-10-PCS; 2024-09-19)
PROC: B518ZZA Fluoroscopy of Superior Vena Cava, Guidance (ICD-10-PCS; 2024-09-19)
PROC: B548ZZA Ultrasonography of Superior Vena Cava, Guidance (ICD-10-PCS; 2024-09-19)
DX: T83.511A Infection and inflammatory reaction due to indwelling urethral catheter, initial encounter (principal); A41.59 Other Gram-negative sepsis; A41.81 Sepsis due to Enterococcus; R65.21 Severe sepsis with septic shock; G93.41 Metabolic encephalopathy; J96.21 Acute and chronic respiratory failure with hypoxia; J96.22 Acute and chronic respiratory failure with hypercapnia; N17.9 Acute kidney failure, unspecified; E87.20 Acidosis, unspecified; E87.1 Hypo-osmolality and hyponatremia; N18.4 Chronic kidney disease, stage 4 (severe); Q79.60 Ehlers-Danlos syndrome, unspecified; I50.32 Chronic diastolic (congestive) heart failure; I13.0 Hypertensive heart and chronic kidney disease with heart failure and stage 1 through stage 4 chronic kidney disease, or unspecified chronic kidney disease; Z68.44 Body mass index [BMI] 60.0-69.9, adult; E87.6 Hypokalemia; E83.39 Other disorders of phosphorus metabolism; E83.42 Hypomagnesemia; I48.0 Paroxysmal atrial fibrillation; E66.01 Morbid (severe) obesity due to excess calories; G47.33 Obstructive sleep apnea (adult) (pediatric); Z99.81 Dependence on supplemental oxygen; J44.9 Chronic obstructive pulmonary disease, unspecified; I25.10 Atherosclerotic heart disease of native coronary artery without angina pectoris; E11.22 Type 2 diabetes mellitus with diabetic chronic kidney disease; F32.A Depression, unspecified; F43.10 Post-traumatic stress disorder, unspecified; M81.0 Age-related osteoporosis without current pathological fracture; Z96.653 Presence of artificial knee joint, bilateral; Z95.1 Presence of aortocoronary bypass graft; Z95.5 Presence of coronary angioplasty implant and graft; E11.40 Type 2 diabetes mellitus with diabetic neuropathy, unspecified; M10.9 Gout, unspecified; Z90.49 Acquired absence of other specified parts of digestive tract; Z79.4 Long term (current) use of insulin; Z79.82 Long term (current) use of aspirin; Z79.899 Other long term (current) drug therapy; Y84.6 Urinary catheterization as the cause of abnormal reaction of the patient, or of later complication, without mention of misadventure at the time of the procedure
CPT/HCPCS: 36415; 36430; 36558; 51702; 70450; 71045; 76937; 80048; 80053; 80069; 80074; 80162; 80320; 80400; 81001; 82010; 82140; 82272; 82306; 82330; 82533; 82565; 82570; 82728; 82803; 82947; 83540; 83550; 83605; 83735; 83880; 83970; 84100; 84132; 84145; 84146; 84300; 84439; 84443; 84481; 84484; 84540; 85014; 85018; 85025; 86704; 86850; 86900; 86901; 86923; 87040; 87077; 87086; 87186; 93005; 93010; 94640; 94660; 94664; 94762; 96374; 96375; 97110; 97165; 99285-25; A9270; C1750; C1751; C1769; C1894; C8929; J0282; J0612; J0834; J0878; J0881; J1160; J1200; J1644; J1720; J1953; J2060; J2185; J3475; J3480; J7030; J7040; J7050; J7060; P9016; P9047; Q9957; Q9967

== ENCOUNTER 2024-09-27 23:22 | Observation (INO) | payer OTHER ==
[~2024-09-27] VITALS: Ht 167.6 cm; Wt 153.6 kg
[~2024-09-27 23:22] MED LIST changes: +ANORO ELLIPTA1 EACH INH; +Amiodarone HCl200 MG PO; +BISA10S PR; +CLIN150 PO; +Calcium Acetat667 MG PO; +LOPE2C PO; +MICONAZOLE NITRATE TOP; +MIDO5 PO
[2024-09-27] MEDS ORDERED: Bumetanide 0.25 MG/ML 10ML Vial IV ONE (23:45)
[2024-09-28 00:04] LABS: BASOPHILS ABSOLUTE AUTO 0.02 K/mm3 (0.00-0.23); BASOPHILS PERCENT AUTO 0 % (0-2); EOSINOPHILS ABSOLUTE AUTO 0.02 K/mm3 (0.00-0.68); EOSINOPHILS PERCENT AUTO 0 % (0-6); Hematocrit 26.1 % (33.0-51.0); Hemoglobin 7.5 g/dL (11.5-16.0); IMMATURE GRAN ABSOLUTE AUTO 0.12 K/mm3 (0.00-0.10); IMMATURE GRAN PERCENT AUTO 1 % (0-1); LYMPHOCYTES ABSOLUTE AUTO 0.88 K/mm3 (0.84-5.20); LYMPHOCYTES PERCENT AUTO 6 % (21-46); MONOCYTES PERCENT AUTO 6 % (4-13); Mean Corpuscular HGB 25.4 pg (26.0-34.0); Mean Corpuscular HGB Conc 28.7 g/dL (31.5-36.5); Mean Corpuscular Volume 89 fL (80-100); Mean Platelet Volume 11.8 fL (9.1-12.4); NEUTROPHILS ABSOLUTE AUTO 12.86 K/mm3 (1.96-9.15); NEUTROPHILS PERCENT AUTO 87 % (41-73); NRBC ABSOLUTE 0.02 K/mm3 (0.00-0.02); NRBC Auto 0.1 /100 WBC (0.0-0.2); Platelet Count 286 K/mm3 (150-400); RDW Coefficient Variation 19.9 % (11.7-14.2); Red Blood Cell Count 2.95 M/mm3 (3.80-5.20)
[2024-09-28] MEDS ORDERED: Metoclopramide HCl 5MG / ML 2ML Vial IV ONE (00:20)
[2024-09-28] MEDS ORDERED: Ketorolac Tromethamine 15mg Vial IV ONE (00:25)
[2024-09-28] MEDS ORDERED: DiphenhydrAMINE HCl 50 MG/ML 1ML Vial IV ONE (00:25)
[2024-09-28 00:27] LABS: Albumin, Blood 2.1 g/dL (3.4-5.0); Albumin/Globulin Ratio 0.5 (0.8-1.8); Bilirubin, Total 1.1 mg/dL (0.1-1.0); Bun/Creatinine Ratio 47.7 (12.0-20.0); Calcium, Blood 8.5 mg/dL (8.5-10.1); Creatinine, Blood 1.93 mg/dL (0.40-1.00); Globulin, Blood 4.4 g/dL (2.2-4.0); Potassium, Blood 4.9 mmol/L (3.5-5.5); Total Protein, Blood 6.5 g/dL (6.4-8.2)
[2024-09-28] MEDS ORDERED: Metolazone 2.5 MG Tab PO ONE (01:15)
[2024-09-28] MEDS ORDERED: FLU VACC TS2024-25(6MOS UP)/PF 45 MCG/0.5 ML SYRINGE IM ONE (03:25)
[2024-09-28] MEDS ORDERED: Ondansetron 4 MG TAB PO PRN (04:15)
[2024-09-28] MEDS ORDERED: Polyethylene Glycol 3350 17 gm PO PRN (04:20)
[2024-09-28] MEDS ORDERED: Acetaminophen 325 MG TABLET PO PRN (04:20)
[2024-09-28] MEDS ORDERED: Midodrine 5 MG Tab PO PRN ×2 (04:20→08:50)
[2024-09-28] MEDS ORDERED: TraMADol HCl 50 MG Tab PO PRN (04:25)
[2024-09-28] MEDS ORDERED: Bisacodyl 10 MG Supp PR PRN (04:25)
[2024-09-28] MEDS ORDERED: Albuterol 2.5 MG/3 ML VIAL INH PRN (05:05)
[2024-09-28] MEDS ORDERED: Ipratropium/Albuterol SulF 2.5-0.5MG/3 ML Amp INH SCH (05:30)
[2024-09-28] MEDS ORDERED: Mometasone/Formoterol MDI 200/5 mcg 13 GM INH SCH (05:30)
[2024-09-28] MEDS ORDERED: Bumetanide 1 MG Tab PO SCH (09:00)
[2024-09-28] MEDS ORDERED: Allopurinol 100 MG Tab PO SCH (09:00)
[2024-09-28] MEDS ORDERED: Amiodarone HCl 200 MG Tab PO SCH (09:00)
[2024-09-28] MEDS ORDERED: Aspirin 81 MG TabEC PO SCH (09:00)
[2024-09-28] MEDS ORDERED: Omeprazole 20 MG CapCR PO SCH (09:00)
[2024-09-28] MEDS ORDERED: Potassium Chloride 10 Meq Tablet SA PO SCH (09:00)
[2024-09-28] MEDS ORDERED: Sertraline HCl 100 MG Tab PO SCH (09:00)
[2024-09-28] MEDS ORDERED: Metoprolol Succinate 50 MG TABCR PO SCH (09:00)
[2024-09-28] MEDS ORDERED: BuPROPion HCl SR 100 MG TabCR PO SCH (09:00)
[2024-09-28] MEDS ORDERED: Polyethylene Glycol 3350 17 gm PO SCH (09:00)
[2024-09-28] MEDS ORDERED: Misc. Inhaler INH SCH ×2 (09:00)
[2024-09-28] MEDS ORDERED: Metolazone 5 MG Tab PO SCH (09:00)
[2024-09-28 12:31] LABS: Hemoglobin 7.2 g/dL (11.5-16.0); Mean Corpuscular HGB 25.4 pg (26.0-34.0); Mean Corpuscular HGB Conc 28.8 g/dL (31.5-36.5); Mean Corpuscular Volume 88 fL (80-100); Mean Platelet Volume 9.6 fL (9.1-12.4); Platelet Count 279 K/mm3 (150-400); RDW Coefficient Variation 19.8 % (11.7-14.2); RDW Standard Deviation 64.2 fL (35.1-46.3); Red Blood Cell Count 2.83 M/mm3 (3.80-5.20); White Blood Cell Count 16.31 K/mm3 (4.00-11.30)
[2024-09-28 12:48] LABS: Anion Gap 15 mmol/L (3-11); Blood Urea Nitrogen 96 mg/dL (8-24); Bun/Creatinine Ratio 48.7 (12.0-20.0); CO2, Blood 27 mmol/L (21-32); Chloride, Blood 100 mmol/L (98-108); Creatinine, Blood 1.97 mg/dL (0.40-1.00); Glomerular Filtration Rate 26 (60-); Glucose, Blood 139 mg/dL (70-99); Magnesium, Blood 1.5 mg/dL (1.6-2.4); Phosphorus, Blood 4.8 mg/dL (2.5-4.9); Potassium, Blood 4.6 mmol/L (3.5-5.5); Sodium, Blood 137 mmol/L (136-145)
[2024-09-28 15:30] VITALS: BP 106/61
--- NOTE | 2024-09-28 17:28 | NUR ---
SHIFT SUMMARY PT HAS BEEN ALERT AND ORIENTED SINCE ADMISSION. BP STABLE. HR AFIB 80'S. PT HAS BEEN ON 2L NC WITH SATS >90%. PUREWICK DEVICE IN PLACE FOR INCONTINENCE. PT WAS SATURATED IN URINE UPON ADMISSION TO FLOOR AND FULL BED BATH PROVIDED. PT PLACED ON SPECIALTY BED. PT REPOSITIONED Q2H. WILL REPORT OFF TO ONCOMING RN
[2024-09-28] MEDS ORDERED: Magnesium Sulf 2 GM/Water 50ML 50 ML IV ONE (18:20)
[2024-09-28 19:28] VITALS: BP 84/50
[2024-09-28 20:56] VITALS: BP 98/52
[2024-09-28] MEDS ORDERED: Atorvastatin 10 MG Tab PO SCH (21:00)
[2024-09-28] MEDS ORDERED: Melatonin 3 MG Tab PO SCH (21:00)
[2024-09-28] MEDS ORDERED: Sennosides 8.6 MG Tab PO SCH (21:00)
[2024-09-29] VITALS (8 sets, daily range): BP systolic 92–111; BP diastolic 48–70
[2024-09-29 04:23] LABS: Hematocrit 24.1 % (33.0-51.0); Hemoglobin 6.9 g/dL (11.5-16.0)
[2024-09-29 04:43] LABS: Albumin, Blood 1.9 g/dL (3.4-5.0); Anion Gap 11 mmol/L (3-11); Blood Urea Nitrogen 99 mg/dL (8-24); Bun/Creatinine Ratio 46.9 (12.0-20.0); CO2, Blood 31 mmol/L (21-32); Calcium, Blood 8.2 mg/dL (8.5-10.1); Chloride, Blood 98 mmol/L (98-108); Creatinine, Blood 2.11 mg/dL (0.40-1.00); Glomerular Filtration Rate 24 (60-); Glucose, Blood 149 mg/dL (70-99); Potassium, Blood 4.3 mmol/L (3.5-5.5); Sodium, Blood 136 mmol/L (136-145)
--- NOTE | 2024-09-29 05:31 | NUR ---
update called and notified Dr Ferrara of [facility] 6.9
--- NOTE | 2024-09-29 06:06 | NUR ---
SHIFT SUMMARY PT ALERT AND ORIENTED X4, AFEBRILE, AFIB RHYTHM 70-80 BPM, SBP 90-100S, ON 2LPM NC WHILE AWAKE AND PLACED ON BIPAP FOR SLEEPING , SPO2>905 MAINTAINED, PUREWICK IN PLACE FOR INCONTINENCE, 500ML CLEAR YELLOW URINE NOTED IN CANNINSTER AND INCONTINENT X3 THIS SHIFT, BLE +3-+4 PITTING EDEMA, LE PEDAL PULSES DOPPLER, ON SPECIALTY BED, REPOSITIONED EVERY 2 HOURS, MEDICATED X1 TRAMADOL 50MG PO FOR C/O PAIN TO BLE, SIDE RAILS UP X2 CALL LIGHT IN REACH
[2024-09-29 07:16] LABS: Hematocrit 23.8 % (33.0-51.0); Hemoglobin 6.7 g/dL (11.5-16.0)
[2024-09-29] MEDS ORDERED: NS 250 ML IV PRN (08:55)
[2024-09-29] MEDS ORDERED: Insulin Human Lispro 100 Units/ML 3ML Syringe SC SCH (11:30)
[2024-09-29 14:18] LABS: Hematocrit 26.4 % (33.0-51.0); Hemoglobin 7.6 g/dL (11.5-16.0)
[2024-09-29] MEDS ORDERED: METO5 PO (14:29)
[2024-09-29] MEDS ORDERED: Bumetanide2 MG PO (14:29)
[2024-09-29] MEDS ORDERED: PRENATAL 19 TA1 EAC3 PO (14:31)
--- NOTE | 2024-09-29 15:00 | NUR ---
UPDATE DISCHARGE ORDERS PROVIDED FOR PATIENT TO GO BACK TO [facility]. BP STABLE. PT ON BASELINE 2L NC. HR REMAINS AFIB 80'S. PT PROVIDED BED BATH AND THEN LIFTED TO HER OWN ELECTRIC WC VIA CEILING LIFT. TRANSPORT TO BE HERE AT 1530
[2024-09-29] MEDS ORDERED: Darbepoetin Alfa In Albumn Sol 60 MCG/0.3 ML Syringe SC SCH (16:00)
[2024-10-02] MEDS ORDERED: Amiodarone HCl 200 MG Tab PO SCH (09:00)
== END 2024-09-29 15:35 ==
LOC: ER 23:22 → PCU 23:23 → ER 09-28 02:01 → ERHOLD 09-28 03:13 → PCU 09-28 03:13 → ERHOLD 09-28 03:13 → ER 09-28 03:13 → PCU 09-28 15:06 → ERHOLD 09-28 15:06 → PCU 09-29 15:35
PROVIDERS: Internal Medicine; Internal Medicine Nephrology; Student in an Organized Health Care Education/Training Program; ADMIT Student in an Organized Health Care Education/Training Program
DX: I13.2 Hypertensive heart and chronic kidney disease with heart failure and with stage 5 chronic kidney disease, or end stage renal disease (principal); E11.22 Type 2 diabetes mellitus with diabetic chronic kidney disease; N18.6 End stage renal disease; I50.32 Chronic diastolic (congestive) heart failure; N25.81 Secondary hyperparathyroidism of renal origin; D63.1 Anemia in chronic kidney disease; I25.10 Atherosclerotic heart disease of native coronary artery without angina pectoris; I48.0 Paroxysmal atrial fibrillation; J44.9 Chronic obstructive pulmonary disease, unspecified; J96.11 Chronic respiratory failure with hypoxia; K59.09 Other constipation; R79.89 Other specified abnormal findings of blood chemistry; L89.151 Pressure ulcer of sacral region, stage 1; E66.2 Morbid (severe) obesity with alveolar hypoventilation; Z68.43 Body mass index [BMI] 50.0-59.9, adult; Z79.82 Long term (current) use of aspirin; Z79.4 Long term (current) use of insulin; Z79.899 Other long term (current) drug therapy; Z66 Do not resuscitate; Z88.0 Allergy status to penicillin; Z88.2 Allergy status to sulfonamides; Z88.5 Allergy status to narcotic agent; Z95.5 Presence of coronary angioplasty implant and graft; Z90.49 Acquired absence of other specified parts of digestive tract
CPT/HCPCS: 36415; 36430; 71045; 80053; 80069; 82947; 83036; 83735; 83880; 84484; 85014; 85018; 85025; 85027; 86850; 86900; 86901; 86923; 93005; 93010; 94640; 94660; 94762; 96365; 96366; 96374; 99285-25; A9270; G0378; J1885; J3475; P9016

== ENCOUNTER → 2024-10-01 | Outpatient (CLI) | payer OTHER ==
[~2024-10-01] MED LIST changes: +Bumetanide2 MG PO; +PRENATAL 19 TA1 EAC3 PO
[2024-10-01 09:15] LABS: Albumin, Blood 1.9 g/dL (3.4-5.0); Anion Gap 14 mmol/L (3-11); Blood Urea Nitrogen 107 mg/dL (8-24); Bun/Creatinine Ratio 38.5 (12.0-20.0); CO2, Blood 29 mmol/L (21-32); Calcium, Blood 7.7 mg/dL (8.5-10.1); Chloride, Blood 93 mmol/L (98-108); Creatinine, Blood 2.78 mg/dL (0.40-1.00); Glomerular Filtration Rate 17 (60-); Glucose, Blood 148 mg/dL (70-99); Phosphorus, Blood 6.6 mg/dL (2.5-4.9); Potassium, Blood 4.8 mmol/L (3.5-5.5); Sodium, Blood 131 mmol/L (136-145)
== END | disposition home or self-care (01) ==
LOC: LAB SHORT 08:00 → LAB 08:00
PROVIDERS: Internal Medicine Nephrology
DX: N18.6 End stage renal disease (principal)
CPT/HCPCS: 80069

== ENCOUNTER 2024-10-05 13:23 | Emergency (ER) | payer OTHER ==
[~2024-10-05] VITALS: Ht 170.2 cm; Wt 136.1 kg
[2024-10-05 13:55] LABS: Base Excess Venous 5.5 mmol/L; Bicarbonate Venous 28.8 mmol/L (24.0-30.0); PCO2 Venous 49.7 mmHg (38-42); pH Blood Venous 7.39 (7.34-7.37)
[2024-10-05 13:59] LABS: Calcium, Ionized (POC) 1.09 mmol/L (1.10-1.46); Chloride (POC) 92 mmol/L (98-108); Glucose (ISTAT POC) 89 mg/dL (70-99); Hemoglobin (POC) 9.2 g/dL (12.0-16.0); Potassium (POC) 4.8 mmol/L (3.5-5.5); Sodium (POC) 134 mmol/L (135-148); Total CO2 (POC) 30 mmol/L (21-32)
[2024-10-05 14:07] LABS: Albumin, Blood 1.6 g/dL (3.4-5.0); Albumin/Globulin Ratio 0.3 (0.8-1.8); Bun/Creatinine Ratio 28.1 (12.0-20.0); Calcium, Blood 8.5 mg/dL (8.5-10.1); Creatinine, Blood 2.56 mg/dL (0.40-1.00); Globulin, Blood 4.7 g/dL (2.2-4.0); Magnesium, Blood 1.7 mg/dL (1.6-2.4); Phosphorus, Blood 6.1 mg/dL (2.5-4.9); Potassium, Blood 4.8 mmol/L (3.5-5.5); Total Protein, Blood 6.3 g/dL (6.4-8.2)
[2024-10-05 14:14] LABS: Hematocrit 26.6 % (33.0-51.0); Hemoglobin 7.6 g/dL (11.5-16.0); Mean Corpuscular HGB 26.1 pg (26.0-34.0); Mean Corpuscular HGB Conc 28.6 g/dL (31.5-36.5); Mean Corpuscular Volume 91 fL (80-100); Mean Platelet Volume 9.8 fL (9.1-12.4); NRBC ABSOLUTE 0.03 K/mm3 (0.00-0.02); NRBC Auto 0.2 /100 WBC (0.0-0.2); Platelet Count 420 K/mm3 (150-400); RDW Coefficient Variation 20.1 % (11.7-14.2); RDW Standard Deviation 67.6 fL (35.1-46.3); Red Blood Cell Count 2.91 M/mm3 (3.80-5.20); White Blood Cell Count 18.99 K/mm3 (4.00-11.30)
[2024-10-05 14:37] LABS: BAND PERCENT MAN 3 % (0-8); BASOPHILS PERCENT MAN 0 % (0-2); EOSINOPHILS PERCENT MAN 0 % (0-6); LYMPHOCYTES ABSOLUTE MAN 0.56 K/mm3 (0.84-5.20); LYMPHOCYTES PERCENT MAN 3 % (21-46); MONOCYTES ABSOLUTE MAN 1.13 K/mm3 (0.16-1.47); MONOCYTES PERCENT MAN 6 % (4-13); NEUTROPHILS ABSOLUTE MAN 17.28 K/mm3 (1.96-9.15); SEG NEUTROPHILS PERCENT MAN 88 % (41-73); TOTAL CELLS COUNTED 100
[2024-10-05] MEDS ORDERED: Bumetanide 0.25 MG/ML 10ML Vial IV ONE (15:10)
[2024-10-05 15:35] LABS: Source, Urine Foley catheter
[2024-10-05 15:41] LABS: Appearance, Urine Hazy (Clear); Blood, Urine 2+ (Neg); Color, Urine Amber (P-Yellow); Glucose Qualitative, Urine Neg (Neg); Ketones, Urine Neg (Neg); Leukocyte Esterase, Urine 2+ (Neg); Nitrite, Urine Neg (Neg); Protein, Urine 1+ (Neg); Specific Gravity, Urine 1.015 (1.003-1.022); Urobilinogen, Urine NORM (Normal)
[2024-10-05 15:47] LABS: Bilirubin, Urine 1+ (Neg)
[2024-10-05 15:49] LABS: Bacteria Many /hpf; Squamous Epithelial Cells Mod /hpf (Few); Transitional Epithelial Cells Rare /hpf (0-Rare); Yeast/Fungi Urine Many /hpf
[2024-10-05] MEDS ORDERED: Cefepime HCl 2,000 MG in NS 100 ML IV ONE (18:25)
[2024-10-05] MEDS ORDERED: Vancomycin HCL 2,000 MG in NS 520 ML IV ONE (18:25)
[2024-10-05 20:47] LABS: Base Excess Venous 4.9 mmol/L; Bicarbonate Venous 27.9 mmol/L (24.0-30.0); PCO2 Venous 59.2 mmHg (38-42); pH Blood Venous 7.33 (7.34-7.37)
[2024-10-05 22:15] VITALS: BP 115/88
== END 2024-10-05 22:42 | disposition short-term general hospital (02) ==
LOC: ER 13:23
PROVIDERS: Student in an Organized Health Care Education/Training Program
DX: R57.9 Shock, unspecified (principal); N39.0 Urinary tract infection, site not specified; E87.70 Fluid overload, unspecified; J44.89 Other specified chronic obstructive pulmonary disease; E11.40 Type 2 diabetes mellitus with diabetic neuropathy, unspecified; F43.10 Post-traumatic stress disorder, unspecified; G47.33 Obstructive sleep apnea (adult) (pediatric); I50.9 Heart failure, unspecified; E87.6 Hypokalemia; M19.90 Unspecified osteoarthritis, unspecified site; K21.9 Gastro-esophageal reflux disease without esophagitis; I13.0 Hypertensive heart and chronic kidney disease with heart failure and stage 1 through stage 4 chronic kidney disease, or unspecified chronic kidney disease; N18.30 Chronic kidney disease, stage 3 unspecified; E78.5 Hyperlipidemia, unspecified; I48.0 Paroxysmal atrial fibrillation; Z79.82 Long term (current) use of aspirin; Z79.51 Long term (current) use of inhaled steroids; Z88.0 Allergy status to penicillin; Z88.2 Allergy status to sulfonamides; Z91.041 Radiographic dye allergy status; Z88.5 Allergy status to narcotic agent; Z88.8 Allergy status to other drugs, medicaments and biological substances
CPT/HCPCS: 36415; 36556; 51702; 71045; 80047; 80053; 81001; 82803; 83605; 83735; 83880; 84100; 84484; 85014; 85025; 87040; 87077; 87086; 93005; 93010; 94660; 96365-59; 96366-59; 96368; 96375-59; 99285-25; C1751; J0692; J3370; J7040; J7060